=== PATIENT | female | born 1960 | race Caucasian/White ===

== ENCOUNTER 2021-07-23 11:47 | Outpatient (REF) | payer OTHER, SELFPAY ==
[2021-07-23 11:59] LABS: MANUAL DIFF FLAG NO
[2021-07-23 12:39] LABS: Basophils Absolute Auto 0.1 X10*3/uL (0.0-0.2); Basophils Percent Auto 0.8 % (0-2); Eosinophils Absolute Auto 0.1 X10*3/uL (0.0-0.4); Hematocrit 38.7 % (37.0-47.0); Hemoglobin 12.7 g/dl (12.0-16.0); Imm Gran Abs Auto 0.01 X10*3/uL (0.00-0.03); Imm Gran Pct Auto 0.2 % (0.0-0.4); Lymphocytes Absolute Auto 2.2 X10*3/uL (1.2-4.9); Lymphocytes Percent Auto 34.5 % (20-40); Mean Corpuscular HGB Conc 32.8 g/dl (31.0-35.0); Mean Corpuscular Hemoglobin 32.3 pg (27.0-33.0); Mean Corpuscular Volume 98.5 fL (80.0-98.0); Mean Platelet Volume 10.4 fL (9.4-12.3); Monocytes Absolute Auto 0.4 X10*3/uL (0.1-1.2); Monocytes Percent Auto 5.9 % (2-11); Neutrophils Absolute Auto 3.65 x10*3/uL (2.0-8.3); Neutrophils Percent Auto 56.6 % (45-73); Platelet Count 318 X10*3/uL (160-400); Red Blood Count 3.93 X10*6/uL (4.20-5.50); Red Cell Distribution Width 12.4 % (11.0-16.0); White Blood Count 6.4 X10*3/uL (4.8-10.8)
[2021-07-23 13:11] LABS: Alanine Aminotransferase 18 U/L (0-31); Albumin Level 4.1 g/dL (3.5-5.0); Alkaline Phosphatase 73 U/L (39-117); Anion Gap 12 (12-20); Aspartate Amino Transferase 22 U/L (5-31); Bilirubin Total 0.6 mg/dL (0.0-1.0); Blood Urea Nitrogen 15 mg/dL (9-16); Carbon Dioxide 29 mmol/L (22-29); Chloride 106 mmol/L (96-108); Cholesterol 168 mg/dL; Estimated Glomerular Filt Rate > 60; Glucose Fasting 97 mg/dL (60-99); HDL Cholesterol 58 mg/dL; LDL Cholesterol Calculated 89 mg/dl; Potassium 5.5 mmol/L (3.3-5.1); Sodium 141 mmol/L (135-145); Total Protein 6.9 g/dL (6.5-8.0); Triglycerides 105 mg/dL
[2021-07-23 13:31] LABS: Thyroid Stimulating Hormone 2.53 uIU/mL (0.32-4.0)
[2021-07-28 13:02] LABS: Vitamin D 25-OH, D2 <4 ng/mL; Vitamin D 25-OH, D3 51 ng/mL; Vitamin D 25-OH, Total 51 ng/mL (30-100)
== END 2021-07-23 11:48 | disposition home or self-care (01) ==
LOC: HO.LAB 11:47
PROVIDERS: PCP Internal Medicine; Visit Provider Internal Medicine
DX: E66.9 Obesity, unspecified (principal); E55.9 Vitamin D deficiency, unspecified; E78.5 Hyperlipidemia, unspecified; D64.9 Anemia, unspecified; G43.109 Migraine with aura, not intractable, without status migrainosus
CPT/HCPCS: 36415; 80053; 80061; 82306; 84443; 85025

== ENCOUNTER → 2021-09-16 13:05 | Outpatient (REF) | payer OTHER, SELFPAY ==
--- NOTE | 2021-09-16 13:12 | ECG_ITS ---
Test Reason : hyperkalemia Blood Pressure : / mmHG Vent. Rate : 069 BPM Atrial Rate : 069 BPM P-R Int : 180 ms QRS Dur : 106 ms QT Int : 422 ms P-R-T Axes : 058 027 048 degrees QTc Int : 452 ms Normal sinus rhythm Minimal voltage criteria for LVH, may be normal variant ( [place] product ) Borderline ECG No previous ECGs available Referred By: Misti Cam Electronically Signed By:Danny Nails
[2021-09-16 14:25] LABS: Alanine Aminotransferase 21 U/L (0-31); Albumin Level 4.3 g/dL (3.5-5.0); Alkaline Phosphatase 86 U/L (39-117); Anion Gap 11 (12-20); Aspartate Amino Transferase 24 U/L (5-31); Bilirubin Total 0.7 mg/dL (0.0-1.0); Blood Urea Nitrogen 11 mg/dL (9-16); Calcium 10.4 mg/dL (8.4-10.2); Carbon Dioxide 31 mmol/L (22-29); Chloride 103 mmol/L (96-108); Estimated Glomerular Filt Rate > 60; Glucose Random 96 mg/dL (60-115); Sodium 140 mmol/L (135-145); Total Protein 7.2 g/dL (6.5-8.0)
== END ==
LOC: HO.CARD 13:05
PROVIDERS: PCP Internal Medicine; Visit Provider Internal Medicine
DX: E87.5 Hyperkalemia (principal)
CPT/HCPCS: 36415; 80053; 93005

== ENCOUNTER 2021-11-28 16:21 | Outpatient (REF) | payer OTHER, SELFPAY ==
--- NOTE | ~2021-11-28 | MM_ITS ---
EXAMINATION: MM SCREENING DIGITAL BREAST TOMOSYNTHESIS, BILATERAL CLINICAL INFORMATION: Screening. Asymptomatic. The lifetime risk of breast cancer based on the Tyrer-Cuzick Model is 4%. COMPARISON: Mammography: 11/27/2017, 05/19/2016 TECHNIQUE: Digital breast tomosynthesis is performed in both the craniocaudal and mediolateral oblique views along with computer-aided detection (CAD). Synthesized 2D images are generated from the tomosynthesis. FINDINGS: There are scattered areas of fibroglandular density (ACR BI-RADS breast composition Category b). There are no significant masses, abnormal calcifications, or other abnormalities. Parenchymal pattern is similar to prior studies. There are no significant changes. MM/MM tomosynthesis screening BI IMPRESSION: No mammographic evidence of malignancy. ASSESSMENT: BI-RADS 1: Negative RECOMMENDATION: Routine annual mammography screening. This patient's information was entered into a reminder system with a target due date for their next mammogram.
== END 2021-11-28 16:22 | disposition home or self-care (01) ==
LOC: HO.MAMMO 16:21
PROVIDERS: Visit Provider Internal Medicine
DX: Z12.31 Encounter for screening mammogram for malignant neoplasm of breast (principal)
CPT/HCPCS: 77063; 77067

== ENCOUNTER → 2022-09-26 12:41 | Outpatient (REF) | payer OTHER, SELFPAY ==
--- NOTE | 2022-09-26 12:44 | CA_ITS ---
Transthoracic Echocardiogram Patient (Last, First, Middle): Yolie Joshua M Gender: Female Date of : 1960 Age: 61 Procedure Date: 09/26/2022 Procedure Type: Transthoracic Echocardiogram Location: OP Height: 160.02 cm Weight: 81.65 kg BSA: 1.85 m2 Heart Rate: bpm BP: 140 / 87 mmHg Soup Mixer: TO Referring MD: Misti Cam MD Symptoms: R01.1 - Cardiac murmur, unspecified Study Quality: Fair ECG Rhythm: Sinus Conclusions: - The left ventricular systolic function is normal. The calculated ejection fraction is 58% by biplane method. - Focal severe hypertrophy of the basal septum. - There is a bicuspid aortic valve. There is severe aortic valve stenosis. - There is mild dilatation of the ascending aorta measuring 4.00 cm. Findings Left Ventricle Normal left ventricular cavity size. The left ventricular systolic function is normal. The calculated ejection fraction is 58% by biplane method. There is no evidence of regional wall motion abnormalities. Evidence suggests grade I (mild) diastolic dysfunction. Focal severe hypertrophy of the basal septum. Right Ventricle Mildly increased right ventricular cavity size. There is normal right ventricular systolic function. Atria The left atrium is moderately dilated. The right atrium is normal in size. Aortic Valve There is a bicuspid aortic valve. There is moderate calcification of the aortic valve. There is severe aortic valve stenosis. The mean gradient is 44 mmHg. The aortic valve area is 0.79 cm2. There is no aortic valve regurgitation. Mitral Valve The mitral valve appears normal. There is mild mitral annular calcification. There is trace mitral valve regurgitation. There is no mitral valve stenosis. Pulmonic Valve The pulmonic valve is likely normal. There is trace pulmonic valve regurgitation. Tricuspid Valve Normal tricuspid valve structure. There is trace tricuspid valve regurgitation. There is no evidence of pulmonary hypertension. Great Vessels There is mild dilatation of the ascending aorta measuring 4.00 cm. Small plaque is seen in the sino tubular ridge. Venous The inferior vena cava is normal in size and collapses greater than 50% with inspiration. Pericardium/Pleural There is no evidence of pericardial effusion. Prior Study Comparison No prior study available for comparison. Measurements 2D Linear Measurements IVSd: 1.44 0.6-0.9/0.6-1.0 cm LVIDd: 5.00 3.9-5.3/4.2-5.9 cm LVIDd Index: 2.70 2.4-3.2/2.2-3.1 cm/m2 LVIDs: 3.32 2.0-3.6 cm LVPWd: 0.92 0.7-1.1 cm LA Diam: 3.60 2.7-3.8/3.0-4.0 cm LAIDs Index: 1.95 1.5-2.3 cm/m2 LV Mass: 284.47 67-162/88-224 g LV Mass Index: 153.77 43-95/49-115 g/m2 LVOT Diam: 2.20 3.0+(-)1.3 cm 2D Systolic Function EF 4C: 55.30 >55% EF 2C: 59.20 >55% EF BiP: 57.60 >55% Mitral Valve MV Pk E: 0.82 MV PK A: 0.79 MV Decel Time: 258.00 E/A: 1.00 E'Lateral: 6.31 E'Medial: 5.87 E/E' Med: 13.90 E/E' Lat: 13.00 PHT: 76.00 MVA PHT: 2.89 Decel [place]: 3.17 Aortic Valve AoV Pk Ariel: 4.03 AoV Mn Ariel: 3.23 AoV VTI: 1.07 AoV Pk Grad: 65.00 Aov Mn Grad: 44.00 MARK Cont.VTI: 0.79 LVOT LVOT Pk Ariel: 0.85 LVOT Mn Ariel: 0.65 LVOT VTI: 0.22 LVOT Pk Grad: 3.00 LVOT Mn Grad: 2.00 LVOT Diam: 2.20 LVOT Area: 3.80 Diastolic Function MV Pk E: 0.82 MV Pk A: 0.79 E/A: 1.00 E'Medial: 5.87 E/E' Med: 13.90 E' Laterial: 6.31 E/E' Lat: 13.00 Right Ventricle TAPSE (mm): 31.30 TVS' Ariel: 14.60 Tricuspid Valve TR Pk Ariel: 1.90 TR Pk Grad: 14.00 RA Press: 3.00 RVSP: 17.00 Great Vessels Aorta Sinus of Valsalva: 3.62 2.0-3.[address] [place]: 3.38 1.7-3.4 cm Ao Asc: 4.00 2.1-3.4 cm Ao Arch: 3.40 Updated in Other Vendor System with Status of Final Rogerio Dillon MD electronically signed on 09/28/2022 12:38:05 PM with status of Final
== END ==
LOC: HO.CARD 12:41
PROVIDERS: Visit Provider Internal Medicine
DX: R01.1 Cardiac murmur, unspecified (principal)
CPT/HCPCS: 93306

== ENCOUNTER → 2022-10-02 09:31 | Outpatient (BNVA) | payer OTHER, SELFPAY | PROVIDERS: PCP Internal Medicine; Visit Provider Internal Medicine | DX: Q23.1 Congenital insufficiency of aortic valve (principal); I77.810 Thoracic aortic ectasia | CPT/HCPCS: 93005 ==

== ENCOUNTER 2022-10-06 12:10 | Outpatient (REF) | payer OTHER, SELFPAY ==
[2022-10-06 14:29] LABS: Alanine Aminotransferase 16 U/L (0-31); Albumin Level 4.1 g/dL (3.5-5.0); Alkaline Phosphatase 78 U/L (39-117); Anion Gap 13 (12-20); Aspartate Amino Transferase 21 U/L (5-31); Bilirubin Total 0.8 mg/dL (0.0-1.0); Blood Urea Nitrogen 18 mg/dL (9-16); Carbon Dioxide 30 mmol/L (22-29); Chloride 102 mmol/L (96-108); Cholesterol 164 mg/dL; Estimated Glomerular Filt Rate > 60; Glucose Fasting 88 mg/dL (60-99); HDL Cholesterol 69 mg/dL; LDL Cholesterol Calculated 79 mg/dl; Potassium 4.1 mmol/L (3.3-5.1); Sodium 141 mmol/L (135-145); Triglycerides 80 mg/dL
== END 2022-10-06 12:11 | disposition home or self-care (01) ==
LOC: HO.LAB 12:10
PROVIDERS: PCP Internal Medicine; Visit Provider Internal Medicine
DX: Z00.00 Encounter for general adult medical examination without abnormal findings (principal)
CPT/HCPCS: 36415; 80053; 80061

== ENCOUNTER → 2022-10-07 08:49 | Outpatient (REF) | payer OTHER, SELFPAY ==
--- NOTE | 2022-10-07 08:52 | CA_ITS ---
Acquisition Time: 2022-10-07 09:31:32 Total Exercise Time: 00:08:00 Test Indications: AORTIC STENOSIS Medications: SEE CHART Protocol: MAE Max HR: 144 BPM 90% of Pred: 160 BPM Max BP: 158/088 mmHG Max Work Load: 10.0 METS Exercise stress test with exercise 8 min of Mae protocol, achieving 90% MPHR, 9.9 METs, with report of moderate sob and fatigue with request to stop, no chest discomfort, with isolated PACs and PVCs, with blunted BP response to exercise with baseline BP 136/88 and max BP 158/88, without EKG changes meeting criteria for ischemia. In recovery BP came down to 132/84 and breathing normalized. Test reviewed with Dr Man Referred By: Rogerio Dillon Overread By: IRIS LABOY
== END ==
LOC: HO.CARD 08:49
PROVIDERS: Visit Provider Internal Medicine
DX: I35.0 Nonrheumatic aortic (valve) stenosis (principal)
CPT/HCPCS: 93017

== ENCOUNTER → 2022-10-09 12:52 | Outpatient (BNVA) | payer OTHER, SELFPAY | PROVIDERS: PCP Internal Medicine; Visit Provider Internal Medicine | DX: Z13.89 Encounter for screening for other disorder (principal) ==

== ENCOUNTER 2022-10-17 16:57 | Outpatient (REF) | payer OTHER, SELFPAY ==
[2022-10-17 17:20] LABS: Hematocrit 37.9 % (37.0-47.0); Hemoglobin 12.8 g/dl (12.0-16.0); Mean Corpuscular HGB Conc 33.8 g/dl (31.0-35.0); Mean Corpuscular Hemoglobin 32.4 pg (27.0-33.0); Mean Corpuscular Volume 95.9 fL (80.0-98.0); Mean Platelet Volume 10.1 fL (9.4-12.3); Platelet Count 296 X10*3/uL (160-400); Red Blood Count 3.95 X10*6/uL (4.20-5.50); Red Cell Distribution Width 11.9 % (11.0-16.0); White Blood Count 7.8 X10*3/uL (4.8-10.8)
[2022-10-17 17:29] LABS: Prothrombin Time 11.4 SEC (10.0-13.1)
[2022-10-17 17:48] LABS: B Type Natriuretic Peptide 79 pg/mL (<100)
[2022-10-17 17:51] LABS: Anion Gap 12 (12-20); Blood Urea Nitrogen 17 mg/dL (9-16); Calcium 9.7 mg/dL (8.4-10.2); Carbon Dioxide 29 mmol/L (22-29); Chloride 104 mmol/L (96-108); Estimated Glomerular Filt Rate > 60; Glucose Random 112 mg/dL (60-115); Potassium 3.8 mmol/L (3.3-5.1); Sodium 141 mmol/L (135-145)
== END 2022-10-17 16:58 | disposition home or self-care (01) ==
LOC: HO.LAB 16:57
PROVIDERS: PCP Internal Medicine; Visit Provider Internal Medicine
DX: I35.0 Nonrheumatic aortic (valve) stenosis (principal)
CPT/HCPCS: 36415; 80048; 83880; 85027; 85610

== ENCOUNTER → 2022-11-20 12:57 | Outpatient (BNVA) | payer OTHER, SELFPAY | PROVIDERS: PCP Internal Medicine; Referring Provider Internal Medicine; Visit Provider Internal Medicine | DX: Z13.89 Encounter for screening for other disorder (principal) ==

== ENCOUNTER 2022-12-17 14:10 | Outpatient (REF) | payer OTHER, SELFPAY ==
--- NOTE | ~2022-12-17 | US_ITS ---
EXAMINATION: US EXTRACRANIAL CAROTID DUPLEX, BILATERAL CLINICAL INFORMATION: Aortic aneurysm. COMPARISON: None available. TECHNIQUE: Real-time ultrasound and Doppler techniques (integrating B-mode 2-D vascular images, Doppler spectral analysis and color-flow Doppler imaging) were utilized to interrogate the extracranial carotid arteries, the vertebral arteries and proximal subclavian arteries bilaterally. The degree of stenosis is determined by criteria similar to NASCET. FINDINGS: Right Side: 1. There is mild atherosclerotic plaque seen in the bifurcation/proximal ICA region. 2. The common carotid artery PSV proximally is 118 cm/s and distally 85 cm/s. 3. The proximal internal carotid artery velocities are 71 cm/s systolic and 79 cm/s diastolic. 4. The proximal external carotid artery PSV is 86 cm/s. 5. The vertebral artery shows antegrade flow. 6. The subclavian artery waveforms are normal. Left Side: 1. There is mild atherosclerotic plaque seen in the bifurcation/proximal ICA region. 2. The common carotid artery PSV proximally is 103 cm/s and distally 70 cm/s. 3. The proximal internal carotid artery velocities are 64 cm/s systolic and 22 cm/s diastolic. 4. The proximal external carotid artery PSV is 88 cm/s. 5. The vertebral artery shows antegrade flow. 6. The subclavian artery waveforms are normal. US/US carotid duplex BI IMPRESSION: 1. RIGHT: Minimal, non-hemodynamically significant stenosis of the proximal right internal carotid artery corresponding to a 0-49% stenosis by velocity criteria. 2. LEFT: Minimal, non-hemodynamically significant stenosis of the proximal left internal carotid artery corresponding to a 0-49% stenosis by velocity criteria.
--- NOTE | ~2022-12-17 | CT_ITS ---
EXAMINATION: CT CHEST WITHOUT CONTRAST CLINICAL INFORMATION: Aortic aneurysm. COMPARISON: None available. TECHNIQUE: Multidetector volumetric CT imaging of the chest was done. Axial MIP volume rendering provided. Sagittal and coronal reformatted images were obtained. This CT examination was performed using dose optimization techniques as appropriate, variously including the following: *Automated exposure control *Adjustment of mA and/or kV according to patient size (this includes techniques or standardized protocols for targeted exams where dose is matched to indication/reason for exam; i.e. extremities or head) *Use of iterative reconstruction technique DLP: 169 mGy-cm. FINDINGS: LUNGS: Central airways are patent. No significant bronchial wall thickening is identified. No bronchiectasis is seen. No confluent parenchymal disease is noted. There are some sub-4 mm densities seen. There is some calcified granulomas present. No suspicious lung nodules appreciated. MEDIASTINUM: The heart is normal size. Aortic valve calcification is present. No pericardial effusion. The ascending thoracic aorta measures up to approximately 4.4 cm in diameter. The aortic arch and descending thoracic aorta are not dilated. No mediastinal or hilar lymphadenopathy is appreciated. CORONARY ARTERY CALCIFICATION: Coronary artery calcification is present. PLEURA: There is no pleural effusion. No pleural mass or thickening. AXILLA: No lymphadenopathy. UPPER ABDOMEN: Unremarkable. OSSEOUS STRUCTURES: No suspicious destructive bony lesions identified. CT/CT chest wo IV con IMPRESSION: Ascending thoracic aortic aneurysm measuring up to 4.4 cm in diameter. Old granulomatous disease. Fleischner guidelines were followed.
== END 2022-12-17 14:11 | disposition home or self-care (01) ==
LOC: HO.US 14:10
PROVIDERS: PCP Internal Medicine; Visit Provider Thoracic Surgery (Cardiothoracic Vascular Surgery)
DX: R09.89 Other specified symptoms and signs involving the circulatory and respiratory systems (principal); I71.9 Aortic aneurysm of unspecified site, without rupture
CPT/HCPCS: 71250; 93880

== ENCOUNTER 2023-01-08 12:51 | Outpatient (REF) | payer OTHER, SELFPAY ==
--- NOTE | ~2023-01-08 | MM_ITS ---
EXAMINATION: MM SCREENING DIGITAL BREAST TOMOSYNTHESIS, BILATERAL CLINICAL INFORMATION: Screening. Asymptomatic. The lifetime risk of breast cancer based on the Tyrer-Cuzick Model is 5.0%. COMPARISON: Mammography: 11/28/2021 and studies dating back to 03/15/2008. TECHNIQUE: Digital breast tomosynthesis is performed in both the craniocaudal and mediolateral oblique views along with computer-aided detection (CAD). Synthesized 2-D images are generated from the tomosynthesis. FINDINGS: There are scattered areas of fibroglandular density (ACR BI-RADS breast composition Category b). There is a stable parenchymal pattern of the left breast. Within the right breast, there is a stable region of density within the upper outer aspect. However, on mediolateral oblique study just inferior and anterior to this, there is question of an irregularly marginated density for which spot compression films are recommended. No suspicious grouping of microcalcifications is seen. MM/MM tomosynthesis screening BI IMPRESSION: Right breast density for further evaluation. ASSESSMENT: BI-RADS 0: Incomplete - Need Additional Imaging Evaluation. RECOMMENDATION: 1. Additional views of the right breast. 2. Targeted ultrasound if warranted after review of the additional views. 3. Radiology department staff will contact the patient for additional imaging. This patient's information was entered into a reminder system with a target due date for their next mammogram.
== END 2023-01-08 12:52 | disposition home or self-care (01) ==
LOC: HO.MAMMO 12:51
PROVIDERS: PCP Internal Medicine; Visit Provider Internal Medicine
DX: Z12.31 Encounter for screening mammogram for malignant neoplasm of breast (principal)
CPT/HCPCS: 77063; 77067

== ENCOUNTER 2023-01-13 14:51 | Outpatient (REF) | payer OTHER, SELFPAY ==
--- NOTE | ~2023-01-13 | MM_ITS ---
EXAMINATION: MM DIAGNOSTIC DIGITAL BREAST TOMOSYNTHESIS, RIGHT CLINICAL INFORMATION: Recall from screening for question of asymmetric density right breast on MLO view superior to posterior nipple line. COMPARISON: Multiple prior mammography exams, most recent 01/08/2023. TECHNIQUE: Digital breast tomosynthesis is performed. 2D images are generated from the tomosynthesis. The following views are obtained: Spot MLO, standard ML. FINDINGS: There are scattered areas of fibroglandular density (ACR BI-RADS breast composition Category b). The additional views show parenchymal pattern similar to prior exams. There is no persistent asymmetric density and no interval architectural abnormality or mass in the area for recall. Results are discussed with the patient at time of visit. MM/MM tomosynthesis added views R IMPRESSION: Additional views show no significant changes from prior studies. ASSESSMENT: BI-RADS 2: Benign RECOMMENDATION: Routine annual mammography screening. This patient's information was entered into a reminder system with a target due date for their next mammogram.
== END 2023-01-13 14:52 | disposition home or self-care (01) ==
LOC: HO.MAMMO 14:51
PROVIDERS: PCP Internal Medicine; Visit Provider Internal Medicine
DX: R92.2 Inconclusive mammogram (principal)
CPT/HCPCS: 77061; 77065

== ENCOUNTER → 2023-03-12 15:02 | Outpatient (BNVA) | payer OTHER, SELFPAY | PROVIDERS: PCP Internal Medicine; Referring Provider Internal Medicine; Visit Provider Nurse Practitioner Family ==

== ENCOUNTER 2023-03-17 14:00 | Outpatient (REF) | payer OTHER, SELFPAY ==
[2023-03-17 14:09] LABS: MANUAL DIFF FLAG NO
[2023-03-17 14:30] LABS: Basophils Percent Auto 0.6 % (0-2); Eosinophils Absolute Auto 0.1 X10*3/uL (0.0-0.4); Eosinophils Percent Auto 0.9 % (0-4); Hematocrit 38.5 % (37.0-47.0); Hemoglobin 12.2 g/dl (12.0-16.0); Imm Gran Abs Auto 0.01 X10*3/uL (0.00-0.03); Imm Gran Pct Auto 0.1 % (0.0-0.4); Lymphocytes Absolute Auto 1.2 X10*3/uL (1.2-4.9); Lymphocytes Percent Auto 17.7 % (20-40); Mean Corpuscular HGB Conc 31.7 g/dl (31.0-35.0); Mean Corpuscular Hemoglobin 31.7 pg (27.0-33.0); Mean Platelet Volume 10.6 fL (9.4-12.3); Monocytes Absolute Auto 0.3 X10*3/uL (0.1-1.2); Monocytes Percent Auto 5.1 % (2-11); Neutrophils Percent Auto 75.6 % (45-73); Platelet Count 283 X10*3/uL (160-400); Red Blood Count 3.85 X10*6/uL (4.20-5.50); Red Cell Distribution Width 13.1 % (11.0-16.0); White Blood Count 6.7 X10*3/uL (4.8-10.8)
[2023-03-17 16:11] LABS: Iron 80 mcg/dL (30-160); Percent Iron Saturation 27 % (15-50); Total Iron Binding Capacity 299 mcg/dL (228-428); Unsaturated Iron Binding 219 ug/dL
== END 2023-03-17 14:01 | disposition home or self-care (01) ==
LOC: HO.LAB 14:00
PROVIDERS: PCP Internal Medicine; Visit Provider Internal Medicine
DX: D64.9 Anemia, unspecified (principal)
CPT/HCPCS: 36415; 83540; 85025

== ENCOUNTER → 2023-04-10 14:48 | Outpatient (REF) | payer OTHER, SELFPAY ==
--- NOTE | 2023-04-10 14:51 | CA_ITS ---
Transthoracic Echocardiogram Patient (Last, First, Middle): Yolie Joshua M Gender: Female Date of : 1960 Age: 62 Procedure Date: 04/10/2023 Procedure Type: Transthoracic Echocardiogram Location: OP Height: 160.02 cm Weight: 83.01 kg BSA: 1.86 m2 Heart Rate: bpm BP: 138 / 80 mmHg Farm Owner Operator: TO Referring MD: Jayla Roche DENTAL FINANCIAL COORDINATOR-C Symptoms: Z98.890 - Other specified postprocedural states Study Quality: Fair Conclusions: - Normal left ventricular size and systolic function. There is mildly increased left ventricular wall thickness. The visually estimated ejection fraction is between 55-60%. Findings Left Ventricle Normal left ventricular size and systolic function. There is mildly increased left ventricular wall thickness. The visually estimated ejection fraction is between 55-60%. There is no evidence of regional wall motion abnormalities. Abnormal diastolic function is noted. Spectral Doppler is indicative of an impaired relaxation filling pattern. E/E prime ratio is between 8 and 15 consistent with indeterminate filling pressures. Right Ventricle Mildly increased right ventricular cavity size. There is low normal right ventricular systolic function. Atria The left atrium is moderately dilated. The right atrium is moderately dilated. Aortic Valve A bioprosthetic aortic valve is present. The prosthetic aortic valve appears to be functioning abnormally. The peak aortic velocity is 3.04 m/s with a calculated peak gradient of 37 mmHg. The mean gradient is 18 mmHg. The aortic valve area is 1.21 cm2. There is no aortic valve regurgitation. Mitral Valve The mitral valve appears normal. There is no mitral valve regurgitation. There is no mitral valve stenosis. Pulmonic Valve Normal pulmonic valve structure and function. There is no pulmonic valve regurgitation. Tricuspid Valve Normal tricuspid valve structure and function. There is trace tricuspid valve regurgitation. Normal right atrial pressure. There is no evidence of pulmonary hypertension. Great Vessels All visible segments of the aorta are normal in size. The visualized portions of the pulmonary artery and branches are normal. Venous The inferior vena cava is normal in size and collapses greater than 50% with inspiration. Pericardium/Pleural There is no evidence of pericardial effusion. Prior Study Comparison Changes noted compared to prior study dated: 09/26/2022. Bioprosthetic valve in aortic position with moderate gradient. Measurements 2D Linear Measurements IVSd: 1.30 0.6-0.9/0.6-1.0 cm LVIDd: 5.20 3.9-5.3/4.2-5.9 cm LVIDd Index: 2.80 2.4-3.2/2.2-3.1 cm/m2 LVIDs: 3.30 2.0-3.6 cm LVPWd: 1.00 0.7-1.1 cm LA Diam: 4.10 2.7-3.8/3.0-4.0 cm LAIDs Index: 2.20 1.5-2.3 cm/m2 LV Mass: 292.52 67-162/88-224 g LV Mass Index: 157.27 43-95/49-115 g/m2 LVOT Diam: 2.00 3.0+(-)1.3 cm 2D Systolic Function EF 4C: 61.70 >55% EF 2C: 69.00 >55% EF BiP: 66.50 >55% Mitral Valve MV Pk E: 0.84 MV PK A: 0.97 MV Decel Time: 111.00 E/A: 0.90 E'Lateral: 9.57 E'Medial: 5.87 E/E' Med: 14.40 E/E' Lat: 8.80 PHT: 33.00 MVA PHT: 6.67 Decel [place]: 7.57 Aortic Valve AoV Pk Ariel: 3.04 AoV Mn Ariel: 2.02 AoV VTI: 0.68 AoV Pk Grad: 37.00 Aov Mn Grad: 18.00 MARK Cont.VTI: 1.21 LVOT LVOT Pk Ariel: 1.13 LVOT Mn Ariel: 0.82 LVOT VTI: 0.26 LVOT Pk Grad: 5.00 LVOT Mn Grad: 3.00 LVOT Diam: 2.00 LVOT Area: 3.14 Diastolic Function MV Pk E: 0.84 MV Pk A: 0.97 E/A: 0.90 E'Medial: 5.87 E/E' Med: 14.40 E' Laterial: 9.57 E/E' Lat: 8.80 Right Ventricle TAPSE (mm): 22.10 TVS' Ariel: 9.25 Tricuspid Valve TR Pk Ariel: 2.43 TR Pk Grad: 24.00 RA Press: 3.00 RVSP: 27.00 Great Vessels Aorta Ao Asc: 2.90 2.1-3.4 cm Ao Arch: 3.30 Updated in Other Vendor System with Status of Final Danny Nails MD electronically signed on 04/11/2023 9:57:41 PM with status of Final
== END ==
LOC: HO.CARD 14:48
PROVIDERS: PCP Internal Medicine; Visit Provider Nurse Practitioner Family
DX: Z95.2 Presence of prosthetic heart valve (principal); Z98.890 Other specified postprocedural states; Z86.79 Personal history of other diseases of the circulatory system
CPT/HCPCS: 93306

== ENCOUNTER → 2023-04-10 14:51 | Outpatient (BNV) | payer OTHER, SELFPAY | PROVIDERS: PCP Internal Medicine; Visit Provider Internal Medicine Cardiovascular Disease | DX: I35.0 Nonrheumatic aortic (valve) stenosis (principal); Z95.2 Presence of prosthetic heart valve | CPT/HCPCS: 93306 ==

== ENCOUNTER → 2023-06-05 14:54 | Outpatient (REF) | payer OTHER, SELFPAY ==
--- NOTE | 2023-06-05 15:04 | CA_ITS ---
Transthoracic Echocardiogram Patient (Last, First, Middle): Yolie Joshua M Gender: Female Date of : 1960 Age: 62 Procedure Date: 06/05/2023 Procedure Type: Transthoracic Echocardiogram Location: OP Height: 160.02 cm Weight: 83.92 kg BSA: 1.87 m2 Heart Rate: 74 bpm BP: 134 / 72 mmHg Reconnaissance Crewmember: SB Referring MD: Jayla Roche INTERMODAL OWNER OPERATOR TRUCK DRIVER-C Symptoms: Z95.2 presence of prosthetic heart valve/R93.1 abnormal findings on diagnostic imaging of heart and coronary circulation. Study Quality: Adequate/limited study ordered ECG Rhythm: Sinus Conclusions: - The left ventricular systolic function is normal. The visually estimated ejection fraction is between 55-60%. - A bioprosthetic aortic valve is present. The prosthetic aortic valve appears to be functioning normally. Findings Left Ventricle Normal left ventricular cavity size. The left ventricular systolic function is normal. The visually estimated ejection fraction is between 55-60%. There is paradoxical septal motion consistent with post-operative status. Aortic Valve A bioprosthetic aortic valve is present. The prosthetic aortic valve appears to be functioning normally. The peak aortic gradient is 29 mmHg.The mean gradient is 15 mmHg. The aortic valve area is 1.14 cm2. Dimensionless index 0.38. Acceleration time within acceptable limits. Prior Study Comparison Changes noted compared to prior study dated: 04/10/2023. Gradients are improved compared to prior study. Measurements 2D Linear Measurements IVSd: 1.20 0.6-0.9/0.6-1.0 cm LVIDd: 5.20 3.9-5.3/4.2-5.9 cm LVIDd Index: 2.78 2.4-3.2/2.2-3.1 cm/m2 LVIDs: 3.50 2.0-3.6 cm LVPWd: 1.00 0.7-1.1 cm LV Mass: 275.20 67-162/88-224 g LV Mass Index: 147.17 43-95/49-115 g/m2 LVOT Diam: 1.90 3.0+(-)1.3 cm 2D Systolic Function EF 4C: 55.40 >55% EF 2C: 51.60 >55% EF BiP: 53.10 >55% Aortic Valve AoV Pk Ariel: 2.68 AoV Mn Ariel: 1.86 AoV VTI: 0.53 AoV Pk Grad: 29.00 Aov Mn Grad: 15.00 MARK Cont.VTI: 1.14 LVOT LVOT Pk Ariel: 1.01 LVOT Mn Ariel: 0.79 LVOT VTI: 0.21 LVOT Pk Grad: 4.00 LVOT Mn Grad: 3.00 LVOT Diam: 1.90 LVOT Area: 2.84 Updated in Other Vendor System with Status of Final Rogerio Dillon MD electronically signed on 06/07/2023 11:44:22 AM with status of Final
== END ==
LOC: HO.CARD 14:54
PROVIDERS: PCP Internal Medicine; Visit Provider Nurse Practitioner Family
DX: R93.1 Abnormal findings on diagnostic imaging of heart and coronary circulation (principal); Z95.2 Presence of prosthetic heart valve; Z98.890 Other specified postprocedural states; Z86.79 Personal history of other diseases of the circulatory system
CPT/HCPCS: 93308

== ENCOUNTER → 2023-06-05 15:04 | Outpatient (BNV) | payer OTHER, SELFPAY | PROVIDERS: PCP Internal Medicine; Visit Provider Internal Medicine | DX: R93.1 Abnormal findings on diagnostic imaging of heart and coronary circulation (principal) | CPT/HCPCS: 93308 ==

== ENCOUNTER 2023-06-16 15:35 | Outpatient (AMB) | payer OTHER, SELFPAY ==
--- NOTE | 2023-06-16 15:45 | A.OFFVIS_ITS ---
Intake Vital Signs 06/16/23 15:47 Height 5 ft 3 in Weight 184 lb 4.903 oz BMI 32.6 BP 126/74 Blood Pressure Location Lt brachial Position Sitting Pulse 70 Pulse Source Pulse Oximeter Pulse Oximetry (%) 98 Oxygen Delivery Method Room Air Intake Visit Reasons: 3 month follow up after echo Intake Note: Pt presents to the office today for a 3 month follow up after echo. Pt states she is feeling good. Pt denies any SOB or chest pain. Allergies oxycodone Adverse Reaction (Intermediate, Verified 06/16/23 15:48) sick to stomach codeine Adverse Reaction (Intermediate, Uncoded 06/16/23 15:48) abd pain, vomiting Medication List - Last Reconciled 06/16/23 by MICAH Poole aspirin 81 mg PO DAILY buspirone 7.5 mg PO BID 30 days calcium carbonate (Calcium 500) 500 mg PO DAILY cholecalciferol (vitamin D3) 50 mcg PO DAILY [id number] serr 1,500-400-100 mg-unit-mg (Glucosamine Daily Complex) 1 tab PO DAILY metoprolol tartrate 25 mg PO BID multivitamin (Daily Multi-Vitamin tablet) 1 tab PO DAILY omeprazole 20 mg PO DAILY PRN 90 days trazodone 100 mg PO BEDTIME PRN vitamin B complex (B Complex-Vitamin B12 tablet) 1 tab PO DAILY HPI 3 month follow up after echo HPI Details Yolie is a 62-year-old female with past medical history of heart murmur, newer finding of bicuspid aortic valve with severe aortic stenosis and dilated ascending aorta. She recently underwent cardiac catheterization showing normal coronary arteries. She then underwent a bioprosthetic AVR and ascending aorta repair on 01/29/2023. Today she reports she has been feeling well with no concerning symptoms. She denies having chest discomfort at rest or with activity. She will feel a sharp random pain below her right breast which she feels is nerve related due to her recent surgery. She has had a chest x-ray which she said was normal. She has some numbness along the right side of her chest. No shortness of breath, dizziness, presyncope, syncope, falls. No PND, orthopnea or edema. She takes care of her grandchildren which she tolerates well. She did not do cardiac rehab. When she finally got an appointment it was 3 months following her surgery and she felt she was recovered. She is taking her medications as directed. [facility] Medical History Physical exam Hyperkalemia Internal hemorrhoids Diverticulosis Golfers elbow of left upper extremity Obesity (BMI 30.0-34.9) GERD (gastroesophageal reflux disease) Migraine with aura and without status migrainosus, not intractable Surgical History H/O aortic valve replacement History of heart surgery History of carpal tunnel surgery History of cholecystectomy Family History Mother COPD (chronic obstructive pulmonary disease) Diabetes Afib Osteoporosis Dementia Father Lung cancer Family/Other Substance use disorder Maternal Grandmother Colon cancer Social History Housing: House Alcohol intake: current Alcohol intake frequency: 0-2 drinks per day Alcohol type: wine Patient Tobacco Use Status: Never used Tobacco e-Cigarette/Vaping Use: Never Used Second Hand Smoke Exposure: No Substance Use Type: Marijuana service: No Current occupational status: other 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 Current occupational exposures/hazards: No Cognitive needs: No Hearing needs: No Vision needs: Yes Review of Systems Const All systems reviewed & are unremarkable except as noted in HPI and below Physical Exam Vital Signs: Last Vital Signs Pulse 70 06/16/23 15:47 BP 126/74 06/16/23 15:47 Pulse Ox 98 06/16/23 15:47 Oxygen Delivery Method Room Air 06/16/23 15:47 BMI result Body Mass Index 32.6 Const General: cooperative, healthy appearing, comfortable and no acute distress Orientation/consciousness: patient oriented x3 Neck Neck: Yes normal visual inspection and Yes no JVD Chest Other: sternal incision well healed Resp Effort & Inspection: normal respiratory effort Auscultation: clear to auscultation bilaterally, no crackles, no rales, no rhonchi and no wheezes Cardio Jugular venous distension: no JVD Rate: regular rate Rhythm: regular rhythm Heart sounds: S1 normal heart sound present, S2 normal heart sound present, no gallops, Murmur heart sound present (2/6 systolic murmur, loudest at right sternal border.) and no rubs Neuro General: patient oriented x3 Extrem General: Yes normal to inspection and No no pedal edema Psych Appearance: grossly normal Mental Status: mental status grossly normal Speech and movement: Normal speech and movement present Assessment & Plan Assessment & Plan (1) Severe aortic stenosis: Code(s): I35.0 - Nonrheumatic aortic (valve) stenosis Plan: Newer finding of severe aortic stenosis, symptomatic. An echocardiogram done 09/26/2022 showed EF 58%, severe focal hypertrophy of the basal septum, bicuspid aortic valve, severe with mean gradient 44 mmHg, aortic valve area 0.79 centimeter sq, dilation of the ascending aorta 4 cm. She underwent cardiac cath eterization on 11/06/2022 showing normal coronary arteries. She had been referred to cardiac surgery and underwent a bioprosthetic AVR and ascending aorta aneurysm repair on 01/29/2023. Testing prior to her surgery showed her ascending aorta dilated at 4.4 cm. She reports uneventful recovery. She was on amiodarone for 30 days. On follow-up visit in February she was noted to have a systolic murmur. An echocardiogram done 04/10/2023 showed normal EF, bioprosthetic AVR with mean gradient 18 mmHg, aortic valve area 1.21 centimeter sq. A recheck of a limited echo done 06/05/2023 shows EF 55-60%, mean gradient 15 mmHg, aortic valve area 1.1 4 centimeter sq. It was determined that the valve is functioning normally. Reviewed results with patient in detail. Some pressure gradient is acceptable with valve replacement. Murmur is noted again on examination. She has no clinical signs of heart failure. She denies any concerning chest discomfort or shortness of breath. She did not complete [facility] rehab but has been doing normal activities and tolerates well. Continue current aspirin and metoprolol. Cardiology follow-up in 6 months, sooner if needed (2) Ascending aorta dilatation: Comment: repaired Code(s): I77.810 - Thoracic aortic ectasia Plan: As above (3) Aortic valve replaced: Code(s): Z95.2 - Presence of prosthetic heart valve (4) S/P ascending aortic aneurysm repair: Code(s): Z98.890 - Other specified postprocedural states; Z86.79 - Personal history of other diseases of the circulatory system (5) Systolic murmur: Code(s): R01.1 - Cardiac murmur, unspecified Plan: 2/6 murmur noted on examination today, Loudest at right sternal border. Small prior prosthetic valve gradient noted on recent echo. Coding Level of Care Code Est Pt Level 3 (70474) Diagnoses Severe aortic stenosis I35.0 Ascending aorta dilatation I77.810 Aortic valve replaced Z95.2 S/P ascending aortic aneurysm repair Z98.890; Z86.79 Systolic murmur R01.1 Time Spent (min) 24
[2023-06-16 15:47] VITALS: BP 126/74; PULSE 70; O2SAT 98; BMI 32.6
== END 2023-06-16 16:17 | disposition home or self-care (01) ==
PROVIDERS: PCP Internal Medicine; Visit Provider Nurse Practitioner Family
DX: I35.0 Nonrheumatic aortic (valve) stenosis (principal); I77.810 Thoracic aortic ectasia; Z95.2 Presence of prosthetic heart valve; Z98.890 Other specified postprocedural states; Z86.79 Personal history of other diseases of the circulatory system; R01.1 Cardiac murmur, unspecified
CPT/HCPCS: 99213

== ENCOUNTER → 2023-06-16 15:35 | Outpatient (BNVA) | payer OTHER, SELFPAY | PROVIDERS: PCP Internal Medicine; Visit Provider Nurse Practitioner Family ==

== ENCOUNTER 2023-07-06 15:09 | Outpatient (AMB) | payer OTHER, SELFPAY ==
--- NOTE | 2023-07-06 15:12 | MHC.PC.OV ---
Vital Signs 07/06/23 15:13 Height 5 ft 3 in Weight 184 lb BMI 32.6 BP 112/76 Blood Pressure Location Lt brachial Position Sitting Pulse 78 Pulse Source Pulse Oximeter Pulse Oximetry (%) 98 Oxygen Delivery Method Room Air Intake Visit Reasons: anemia, gerd - due for colonoscopy Intake Note: Patient here for a follow up Anemia, GERD Brick Paver Required: No Accompanied by: Self / Same As Patient Allergies oxycodone Adverse Reaction (Intermediate, Verified 07/06/23 15:24) sick to stomach codeine Adverse Reaction (Intermediate, Uncoded 07/06/23 15:24) abd pain, vomiting Medication List - Last Reconciled 07/06/23 by Misti Cam MD aspirin 81 mg PO DAILY buspirone 7.5 mg PO BID 30 days calcium carbonate (Calcium 500) 500 mg PO DAILY cholecalciferol (vitamin D3) 50 mcg PO DAILY [id number]-Omzlswgcp serr 1,500-400-100 mg-unit-mg (Glucosamine Daily Complex) 1 tab PO DAILY metoprolol tartrate 25 mg PO BID multivitamin (Daily Multi-Vitamin tablet) 1 tab PO DAILY omeprazole 20 mg PO DAILY PRN 90 days trazodone 100 mg PO BEDTIME PRN vitamin B complex (B Complex-Vitamin B12 tablet) 1 tab PO DAILY Tobacco use date assessed: 03/17/23 Dental Screening Dental Screen Date: 07/06/23 Did you have a dental visit in the last 12 months?: Yes Did you have a dental problem in the last 6 months where you did not have access to dental care?: No Was dental information given to patient?: Patient has dentist HPI HPI Comments History of Present Illness Details This is a 62-year-old female with anxiety, GERD, insomnia and low vitamin-D that comes today for follow-up on her conditions. GERD stable with PPIs. Anxiety stable with buspirone. Insomnia well controlled with trazodone. On vitamin-D supplements for low vitamin-D. Had our did valve replacement with worsening involved no requiring Coumadin. This was years ago. No chest pain or shortness of breath. [facility] History (Updated 07/06/23 @ 15:52 by Misti Cam MD) Physical exam Hyperkalemia Internal hemorrhoids Diverticulosis Golfers elbow of left upper extremity Obesity (BMI 30.0-34.9) GERD (gastroesophageal reflux disease) Migraine with aura and without status migrainosus, not intractable Surgical History H/O aortic valve replacement History of heart surgery History of carpal tunnel surgery History of cholecystectomy Family History Mother COPD (chronic obstructive pulmonary disease) Diabetes Afib Osteoporosis Dementia Father Lung cancer Family/Other Substance use disorder Maternal Grandmother Colon cancer Social History Housing: House Alcohol intake: current Alcohol intake frequency: 0-2 drinks per day Alcohol type: wine Patient Tobacco Use Status: Never used Tobacco e-Cigarette/Vaping Use: Never Used Second Hand Smoke Exposure: No Substance Use Type: Marijuana service: No Current occupational status: other 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 Austin Frost, Melissa Mcclendon, Edgar Obrien and colleagues, with an educational edi from [employer]. Review of Systems Const All systems reviewed & are unremarkable except as noted in HPI and below Eyes Reports no additional complaints, Denies change in vision and Denies other visual disturbances Card Denies chest pain at rest, Denies chest pain with activity, Denies edema, Denies irregular heart rhythm, Denies claudication, Denies dyspnea, Denies dyspnea on exertion, Denies orthopnea, Denies paroxysmal nocturnal dyspnea and Denies slow heart rate Resp Denies cough, Denies dyspnea and Denies dyspnea on exertion GI Denies abdominal pain, Denies change in bowel habits, Denies excessive flatus, Denies nausea and Denies vomiting Denies urinary incontinence, Denies urinary hesitancy and Denies urinary urgency Musc Denies abnormal gait, Denies atrophy, Denies deformity and Denies limited range of motion Skin/Breast Denies bleeding lesions, Denies changing lesions and Denies rash Neuro Denies abnormal gait and Denies lack of coordination Physical exam (Primary Care) Vital Signs: Last Vital Signs Pulse 78 10/16/23 15:13 BP 112/76 07/06/23 15:13 Pulse Ox 98 07/06/23 15:13 Oxygen Delivery Method Room Air 07/06/23 15:13 BMI result Body Mass Index 32.6 Tobacco/Smoking Status: Tobacco use Status Tobacco use date assessed 03/17/23 07/06/23 15:19 Patient Tobacco Use Status Never used Tobacco 07/06/23 15:19 Tobacco use type 10/09/22 13:46 e-Cigarette/Vaping Use Never Used 07/06/23 15:19 Thrive Assessment: Date of Thrive Assessment Date Thrive assessed 03/17/23 07/06/23 15:19 Eyes General: appearance normal, both eyes and all related structures Eyelids: Yes eyelids normal Conjunctivae: conjunctivae normal Neck Neck: Yes normal visual inspection and Yes supple Resp Effort & Inspection: normal respiratory effort Auscultation: clear to auscultation bilaterally Cardio Jugular venous distension: no JVD Rate: regular rate Rhythm: regular rhythm Heart sounds: Murmur heart sound present systolic Extrem General: Yes full ROM Office Procedures Flu Questionnaire Does the patient have a severe egg allergy?: No Does the patient have severe life threatening allergies?: No Does the patient have a fever or illness today?: No Has the patient ever had Guillain-[place] Syndrome?: No Has the patient ever had any past reaction to a flu shot?: No Immunizations flu vacc [id number] 6mos up(PF) 60 mcg(15 mcgx4)/0.5 mL IM syringe Performing Provider: Misti Cam MD Performing Location: [facility] Administered by: LOUANN Arciniega on 07/06/23 15:40 Dose Route Admin Location Dispensed Lot Number Expiration Date NDC Clerical Supervisor 0.5 mL IM Left Deltoid 0.5 mL [id number] 03/20/24 14011-423-24 [employer] VIS Given Date VIS Provided VIS Publication Date 07/06/23 Single Vaccine 21 Eligibility Eligibility Date Funding Source Not [facility] Eligible 07/06/23 Private Assessment and Plan Assessment & Plan (1) Anxiety: Code(s): F41.9 - Anxiety disorder, unspecified Plan: Continue buspirone. (2) GERD (gastroesophageal reflux disease): Code(s): K21.9 - Gastro-esophageal reflux disease without esophagitis Qualifiers: Esophagitis presence: esophagitis presence not specified Qualified Code(s): K21.9 - Gastro-esophageal reflux disease without esophagitis Plan: Continue PPIs. (3) Insomnia: Code(s): G47.00 - Insomnia, unspecified Plan: Continue trazodone. (4) Hypovitaminosis D: Code(s): E55.9 - Vitamin D deficiency, unspecified Plan: Continue vitamin-D supplements. Orders: Orders Influenza [id number] Immunization Today Z23 - Encounter for immunization Comprehensive [place]. Panel Fast Today Z95.2 - Presence of prosthetic heart valve Lipid Panel Today E78.5 - Hyperlipidemia, unspecified, Z95.2 - Presence of prosthetic heart valve Referrals Gastroenterology Referral Z12.11 - Encounter for screening for malignant neoplasm of colon Coding Level of Care Code Est Pt Level 4 (65535) Diagnoses Anxiety F41.9 Gastroesophageal reflux disease, unspecified whether esophagitis present K21.9 Esophagitis presence: esophagitis presence not specified Insomnia G47.00 Hypovitaminosis D E55.9 Time Spent (min) 22
[2023-07-06 15:13] VITALS: BP 112/76; PULSE 78; O2SAT 98; BMI 32.6
== END 2023-07-06 15:39 | disposition home or self-care (01) ==
PROVIDERS: PCP Internal Medicine; Visit Provider Internal Medicine
DX: F41.9 Anxiety disorder, unspecified (principal); K21.9 Gastro-esophageal reflux disease without esophagitis; G47.00 Insomnia, unspecified; E55.9 Vitamin D deficiency, unspecified; Z23 Encounter for immunization
CPT/HCPCS: 90471; 90686; 99214

== ENCOUNTER 2023-07-14 13:57 | Outpatient (AMB) | payer OTHER, SELFPAY ==
--- NOTE | 2023-07-14 13:59 | MHC.OFFVIS ---
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 She is doing well with no concerns. Attempting to eat a healthy diet with calcium and vitamin D and stays active with exercise. Currently not sexually active. Denies any vaginal dryness or irritation. Last pap smear; 2018. Last mammogram; 12/2022. Colonoscopy is UTD. [facility] Medical History Physical exam Hyperkalemia Internal hemorrhoids Diverticulosis Golfers elbow of left upper extremity Obesity (BMI 30.0-34.9) GERD (gastroesophageal reflux disease) Migraine with aura and without status migrainosus, not intractable Surgical History H/O aortic valve replacement History of heart surgery History of carpal tunnel surgery History of cholecystectomy Family History Mother COPD (chronic obstructive pulmonary disease) Diabetes Afib Osteoporosis Dementia Father Lung cancer Family/Other Substance use disorder Maternal Grandmother Colon cancer Social History (Updated 07/14/23 @ 14:05 by Gina Escobar CMA) Housing: House Alcohol intake: current Alcohol intake frequency: 0-2 drinks per day Alcohol type: wine Patient Tobacco Use Status: Never used Tobacco e-Cigarette/Vaping Use: Never Used Second Hand Smoke Exposure: No Substance Use Type: Marijuana service: No Current occupational status: other 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 Current occupational exposures/hazards: No Sexual orientation: Straight/Heterosexual Gender identity: Female Cognitive needs: No Hearing needs: No Vision needs: Yes Female Reproductive History Menstrual Total pregnancies: 8 Full term: 5 Number of Living Children: 5 Ab spontaneous: 3 Date of last pap smear: 08/11/19 Date of Mammogram: 01/13/23 Review of Systems Const All systems reviewed & are unremarkable except as noted in HPI and below Reports as per HPI Eyes Reports no additional complaints ENT Reports no additional complaints Card Reports no additional complaints Resp Reports no additional complaints GI Reports as per HPI and Reports no additional complaints Reports as per HPI Musc Reports no additional complaints Skin/Breast Reports as per HPI Neuro Reports no additional complaints Psych Reports no additional complaints Endo Reports no additional complaints Ge/Lymph Reports no additional complaints Aller/Immun Reports no additional complaints Physical Exam Vital Signs: Last Vital Signs BP 112/62 07/14/23 14:00 BMI result Body Mass Index 31.9 Const General: cooperative, healthy appearing, no acute distress, well developed and alert Orientation/consciousness: patient oriented x3 HEENT Other: corrective lenses worn Head: Yes normal to inspection Eyes General: appearance normal, both eyes and all related structures Neck Neck: Yes normal visual inspection Thyroid: Thyroid normal Chest Other: midline scar Chest palpation & inspection: normal inspection of the chest and other (no puckering, dimpling, peau de orange, retraction, discharge, masses) Breast/axilla inspection: normal inspection of the breasts Breast/axilla palpation: normal palpation of the breasts Resp Effort & Inspection: normal respiratory effort GI Other: surgical scars Inspection: Yes normal to inspection Palpation (GI): Soft to palpation Rectal Exam - Female: deferred General: Yes bladder normal to palpation External Female Exam: normal external appearance and normal appearance of the urethra Speculum Exam - Vagina: normal appearance of the vagina, normal palpation, normal vaginal discharge and vagina atrophic Speculum Exam - Cervix: normal appearance of the cervix and normal palpation Bimanual exam- vagina & uterus: normal bimanual exam, normal palpation, uterine size normal, bladder normal to palpation, normal palpation and non-tender Bimanual Exam- Adnexa, other: no masses Skin General skin exam: no rashes or lesions noted Rashes: no rashes Neuro General: patient oriented x3 Cognition (Neuro): normal cognition Extrem General: Yes normal to inspection Psych Attitude: cooperative Thought process: Normal thought process present Assessment & Plan Assessment & Plan (1) Well woman exam (no gynecological exam): Code(s): Z00.00 - Encounter for general adult medical examination without abnormal findings Plan: Discussed: Current recommendations for pap smears per ASCCP guidelines. Breast awareness, periodic self breast exams and yearly mammogram. Maintain a healthy lifestyle, well balanced diet including Calcium 1,200 mg and Vitamin D 600 IU daily, and routine exercise. Contact the office with any postmenopausal bleeding. All of her questions and concerns were addressed to the best of my ability. RTO in 1 year for annual child development director exam. Coding Level of Care Code Est Pt Prev Care 40-64y(95530) Diagnoses Well woman exam (no gynecological exam) Z00.00
[2023-07-14 14:00] VITALS: BP 112/62; BMI 31.9
== END 2023-07-14 14:21 | disposition home or self-care (01) ==
PROVIDERS: PCP Internal Medicine; Visit Provider Advanced Practice Midwife
DX: Z01.419 Encounter for gynecological examination (general) (routine) without abnormal findings (principal)
CPT/HCPCS: 99396

== ENCOUNTER → 2023-07-14 13:57 | Outpatient (BNVA) | payer OTHER, SELFPAY | PROVIDERS: PCP Internal Medicine; Visit Provider Advanced Practice Midwife ==

== ENCOUNTER 2023-08-18 14:25 | Outpatient (AMB) | payer OTHER, SELFPAY ==
--- NOTE | 2023-08-18 14:29 | A.OFFVIS_ITS ---
Intake Vital Signs 08/18/23 14:30 Height 5 ft 3 in Weight 185 lb BMI 32.8 BP 131/63 Blood Pressure Location Lt brachial Position Sitting Pulse 63 Intake Visit Reasons: Colonoscopy Screening Intake Note: Patient new consult for 2nd pre colonoscopy screening. Patient denies any GI issues. Management Specialist Required: No Accompanied by: Self / Same As Patient Allergies oxycodone Adverse Reaction (Intermediate, Verified 08/18/23 14:28) sick to stomach codeine Adverse Reaction (Intermediate, Uncoded 07/14/23 14:03) abd pain, vomiting Medication List - Last Reconciled 08/18/23 by Leslie Roblero PA-C aspirin 81 mg PO DAILY buspirone 7.5 mg PO BID 30 days calcium carbonate (Calcium 500) 500 mg PO DAILY cholecalciferol (vitamin D3) 50 mcg PO DAILY pspgwmzdqck-D7-Iwifvcxmg serr 1,500-400-100 mg-unit-mg (Glucosamine Daily Complex) 1 tab PO DAILY metoprolol tartrate 25 mg PO BID multivitamin (Daily Multi-Vitamin tablet) 1 tab PO DAILY omeprazole 20 mg PO DAILY PRN 90 days trazodone 100 mg PO BEDTIME PRN vitamin B complex (B Complex-Vitamin B12 tablet) 1 tab PO DAILY HPI HPI Comments History of Present Illness Details 62-year-old female [place] screenin g [place] [facility] [place]elder [place] She has no GI complaints Normal bowel pattern, good appetite She follows with cardiology last seen November 2022 No nausea, vomiting, hematemesis, hematochezia fever or chills PFSH Medical History Physical exam Hyperkalemia Internal hemorrhoids Diverticulosis Golfers elbow of left upper extremity Obesity (BMI 30.0-34.9) GERD (gastroesophageal reflux disease) Migraine with aura and without status migrainosus, not intractable Surgical History H/O aortic valve replacement History of heart surgery History of carpal tunnel surgery History of cholecystectomy Family History Mother COPD (chronic obstructive pulmonary disease) Diabetes Afib Osteoporosis Dementia Father Lung cancer Family/Other Substance use disorder Maternal Grandmother Colon cancer Social History Housing: House Alcohol intake: current Alcohol intake frequency: 0-2 drinks per day Alcohol type: wine Patient Tobacco Use Status: Never used Tobacco e-Cigarette/Vaping Use: Never Used Second Hand Smoke Exposure: No Substance Use Type: Marijuana service: No Current occupational status: other 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 Current occupational exposures/hazards: No Sexual orientation: Straight/Heterosexual Gender identity: Female Cognitive needs: No Hearing needs: No Vision needs: Yes Review of Systems Const All systems reviewed & are unremarkable except as noted in HPI and below Card Denies chest pain and Denies dyspnea Resp Denies dyspnea GI Denies abdominal pain, Denies heartburn, Denies nausea and Denies vomiting Physical Exam Vital Signs: Last Vital Signs Pulse 63 08/18/23 14:30 BP 131/63 08/18/23 14:30 BMI result Body Mass Index 32.8 Const General: cooperative, healthy appearing, comfortable and no acute distress Orientation/consciousness: patient oriented x3 Limitations: no limitations Eyes Sclerae: sclerae normal Resp Effort & Inspection: normal respiratory effort and able to speak in complete sentences Auscultation: clear to auscultation bilaterally, no crackles, no rales and no rhonchi Cardio Rate: regular rate Rhythm: regular rhythm Heart sounds: S1 normal heart sound present and S2 normal heart sound present GI Palpation (GI): Soft to palpation and nontender Auscultation: normal bowel sounds Skin General skin exam: no rashes or lesions noted Neuro General: patient oriented x3 Extrem General: Yes full ROM Psych Appearance: grossly normal and well kempt Mental Status: mental status grossly normal Speech and movement: Normal speech and movement present and Clear speech present Affect: normal affect Attitude: cooperative Thought process: Normal thought process present Thought content: Normal thought content present Insight: Good insight present (Psych) Judgement: Good judgement present (Psych) Assessment & Plan Assessment & Plan (1) Screen for colon cancer: Code(s): Z12.11 - Encounter for screening for malignant neoplasm of colon (2) S/P ascending aortic aneurysm repair: Comment: Has cardiology appt 12/14- will inform she is having colonoscopy Code(s): Z98.890 - Other specified postprocedural states; Z86.79 - Personal history of other diseases of the circulatory system Plan Colonoscopy w/ anesthesia consult MG prep Patient Instructions: Very pleasant 62-year-old female s/p aortic repair, follows with cardiology referred for screening colonoscopy. She has no GI or general complaints She has follow-up Cardiology in September Discussed procedure, rare risk need for escort MiraLax Gatorade prep, reviewed, literature given Opportunities for question Courage to call questions or concerns Coding Level of Care Code New Pt Level 3 (39530) Diagnoses Screen for colon cancer Z12.11 S/P ascending aortic aneurysm repair Z98.890; Z86.79 Time Spent (min) 30
[2023-08-18 14:30] VITALS: BP 131/63; PULSE 63; BMI 32.8
== END 2023-08-18 15:48 | disposition home or self-care (01) ==
PROVIDERS: PCP Internal Medicine; Visit Provider Physician Assistant
DX: Z12.11 Encounter for screening for malignant neoplasm of colon (principal); Z98.890 Other specified postprocedural states; Z86.79 Personal history of other diseases of the circulatory system; Z01.818 Encounter for other preprocedural examination
CPT/HCPCS: 99203

== ENCOUNTER → 2023-08-18 14:25 | Outpatient (BNVA) | payer OTHER, SELFPAY | PROVIDERS: PCP Internal Medicine; Visit Provider Physician Assistant ==

== ENCOUNTER 2023-08-22 10:37 | Outpatient (REF) | payer OTHER, SELFPAY ==
[2023-08-22 11:18] LABS: Alanine Aminotransferase 15 U/L (0-31); Albumin Level 4.1 g/dL (3.5-5.0); Alkaline Phosphatase 76 U/L (39-117); Anion Gap 13 (12-20); Aspartate Amino Transferase 20 U/L (5-31); Bilirubin Total 0.6 mg/dL (0.0-1.0); Blood Urea Nitrogen 16 mg/dL (9-16); Calcium 9.6 mg/dL (8.4-10.2); Carbon Dioxide 29 mmol/L (22-29); Chloride 105 mmol/L (96-108); Cholesterol 183 mg/dL (<200); Estimated Glomerular Filt Rate > 60; Glucose Fasting 91 mg/dL (60-99); HDL Cholesterol 58 mg/dL (>40); LDL Cholesterol Calculated 104 mg/dL (<100); Potassium 3.8 mmol/L (3.3-5.1); Sodium 143 mmol/L (135-145); Total Protein 7.3 g/dL (6.5-8.0); Triglycerides 106 mg/dL (<150)
== END 2023-08-22 10:38 | disposition home or self-care (01) ==
LOC: HO.LAB 10:37
PROVIDERS: PCP Internal Medicine; Visit Provider Internal Medicine
DX: E78.5 Hyperlipidemia, unspecified (principal); Z95.2 Presence of prosthetic heart valve
CPT/HCPCS: 36415; 80053; 80061

== ENCOUNTER 2023-09-28 15:52 | Outpatient (AMB) | payer OTHER, SELFPAY ==
--- NOTE | 2023-09-28 15:55 | A.OFFPC_ITS ---
Vital Signs 09/28/23 15:59 Height 5 ft 3 in Weight 188 lb BMI 33.3 BP 132/80 Blood Pressure Location Lt brachial Position Sitting Intake Visit Reasons: Annual exam Intake Note: Patient here for a physical exam Boot Liner Maker Required: No Accompanied by: Self / Same As Patient Allergies oxycodone Adverse Reaction (Intermediate, Verified 09/28/23 16:12) sick to stomach codeine Adverse Reaction (Intermediate, Uncoded 09/28/23 16:12) abd pain, vomiting Medication List - Last Reconciled 09/28/23 by iMsti Cam MD aspirin 81 mg PO DAILY bisacodyl (Dulcolax (bisacodyl)) 20 mg (4 x 5 mg) PO ONCE 1 day buspirone 10 mg PO TID 30 days calcium carbonate (Calcium 500) 500 mg PO DAILY cholecalciferol (vitamin D3) 50 mcg PO DAILY kritmplszjc-H1-Qatlnpiyl serr 1,500-400-100 mg-unit-mg (Glucosamine Daily Comp javad) 1 tab PO DAILY ibuprofen 800 mg PO Q8H 30 days metoprolol tartrate 25 mg PO BID multivitamin (Daily Multi-Vitamin tablet) 1 tab PO DAILY omeprazole 20 mg PO DAILY PRN 90 days polyethylene glycol 3350 (Miralax) 238 grams PO ONCE PRN 1 day trazodone 100 mg PO BEDTIME PRN vitamin B complex (B Complex-Vitamin B12 tablet) 1 tab PO DAILY Tobacco use date assessed: 09/28/23 Dental Screening Dental Screen Date: 09/28/23 Did you have a dental visit in the last 12 months?: Yes Did you have a dental problem in the last 6 months where you did not have access to dental care?: No Was dental information given to patient?: Patient has dentist HPI HPI Comments History of Present Illness Details This is a 62-year-old female that comes for her physical exam. Last colonoscopy was normal and was in 2011. She will see Cardiology 1st before her next colonoscopy this year. Last Pap smear was over 3 years ago and will see OBGYN in July 2024. Last mammogram was December 2022. No chest pain or shortness of breath. [facility] Medical History Physical exam Hyperkalemia Internal hemorrhoids Diverticulosis Golfers elbow of left upper extremity Obesity (BMI 30.0-34.9) GERD (gastroesophageal reflux disease) Migraine with aura and without status migrainosus, not intractable Surgical History H/O aortic valve replacement History of heart surgery History of carpal tunnel surgery History of cholecystectomy Family History Mother COPD (chronic obstructive pulmonary disease) Diabetes Afib Osteoporosis Dementia Father Lung cancer Family/Other Substance use disorder Maternal Grandmother Colon cancer Social History Housing: House Alcohol intake: current Alcohol intake frequency: 0-2 drinks per day Alcohol type: wine Patient Tobacco Use Status: Never used Tobacco e-Cigarette/Vaping Use: Never Used Second Hand Smoke Exposure: No Substance Use Type: Marijuana service: No Current occupational status: other 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 1. Little interest or pleasure in doing things: not at all 2. Feeling down, depressed, or hopeless: not at all 3. Trouble falling or staying asleep, or sleeping too much: not at all 4. Feeling tired or having little energy: not at all 5. Poor appetite or overeating: not at all 6. Feeling bad about yourself - or that you are a failure or have let yourself or your family down: not at all 7. Trouble concentrating on things, such as reading the newspaper or watching television: not at all 8. Moving or speaking so slowly that other people could have noticed. Or the opposite - being so fidgety or restless that you have been moving around a lot more than usual: not at all 9. Thoughts that you would be better off or of hurting yourself in some way: not at all Total score: 0 Depression Screening Interpretation: Negative Depression Screening Done: Yes 68563 - PHQ-9 Billing: Yes Source: Developed by Drs. Austin Frost, Edgar Barney and colleagues, with an educational edi from [employer]. Thrive Questionnaire Date Thrive assessed: 09/28/23 I am a: Patient What is your living situation today?: I have a steady place to live Within the past 12 months, did the food you bought not last and you didn't have the money to get more?: Never true Within the past 12 months, did you worry whether your food would run out before you got money to buy more?: Never true Do you have trouble paying for medicines?: No Do you have trouble getting transportation to medical appointments?: No Do you have trouble paying your heating and electricity bill?: No Do you have trouble taking care of your child, family member or friend?: No Do you have trouble with day-to-day activities such as bathing, preparing meals, shopping, managing finances, etc.?: No Are you currently unemployed and looking for a job?: No Are you interested in more education?: No Please select the resources that you would like help with: None Currently or been in a relationship where the following occur: no concerns reported AUDIT C Alcohol Use Questionnaire (AUDIT-C) 1. How often do you have a drink containing alcohol?: 4 or more times a week 2. How many drinks containing alcohol do you have on a typical day when you are drinking?: 1 or 2 3. How often do you have six or more drinks on one occasion?: Never Total Score: 4 Score Reviewed/Action Taken: No RADHA-7 AMB Questionnaire RADHA-7 Date RADHA - 7 assessed: 09/28/23 Feeling nervous, anxious, or on edge: 0 = Not at all Not being able to stop or control worryin = Not at all Worrying too much about different things: 0 = Not at all Trouble relaxin = Not at all Being so restless that it is hard to sit still: 0 = Not at all Becoming easily annoyed or irritable: 0 = Not at all Feeling afraid as if something awful might happen: 0 = Not at all Total RADHA-7 score (0-4 normal; 5-9 mild; 10-14 moderate; 15-21 severe): 0 Source: Developed by Drs. Austin Frost, Edgar Barney and colleagues, with an educational edi from [employer]. RADHA-7 Assessment Billing RADHA-7 Assessment Tool: RADHA-7 Assessment 42270 Review of Systems Const All systems reviewed & are unremarkable except as noted in HPI and below Eyes Reports no additional complaints, Denies change in vision and Denies other visual disturbances Card Denies chest pain at rest, Denies chest pain with activity, Denies edema, Denies irregular heart rhythm, Denies claudication, Denies dyspnea, Denies dyspnea on exertion, Denies orthopnea, Denies paroxysmal nocturnal dyspnea and Denies slow heart rate Resp Denies cough, Denies dyspnea and Denies dyspnea on exertion GI Denies abdominal pain, Denies change in bowel habits, Denies excessive flatus, Denies nausea and Denies vomiting Denies urinary incontinence, Denies urinary hesitancy and Denies urinary urgency Musc Denies abnormal gait, Denies atrophy, Denies deformity and Denies limited range of motion Skin/Breast Denies bleeding lesions, Denies changing lesions and Denies rash Neuro Denies abnormal gait, Denies behavioral changes, Denies confusion and Denies lack of coordination Psych Denies behavioral changes and Denies confusion Physical exam (Primary Care) Vital Signs: Last Vital Signs BP 132/80 09/28/23 15:59 BMI result Body Mass Index 33.3 Tobacco/Smoking Status: Tobacco use Status Tobacco use date assessed 09/28/23 09/28/23 16:03 Patient Tobacco Use Status Never used Tobacco 09/28/23 15:56 Tobacco use type 10/09/22 13:46 e-Cigarette/Vaping Use Never Used 09/28/23 15:56 PHQ-9: PHQ-9 Score PHQ-9: Total score 0 09/28/23 16:03 Depression Screening Interpretation: Negative Thrive Assessment: Date of Thrive Assessment Date Thrive assessed 09/28/23 09/28/23 16:03 Currently or been in a relationship where the following occur: no concerns reported Const General: No confusion Orientation/consciousness: patient oriented x3 and No confusion HENMT Head: Yes normal to inspection, Yes normocephalic and Yes atraumatic Ears: external ears normal Eyes General: appearance normal, both eyes and all related structures Eyelids: Yes eyelids normal Conjunctivae: conjunctivae normal Neck Neck: Yes normal visual inspection and Yes supple Resp Effort & Inspection: normal respiratory effort Auscultation: clear to auscultation bilaterally Cardio Jugular venous distension: no JVD Rate: regular rate Rhythm: regular rhythm Heart sounds: Murmur heart sound present systolic GI Inspection: Yes normal to inspection Palpation (GI): Soft to palpation and nontender Auscultation: normal bowel sounds Skin General skin exam: no rashes or lesions noted Neuro General: patient oriented x3, no focal motor deficits and No confusion Extrem General: Yes full ROM Psych Appearance: grossly normal Assessment and Plan Assessment & Plan (1) Physical exam: Code(s): Z00.00 - Encounter for general adult medical examination without abnormal findings Plan: Repeat in a year. Orders: Orders XR DEXA axial skeleton Today N95.9 - Unspecified menopausal and perimenopausal disorder Coding Level of Care Code Est Pt Prev Care 40-64y(13378) Diagnoses Physical exam Z00.00 Additional Codes RADHA-7 Assessment Billing - RADHA-7 Assessment Tool: RADHA-7 Assessment 90645 ([id number]) Time Spent (min) 31
[2023-09-28 15:59] VITALS: BP 132/80; BMI 33.3
== END 2023-09-28 16:23 | disposition home or self-care (01) ==
PROVIDERS: Visit Provider Internal Medicine
DX: Z00.00 Encounter for general adult medical examination without abnormal findings (principal)
CPT/HCPCS: 99396

== ENCOUNTER 2023-10-13 11:25 | Outpatient (REF) | payer OTHER, SELFPAY ==
--- NOTE | ~2023-10-13 | MM_ITS ---
EXAMINATION: BONE DENSITOMETRY CLINICAL INDICATION: Unspecified menopausal and perimenopausal disorder. COMPARISON: This is the patient's baseline examination. TECHNIQUE: Using a Dro[employer] DXA System (software version: 13.1) manufactured by [employer], dual-energy x-ray absorptiometry was performed of the lumbar spine and left hip. The images are of good technical quality. Summary results are attached. FINDINGS: LEFT FEMUR, NECK: BMD 1.115 g/cm2, Z-score 1.5, T-score 0.6, normal. LEFT FEMUR, TOTAL: BMD 1.105 g/cm2, Z-score 1.3, T-score 0.8, normal. AP SPINE L1-L2 (excluding L3 and L4): The data of L1-L4 has been changed to exclude the L3 and L4 vertebral bodies, because degenerative sclerosis at these levels may cause overestimation of lumbar spine density. BMD 1.275 g/cm2, Z-score 1.6, T-score 0.9, normal. IDENTIFIED RISK FACTORS: Menopause. HISTORY OF FRACTURE: None listed. MEDICATIONS: Calcium, vitamin D. MM/XR DEXA axial skeleton IMPRESSION: 1. DIAGNOSIS: Normal bone density based on the lowest T-score value of 0.6 in the femoral neck applying World Health Organization criteria. 2. 10-YEAR FRACTURE RISK PREDICTION, FRAX: According to the guidelines, FRAX calculation should only be performed on patients in the osteopenia bone density category. Therefore, FRAX was not performed on this patient. 3. Treatment Recommendations: NOF guidelines recommend consideration for treatment in postmenopausal women and men age 50 and older presenting with the following: -A hip or vertebral (clinical or morphometric) fracture. -T-score less than or equal to -2.5 at the femoral neck or spine after appropriate evaluation to exclude secondary causes. -Low bone mass at the hip or spine and a 10-year fracture probability by FRAX of greater than or equal to 3% for hip fracture or greater than or equal to 20% for major osteoporotic fracture based on the [place] adapted WHO algorithm. 4. Other Recommendations: All treatment decisions require clinical judgment and consideration of individual patient factors, including patient preferences, comorbidities, previous drug use, risk factors not captured in the FRAX model (e.g. frailty, falls, vitamin D deficiency, increased bone turnover, interval significant decline in bone density) and possible under or overestimation of fracture risk by FRAX. FUTURE SCAN RECOMMENDATION: People with diagnosed cases of osteoporosis or at high risk for fracture should have regular bone mineral density tests. For patients eligible for Medicare, routine testing is allowed once every 2 years. The testing frequency can be increased to one year for patients who have rapidly progressing disease, those who are receiving or discontinuing medical therapy to restore bone mass, or have additional risk factors.
== END 2023-10-13 11:26 | disposition home or self-care (01) ==
LOC: HO.MAMMO 11:25
PROVIDERS: PCP Internal Medicine; Visit Provider Internal Medicine
DX: Z13.820 Encounter for screening for osteoporosis (principal); Z78.0 Asymptomatic menopausal state
CPT/HCPCS: 77080

== ENCOUNTER 2023-12-15 15:41 | Outpatient (AMB) | payer OTHER, SELFPAY ==
[2023-12-15 15:43] VITALS: BP 142/80; BMI 32.8
--- NOTE | 2023-12-15 15:43 | A.OFFVIS_ITS ---
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 Required: No Accompanied by: Self / Same As Patient Allergies oxycodone Adverse Reaction (Intermediate, Verified 12/15/23 15:43) sick to stomach codeine Adverse Reaction (Intermediate, Uncoded 12/15/23 15:43) abd pain, vomiting Medication List - Last Reconciled 12/15/23 by Rogerio Dillon MD aspirin 81 mg PO DAILY bisacodyl (Dulcolax (bisacodyl)) 20 mg (4 x 5 mg) PO ONCE 1 day buspirone 10 mg PO TID 30 days calcium carbonate (Calcium 500) 500 mg PO DAILY cholecalciferol (vitamin D3) 50 mcg PO DAILY dmzdlurpyie-U6-Jxkpxgahp serr 1,500-400-100 mg-unit-mg (Glucosamine Daily Complex) 1 tab PO DAILY ibuprofen 800 mg PO Q8H 30 days metoprolol tartrate 25 mg PO BID multivitamin (Daily Multi-Vitamin tablet) 1 tab PO DAILY omeprazole 20 mg PO DAILY PRN 90 days polyethylene glycol 3350 (Miralax) 238 grams PO ONCE PRN 1 day trazodone 100 mg PO BEDTIME PRN vitamin B complex (B Complex-Vitamin B12 tablet) 1 tab PO DAILY HPI HPI Comments History of Present Illness Details Yolie returns for follow-up. She has a history of severe aortic stenosis from bicuspid aortic valve as well as ascending aortic dilatation. She underwent bioprosthetic aortic valve replacement with ascending aortic aneurysm repair subsequently. Overall, she states she feels fine. No specific complaints. [facility] Medical History Physical exam Hyperkalemia Internal hemorrhoids Diverticulosis Golfers elbow of left upper extremity Obesity (BMI 30.0-34.9) GERD (gastroesophageal reflux disease) Migraine with aura and without status migrainosus, not intractable Surgical History H/O aortic valve replacement History of heart surgery History of carpal tunnel surgery History of cholecystectomy Family History Mother COPD (chronic obstructive pulmonary disease) Diabetes Afib Osteoporosis Dementia Father Lung cancer Family/Other Substance use disorder Maternal Grandmother Colon cancer Social History Housing: House Alcohol intake: current Alcohol intake frequency: 0-2 drinks per day Alcohol type: wine Patient Tobacco Use Status: Never used Tobacco e-Cigarette/Vaping Use: Never Used Second Hand Smoke Exposure: No Substance Use Type: Marijuana service: No Current occupational status: other 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 Current occupational exposures/hazards: No Sexual orientation: Straight/Heterosexual Gender identity: Female Cognitive needs: No Hearing needs: No Vision needs: Yes Review of Systems Const Denies weakness ENT Denies dizziness Card Denies chest pain, Denies chest pain with activity, Denies syncope, Denies rapid heart rate, Denies pedal edema, Denies edema, Denies leg edema, Denies lightheadedness, Denies palpitations, Denies dyspnea, Denies dyspnea on exertion and Denies orthopnea Resp Denies cough, Denies dyspnea and Denies dyspnea on exertion GI Denies hematochezia and Denies change in stool character Musc Denies abnormal gait, Denies muscle cramps, Denies muscle weakness, Denies numbness, Denies radiating pain into limb and Denies tingling Neuro Denies abnormal gait, Denies dizziness, Denies syncope, Denies numbness, Denies tingling and Denies weakness Endo Denies palpitations Physical Exam Vital Signs: Last Vital Signs BP 142/80 H 12/15/23 15:43 BMI result Body Mass Index 32.8 Const General: comfortable and no acute distress Orientation/consciousness: patient oriented x3 HEENT Other: Unremarkable Head: Yes normal to inspection Neck Neck: Yes normal visual inspection Chest Chest palpation & inspection: normal inspection of the chest Resp Auscultation: clear to auscultation bilaterally Cardio Palpation: normal PMI Heart sounds: S1 normal heart sound present, S2 normal heart sound present, no gallops, Murmur heart sound present systolic III/ and at the right sternal b order and no rubs GI Palpation (GI): Soft to palpation Back/Spine/Pelvis Other: unremarkable Skin General skin exam: no rashes or lesions noted Neuro General: patient oriented x3 Extrem General: Yes normal to inspection Psych Mental Status: mental status grossly normal Office Procedures EKG Details: EKG with sinus rhythm at 65/Min; possible left atrial enlargement; nonspecific ST-T changes laterally. [id number], Complete Assessment & Plan Assessment & Plan (1) Status post aortic valve replacement with bioprosthetic valve: Code(s): Z95.3 - Presence of xenogenic heart valve Plan: #23 Hernandes Inspiris valve. Most recent echocardiogram with normal function. We will recheck in 6 months. Otherwise, continue aspirin. Infective endocarditis prophylaxis per protocol. Preoperative cardiac catheterization showed normal coronary arteries. (2) S/P ascending aortic aneurysm repair: Code(s): Z98.890 - Other specified postprocedural states; Z86.79 - Personal history of other diseases of the circulatory system Plan: Per notes, ascending aortic aneurysm repair with graft. (3) Elevated blood pressure reading without diagnosis of hypertension: Code(s): R03.0 - Elevated blood-pressure reading, without diagnosis of hypertension Plan: Borderline blood pressure today and she has had that other times in the past. Not a known hypertensive. On a small dose of beta-blockers. Orders: Orders CA echo transthoracic complete 6 Months Z86.79 - Personal history of other diseases of the circulatory system, Z95.3 - Presence of xenogenic heart valve, Z98.890 - Other specified postprocedural states Coding Level of Care Code Est Pt Level 4 (17792) Diagnoses Status post aortic valve replacement with bioprosthetic valve Z95.3 S/P ascending aortic aneurysm repair Z98.890; Z86.79 Elevated blood pressure reading without diagnosis of hypertension R03.0 CPT Codes EKG - CPT: 91741-[id number], Complete ([id number])
== END 2023-12-15 15:57 | disposition home or self-care (01) ==
PROVIDERS: PCP Internal Medicine; Visit Provider Internal Medicine
DX: Z95.3 Presence of xenogenic heart valve (principal); Z98.890 Other specified postprocedural states; Z86.79 Personal history of other diseases of the circulatory system; R03.0 Elevated blood-pressure reading, without diagnosis of hypertension
CPT/HCPCS: 93010; 99214

== ENCOUNTER → 2023-12-15 15:41 | Outpatient (BNVA) | payer OTHER, SELFPAY | PROVIDERS: PCP Internal Medicine; Visit Provider Internal Medicine | DX: Z95.3 Presence of xenogenic heart valve (principal); R03.0 Elevated blood-pressure reading, without diagnosis of hypertension; Z86.79 Personal history of other diseases of the circulatory system; Z79.82 Long term (current) use of aspirin | CPT/HCPCS: 93005 ==

== ENCOUNTER 2024-01-13 14:06 | Outpatient (REF) | payer OTHER, SELFPAY ==
--- NOTE | ~2024-01-13 | MM_ITS ---
EXAMINATION: MM SCREENING DIGITAL BREAST TOMOSYNTHESIS, BILATERAL CLINICAL INFORMATION: Screening. Asymptomatic. COMPARISON: Mammography: 01/13/2023, 01/08/2023, 11/28/2021, and dating back to 2015. TECHNIQUE: Digital breast tomosynthesis is performed in both the craniocaudal and mediolateral oblique views along with computer-aided detection (CAD). Synthesized 2D images are generated from the tomosynthesis. FINDINGS: There are scattered areas of fibroglandular density (ACR BI-RADS breast composition Category b). There are stable bilateral benign type calcifications scattered in both breasts. No evidence of mass, architectural distortion, or suspicious pleomorphic grouped calcifications. The overall parenchymal pattern is unchanged from prior exams. No definite skin or axillary abnormality. MM/MM tomosynthesis screening BI IMPRESSION: No mammographic evidence of malignancy. No interval change. ASSESSMENT: BI-RADS BI-RADS 2 - Benign Findings RECOMMENDATION: Routine annual mammography screening. 1 year F/U This examination should not preclude the clinical evaluation of a suspicious palpable abnormality. This patient's information was entered into a reminder system with a target due date for their next mammogram.
== END 2024-01-13 14:07 | disposition home or self-care (01) ==
LOC: HO.MAMMO 14:06
PROVIDERS: PCP Internal Medicine; Visit Provider Internal Medicine
DX: Z12.31 Encounter for screening mammogram for malignant neoplasm of breast (principal)
CPT/HCPCS: 77063; 77067

== ENCOUNTER → 2024-01-13 14:15 | Outpatient (BNV) | payer OTHER, SELFPAY | PROVIDERS: PCP Internal Medicine; Visit Provider Radiology Diagnostic Radiology | DX: Z12.31 Encounter for screening mammogram for malignant neoplasm of breast (principal) | CPT/HCPCS: 77063; 77067 ==

== ENCOUNTER 2024-03-29 14:11 | Outpatient (AMB) | payer BC, SELFPAY ==
[2024-03-29 14:12] VITALS: BP 120/80; PULSE 64; O2SAT 96; BMI 31.5
--- NOTE | 2024-03-29 14:12 | A.OFFPC_ITS ---
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: No Accompanied by: Self / Same As Patient Allergies oxycodone Adverse Reaction (Intermediate, Verified 03/29/24 14:38) sick to stomach codeine Adverse Reaction (Intermediate, Uncoded 03/29/24 14:38) abd pain, vomiting Medication List - Last Reconciled 03/29/24 by Misti Cam MD aspirin 81 mg PO DAILY bisacodyl (Dulcolax (bisacodyl)) 20 mg (4 x 5 mg) PO ONCE 1 day buspirone 10 mg PO TID 30 days calcium carbonate (Calcium 500) 500 mg PO DAILY cholecalciferol (vitamin D3) 50 mcg PO DAILY ikbqnbqgiis-W2-Cwwqfxcip serr 1,500-400-100 mg-unit-mg (Glucosamine Daily Complex) 1 tab PO DAILY ibuprofen 800 mg PO Q8H 30 days metoprolol tartrate 25 mg PO BID multivitamin (Daily Multi-Vitamin tablet) 1 tab PO DAILY omeprazole 20 mg PO DAILY PRN 90 days polyethylene glycol 3350 (Miralax) 238 grams PO ONCE PRN 1 day trazodone 100 mg PO BEDTIME PRN vitamin B complex (B Complex-Vitamin B12 tablet) 1 tab PO DAILY Tobacco use date assessed: 09/28/23 Dental Screening Dental Screen Date: 09/28/23 HPI HPI Comments History of Present Illness Details This is a 63-year-old female with anxiety, insomnia, and GERD that complains of left hip pain that has been present for few months. Denies any previous trauma. X-ray will be ordered. Anxiety has been well control and I will decrease buspirone from 3 times a day to twice a day. Insomnia still present with trazodone 100 mg and I will change it to mirtazapine 15 mg. GERD stable with PPIs. Denies any chest pain or shortness on breath FORMERLY [facility], [facility] Medical History (Updated 03/29/24 @ 16:21 by Misti Cam MD) Severe aortic stenosis Physical exam Hyperkalemia Internal hemorrhoids Diverticulosis Golfers elbow of left upper extremity Obesity (BMI 30.0-34.9) GERD (gastroesophageal reflux disease) Migraine with aura and without status migrainosus, not intractable Surgical History H/O aortic valve replacement History of heart surgery History of carpal tunnel surgery History of cholecystectomy Family History Mother COPD (chronic obstructive pulmonary disease) Diabetes Afib Osteoporosis Dementia Father Lung cancer Family/Other Substance use disorder Maternal Grandmother Colon cancer Social History Housing: House Alcohol intake: current Alcohol intake frequency: 0-2 drinks per day Alcohol type: wine Patient Tobacco Use Status: Never used Tobacco e-Cigarette/Vaping Use: Never Used Second Hand Smoke Exposure: No Substance Use Type: Marijuana service: No Current occupational status: other 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 Current occupational exposures/hazards: No Sexual orientation: Straight/Heterosexual Gender identity: Female Cognitive needs: No Hearing needs: No Vision needs: Yes Questionnaire Thrive Questionnaire Date Thrive assessed: 09/28/23 RADHA-7 AMB Questionnaire RADHA-7 Date RADHA - 7 assessed: 03/29/24 Feeling nervous, anxious, or on edge: 0 = Not at all Not being able to stop or control worryin = Not at all Worrying too much about different things: 0 = Not at all Trouble relaxin = Not at all Being so restless that it is hard to sit still: 0 = Not at all Becoming easily annoyed or irritable: 0 = Not at all Feeling afraid as if something awful might happen: 0 = Not at all Total RADHA-7 score (0-4 normal; 5-9 mild; 10-14 moderate; 15-21 severe): 0 Source: Developed by Drs. Austin Frost, Melissa Mcclendon, Edgar Obrien and colleagues, with an educational edi from [employer]. RADHA-7 Assessment Billing RADHA-7 Assessment Tool: RADHA-7 Assessment 74699 Review of Systems Const All systems reviewed & are unremarkable except as noted in HPI and below Card Denies chest pain at rest, Denies chest pain with activity, Denies edema, Denies irregular heart rhythm, Denies claudication, Denies dyspnea, Denies dyspnea on exertion, Denies orthopnea, Denies paroxysmal nocturnal dyspnea and Denies slow heart rate Resp Denies cough, Denies dyspnea and Denies dyspnea on exertion Physical exam (Primary Care) Vital Signs: Last Vital Signs Pulse 64 03/29/24 14:12 BP 120/80 03/29/24 14:12 Pulse Ox 96 03/29/24 14:12 Oxygen Delivery Method Room Air 03/29/24 14:12 BMI result Body Mass Index 31.5 BMI Assessment/Plan discussion: High BMI High, discussed plan: lifestyle, weight reduction, dietary and physical activity Tobacco/Smoking Status: Tobacco use Status Tobacco use date assessed 09/28/23 03/29/24 14:14 Patient Tobacco Use Status Never used Tobacco 03/29/24 14:14 Tobacco use type 10/09/22 13:46 e-Cigarette/Vaping Use Never Used 03/29/24 14:14 Thrive Assessment: Date of Thrive Assessment Date Thrive assessed 09/28/23 03/29/24 14:14 Resp Effort & Inspection: normal respiratory effort Auscultation: clear to auscultation bilaterally Cardio Jugular venous distension: no JVD Rate: regular rate Rhythm: regular rhythm Heart sounds: S1 normal heart sound present and S2 normal heart sound present Extrem General: Yes full ROM Assessment and Plan Assessment & Plan (1) Left hip pain: Code(s): M25.552 - Pain in left hip Plan: X-ray ordered. (2) Insomnia: Code(s): G47.00 - Insomnia, unspecified Plan: Discontinue trazodone. Start mirtazapine. Sleep hygiene education given. (3) Anxiety: Code(s): F41.9 - Anxiety disorder, unspecified Plan: Decrease buspirone to twice a day. (4) GERD (gastroesophageal reflux disease): Code(s): K21.9 - Gastro-esophageal reflux disease without esophagitis Qualifiers: Esophagitis presence: esophagitis presence not specified Qualified Code(s): K21.9 - Gastro-esophageal reflux disease without esophagitis Plan: Continue PPIs. Orders: Orders XR hip LT min 2V Today M25.552 - Pain in left hip Medications: New mirtazapine 15 mg PO BEDTIME 30 tabs 1RF 30 days Changed From buspirone 10 mg PO TID 30 days 90 tabs 2RF To buspirone 10 mg PO BID 60 tabs 2RF 30 days Discontinued trazodone Discontinued Reason: Patient Completed Course 100 mg PO BEDTIME PRN 90 tabs 0RF for insomnia Coding Level of Care Code Est Pt Level 4 (05251) Complex EM visit Add On G2211 Diagnoses Left hip pain M25.552 Insomnia G47.00 Anxiety F41.9 Gastroesophageal reflux disease, unspecified whether esophagitis present K21.9 Esophagitis presence: esophagitis presence not specified Additional Codes RADHA-7 Assessment Billing - RADHA-7 Assessment Tool: RADHA-7 Assessment 11801 ([id number]) Time Spent (min) 22
== END 2024-03-29 14:49 | disposition home or self-care (01) ==
PROVIDERS: PCP Internal Medicine; Visit Provider Internal Medicine
DX: M25.552 Pain in left hip (principal); G47.00 Insomnia, unspecified; F41.9 Anxiety disorder, unspecified; K21.9 Gastro-esophageal reflux disease without esophagitis
CPT/HCPCS: 99214

== ENCOUNTER 2024-04-01 12:20 | Outpatient (REF) | payer BC, SELFPAY ==
--- NOTE | ~2024-04-01 | XR_ITS ---
EXAMINATION: XR HIP, LEFT CLINICAL INFORMATION: Pain left hip for one year on and off, mainly at night, no known injury. COMPARISON: None available. TECHNIQUE: Two views of the left hip. FINDINGS: Moderate degenerative changes in the left hip with joint space narrowing and hypertrophic change. Diffuse demineralization. Alignment preserved. XR/XR hip LT min 2V IMPRESSION: Moderate degenerative changes in the left hip. Additional imaging with CT scan or MRI recommended if there is clinical concern for fracture or other underlying pathology.
== END 2024-04-01 12:21 | disposition home or self-care (01) ==
LOC: HO.XRAY 12:20
PROVIDERS: PCP Internal Medicine; Visit Provider Internal Medicine
DX: M25.552 Pain in left hip (principal)
CPT/HCPCS: 73502

== ENCOUNTER → 2024-05-25 15:01 | Outpatient (REF) | payer BC, SELFPAY ==
--- NOTE | 2024-05-25 15:03 | CA_ITS ---
Transthoracic Echocardiogram Patient (Last, First, Middle): Yolie Joshua M Gender: Female Date of : 1960 Age: 63 Procedure Date: 05/25/2024 Procedure Type: Transthoracic Echocardiogram Location: OP Height: 157.48 cm Weight: 82.56 kg BSA: 1.84 m2 Heart Rate: bpm BP: 128 / 72 mmHg Medical Staff Services Coordinator: TO Referring MD: Rogerio Dillon MD Symptoms: Z95.3 - Presence of xenogenic heart valve Study Quality: Adequate ECG Rhythm: Sinus Conclusions: - The left ventricular systolic function is normal. The visually estimated ejection fraction is between 65-70%. - A bioprosthetic aortic valve is present. The prosthetic aortic valve appears to be functioning abnormally. Findings Left Ventricle Normal left ventricular cavity size. There is normal left ventricular wall thickness. The left ventricular systolic function is normal. The visually estimated ejection fraction is between 65-70%. There is no evidence of regional wall motion abnormalities. Diastolic function is normal for age. Right Ventricle Normal right ventricular cavity size and systolic function. Atria Moderate biatrial enlargement. Aortic Valve A bioprosthetic aortic valve is present. The prosthetic aortic valve appears to be functioning abnormally. The peak aortic gradient is 47 mmHg.The mean gradient is 26 mmHg. There is no aortic valve regurgitation. Gradients across the bioprosthetic aortic valve are elevated, but could also be related to increased stroke volume as the LVOT VTI is elevated. Acceleration time about 90 milliseconds- slightly elevated, but within acceptable limits. Dimensionless index 0.32. Overall, possible patient prosthesis mismatch. Mitral Valve The mitral valve appears normal. There is trace mitral valve regurgitation. There is no mitral valve stenosis. Pulmonic Valve The pulmonic valve is likely normal. Tricuspid Valve There is trace tricuspid valve regurgitation. There is no evidence of pulmonary hypertension. Great Vessels The asc aorta is normal in size. Venous The inferior vena cava is normal in size and collapses greater than 50% with inspiration. Pericardium/Pleural There is no evidence of pericardial effusion. Prior Study Comparison Changes noted compared to prior study dated: 06/05/2023. Increase in aortic valve gradients; but LVOT VTi is also higher, and hence differences in flow can account for some change in gradients. Measurements 2D Linear Measurements IVSd: 1.27 0.6-0.9/0.6-1.0 cm LVIDd: 4.55 3.9-5.3/4.2-5.9 cm LVIDd Index: 2.47 2.4-3.2/2.2-3.1 cm/m2 LVIDs: 2.89 2.0-3.6 cm LVPWd: 1.05 0.7-1.1 cm LA Diam: 4.30 2.7-3.8/3.0-4.0 cm LAIDs Index: 2.34 1.5-2.3 cm/m2 LV Mass: 239.25 67-162/88-224 g LV Mass Index: 130.03 43-95/49-115 g/m2 LVOT Diam: 1.90 3.0+(-)1.3 cm 2D Systolic Function EF 4C: 64.40 >55% Mitral Valve MV Pk E: 0.89 MV PK A: 0.75 MV Decel Time: 222.00 E/A: 1.20 E'Lateral: 8.16 E'Medial: 6.20 E/E' Med: 14.30 E/E' Lat: 10.90 PHT: 65.00 MVA PHT: 3.38 Decel [place]: 4.00 Aortic Valve AoV Pk Ariel: 3.42 AoV Mn Ariel: 2.44 AoV VTI: 0.73 AoV Pk Grad: 47.00 Aov Mn Grad: 26.00 MARK Cont.VTI: 0.93 LVOT LVOT Pk Ariel: 1.08 LVOT Mn Ariel: 0.71 LVOT VTI: 0.24 LVOT Pk Grad: 5.00 LVOT Mn Grad: 2.00 LVOT Diam: 1.90 LVOT Area: 2.84 Diastolic Function MV Pk E: 0.89 MV Pk A: 0.75 E/A: 1.20 E'Medial: 6.20 E/E' Med: 14.30 E' Laterial: 8.16 E/E' Lat: 10.90 Right Ventricle TAPSE (mm): 19.50 TVS' Ariel: 9.68 Tricuspid Valve TR Pk Ariel: 1.75 TR Pk Grad: 12.00 RA Press: 3.00 RVSP: 15.00 Great Vessels Aorta Ao Asc: 2.80 2.1-3.4 cm Ao Arch: 2.60 Updated in Other Vendor System with Status of Final Rogerio Dillon MD electronically signed on 05/27/2024 10:57:04 AM with status of Final
== END ==
LOC: HO.CARD 15:01
PROVIDERS: PCP Internal Medicine; Visit Provider Internal Medicine
DX: Z98.890 Other specified postprocedural states (principal); Z95.3 Presence of xenogenic heart valve; Z86.79 Personal history of other diseases of the circulatory system
CPT/HCPCS: 93306

== ENCOUNTER → 2024-05-25 15:03 | Outpatient (BNV) | payer BC, SELFPAY | PROVIDERS: PCP Internal Medicine; Visit Provider Internal Medicine | DX: I51.89 Other ill-defined heart diseases (principal); Z95.3 Presence of xenogenic heart valve | CPT/HCPCS: 93306 ==

== ENCOUNTER 2024-06-02 15:05 | Outpatient (AMB) | payer BC, SELFPAY ==
[2024-06-02 15:06] VITALS: BP 122/64; PULSE 78; BMI 33.0
--- NOTE | 2024-06-02 15:06 | A.OFFVIS_ITS ---
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 Accompanied by: Self / Same As Patient Allergies oxycodone Adverse Reaction (Intermediate, Verified 03/29/24 14:38) sick to stomach codeine Adverse Reaction (Intermediate, Uncoded 03/29/24 14:38) abd pain, vomiting Medication List - Last Reconciled 06/02/24 by Rogerio Dillon MD aspirin 81 mg PO DAILY buspirone 10 mg PO BID 30 days calcium carbonate (Calcium 500) 500 mg PO DAILY cholecalciferol (vitamin D3) 50 mcg PO DAILY tzhbbbbunac-Y8-Ggwkqvtsl serr 1,500-400-100 mg-unit-mg (Glucosamine Daily Complex) 1 tab PO DAILY ibuprofen 800 mg PO Q8H 30 days metoprolol tartrate 25 mg PO BID mirtazapine 15 mg PO BEDTIME 30 days multivitamin (Daily Multi-Vitamin tablet) 1 tab PO DAILY omeprazole 20 mg PO DAILY PRN 90 days polyethylene glycol 3350 (Miralax) 238 grams PO ONCE PRN 1 day vitamin B complex (B Complex-Vitamin B12 tablet) 1 tab PO DAILY HPI Comments Details: Yolie returns for follow-up. She has a history of severe aortic stenosis from bicuspid aortic valve as well as ascending aortic dilatation. She underwent bioprosthetic aortic valve replacement with ascending aortic aneurysm repair subsequently. Clinically, absolutely no symptoms. She states she feels good. FORMERLY [facility] Medical History (Updated 03/29/24 @ 16:21 by Misti Cam MD) Severe aortic stenosis Physical exam Hyperkalemia Internal hemorrhoids Diverticulosis Golfers elbow of left upper extremity Obesity (BMI 30.0-34.9) GERD (gastroesophageal reflux disease) Migraine with aura and without status migrainosus, not intractable Surgical History H/O aortic valve replacement History of heart surgery History of carpal tunnel surgery History of cholecystectomy Family History Mother COPD (chronic obstructive pulmonary disease) Diabetes Afib Osteoporosis Dementia Father Lung cancer Family/Other Substance use disorder Maternal Grandmother Colon cancer Social History Housing: House Alcohol intake: current Alcohol intake frequency: 0-2 drinks per day Alcohol type: wine Patient Tobacco Use Status: Never used Tobacco e-Cigarette/Vaping Use: Never Used Second Hand Smoke Exposure: No Substance Use Type: Marijuana service: No Current occupational status: other 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 Current occupational exposures/hazards: No Sexual orientation: Straight/Heterosexual Gender identity: Female Cognitive needs: No Hearing needs: No Vision needs: Yes Review of Systems Const Denies chills, Denies fatigue, Denies fever(s), Denies weight gain and Denies weight loss ENT Denies dizziness Card Denies chest pain, Denies leg edema, Denies lightheadedness, Denies palpitations, Denies dyspnea on exertion, Denies orthopnea and Denies other Resp Denies cough and Denies dyspnea on exertion GI Denies hematochezia and Denies change in stool character Musc Denies abnormal gait, Denies muscle weakness, Denies numbness, Denies radiating pain into limb and Denies tingling Neuro Denies abnormal gait, Denies dizziness, Denies numbness and Denies tingling Endo Denies fatigue and Denies palpitations Physical Exam Vital Signs: Last Vital Signs Pulse 78 06/02/24 15:06 BP 122/64 06/02/24 15:06 BMI result Body Mass Index 33.0 Const General: comfortable and no acute distress Orientation/consciousness: patient oriented x3 HEENT Other: Unremarkable Head: Yes normal to inspection Neck Neck: Yes normal visual inspection Chest Chest palpation & inspection: normal inspection of the chest Resp Auscultation: clear to auscultation bilaterally Cardio Palpation: normal PMI Heart sounds: S1 normal heart sound present, S2 normal heart sound present, no gallops, Murmur heart sound present systolic III/ and at the right sternal border and no rubs GI Palpation (GI): Soft to palpation Back/Spine/Pelvis Other: unremarkable Skin General skin exam: no rashes or lesions noted Neuro General: patient oriented x3 Extrem General: Yes normal to inspection Psych Mental Status: mental status grossly normal Assessment & Plan Assessment & Plan (1) Status post aortic valve replacement with bioprosthetic valve: Code(s): Z95.3 - Presence of xenogenic heart valve Category: Surgical Plan: #23 Hernandes Inspiris valve. In the most recent echocardiogram, LVEF is preserved at 65-70%. Peak gradient across aortic valve was 47 mm Hg with a mean of 26 mm Hg. Dimensionless index was 0.32. Acceleration time about 90 milliseconds. Overall, the gradients are clearly elevated. There is a difference from the previous gradients; however, they LVOT VTI is also higher and hence more likely because of higher stroke volume. There could also be some element of patient prosthesis mismatch. Overall, the absence of symptoms will continue to monitor this. We will recheck this next year. If any concerns like shortness of breath, advised to contact us. Continue aspirin. Infective endocarditis prophylaxis per protocol. Preoperative cardiac catheterization showed normal coronary arteries. (2) S/P ascending aortic aneurysm repair: Code(s): Z98.890 - Other specified postprocedural states; Z86.79 - Personal history of other diseases of the circulatory system Category: Surgical Plan: Per notes, ascending aortic aneurysm repair with graft. She had a CT chest in 02/08/2024 and that showed stable appearance. Orders: Orders CA echo transthoracic complete 9 Months Z95.3 - Presence of xenogenic heart valve Coding Level of Care Code Est Pt Level 4 (76923) Diagnoses Status post aortic valve replacement with bioprosthetic valve Z95.3 S/P ascending aortic aneurysm repair Z98.890; Z86.79
== END 2024-06-02 15:24 | disposition home or self-care (01) ==
PROVIDERS: PCP Internal Medicine; Visit Provider Internal Medicine
DX: Z95.3 Presence of xenogenic heart valve (principal); Z98.890 Other specified postprocedural states; Z86.79 Personal history of other diseases of the circulatory system
CPT/HCPCS: 99214

== ENCOUNTER → 2024-06-02 15:05 | Outpatient (BNVA) | payer BC, SELFPAY | PROVIDERS: PCP Internal Medicine; Visit Provider Internal Medicine ==

== ENCOUNTER 2024-07-14 09:12 | Outpatient (AMB) | payer BC, SELFPAY ==
--- NOTE | 2024-07-14 09:18 | A.OFFVIS_ITS ---
Vital Signs 07/14/24 09:22 Height 5 ft 3 in Weight 184 lb BMI 32.6 BP 144/74 H Blood Pressure Location Lt brachial Position Sitting Pulse 76 Intake Visit Reasons: pre colonoscopy Intake Note: Patient follow up for pre Colonoscopy screening/Leslie patient. Patient denies any GI issues. Patient is a little mad because she thought her Colonoscopy was today after a year waiting x appt. Tub Tender Required: Yes Accompanied by: Self / Same As Patient Allergies oxycodone Adverse Reaction (Intermediate, Verified 07/14/24 09:17) sick to stomach codeine Adverse Reaction (Intermediate, Uncoded 03/29/24 14:38) abd pain, vomiting Medication List - Last Reconciled 07/14/24 by Will Styles MD aspirin 81 mg PO DAILY buspirone 10 mg PO BID 30 days calcium carbonate (Calcium 500) 500 mg PO DAILY cholecalciferol (vitamin D3) 50 mcg PO DAILY lgyojjzbmki-[id number] serr 1,500-400-100 mg-unit-mg (Glucosamine Daily Complex) 1 tab PO DAILY ibuprofen 800 mg PO Q8H 30 days metoprolol tartrate 25 mg PO BID mirtazapine 15 mg PO BEDTIME 30 days multivitamin (Daily Multi-Vitamin tablet) 1 tab PO DAILY omeprazole 20 mg PO DAILY PRN 90 days vitamin B complex (B Complex-Vitamin B12 tablet) 1 tab PO DAILY HPI HPI pre colonoscopy: Details: GI clinic visit for this 63 YF with GERD, bicuspid aortic valve - status post AVR with bioprosthetic valve seen in the GI clinic to schedule a screening colonoscopy TODAY'S VISIT: Pt upset since she thought she was having a colonoscopy today and took her prep yesterday Pt has heartburn once a week and does not last very long - takes a PPI prn Patient denies symptoms of dysphagia, nausea, vomiting, change in appetite or weight. Denies recent change in bowel habits, constipation, diarrhea, black stools or rectal bleeding. Patient denies major pulmonary problems, Complains of loud snoring - denies being diagnosed with sleep apnea She has a history of severe aortic stenosis from bicuspid aortic valve as well as ascending aortic dilatation. She underwent bioprosthetic aortic valve replacement with ascending aortic aneurysm repair subsequently. Denies problems with anesthesia in the past. Denies being on chronic anticoagulation. Maternal GM had colon cancer in her 60's. Patient denies known family history of colon polyps, other GI malignancies. PAST EGD/COLONOSCOPY: Had a colonoscopy in [address] Newman - diverticulosis and no polyps [facility] IMAGING STUDIES: No recent GI imaging study PAST GI HISTORY BY REVIEW OF MEDICAL RECORDS: 07/2023 PATIENT WAS SEEN BY HANNAH STRICKLAND: 62-year-old female referred for screening colonoscopy- MGM - colon cancer-elder age She has no GI complaints Normal bowel pattern, good appetite She follows with cardiology last seen November 2022 No nausea, vomiting, hematemesis, hematochezia fever or chills PLAN Very pleasant 62-year-old female s/p aortic repair, follows with cardiology referred for screening colonoscopy. She has no GI or general complaints She has follow-up Cardiology in September Discussed procedure, rare risk need for escort MiraLax Gatorade prep, reviewed, literature given Opportunities for question Encouraged to call questions or concerns FORMERLY [facility], 1928–1983 Medical History (Updated 03/29/24 @ 16:21 by Misti Cam MD) Severe aortic stenosis Physical exam Hyperkalemia Internal hemorrhoids Diverticulosis Golfers elbow of left upper extremity Obesity (BMI 30.0-34.9) GERD (gastroesophageal reflux disease) Migraine with aura and without status migrainosus, not intractable Surgical History H/O aortic valve replacement History of heart surgery History of carpal tunnel surgery History of cholecystectomy Family History Mother COPD (chronic obstructive pulmonary disease) Diabetes Afib Osteoporosis Dementia Father Lung cancer Family/Other Substance use disorder Maternal Grandmother Colon cancer Social History Housing: House Alcohol intake: current Alcohol intake frequency: 0-2 drinks per day Alcohol type: wine Patient Tobacco Use Status: Never used Tobacco e-Cigarette/Vaping Use: Never Used Second Hand Smoke Exposure: No Substance Use Type: Marijuana service: No Current occupational status: other 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 Current occupational exposures/hazards: No Sexual orientation: Straight/Heterosexual Gender identity: Female Cognitive needs: No Hearing needs: No Vision needs: Yes Review of Systems Const Denies fever(s), Reports headache(s) and Denies weight loss Eyes Denies eye discharge and Denies irritation ENT Reports Normal hearing present, Denies dysphagia, Denies dizziness and Reports headache(s) Card Denies chest pain, Denies leg edema and Denies dyspnea on exertion Resp Denies cough, Denies dyspnea on exertion and Denies wheezing GI Denies abdominal pain, Denies change in bowel habits, Denies dysphagia and Reports heartburn Denies difficulty voiding, Denies dysuria and Reports other (Urinary frequency) Musc Denies back pain, Reports arthralgias and Reports other (Arthritis) Skin/Breast Denies pruritus, Denies rash and Denies jaundice Neuro Reports Normal hearing present, Denies Abnormal speech present, Denies dizziness, Reports headache(s) and Denies seizure-like activity Psych Denies anxiety, Denies depression and Denies panic attacks Endo Denies cold intolerance, Denies flushing and Denies heat intolerance Ge/Lymph Denies easy bleeding and Denies easy bruising Aller/Immun Denies wheezing Physical Exam Vital Signs: Last Vital Signs Pulse 76 07/14/24 09:22 BP 144/74 H 07/14/24 09:22 BMI result Body Mass Index 32.6 Const General: healthy appearing and no acute distress Nutritional Appearance: obese Orientation/consciousness: patient oriented x3 Limitations: no limitations HEENT Head: Yes normal to inspection Ears: hearing grossly normal bilaterally Eyes Sclerae: sclerae normal Pupils: Equal, round and reactive pupils present Neck Neck: Yes normal visual inspection Chest Chest palpation & inspection: normal inspection of the chest Resp Effort & Inspection: normal respiratory effort Auscultation: clear to auscultation bilaterally Cardio Palpation: normal PMI Rate: regular rate Rhythm: regular rhythm Heart sounds: S1 normal heart sound present, S2 normal heart sound present and Murmur heart sound present (systolic III/ at the right sternal border ) GI Palpation (GI): Soft to palpation, nontender and No hepatosplenomegaly present Auscultation: normal bowel sounds Rectal Exam - Female: deferred Skin General skin exam: no rashes or lesions noted Neuro General: patient oriented x3, gait normal and moves all extremities Cranial nerves: Yes Equal, round and reactive pupils present and Yes Normal hearing present Speech: No Abnormal speech present Psych Appearance: grossly normal Mental Status: mental status grossly normal Assessment & Plan Assessment & Plan (1) GERD (gastroesophageal reflux disease): Code(s): K21.9 - Gastro-esophageal reflux disease without esophagitis Category: Medical Qualifiers: Esophagitis presence: esophagitis presence not specified Qualified Code(s): K21.9 - Gastro-esophageal reflux disease without esophagitis (2) Screen for colon cancer: Code(s): Z12.11 - Encounter for screening for malignant neoplasm of colon Category: Medical Plan 63 YF with GERD, bicuspid aortic valve - status post AVR with bioprosthetic valve seen in the GI clinic to schedule a screening colonoscopy 2011 Colonoscopy showed diverticulosis and no polyps were detected. Colonoscopy procedure and potential complications including bleeding, perforation and reaction to anesthetics were reviewed patient. Colonoscopy scheduled for 07/15/2024 - patient was advised to take a light breakfast this morning and remain on clear liquid diet the rest of the day. Take additional Miralax prep tonight. Medications: New polyethylene glycol 3350 (Miralax) Mix Miralax with 64 oz(8 cups) of Crystal light. Take 2 tablets of Dulcolax qt 12 pm. Wait to have your 1st bowel movement, then begin drinking Miralax. Drink a glass of Miralax every 10-15 minutes until you are finished. You will drink at least another 4 cups of clear liquid of your choice over the next 2 hours. Please drink as many clear liquids as possible You may have clear liquids up to four hours before your procedure 17 grams PO DAILY 1 day 238 grams 0RF colon prep Coding Level of Care Code Est Pt Level 4 (34103) Diagnoses Gastroesophageal reflux disease, unspecified whether esophagitis present K21.9 Esophagitis presence: esophagitis presence not specified Screen for colon cancer Z12.11 Time Spent (min) 23
[2024-07-14 09:22] VITALS: BP 144/74; PULSE 76; BMI 32.6
== END 2024-07-14 10:47 | disposition home or self-care (01) ==
PROVIDERS: PCP Internal Medicine; Visit Provider Internal Medicine Gastroenterology
DX: K21.9 Gastro-esophageal reflux disease without esophagitis (principal); Z12.11 Encounter for screening for malignant neoplasm of colon
CPT/HCPCS: 99214

== ENCOUNTER → 2024-07-14 09:12 | Outpatient (BNVA) | payer BC, SELFPAY | PROVIDERS: PCP Internal Medicine; Visit Provider Internal Medicine Gastroenterology ==

== ENCOUNTER 2024-07-15 10:48 | Day surgery (SDC) | payer BC, SELFPAY ==
--- OUTSIDE RECORDS SUMMARY | 2024-07-15 10:50 | XMS_ITS | Continuity of Care Document ---
Author Organization [facility] Address [address] [place] [address] [place] [address]- Care Team Providers Care Floor Steward/Stewardess Name Role Phone Gamaliel Cam MD, Misti Fitzpatrick Primary Care Physician Encounter [facility] Date(s): 01/16/23 - 02/15/23 [facility] [address] [place] [id number]- Allergies, Adverse Reactions, Alerts Substance Reaction Severity Status codeine N/V Active OxyCODONE Hydrochloride N/V Acti ve Medications amiodarone 200 mg oral tablet See Instructions, Take 2 tablets (400mg) 2 times a day through 02/07. Then on 02/08 only take 1 tablet (200mg) 2 times a day for 30 days then stop, # 78 tablet, Refills 0, Tot. Refills 0, Maintenance, 02/03/23 11:22:00 EDT, Instructions Replace Required... Start Date: 02/03/23 Status: Ordered amoxicillin 500 mg oral capsule 4 capsule = 2,000 mg, By Mouth, Once, take 4 capsules (2 g) by mouth 1 hour prior to dental procedure., # 4 capsule, 0 Refills, Soft Stop, 02/11/23 12:24:00 EDT, [facility]/pharmacy #[id number], Partial fill uponpatient request if the prescription is for a schedu... Start Date: 02/11/23 Status: Ordered aspirin 81 mg oral delayed release tablet = 81 mg, By Mouth, Daily, # 30 tablet, 0 Refills, Maintenance, 02/03/23 11:25:00 EDT, EC Tablet, [facility], Partial fill upon patient request if the prescription is for a schedule II opioid drug., 159, cm, 02/03/23 11:18:00 EDT, Height,... Start Date: 02/03/23 Status: Ordered B 100 Complex oral tablet 1 tablet, By Mouth, Daily, # 100 tablet, 0 Refills, Maintenance, 11/06/22 7:59:00 EST, Tablet, Partial fill upon patient request if the prescription is for a schedule II opioid drug. Start Date: 11/06/22 Status: Ordered busPIRone 7.5 mg oral tablet 1 tablet = 7.5 mg, By Mouth, 2 times a day, 0 Refills, Maintenance, 01/24/23 15:59:00 EDT, Partial fill upon patient request if the prescription is for a schedule II opioid drug. Start Date: 01/24/23 Status: Ordered Fish Oil 1000 mg oral capsule 1 capsule = 1,000 mg, By Mouth, Daily, 0 Refills, Maintenance, 11/06/22 7:59:00 EST, Capsule, Partial fill upon patient request if the prescription is for a schedule II opioid drug. Start Date: 11/06/22 Status: Ordered gabapentin 100 mg oral capsule 100 mg, By Mouth, 3 times a day, # 42 tablet, Refills 0, Tot. Refills 0, Maintenance, 02/03/23 11:26:00 EDT, Route to Pharmacy Electronically, [facility], Partial fill upon patient request if the prescription is for a schedule II opioid... Start Date: 02/03/23 Stop Date: 02/17/23 Status: Ordered metoprolol 25 mg oral tablet 25 mg, 1, tablet, By Mouth, 2 times a day, # 60 tablet, Refills 0, Tot. Refills 0, Maintenance, 02/03/23 11:27:00 EDT, Route to Pharmacy Electronically, [facility], Partial fill upon patient request if the prescription is for a schedule... Start Date: 02/03/23 Status: Ordered Multi-Day Plus Minerals oral tablet 1 tablet, By Mouth, Daily, # 30 tablet, 0 Refills, Maintenance, 11/06/22 7:59:00 EST, Tablet, Partial fill upon patient request if the prescription is for a schedule II opioid drug. Start Date: 11/06/22 Status: Ordered omeprazole 20 mg oral delayed release tablet 1 tablet = 20 mg, By Mouth, Daily, PRN Indigestion, # 30 tablet, 0 Refills, Maintenance, 11/06/22 8:00:00 EST, CR Tablet, Partial fill upon patient request if the prescription is for a schedule II opioid drug. Start Date: 11/06/22 Status: Ordered Problem List Condition Confirmation Course Effective Dates Status Health St atus Informant Obese class I Confirmed Active Patient Care team information Care Team Personnel Name: Eloina Calderon RN Position: S RN Supv Member Role: Primary Care Nurse Name: Nicolle Mcclendon Position: S RN Member Role: Primary Care Nurse Name: Tony Maria RN Position: S RN Member Role: Primary Care Nurse Name: Mercedez Rivers RN Position: S RN Member Role: Primary Care Nurse Name: Isabela Damico RN Position: S RN Supv Member Role: Primary Care Nurse Name: Jennifer Barrett RN Position: S RN Member Role: Primary Care Nurse Name: Jennifer Sharpe RN Position: S RN Member Role: Primary Care Nurse Name: Gamaliel Cam MD , Misti Fitzpatrick Position: Reference Physician Member Role: PCP Address: Address: [address] [place] [address]- Name: Astrid Lozano RN Position: S RN Member Role: Primary Care Nurse Care Team Related Persons Name: JOSE GRAY Address: home [address] [place] [address]
--- OUTSIDE RECORDS SUMMARY | 2024-07-15 10:50 | XMS_ITS | Continuity of Care Document ---
Author Organization [facility] Address [address] [place] [address] [place] [address]- Care Team Providers Care Medical Care Manager Name Role Phone Gamaliel Cam MD, Bernarda Primary Care Physician [phone] Encounter [facility] Date(s): 02/13/23 - 02/20/23 [facility] [address] [place] [address]- Attending Physician: Drake Jain MD Referring Physician: Nikolas Dillon MD Allergies, Adverse Reactions, Alerts Substance Reaction Severity [...] 0 Refills, Soft Stop, 02/11/23 12:24:00 EDT, [facility]/pharmacy #[id number], Partial fill uponpatient request if the prescription is for a schedu... Start Date: 02/11/23 Status: Ordered aspirin 81 mg oral delayed release tablet = 81 mg, By Mouth, Daily, # 30 tablet, 0 Refills, Maintenance, 02/03/23 11:25:00 EDT, EC Tablet, [facility], Partial fill upon patient [...] 02/03/23 11:26:00 EDT, Route to Pharmacy Electronically, [facility], Partial fill upon patient request if the prescription is for a schedule II opioid... Start Date: 02/03/23 Stop Date: 02/17/23 Status: Ordered metoprolol 25 mg oral tablet 25 mg, 1, tablet, By Mouth, 2 times a day, # 60 tablet, Refills 0, Tot. Refills 0, Maintenance, 02/03/23 11:27:00 EDT, Route to Pharmacy Electronically, [facility], Partial fill upon patient [...] atus Informant Obese class I Confirmed Active Vital Signs Most recent to oldest [Reference Range]: 1 Height 159 cm (02/13/23 9:19 AM) Weight 78.92 kg (02/13/23 9:19 AM) Oxygen Saturation [94-100 %] 99 % (02/13/23 9:19 AM) Pulse Rate [55-90 bpm] 91 bpm *H* (02/13/23 9:19 AM) Body Mass Index [18.5-24.99 kg/m2] 31.22 kg/m2 *>HHI* (02/13/23 9:19 AM) Blood Pressure [90-138/55-84 mm Hg] 110/ 62mm Hg (02/13/23 9:19 AM) Respiratory Rate [16-30 br/min] 18 br/mi n (02/13/23 9:19 AM) Mode of Delivery (Oxygen) Room air (02/13/23 9:19 AM) Blood pressure sites Arm, right (02/13/23 9:19 AM) Weight Obtained Via Patient/family state d (02/13/23 9:19 AM) Note * Event Display: [facility] Office Note Authored Date: [id number] OFFICE NOTE DATE: 02/13/2023 REASON FOR VISIT: Postop check. HISTORY OF PRESENT ILLNESS: The patient is a 62-year-old female, who underwent an ascending aortic aneurysm repair with a 26 mm Gelweave graft and aortic valve replacement with a 23 Inspiris valve on01/29/2022. She did very well postoperatively without any problems and was discharged home on postoperative day #5. At home, she denies any fevers, chills, chest pain, shortness of breath or other complaints. She is not taking any pain medicine anymore. PHYSICAL EXAMINATION: GENERAL APPEARANCE: Well-appearing female, sitting in the chair, in no distress. VITAL SIGNS: Heart rate 91 beats per minute, blood pressure 110/62 mmHg, respirations 18, oxygen saturation 99% on room air. CARDIAC: Regular rate and rhythm. No murmurs. CHEST: Incision is clean, dry and intact. Sternum is stable. LUNGS: Clear to auscultation. EXTREMITIES: No clubbing, cyanosis or edema. NEUROLOGIC: Grossly nonfocal. ASSESSMENT AND PLAN: This is a 62-year-old female status post AVR and ascending aortic aneurysm repair, who is doing remarkably well so soon after surgery. There are no changes from my standpoint in her medical regimen. She does have an upcoming appointment with Dr. Nikolas Dillon. I will continue to follow her given her history of aortic aneurysm and we will repeat a scan in 1 year's time. Thank you for this referral. Dictated by: Drake Jain MD Signing Clinician: Drake Jain MD Dictated: 02/13/2023 10:12:58 Transcribed: 07:42:44 AM Transcribed by: VIRGINIE DocID: [id number] PRELIMINARY REPORT UNLESS MANUALLY/ELECTRONICALLY SIGNED cc: Nikolas Dillon M.D. [facility] [address] [place] [address], [id number] Misti Cam M.D. [address] [place], [address] Cardiac surgery Outpatient Note * Honey Hickman MA: PERFORM, SIGN, VERIFY Event Display: Cardiac Surgery Note Office Authored Date: Patient: FREDA GRAY Age: 62 years Sex: Female : 1960 Associated Diagnoses: None Author: Honey Hickman MA To whom it may concern: This patient underwent open heart surgery on 01-29-2023. She may under go dental work for her brokentooth. If you have any questions please call [phone]. Thank you, Drake Jain MD Cardiac Surgeon Patient Care team information Care Team Personnel Name: Eloina Calderon RN Position: JUAN RN Supv Member Role: Primary Care Nurse Name: Nicolle Mcclendon Position: JUAN RN Member Role: Primary Care Nurse Name: Tony Maria RN Position: S RN Member Role: Primary Care Nurse Name: Mercedez Rivers RN Position: S RN Member Role: Primary Care Nurse Name: Isabela Damico RN Position: [facility] RN Supv Member Role: Primary Care Nurse Name: Jennifer Barrett RN Position: S RN Member Role: Primary Care Nurse Name: Jennifer Sharpe RN Position: [facility] RN Member Role: Primary Care Nurse Name: Misti Thorpe MD Position: Reference Physician Member Role: PCP Address: Address: [address] [place] [address] [address] [place] [address]- Name: Astrid Lozano RN Position: [facility] RN Member Role: Primary Care Nurse Care Team Related Persons Name: JOSE GRAY Address: [address] [place] [address]
--- OUTSIDE RECORDS SUMMARY | 2024-07-15 10:50 | XMS_ITS | Continuity of Care Document ---
Author Organization [facility] ter Address [address] [place] [id number]- Care Team Providers Care Forestry Tree Pruner Name Role Phone Gamaliel Cam MD, Bernarda Primary Care Physician [place] [facility] [id number] Date(s): 11/06/22 - 11/06/[address] [address]- Discharge Disposition: A-D/C Home Attending Physician: Danny Nails MD Admitting Physician: Danny Nails MD Referring Physician: Rogerio Dillon MD Allergies, Adverse Reactions, Alerts Substance Reaction Severity Status codeine Active OxyCODONE Hydrochloride Acti ve Medications B 100 Complex oral tablet 1 tablet, By Mouth, Daily, # 100 tablet, 0 Refills, Maintenance, 11/06/22 7:59:00 EST, Tablet, Partial fill upon patient request if the prescription is for a schedule II opioid drug. Start Date: 11/06/22 Status: Ordered B-12 1000 mcg oral tablet 1 tablet = 1,000 mcg, By Mouth, Daily, 0 Refills, Maintenance, 11/06/22 7:58:00 EST, Partial fill upon patient request if the prescription is for a schedule II opioid drug. Start Date: 11/06/22 Status: Ordered D3 50 mcg (2000 intl units) oral capsule 1 capsule = 50 mcg, By Mouth, Daily, 0 Refills, Maintenance, 11/06/22 7:58:00 EST, Partial fill upon patient request if the prescription is for a schedule II opioid drug. Start Date: 11/06/22 Status: Ordered Fish Oil 1000 mg oral capsule 1 capsule = 1,000 mg, By Mouth, Daily, 0 Refills, Maintenance, 11/06/22 7:59:00 EST, Capsule, Partial fill upon patient request if the prescription is for a schedule II opioid drug. Start Date: 11/06/22 Status: Ordered Glucosamine & Chondroitin with MSM See Instructions, 0 Refills, Maintenance, 11/06/22 7:59:00 EST, Partial fill upon patient request if the prescription is for a schedule II opioid drug. Start Date: 11/06/22 Status: Ordered ibuprofen 800 mg oral tablet 800 mg, 1, tablet, TAKE 1 TABLET BY MOUTH EVERY 8 HOURS FOR 30 DAYS Start Date: 11/06/22 Status: Ordered Multi-Day Plus Minerals oral tablet [...] opioid drug. Start Date: 11/06/22 Status: Ordered Tylenol Extra Strength PM 500 mg-25 mg oral tablet 2 tablet, By Mouth, Daily at bedtime, PRN for sleep, 0 Refills, Maintenance, 11/06/22 8:01:00 EST, Tablet, Partial fill upon patient request if the prescription is for a schedule II opioid drug. Start Date: 11/06/22 Status: Ordered Problem List Condition Confirmation Course Effective Dates Status Health St atus Informant Obese class I Confirmed Active Vital Signs Most recent to oldest [Reference Range]: 1 2 3 Height 161 cm (11/06/22 8:27 AM) 161 cm (11/06/22 8:03 AM) Weight 81.9 kg (11/06/22 8:27 AM) 81.9 kg (11/06/22 8:03 AM) Oxygen Saturation [94-100 %] 100 % (11/06/22 4:15 PM) 96 % (11/06/22 3:45 PM) 94 % (11/06/22 3:00 PM) Pulse Rate [55-90 bpm] 67 bpm (11/06/22 8:27 AM) Body Mass Index [18.5-24.99 kg/m2] 31.6 kg/m2 *>HHI* (11/06/22 8:27 AM) Blood Pressure [90-138/55-84 mm Hg] 106/72mm Hg (11/06/22 4:15 PM) 91/61mm Hg (11/06/22 3:45 PM) 100/61mm Hg (11/06/22 3:00 PM) Respiratory Rate [16-30 br/min] 19 br/min (11/06/22 4:15 PM) 19 br/min (11/06/22 3:45 PM) 21 br/min (11/06/22 3:00 PM) Temperature [96.8-100.4 DegF] 97.5 DegF (11/06/22 8:27 AM) Mode of Delivery (Oxygen) Room air (11/06/22 4:15 PM) Room air (11/06/22 3:45 PM) Room air (11/06/22 1:15 PM) Blood pressure sites Arm, right (11/06/22 8:27 AM) Arm, left (11/06/22 8:05 AM) Arm, right (11/06/22 8:00 AM) Temperature Route Temporal (11/06/22 8:27 AM) Dry Weight 81.9 kg (11/06/22 8:03 AM) Weight Obtained Via Standing scale (11/06/22 8:27 AM) Standing scale (11/06/22 8:03 AM) Dry Weight Obtained Via Standing scale (11/06/22 8:03 AM) Cardiac catheterization study * Event Display: Cardiac Electric Motor Tester Report Authored Date: Cardiac Diagnostic Report Demographics Patient Name MARINA BARBA Gender Female [employer] Room Number [id number] Height 63.39 inches Date of 1960 Weight 180.56 pounds Age 62 year(s) BSA 1.86 m2 Accession Number [id number] BMI 31.6 kg/m2 Referring Physician Rogerio Dillon Date of Study 11/06/2022 Performing Physician Danny Nails MD Fellow Interventional Physician Procedure Procedure Type Diagnostic procedure:Coronary Angiography with [facility] Miscellaneous:Vascular Closure Device ACC Diagnostic Catheterization Status:Elective Indications Indications: Aortic stenosis. Clinical History Clinical Evaluation Leading to Procedure - There were no CAD presentation symptoms. - There were no anginal symptoms. - The patient was diagnosed with a heart failure condition. - The patient's heart failure status was assessed as NYHA Class II, with CHF symptoms of GRAHAM ACC Risk Factors The patient risk factors include:obesity, physical activity, last creatinine: 0.7 mg/dl, creatinine clearance: 109.12 ml/min and dyslipidemia. Additional Clinical History:62 female with severe bicuspid aortic valve stenosis here for diagnotic angiography. Procedure Data Procedure Date Date: 11/06/2022Start: 11:08End: 12:01 The procedure was explained in detail to the patient. Risks, complications and alternative treatments were reviewed. Written consent was obtained. Entry Locations - Retrograde Percutaneous access was performed through the Right Radial artery. A 6 Fr sheath was inserted. Hemostasis was successfully obtained using Prelude Sync EZ. Closure Comments: Prelude - 10 cc's of air . - Retrograde Percutaneous access was performed through the Right Femoral artery (Primary location). A 4 Fr sheath was inserted. This was exchanged for a 5 Fr sheath. Hemostasis was successfully obtained using Perclose ProGlide. Procedure Medications - Oxygen NC 2 l/min. - Versed (Midazolam) I.V. 1 mg. - Fentanyl I.V. 50 mcg. - Lidocaine 2% S.C. Right Wrist 2 ml. - Versed (Midazolam) I.V. 0.5 mg. - Fentanyl I.V. 25 mcg. - Versed (Midazolam) I.V. 0.5 mg. - Fentanyl I.V. 25 mcg. - Heparin I.V. 4000 units. - Nitroglycerin 200 mcg. - Nitroglycerin 200 mcg. - Versed (Midazolam) I.V. 0.5 mg. - Fentanyl I.V. 25 mcg. - Lidocaine 2% S.C. Right groin 5 ml. Sedation: My intra-service moderate sedation time was: from 1113 to 1206. Refer to procedural log for detailed chronological information. Contrast Material - Omnipaque 80 ml Diagnostic Catheters - [id number] RADIAL TIG 4.0 RADIFOCUS OPTITORQUE CATHETERwas used for: Left heart catheterization.Unable to cannulate the vessel. - A4F JR4 INFINITI CATHETERwas used for: Right coronary angiography.Unable to cannulate the vessel. - A4F JL3.5 INFINITI CATHETERwas used for: Left coronary angiography. - A5F JR4 INFINITI CATHETERwas used for: Right coronary angiography. - A5F JL 4.0 DxTERITY DIAGNOSTIC CATHETERwas used for: Left coronary angiography. - [id number] MPA DxTERITY DIAGNOSTIC CATHETERwas used for: Right coronary angiography. - A5F JL 5.0 DxTERITY DIAGNOSTIC CATHETERwas used for: Left coronary angiography. Fluoroscopy Time: Diagnostic: 14:31 minutes. Total: 14:31 minutes. Fluoroscopy Dose: Diagnostic: 1186 mGy. Total: 1186 mGy. Dose Area Product:Diagnostic: 889999 mGy/cm2. Total: 239182 mGy/cm2. Dose Area Product:Diagnostic: [id number] ??Gy/m2. Total: 20904.128201174831 ??Gy/m2. Procedure Narrative We accessed the RRA using 6 Fr sheath but the patient had significant spasm and we could advance the sheath completely. We were able to advance 4 Fr catheters to ascending aorta but could not engage the coronaries. We accessed the right FILLER WIPER using a 5 Fr sheath and micropuncture. We engaged the RCA with MP1 and left main with JL5. Hemostasis with Perclose and regular TR band at the wrist. Angiographic Findings Cardiac Arteries and Lesion Findings LMCA: Normal. LAD: Normal. LCx: Normal. RCA: Normal. Hemodynamics Condition: Rest O2 Consumption: Estimated: 172.56Heart Rate: 65 bpm Pressures (mmHg) +-----+ + !Site !Pressure ! +-----+ + !AO !124/79 (99)! +-----+ + !AO !140/73 (99)! +-----+ + Shunts Oxygen Values O2 Consumption 172.56 Interventional Procedure Conclusions Diagnostic Summary 62 female with severe bicuspid here for coronary angiography. Hemodynamics: Normal systemic pressures. Coronary anatomy: The coronary arteries are angiographically normal. Diagnostic Recommendations Refer to CT surgery for AVR. ACC Diagnostic Recommendations: Other cardiac therapy without CABG or PCI. Complications:None. Signatures * Event Display: Cardiac Electric Motor Tester Report Authored Date: [id number] Note * Tara Yang: PERFORM Event Display: Discharge/Transfer Note Hospital Authored Date: [id number] Nursing Discharge Note Entered On: 11/06/2022 17:30 EST Performed On: 11/06/2022 17:06 EST by Tara Yang Nursing Discharge Note 2 Discharge Time : 11/06/2022 17:06 EST Discharge Level of Care at Discharge : Home/Senior Living/Foster Care Patient Left Unit Via : Wheelchair Patient Accompanied Off Unit with : Significant other DC Instructions Provided & Signed by Pt : Yes Patient Understands D/C Instructions : Yes Verbalized Understanding of D/C Plan By : Family, Significant other Patient Instructions Discharge Signed : Yes Did Pt have Specialty Bed or Wound Vac : No Tara Yang - 11/06/2022 17:28 EST * Tara Yang: PERFORM Event Display: Patient Education/Instruction Authored Date: [id number] Inpatient Adult Discharge Instructions [address] [id number] Name: FREDA GRAY : 1960 Visit: 11/06/2022 07:34:00 Current Date: 11/06/2022 16:49 Account: [id number] Inpatient Adult Discharge Instructions We would like to thank you for allowing us to assist you with your healthcare needs. The following includes patient education materials and information regarding your injury/illness. Our entire staffstrives to provide an excellent experience for our patients and their families. PLEASE ENSURE YOU FOLLOW-UP PER THE INSTRUCTIONS BELOW! ?? YOUR OPINION IS IMPORTANT TO US! Please complete the survey you may receive by mail or email. Your feedback will be used to make improvements to the healthcare experiences of our patients and their families. Surveys are administered by [employer] ?? If further treatment with your primary care physician or another doctor is recommended, it is important for you to keep the appointment. Call your primary care physician or return to the Emergency Department immediately if your condition worsens, fails to improve, or new symptoms develop. If you need to find a doctor, you can call [facility] for a referral at [phone] or toll free at [phone] or log in to [email or web address].. ?? You can view and manage your care through the patient portal or by using a health care jayce of your choosing. [employer] is a website that allows you to securely view your medical information including your hospital discharge summary, office visit summaries, medications and follow-up visits. You can also request appointments, renew medications, and request access to your medical information using a health care jayce of your choosing, or just ask a question. You can enroll at [email or web address] or register during your next office visit. You have been discharged from [facility], Patient Care Unit: CARE. If you have any questions regarding these instructions after you leave, please call us and we will be happy to assist you. [facility] Your Care Team Attending Physician Jesu ROBERTS, Danny Discharging Providers [place] DO Reason for Admission [facility] 7:30AM ARR HV2 DST Tests Performed Below is a partial list of the tests performed during your hospitalization. You may have had other tests and procedures not included in this list. Please discuss all test results with your provider. Type and Screen Primary Care Provider Gamaliel Cam MD , Misti Fitzpatrick Advance Directive Health Care Proxy on File No Discharge Vitals Temperature: 97.5 DegF Height: 161 cm Pulse Rate: 67 bpm Weight: 81.9 kg Respiratory Rate: 19 br/min Body Mass Index:??31.6 kg/m2??Critical Systolic Blood Pressure: 106 mm Hg Body surface area: 1.91 Diastolic Blood Pressure: 72 mm Hg ?? Oxygen Saturation: 100 % ?? Studies Pending All tests and labs ordered during this hospital stay have been completed unless listed below. Please discuss all pending results with your provider listed above in these instructions. ?? No incomplete studies found What to do next Instructions From Your Doctor Discharge Orders You Need to Schedule the Following Appointments Follow Up with??Santana ROBERTS, Rogerio When??Within 1 to 2 weeks Where: ?? Follow Up with??[facility] When??Within 2 to 3 weeks Where: ?? Discharge Medications FREDA GRAY :1960 Visit Date:11/06/2022 Medications: Please continue your medications until treatment is completed or stopped by your provider. Medications not listed below should be discontinued. Discuss any questions related to medications with your provider. What How Much When Instructions Next Dose Unchanged Acetaminophen- Diphenhydramine (Tylenol Extra Strength PM 500 mg-25 mg oral tablet) 2 tab(s) Oral Daily at Bedtime as needed for for sleep Unchanged Cholecalciferol (D3 50 mcg (2000 intl units) oral capsule) 1 capsule Oral Daily Unchanged Chondroitin/ Glucosamine/ Methylsulfonylmethane (Glucosamine & Chondroitin with MSM) See instructions Unchanged Cyanocobalamin (B-12 1000 mcg oral tablet) 1 tab(s) Oral Daily Unchanged Ibuprofen (ibuprofen 800 mg oral tablet) 1 tab(s) TAKE 1 TABLET BY MOUTH EVERY 8 HOURS FOR 30 DAYS ?? Unchanged Multivitamin (B 100 Complex oral tablet) 1 tab(s) Oral Daily Unchanged Multivitamin With Minerals (Multi-Day Plus Minerals oral tablet) 1 tab(s) Oral Daily Unchanged Sparks-3 Polyunsaturated Fatty Acids (Fish Oil 1000 mg oral capsule) 1 capsule Oral Daily Unchanged Omeprazole (omeprazole 20 mg oral delayed release tablet) 1 tab(s) Oral Daily as needed for Indigestion Test Results Below is a partial list of the most recent Laboratory test results done prior to this discharge. You may have had other tests and procedures not included in this list. Please discuss all test resultswith your provider. Type and Screen (11/06/2022) ???Blood Type - O Positive???Antibody Screen - Negative Allergies (NKA means No Known Allergies) OxyCODONE Hydrochloride codeine Problems Active Problems??(1) Obese class I?? Education Materials Below is the list of Educational Leaflet Providered with your Discharge Instructions. Surgery Radial Cath Approach Discharge Instructions?? Recovery After Procedural Sedation (Adult)?? Bleeding or Hematoma After Cardiac Catheterization?? M-Groin I Discharge Instructions?? Discharge Instructions for Cardiac Catheterization?? Valuables and Belongings I fully understand and agree that [facility] accepts no responsibility for all my personal property including clothing, toilet articles, radios, jewelry, dentures, hearing aids, rings, money, or any other property that is in my possession or is brought to me after admission. I understand certain valuables may be placed in a hospital safe for a short period of time. I understand that the hospital is not liable for loss or damage due to accident, fire, or other natural occurrence while said property is in the safe. I accept full responsibility for any personal property that I keep with me, and will not hold the hospital responsible in case of loss or disappearance. I acknowledge that i have been encouraged to send valuables and belongings home. ?? Review of Valuable and Belonging List: With patient Date for Pt to Sign Valuables/Belongings: 11/06/22 08:27:00 ?? Valuables & Belongings ?? Clothes Electronic devices Jewelry Monetary Items Personal devices Miscellaneous Medications (Valuables) Valuables at Bedside Jacket, Pants, Shirt, Shoes, Undergarments ?? Rings ?? Glasses ? Valuables Sent Home ? Valuables Sent to Security ? Other Discharge Information ? Pulmonary Rehab Status?? Pulmonary Rehab Discharge Status?? Respiratory Rate: 19 br/min ? Common Emergency Awareness Tips IS IT A STROKE? Act FAST and Check for these signs: FACE Does the face look uneven? ARM Does one arm drift down? SPEECH Does their speech sound strange? TIME Call at any sign of stroke ?? Heart Attack Signs Chest discomfort: Most heart attacks involve discomfort in the center of the chest and lasts more than a few minutes, or goes away and comes back. It can feel like uncomfortable pressure, squeezing, fullness or pain. Discomfort in upper body: Symptoms can include pain or discomfort in one or both arms, back, neck, jaw or stomach. Shortness of breath: With or without discomfort. Other signs: Breaking out in a cold sweat, nausea, or lightheaded. Remember, MINUTES DO MATTER. If you experience any of these heart attack warning signs, call to get immediate medical attention! ?? Smoking can increase your chances of developing chronic health problems and can cause harmful effects to other family members in your house. If you smoke, you are strongly encouraged to quit. Please call [facility] at [phone] or [phone] ([phone]) or log in to [email or web address] for referrals to smoking cessation programs. ?? The National Suicide Prevention Hotline is available 13/04 if you or someone you know needs to find a reason to keep living. By calling 3-097-978-Eleven James (4373) you'll be connected to a skilled, trained counselor at a crisis center in your area. INPATIENT DISCHARGE INSTRUCTIONS SIGNATURE PAGE MARINA FREDA Location:[facility] Registration Date and Time:11/06/2022 07:34 EST Primary Care Physician: Gamaliel Cam MD , Bernarda, I FREDA GRAY, have received the above patient education materials/instructions and have verbalized understanding. If ambulance or transport services are being used I further acknowledge being given a choice of service. ?? If you need to contact me, please call me at this number: . Patient/Commercial Real Estate Broker Name: Patient/Commercial Real Estate Broker Signature: Relationship to Patient: Witness Name/Signature: Date: * Tara Yang: PERFORM Event Display: Patient Education Leaflets Authored Date: [id number] Surgery Radial Cath Approach Discharge Instructions ?? 278 Radial Cath Approach Discharge Instructions ?? Activity Take it easy the rest of the day. Limit your activity on the affected side.?? Act as if your arm is broken for 24 hours. No lifting with affected arm for 24 hours. No pushing or pulling with the affected arm. Do not reach or lift with the affected arm. Do not place excessive pressure on the wrist. ?? Precautions Due to intravenous sedation: It is recommended that someone stay with you for the first night after your procedure. Do not drive or operate hazardous machinery for 24 hours. Do not make legal decisions for 24 hours. Avoid alcohol for 24 hours. Unless directed otherwise, keep yourself hydrated. ?? Dressing/Incision Care You may remove the dressing 24 hours after your procedure. Replace with band aid for an additional 24 hours. You may shower and cleanse the site with soap &&water then pat dry. Avoid submersion of site in water x 5 days. Cover the with a clean band aid daily until site is healed. If the band aid becomes soiled, replacewith a clean new one. Do not apply any ointments, lotions, gels or powders to the puncture site. ?? When to contact your doctor If any of the following signs of infection occur: Fever greater than 100 degrees F Increased pain Drainage, redness or warmth at puncture site Tingling of the fingers and hand that last longer than 3 days Slight bubble of blood or bleeding from site: apply manual pressure and notify your doctor ?? Emergency situations: Bleeding from the site that will not stop: apply manual pressure and notify your doctor Profuse bleeding streaming from the puncture site: Apply manual pressure and notify your doctor immediately If your hand becomes bluish, cold to the touch, or painful, notify your doctor immediately or go toEmergency Department. For these emergent situations: If unable to contact your physician, call 911. ?? * Tara Yang: PERFORM Event Display: Patient Education Leaflets Authored Date: [id number] Recovery After Procedural Sedation (Adult) ?? [id number] Recovery After Procedural Sedation (Adult) You have been given medicine by vein to make you sleep during your procedure. This may have included both a pain medicine and sleeping medicine. Most of the effects have worn off. But you may still have some drowsiness for the next 6 to 8 hours. Home care Follow these guidelines when you get home: ??? For the next 8 hours, you should be watched by a responsible adult. This person should make sure your condition is not getting worse. ??? Don't drink any alcohol??for the next 24 hours. ??? Don'tdrive, operate dangerous machinery, or make important business or personal decisions??during the next 24 hours. Note: Your healthcare provider may tell you not to take any medicine by mouth for pain or sleep in the next 4 hours. These medicines may react with the medicines you were given in the hospital. This could cause a much stronger response than usual. ?? Follow-up care Follow up with your healthcare provider as advised. Also follow up with your provider if you are not alert and back to your usual level of activity within 12 hours. ?? When to seek medical advice Have someone call your healthcare provider right away if any of these occur: ??? Drowsiness gets worse ??? Weakness or dizziness gets worse ??? Repeated vomiting ??? Severe or ongoing pain from the procedure that's not eased by the pain medicine (if prescribed) ??? Fever ??? New rash ?? Call 911 Have someone call 911 if you have any of these: ??? Shortness of breath ??? Chest pain ??? Loss of consciousness or you can't be awakened ?? Last Reviewed Date: 2021 ?? [employer]. All rights reserved. This information is not intended as a substitute for professional medical care. Always follow your healthcare professional's instructions. ?? * Tara Yang: PERFORM Event Display: Patient Education Leaflets Authored Date: M-Groin I Discharge Instructions ?? 179 Groin Discharge Instructions No heavy lifting over 10 pounds (for example: gallon of milk) 1 week following the procedure; gradually increase normal activity over the next 5 days. Avoid straining/pushing when moving bowels You may feel like resting more after your procedure. Slowly start to do more each day. Rest when you feel it is needed. Make sure to look at your procedure site every day until it is completely healed. You may see bruising at the puncture site and that is common after the procedure. You may shower the day after your procedure. Remove the band aid before showering. Wash the area gently with soap and water. Leave open to air. Do not take tub baths, hot tubs, soaking of the puncture site or swimming for 1 week. Do not put any creams, powders or lotions on your puncture site You may resume sexual activity the day after your procedure; avoid bending the hip on ?? the side of the groin puncture excessively and any strenuous positions for 1 week. Call your doctor if your procedure site develops any of the following: ??? New onset severe pain ??? New onset lump or swelling ??? Bleeding that does not stop with lightpressure ? * Tara Yang: PERFORM Event Display: Patient Education Leaflets Authored Date: Bleeding or Hematoma After Cardiac Catheterization ?? [id number] Bleeding or Hematoma After Cardiac Catheterization You recently had cardiac catheterization. A catheter was put into your body through a puncture of an artery in your groin or arm. You now have bleeding from this site. When bleeding occurs, it may drip or spurt from the site. Or it may collect in a lump (hematoma) under the skin. This often requires urgent evaluation in an emergency room. First put direct pressure on the site and call 911 or havesomeone take you to the emergency room. In the emergency room, more pressure will be put on the site to stop bleeding. You may be sent home if the bleeding can be controlled and you are feeling well enough. To prevent repeat bleeding, take some precautions at home. If the bleeding starts again, follow the advice below. Home care For the next 48 hours: ??? Don't do any strenuous activity. ??? Don't climb any stairs if possible ??? Don't lift anythinggreater than 5 pounds. ??? If the puncture site is in your arm or wrist, don't lie on that arm. ???If your puncture site is in the groin, don't??strain at bowel movements. ??? Don't scrub the site when bathing. It's fine to get it wet after your healthcare provider says it's OK, but don't scrub itor massage it. Don't take a tub bath for 3 days after the procedure. ??? Don't drive for the next 48 hours If bleeding happens again, call 911. Take the following steps to stop the bleeding until help arrives: ??? Lie on your back. ??? Place a clean cloth or gauze pad over the puncture site. Then hold firm pressure right on the site. Or have someone else apply firm pressure using the??gauze pad or??washcloth. ??? Keep your arm straight and raised above the level of your heart if the site is in your arm or wrist. If the site is in your groin, have someone else hold pressure on the site. ??? Don't press too hard! If you press too hard, your leg and foot (or arm and hand) will not get blood flow and??the skin under your toenails or fingernails may turn white. The skin should look pink, like the toen ails on your other foot. When you (or someone) presses on the toenail it will turn white, but when you stop pressing on the nail it will turn pink again. This is called capillary refill. If there is someone with you, they can check it. ??? If your toes, foot, or leg start feeling numb, tingly, orcold, ease up on the pressure, you are probably pressing too hard. ??? As soon as emergency care arrives, they will take over your care. ?? Follow-up care Follow up with your healthcare provider, or as advised. Ask your healthcare provider for a contact number to call. ?? Call 911 Call 911 if any of these occur: ??? Chest pain or pressure ??? Any bleeding from the site ??? Feeling weak or faint ??? Trouble breathing ??? Lump (hematoma) is??quickly getting larger ??? Coolness, numbness, tingling, or skin color changes in the leg or arm with the puncture site ?? When to seek medical advice Call your healthcare provider right away??if any of these occur: ??? Increased pain, redness, swelling, or drainage from the puncture site ??? Nausea or vomiting ??? Fever of 100.4??F (38??C) or higher, or as directed by your provider ?? Last Reviewed Date: 2021 ?? 8646-5870 [employer]. All rights reserved. This information is not intended as a substitute for professional medical care. Always follow your healthcare professional's instructions. ?? Patient Care team information Care Team Personnel Name: Gamaliel Cam MD , Misti Fitzpatrick Position: Reference Physician Member Role: PCP Address: Address: [address] [place] [address]- Care Team Related Persons Name: JOSE GRAY Address: home [address] [place] [address]
--- OUTSIDE RECORDS SUMMARY | 2024-07-15 10:51 | XMS_ITS | Continuity of Care Document ---
Author Organization [facility] ter Address [address] [place] [id number]- Care Team Providers Care Sole Polisher Name Role Phone Gamaliel Cam MD, Bernarda Primary Care Physician [place] [facility] [place] - 01/19/[address] [id number] Discharge Disposition: A-D/C Home Attending Physician: Imer Vásquez MD Admitting Physician: Stanford Morse MD Referring Physician: Not on Staff, Referring MD Allergies, Adverse Reactions, Alerts Substance Reaction [...] atus Informant Obese class I Confirmed Active Results Radiology Reports * Exam Date Time Procedure Performing Provider Status 01/18/23 5:40 PM Chest 2 Views Frontal and Lat Say Collins; Auth (Verified) Notes: (Chest 2 Views Frontal and Lat) Reason For Exam: Chest Pain;Other: RESULT: Chest 2 Views Frontal and Lat Chest 2 Views Frontal and Lat Hx of Present Illness: tachycardia; Reason: Other:; Chest Pain; Clinical Question(s): Other: COMPARISON: Outside CT chest dated 12/17/2022 FINDINGS: LINES AND TUBES: None. LUNGS AND PLEURA: No focal pulmonary opacity. Normal pulmonary vascularity. No pleural effusion. No pneumothorax. HEART, MEDIASTINUM AND TOI: Heart is normal in size. Normal mediastinal and hilar contour. BONES AND SOFT TISSUES: No acute abnormality. IMPRESSION: No acute abnormality. WSN: [id number] Ordering Physician: Steve Bernstein Dictated By: Evette Ritter MD Dictated Date/Time: 01/18/23 5:54 pm Reviewed By: Evette Ritter MD Signed By: Evette Ritter MD Signed Date/Time: 01/18/23 5:54 pm Transcribed By: RICHARD Transcribed Date/Time: 01/18/23 5:53 pm Vital Signs Most recent to oldest [Reference Range]: 1 2 3 Height 161 cm (01/19/23 7:18 AM) 161 cm (01/19/23 3:43 AM) 161 cm (01/18/23 10:28 PM) Weight 81.9 kg (01/18/23 10:28 PM) 82 kg (01/18/23 10:08 PM) Oxygen Saturation [94-100 %] 100 % (01/19/23 7:18 AM) 98 % (01/19/23 3:43 AM) 98 % (01/18/23 10:08 PM) Pulse Rate [55-90 bpm] 62 bpm (01/19/23 7:18 AM) 65 bpm (01/19/23 3:43 AM) 79 bpm (01/18/23 10:28 PM) Body Mass Index [18.5-24.99 kg/m2] 31.6 kg/m2 *>HHI* (01/18/23 10:28 PM) Blood Pressure [90-138/55-84 mm Hg] 157/85mm Hg *H* (01/19/23 7:18 AM) 127/80mm Hg (01/19/23 3:43 AM) 138/77mm Hg (01/18/23 10:28 PM) Respiratory Rate [16-30 br/min] 19 br/min (01/19/23 7:18 AM) 18 br/min (01/19/23 3:43 AM) 18 br/min (01/18/23 10:28 PM) Temperature [96.8-100.4 DegF] 97.6 DegF (01/19/23 7:18 AM) 97.7 DegF (01/19/23 3:43 AM) 98.4 DegF (01/18/23 10:28 PM) Mode of Delivery (Oxygen) Room air (01/19/23 7:18 AM) Room air (01/19/23 3:43 AM) Room air (01/18/23 10:08 PM) Blood pressure sites Arm, left (01/19/23 7:18 AM) Arm, right (01/19/23 3:43 AM) Arm, right (01/18/23 10:28 PM) Temperature Route Oral (01/19/23 7:18 AM) Oral (01/19/23 3:43 AM) Oral (01/18/23 10:28 PM) Dry Weight 81.9 kg (01/18/23 10:28 PM) Weight Obtained Via Bed scale (01/18/23 10:08 PM) Social History Social History Type Response Sex Female Admission evaluation note * Ly ROBERTS, [facility]: MODIFY, MODIFY, MODIFY, MODIFY, PERFORM, MODIFY, MODIFY, MODIFY Event Display: Admission Note Authored Date: [id number] Patient: ??YOLIE GRAY ? Age:??62 Years?Sex:??Female?:??1960?? History of Present Illness ?? Is a 62-year-old gentleman with past medical history of recently diagnosed bicuspid aortic valve with mildly dilated ascending aorta following with cardiac surgery outpatient, plans for surgical replacement coming in today with an episode of chest pressure. ?? Of note patient was recently diagnosed with a bicuspid aortic valve with mildly dilated ascending aorta.?? She saw cardiac surgery on 11/27/2022 and is reportedly scheduled for a aortic valve replacement on January 29.?? Prior to that she also had a cardiac cath on 10/2022 which shows normal coronary arteries, normal systemic pressures.? According to the patient??she suddenly??had a sensation??of chest tightness.?? She says she never felt any overt pain however??just felt??there is a pressure/tightness and cannot??localize??a place for the tightness. ??She said ever since her diagnosis of the??bicuspid aortic valve she has become more mindful of her symptoms and??is more anxious.?? She said she has had moments where she has??episodes of tachycardia, her heart races and is detected by Apple Watch. ??Usually resolves on her own.?? This time she has a sensation of chest tightness??and her Apple Watch was saying that her heart rate was??intermittently elevated up to the 140s.?? This episode was lasting longer than usual and shecame to the ED for further evaluation. ? On presentation to ED she is afebrile, hemodynamically stable and saturating properly on room air.?? In terms of lab work-up she has a normal WBC count, stable hemoglobin count normal electrolytes, stable kidney function.?? proBNP 742 and high sensitive troponin of 23.?? Normal TSH. Review of Systems Full review of systems conducted, negative unless mentioned in the HPI Objective Vital Signs?? Temperature: 98.1 DegF (01/18/23 19:40:00) Temperature Route: Oral (01/18/23 19:40:00) Pulse Rate: 76 bpm (01/18/23 19:40:00) Respiratory Rate: 18 br/min (01/18/23 19:40:00) Systolic Blood Pressure: 133 mm Hg (01/18/23 19:40:00) Diastolic Blood Pressure:??88 mm Hg??High (01/18/23 19:40:00) Blood pressure sites: Arm, right (01/18/23 19:40:00) Mean Arterial Pressure: 103 mm Hg (01/18/23 19:40:00) Pulse Pressure: 45 mm Hg (01/18/23 19:40:00) Oxygen Saturation: 99 % (01/18/23 19:40:00) Mode of Delivery (Oxygen): Room air (01/18/23 19:40:00) Early Warning Score: 0 (01/18/23 19:40:53) ? Physical Exam General Appearance: no acute distress Eyes: GEGE. No scleral icterus. ENT:?? MM moist. Cardiovascular: RRR S1 and S2 , 4/6 ejection murmur radiating to carotids. Respiratory: Clear to auscultation, no wheeze or crackles GI: Soft. Nontender and nondistended. Normal bowel sounds present. no guarding, rigidity MSK:?? No edema or erythema in the lower extremities. Skin: No rashes seen on chest, abdomen. Neuro:?? No slurred speech. Moving upper and lower extremities independently Psych: oriented x3. Lines: Peripheral IV in place. Assessment/Plan ?62-year-old??female??with past medical history of recently diagnosed bicuspid aortic valve with mildly dilated ascending aorta following with cardiac surgery outpatient, plans for surgical replacement coming in today with an episode of chest pressure.?? Admitted for ACS rule out ?? ACS rule out Chest pressure Severe aortic stenosis with bicuspid aortic valve,??mildly??dilated ascending aorta ??healthy 62-year-old female who until recently and no medical history.?? She was recently diagnosed with a??bicuspid aortic valve with severe stenosis??due to a murmur.?? She also has a mildly??dilated ascending aorta.?? She is scheduled to undergo replacement??by CT surgery on January 29. ??She also underwent a cardiac cath??in October 2022??which??showed normal coronary arteries Patient??comes in today with an episode of chest pressure which she finds hard to describe.?? She says she never felt any pain however??intermittently since her diagnosis she has had these episodes where she feels her chest gets tight and her heart races.?? This time the episode lasted longer than usual??which made her present to the ED ?? EKG nonischemic, initial troponin of??23 which downtrended to 20 Low concern for ACS given??downtrending troponin, nonischemic EKG. and also has a recent normal cardiac cath ? Plan Continue fur glazer Monitor for new/worsening symptoms Trend troponin ? Chronic/stable medical conditions Only medication she takes at home is ibuprofen. ? Quality measures Code: full Diet: cardiac DVT prophylaxis: low risk, ambulating. hold chemoprophylaxis ? Maite Modi [id number] Histories Allergies Allergies ?(Active and Proposed Allergies Only) codeine? (Severity: Unknown severity, Onset: Unknown) OxyCODONE Hydrochloride? (Severity: Unknown severity, Onset: Unknown) ?Reactions: Codeine allergy ? Past Medical History/Problem List Active Problems??(1) Obese class I ? Past Surgical History No surgery history documented. ? Social History No social history documented. ? Family History sister and mother have a hx of atrial fibrillation, mother has a pacemaker .? Medications Home Medications Acetaminophen-Diphenhydramine (Tylenol Extra Strength PM 500 mg-25 mg oral tablet)?2?tab(s)?By Mouth?Daily at bedtime?as needed?for sleep Cholecalciferol (D3 50 mcg (2000 intl units) oral capsule)?1?capsule?50?Microgram?ByMouth?Daily Chondroitin/Glucosamine/Methylsulfonylmethane (Glucosamine & Chondroitin with MSM)?See Instructions Cyanocobalamin (B-12 1000 mcg oral tablet)?1?tab(s)?1,000?Microgram?By Mouth?Daily Ibuprofen (ibuprofen 800 mg oral tablet)?800?Milligram?1?tablet?TAKE 1 TABLET BY MOUTH EVERY 8 HOURS FOR 30 DAYS Multivitamin (B 100 Complex oral tablet)?1?tab(s)?By Mouth?Daily Multivitamin With Minerals (Multi-Day Plus Minerals oral tablet)?1?tab(s)?By Mouth?Daily Lizton-3 Polyunsaturated Fatty Acids (Fish Oil 1000 mg oral capsule)?1?capsule?1,000?Milligram?By Mouth?Daily Omeprazole (omeprazole 20 mg oral delayed release tablet)?1?tab(s)?20?Milligram?By Mouth?Daily?as needed?Indigestion ? Results Recent Labs BLOOD COUNT & DIFF WBC 8.6 k/mm3 ()?? 01/18/2023 17:50 RBC 4.15 m/mm3 (Low)?? 01/18/2023 17:50 Hgb 13.3 Gm/dL ()?? 01/18/2023 17:50 Hct 40.5 % ()?? 01/18/2023 17:50 MCV 97.6 femtoliters ()?? 01/18/2023 17:50 MCH 32.0 pg ()?? 01/18/2023 17:50 MCHC 32.8 g/dL (Low)?? 01/18/2023 17:50 Platelet Count 315 k/mm3 ()?? 01/18/2023 17:50 RDW-SD 43.2 femtoliters ()?? 01/18/2023 17:50 MPV 10.4 femtoliters ()?? 01/18/2023 17:50 Nucleated RBC (Automated) 0.0 #/100 WBC'S ()?? 01/18/2023 17:50 Abs. NRBC 0.0 k/mm3 ()?? 01/18/2023 17:50 Abs. Neut 6.4 k/mm3 ()?? 01/18/2023 17:50 Abs. Lymph 1.7 k/mm3 ()?? 01/18/2023 17:50 Abs. Breathitt 0.4 k/mm3 ()?? 01/18/2023 17:50 Abs. Eo 0.0 k/mm3 ()?? 01/18/2023 17:50 Abs. Baso 0.1 k/mm3 ()?? 01/18/2023 17:50 Neut % 74.3 % ()?? 01/18/2023 17:50 Lymph % 19.6 % ()?? 01/18/2023 17:50 Bre[place]itt % 4.9 % ()?? 01/18/2023 17:50 Eos % 0.3 % ()?? 01/18/2023 17:50 Baso % 0.7 % ()?? 01/18/2023 17:50 Imm Gran 0.2 % ()?? 01/18/2023 17:50 Abs. Imm Gran 0.0 k/mm3 ()?? 01/18/2023 17:50 ?? CARDIAC Nt-Probnp 742 pg/mL (High)?? 01/18/2023 17:50 High Sensitivity Troponin (HSTnT) 23 ng/L (High)?? 01/18/2023 17:50 ?? CHEM GENERAL Sodium 143 mmol/L ()?? 01/18/2023 17:50 Potassium 4.6 mmol/L ()?? 01/18/2023 17:50 Chloride 106 mmol/L ()?? 01/18/2023 17:50 Bicarbonate Level 26 mmol/L ()?? 01/18/2023 17:50 Anion Gap 11 ()?? 01/18/2023 17:50 Glucose Level 103 mg/dL (High)?? 01/18/2023 17:50 BUN 14 mg/dL ()?? 01/18/2023 17:50 Creatinine-Blood 0.7 mg/dL ()?? 01/18/2023 17:50 Estimated GFR Creatinine 100 ML/MIN/1.73 M2 ()?? 01/18/2023 17:50 Calcium 9.5 mg/dL ()?? 01/18/2023 17:50 Magnesium 2.0 mg/dL ()?? 01/18/2023 17:50 ?? ENDOCRINE/TUMOR MARKER TSH 1.72 uIU/mL ()?? 01/18/2023 17:50 ?? HEME OTHER Hold Blue Top SPECIMEN DISCARDED AFTER 4 HOURS. ()?? 01/18/2023 17:50 ? Note * Event Display: Cardiac Rhythm Strips Authored Date: * Jennifer Sharpe RN: PERFORM Event Display: Discharge/Transfer Note Hospital Authored Date: Nursing Discharge Note Entered On: 01/19/2023 10:34 EDT Performed On: 01/19/2023 10:34 EDT by Jennifer Sharpe RN Nursing Discharge Note 2 Discharge Time : 01/19/2023 10:00 EDT Discharge Level of Care at Discharge : Home/Mcfp/Foster Care Patient Left Unit Via : Ambulatory Patient Accompanied Off Unit with : Significant other DC Instructions Provided & Signed by Pt : Yes Patient Understands D/C Instructions : Yes Patient Instructions Discharge Signed : Yes Did Pt have Specialty Bed or Wound Vac : No Jennifer Sharpe RN - 01/19/2023 10:34 EDT * Fahad ROBERTS, Imer: MODIFY Sona Mercado MD: PERFORM, MODIFY Sona Mercado MD: MODIFY Event Display: Discharge/Transfer Note Hospital Authored Date: Patient: ??YOLIE GRAY ? Age:??62 Years?Sex:??Female?:??1960?? Patient Information Discharge Location: B Primary Care Physician: Gamaliel Cam MD , Misti Fitzpatrick Admit Date/Time: 01/18/23 16:33 Discharge Date/Time: 01/19/23 Discharge Disposition Discharge Disposition: Home: No Services Discharge Diagnosis ACS rule out Chest pressure Severe aortic stenosis with bicuspid aortic valve,??mildly??dilated ascending aorta ?? _ Discharge Medications Acetaminophen-Diphenhydramine (Tylenol Extra Strength PM 500 mg-25 mg oral tablet)?2?tab(s)?By Mouth?Daily at bedtime?as needed?for sleep Cholecalciferol (D3 50 mcg (2000 intl units) oral capsule)?1?capsule?50?Microgram?ByMouth?Daily Chondroitin/Glucosamine/Methylsulfonylmethane (Glucosamine & Chondroitin with MSM)?See Instructions Cyanocobalamin (B-12 1000 mcg oral tablet)?1?tab(s)?1,000?Microgram?By Mouth?Daily Ibuprofen (ibuprofen 800 mg oral tablet)?800?Milligram?1?tablet?TAKE 1 TABLET BY MOUTH EVERY 8 HOURS FOR 30 DAYS Multivitamin (B 100 Complex oral tablet)?1?tab(s)?By Mouth?Daily Multivitamin With Minerals (Multi-Day Plus Minerals oral tablet)?1?tab(s)?By Mouth?Daily Lizton-3 Polyunsaturated Fatty Acids (Fish Oil 1000 mg oral capsule)?1?capsule?1,000?Milligram?By Mouth?Daily Omeprazole (omeprazole 20 mg oral delayed release tablet)?1?tab(s)?20?Milligram?By Mouth?Daily?as needed?Indigestion ? Medications Started none Medications Discontinued none Doses Changed none PCP Follow-Up/Heads-Up FYI patient with severe symptomatic , has upcoming cardiac surgery. F/u blood pressure outpatient, not currently on antihypertensives. Future Appointments January. 2022 8:45 AM EDT ?? Where: [facility] OR Hospital Course ??Yolie is a 62-year-old female with past medical history of recently diagnosed bicuspid aortic valve with mildly daily dilated ascending aorta followed by cardiac surgery who was admitted for chest pain.?? Initial EKG was nonischemic, no significant delta in trended troponin. ??Lab work unremarkable, no concerns for infection, no abnormalities on chest x-ray. ??Chart reviewed show patient hada cardiac cath in October with normal coronary arteries.?? She was monitored with telemetry which showed no significant events.?? She was admitted for observation and her symptoms resolved.?? She plans to follow-up with cardiac surgery for aortic valve surgery later this month.?? During admission,blood pressure ranged 120s-150s, not currently being treated for hypertension, may benefit by outpatient repeat blood pressure monitoring. On day of discharge patient was hemodynamically stable and ready to return home without services.?? No medication changes were made. Objective Measurements?? Height: 161 cm (01/19/23) Weight: 81.9 kg (01/18/23) Dry Weight: 81.9 kg (01/18/23) Body Mass Index:??31.6 kg/m2??Critical (01/18/23) ? Vital Signs?? Temperature: 97.6 DegF (01/19/23 07:18:00) Temperature Route: Oral (01/19/23 07:18:00) Pulse Rate: 62 bpm (01/19/23 07:18:00) Respiratory Rate: 19 br/min (01/19/23 07:18:00) Systolic Blood Pressure:??157 mm Hg??High (01/19/23 07:18:00) Diastolic Blood Pressure:??85 mm Hg??High (01/19/23 07:18:00) Blood pressure sites: Arm, left (01/19/23 07:18:00) Mean Arterial Pressure: 109 mm Hg (01/19/23 07:18:00) Pulse Pressure: 72 mm Hg (01/19/23 07:18:00) Oxygen Saturation: 100 % (01/19/23 07:18:00) Mode of Delivery (Oxygen): Room air (01/19/23 07:18:00) Early Warning Score: 2 (01/19/23 07:18:37) ? . Physical Exam General Appearance: The patient is??in NAD. Head: atraumatic EENT: MMM, no scleral icterus, EOMI Cardiovascular: RRR S1 and S2 heard, systolic ejection murmur Respiratory: ??Breath sounds clear to auscultation bilaterally. No wheezing. Good air movement throughout both lungs. GI: Soft. Nontender and nondistended. Normal bowel sounds present throughout abdomen.?? MS: ??No edema or erythema in the lower extremities. Peripheral sensation intact.?? Skin: warm, dry, no rashes Neuro: ??No slurred speech. ??Patient seen moving their upper and lower extremities independently. Psych: Alert and oriented x3. Appropriate and pleasant. ?? Pending Results No Pending Results Patient Education Titles Near-Fainting with Uncertain Cause?? Uncertain Causes of Chest Pain?? Discharge Instructions for Aortic Valve Stenosis?? Heart Valve Problems: Aortic Stenosis?? Follow-Up Appointments Added Follow Up ?Time Frame ?Comments Misti Cam MD?1 to 2 weeks Patient Instructions You were admitted to the hospital with chest pressure.?? You had an EKG and lab work which were notconcerning for acute issues with your heart. ??Your heart rate was monitored while you are admittedand did not show any acute events. You should??follow-up with cardiac surgery for your??upcoming??aortic valve surgery??later this month. At home you should??avoid strenuous activity, maintain adequate hydration. If you develop??chest pressure??or pain, significant shortness of breath??that is not relieved??relieved with rest after a few minutes??please return to the emergency department. Post Discharge Care Discharge ?01/19/23 8:54:00 EDT Discharge Prescriptions ?None, ??01/19/23 8:54:00 EDT Results Discharge Labs BLOOD COUNT & DIFF WBC 8.6 k/mm3 ()?? 01/18/2023 17:50 RBC 4.15 m/mm3 (Low)?? 01/18/2023 17:50 Hgb 13.3 Gm/dL ()?? 01/18/2023 17:50 Hct 40.5 % ()?? 01/18/2023 17:50 MCV 97.6 femtoliters ()?? 01/18/2023 17:50 MCH 32.0 pg ()?? 01/18/2023 17:50 MCHC 32.8 g/dL (Low)?? 01/18/2023 17:50 Platelet Count 315 k/mm3 ()?? 01/18/2023 17:50 RDW-SD 43.2 femtoliters ()?? 01/18/2023 17:50 MPV 10.4 femtoliters ()?? 01/18/2023 17:50 Nucleated RBC (Automated) 0.0 #/100 WBC'S ()?? 01/18/2023 17:50 Abs. NRBC 0.0 k/mm3 ()?? 01/18/2023 17:50 Abs. Neut 6.4 k/mm3 ()?? 01/18/2023 17:50 Abs. Lymph 1.7 k/mm3 ()?? 01/18/2023 17:50 Abs. Breathitt 0.4 k/mm3 ()?? 01/18/2023 17:50 Abs. Eo 0.0 k/mm3 ()?? 01/18/2023 17:50 Abs. Baso 0.1 k/mm3 ()?? 01/18/2023 17:50 Neut % 74.3 % ()?? 01/18/2023 17:50 Lymph % 19.6 % ()?? 01/18/2023 17:50 Breathitt % 4.9 % ()?? 01/18/2023 17:50 Eos % 0.3 % ()?? 01/18/2023 17:50 Baso % 0.7 % ()?? 01/18/2023 17:50 Imm Gran 0.2 % ()?? 01/18/2023 17:50 Abs. Imm Gran 0.0 k/mm3 ()?? 01/18/2023 17:50 ?? CARDIAC Nt-Probnp 742 pg/mL (High)?? 01/18/2023 17:50 High Sensitivity Troponin (HSTnT) 20 ng/L (High)?? 01/18/2023 19:45 ?? CHEM GENERAL Sodium 143 mmol/L ()?? 01/18/2023 17:50 Potassium 4.6 mmol/L ()?? 01/18/2023 17:50 Chloride 106 mmol/L ()?? 01/18/2023 17:50 Bicarbonate Level 26 mmol/L ()?? 01/18/2023 17:50 Anion Gap 11 ()?? 01/18/2023 17:50 Glucose Level 103 mg/dL (High)?? 01/18/2023 17:50 BUN 14 mg/dL ()?? 01/18/2023 17:50 Creatinine-Blood 0.7 mg/dL ()?? 01/18/2023 17:50 Estimated GFR Creatinine 100 ML/MIN/1.73 M2 ()?? 01/18/2023 17:50 Calcium 9.5 mg/dL ()?? 01/18/2023 17:50 Magnesium 2.0 mg/dL ()?? 01/18/2023 17:50 ? ENDOCRINE/TUMOR MARKER TSH 1.72 uIU/mL ()?? 01/18/2023 17:50 ? HEME OTHER Hold Blue Top SPECIMEN DISCARDED AFTER 4 HOURS. ()?? 01/18/2023 17:50 ? URINE OTHER Est Creatinine Clearance 71.00 mL/min ()?? 01/19/2023 00:24 ? VIROLOGY COVID-19 by RT-PCR NEGATIVE ()?? 01/18/2023 20:10 ? Microbiology ?? COVID-19 (Novel Coronavirus), Rapid PCR?? Completed?? Source: Nasal Body Site: Nose Collected Dt/Tm: 01/18/2023 19:35 Last Updated Dt/Tm: 01/18/2023 21:03 ?(01/18/2023 17:40 EDT Chest 2 Views Frontal and Lat) ?? IMPRESSION: ?? No acute abnormality. [1] ?? 20??minutes spent on discharge ? Sona Mercado MD Internal Medicine PGY 1 Pager [phone] ?? Patient seen and discussed with??Imer Vásquez MD ? Attending Attestation (Imer Vásquez MD):??I have seen and evaluated this patient. ??I have discussed the case and its management with the resident and agree with the findings and plan as documentedin the resident???s note. ? no complaint today ambulating with no issues out pt f/u with cardiac surgery--was advised to come back to ED if recurrence of symptoms [1]??Chest 2 Views Frontal and Lat; Evette Ritter MD 01/18/2023 17:40 EDT * Dell BERNARD, Jennifer: PERFORM Event Display: Patient Education/Instruction Authored Date: [id number] Inpatient Adult Discharge Instructions [address] [id number] Name: YOLIE GRAY : 1960 Visit: 01/18/2023 16:33:00 Current Date: 01/19/2023 09:22 Account: [id number] Inpatient Adult Discharge Instructions We would like [...] and their families. Surveys are administered by [employer] ?? If further treatment with your primary care physician or another doctor is recommended, it is important for you to keep the appointment. Call your primary care physician or return to the Emergency Department immediately if your condition worsens, fails to improve, or new symptoms develop. If you need to find a doctor, you can call [email or web address] for a referral at [phone] or toll free at [phone] ([phone]) or log in to [email or web address].. ?? You can view and manage your care through the patient portal or by using a health care jayce of your choosing. [employer] is a website that allows you to securely view your medical information including your hospital discharge summary, office visit summaries, medications and follow-up visits. You can also request appointments, renew medications, and request access to your medical information using a health care jayce of your choosing, or just ask a question. You can enroll at [email or web address] or register during your next office visit. You have been discharged from [facility], Patient Care Unit: D3B. If you have any questions regarding these instructions after you leave, please call us and we will be happy to assist you. [facility] Your Care Team Attending Physician Imer Vásquez MD Discharging Providers Imer Vásquez MD Reason for Your Visit General medical Your Diagnosis General medical Tests Performed Below is a partial list of the tests performed during your hospitalization. You may have had other tests and procedures not included in this list. Please discuss all test results with your provider. B Type Natriuretic Peptide Basic Metabolic Panel CBC w/ Differential COVID-19 (Novel Coronavirus), Rapid PCR High??Sensitivity??Troponin T Hold Blue Top Tube Magnesium Level Troponin T, High Sensitivity TSH with T4 Reflex (Adults Only) XR Chest 2 Views Frontal and Lat Primary Care Provider Gamaliel Cam MD , Misti Fitzpatrick Advance Directive . Discharge Vitals Temperature: 97.6 DegF Height: 161 cm Pulse Rate: 62 bpm Weight: 81.9 kg Respiratory Rate: 19 br/min Body Mass Index:??31.6 kg/m2??Critical Systolic Blood Pressure:??157 mm Hg??High Body surface area: 1.91 Diastolic Blood Pressure:??85 mm Hg??High ?? Oxygen Saturation: 100 % ?? Studies Pending All tests and labs ordered during this hospital stay have been completed unless listed below. Please discuss all pending results with your provider listed above in these instructions. ?? No incomplete studies found What to do next Instructions From Your Doctor Discharge Orders Scheduled Follow-Up Appointments January. 2022 8:45 AM EDT ?? Where: [facility] OR You Need to Schedule the Following Appointments Follow Up with??Misti Cam MD When??Within 1 to 2 weeks Where: [address] [place] [id number] [facility] (1) Discharge Medications YOLIE GRAY :1960 Visit Date:01/18/2023 Medications: Please continue your medications until treatment [...] oral tablet) 1 tab(s) Oral Daily Unchanged Lizton-3 Polyunsaturated Fatty Acids (Fish Oil 1000 mg [...] Please discuss all test resultswith your provider. Est Creatinine Clearance - 71.00 mL/min (01/19/2023) B Type Natriuretic Peptide (01/18/2023) ???Nt-Probnp - 742 pg/mL Basic Metabolic Panel (01/18/2023) ???Sodium - 143 mmol/L???Potassium - 4.6 mmol/L???Chloride - 106 mmol/L???Bicarbonate Level - 26 mmol/L???Anion Gap - 11???Glucose Level - 103 mg/dL???BUN - 14 mg/dL???Creatinine-Blood - 0.7 mg/dL???Estimated GFR Creatinine - 100 ML/MIN/1.73 M2???Calcium - 9.5 mg/dL CBC w/ Differential (01/18/2023) ???WBC - 8.6 k/mm3???RBC - 4.15 m/mm3???Hgb - 13.3 Gm/dL???Hct - 40.5 %???MCV - 97.6 femtoliters???MCH - 32.0 pg???MCHC - 32.8 g/dL???Platelet Count - 315 k/mm3???RDW-SD - 43.2 femtoliters???MPV - 10.4 femtoliters???Nucleated RBC (Automated) - 0.0 #/100 WBC'S???Abs. NRBC - 0.0 k/mm3???Abs. Neut - 6.4 k/mm3???Abs. Lymph - 1.7 k/mm3???Abs. Breathitt - 0.4 k/mm3???Abs. Eo - 0.0 k/mm3???Abs. Baso - 0.1 k/mm3???Neut % - 74.3 %???Lymph % - 19.6 %???Breathitt % - 4.9 %???Eos % - 0.3 %???Baso % - 0.7 %???Imm Gran - 0.2 %???Abs. Imm Gran - 0.0 k/mm3 COVID-19 (Novel Coronavirus), Rapid PCR (01/18/2023) ???COVID-19 by RT-PCR - NEGATIVE High??Sensitivity??Troponin T (01/18/2023) ???High Sensitivity Troponin (HSTnT) - 23 ng/L Hold Blue Top Tube (01/18/2023) ???Hold Blue Top - SPECIMEN DISCARDED AFTER 4 HOURS. Magnesium Level (01/18/2023) ???Magnesium - 2.0 mg/dL Troponin T, High Sensitivity (01/18/2023) ???High Sensitivity Troponin (HSTnT) - 20 ng/L TSH with T4 Reflex (Adults Only) (01/18/2023) ???TSH - 1.72 uIU/mL Allergies (NKA means No Known Allergies) OxyCODONE Hydrochloride codeine Problems Active Problems??(1) Obese class I?? Education Materials Below is the list of Educational Leaflet Providered with your Discharge Instructions. Near-Fainting with Uncertain Cause?? Uncertain Causes of Chest Pain?? Discharge Instructions for Aortic Valve Stenosis?? Heart Valve Problems: Aortic Stenosis?? Valuables and Belongings I fully understand and agree that [facility] accepts no responsibility for all my [...] to send valuables and belongings home. ?? No Valuables/Belongings: No valuables/belongings present Date for Pt to Sign Valuables/Belongings: 01/19/23 07:18:00 ?? Other Discharge Information ? Pulmonary Rehab Status?? [...] are strongly encouraged to quit. Please call [facility] Link at [phone] or [phone]) or log in to [email or web address] for referrals to smoking cessation programs. ?? 982 Suicide & Crisis Lifeline is available 13/04 if you or someone you know needs to find a reason to keep living. By calling 263 you'll be connected to a skilled, trained counselor at a crisis center in your area. INPATIENT DISCHARGE INSTRUCTIONS SIGNATURE PAGE YOLIE GRAY Location:[facility] Registration Date and Time:01/18/2023 16:33 EDT Primary Care Physician: Gamaliel Cam MD , Bernarda, I MARINAADAMYOLIE, have received the above patient education materials/instructions and have verbalized understanding. If ambulance or transport services are being used I further acknowledge being given a choice of service. ?? If you need to contact me, please call me at this number: . Patient/Textile Slitting Machine Operator Name: Patient/Textile Slitting Machine Operator Signature: Relationship to Patient: Witness Name/Signature: Date: * Jennifer Sharpe RN: PERFORM Event Display: Patient Education/Instruction Authored Date: [id number] Inpatient Adult Discharge Instructions [address] [address] Name: YOLIE GRAY : 1960 Visit: 01/18/2023 16:33:00 Current Date: 01/19/2023 09:20 Account: [id number] Inpatient Adult Discharge Instructions We would like [...] and their families. Surveys are administered by [employer] ?? If further treatment with your primary care physician or another doctor is recommended, it is important for you to keep the appointment. Call your primary care physician or return to the Emergency Department immediately if your condition worsens, fails to improve, or new symptoms develop. If you need to find a doctor, you can call [email or web address] for a referral at [phone] or toll free at [phone]) or log in to [email or web address].. ?? You can view and manage your care through the patient portal or by using a health care jayce of your choosing. [employer] is a website that allows you to securely view your medical information including your hospital discharge summary, office visit summaries, medications and follow-up visits. You can also request appointments, renew medications, and request access to your medical information using a health care jayce of your choosing, or just ask a question. You can enroll at [email or web address] or register during your next office visit. You have been discharged from [facility], Patient Care Unit: D3B. If you have any questions regarding these instructions after you leave, please call us and we will be happy to assist you. [facility] Your Care Team Attending Physician Imer Vásquez MD Discharging Providers Imer Vásquez MD Reason for Your Visit General medical Your Diagnosis General medical Tests Performed Below is a partial list of the tests performed during your hospitalization. You may have had other tests and procedures not included in this list. Please discuss all test results with your provider. B Type Natriuretic Peptide Basic Metabolic Panel CBC w/ Differential COVID-19 (Novel Coronavirus), Rapid PCR High??Sensitivity??Troponin T Hold Blue Top Tube Magnesium Level Troponin T, High Sensitivity TSH with T4 Reflex (Adults Only) XR Chest 2 Views Frontal and Lat Primary Care Provider Gamaliel Cam MD , Misti Fitzpatrick Advance Directive . Discharge Vitals Temperature: 97.6 DegF Height: 161 cm Pulse Rate: 62 bpm Weight: 81.9 kg Respiratory Rate: 19 br/min Body Mass Index:??31.6 kg/m2??Critical Systolic Blood Pressure:??157 mm Hg??High Body surface area: 1.91 Diastolic Blood Pressure:??85 mm Hg??High ?? Oxygen Saturation: 100 % ?? Studies Pending All tests and labs ordered during this hospital stay have been completed unless listed below. Please discuss all pending results with your provider listed above in these instructions. ?? No incomplete studies found What to do next Instructions From Your Doctor Discharge Orders Scheduled Follow-Up Appointments January. 2022 8:45 AM EDT ?? Where: [facility] OR You Need to Schedule the Following Appointments Follow Up with??Misti Cam MD When??Within 1 to 2 weeks Where: [address] [place] [address]- Business (1) Discharge Medications YOLIE GRAY :1960 Visit Date:01/18/2023 Medications: Please continue your medications until treatment is completed or stopped by your provider. Medications not listed below should be discontinued. Discuss any questions related to medications with your provider. What How Much When Instructions Next Dose Unchanged Acetaminophen- Diphenhydramine (Tylenol Extra Strength PM 500 mg-25 mg oral tablet) 2 tab(s) Oral Daily at Bedtime as needed for for sleep as prescribed Unchanged Cholecalciferol (D3 50 mcg (2000 intl units) oral capsule) 1 capsule Oral Daily as prescribed Unchanged Chondroitin/ Glucosamine/ Methylsulfonylmethane (Glucosamine & Chondroitin with MSM) See instructions as prescribed Unchanged Cyanocobalamin (B-12 1000 mcg oral tablet) 1 tab(s) Oral Daily as prescribed Unchanged Ibuprofen (ibuprofen 800 mg oral tablet) 1 tab(s) TAKE 1 TABLET BY MOUTH EVERY 8 HOURS FOR 30 DAYS ?? as prescribed Unchanged Multivitamin (B 100 Complex oral tablet) 1 tab(s) Oral Daily as prescribed Unchanged Multivitamin With Minerals (Multi-Day Plus Minerals oral tablet) 1 tab(s) Oral Daily as prescribed Unchanged [place]-3 Polyunsaturated Fatty Acids (Fish Oil 1000 mg oral capsule) 1 capsule Oral Daily as prescribed Unchanged Omeprazole (omeprazole 20 mg oral delayed release tablet) 1 tab(s) Oral Daily as needed for Indigestion as prescribed Test Results Below is a partial list of the most recent Laboratory test results done prior to this discharge. You may have had other tests and procedures not included in this list. Please discuss all test resultswith your provider. Est Creatinine Clearance - 71.00 mL/min (01/19/2023) B Type Natriuretic Peptide (01/18/2023) ???Nt-Probnp - 742 pg/mL Basic Metabolic Panel (01/18/2023) ???Sodium - 143 mmol/L???Potassium - 4.6 mmol/L???Chloride - 106 mmol/L???Bicarbonate Level - 26 mmol/L???Anion Gap - 11???Glucose Level - 103 mg/dL???BUN - 14 mg/dL???Creatinine-Blood - 0.7 mg/dL???Estimated GFR Creatinine - 100 ML/MIN/1.73 M2???Calcium - 9.5 mg/dL CBC w/ Differential (01/18/2023) ???WBC - 8.6 k/mm3???RBC - 4.15 m/mm3???Hgb - 13.3 Gm/dL???Hct - 40.5 %???MCV - 97.6 femtoliters???MCH - 32.0 pg???MCHC - 32.8 g/dL???Platelet Count - 315 k/mm3???RDW-SD - 43.2 femtoliters???MPV - 10.4 femtoliters???Nucleated RBC (Automated) - 0.0 #/100 WBC'S???Abs. NRBC - 0.0 k/mm3???Abs. Neut - 6.4 k/mm3???Abs. Lymph - 1.7 k/mm3???Abs. Breathitt - 0.4 k/mm3???Abs. Eo - 0.0 k/mm3???Abs. Baso - 0.1 k/mm3???Neut % - 74.3 %???Lymph % - 19.6 %???Breathitt % - 4.9 %???Eos % - 0.3 %???Baso % - 0.7 %???Imm Gran - 0.2 %???Abs. Imm Gran - 0.0 k/mm3 COVID-19 (Novel Coronavirus), Rapid PCR (01/18/2023) ???COVID-19 by RT-PCR - NEGATIVE High??Sensitivity??Troponin T (01/18/2023) ???High Sensitivity Troponin (HSTnT) - 23 ng/L Hold Blue Top Tube (01/18/2023) ???Hold Blue Top - SPECIMEN DISCARDED AFTER 4 HOURS. Magnesium Level (01/18/2023) ???Magnesium - 2.0 mg/dL Troponin T, High Sensitivity (01/18/2023) ???High Sensitivity Troponin (HSTnT) - 20 ng/L TSH with T4 Reflex (Adults Only) (01/18/2023) ???TSH - 1.72 uIU/mL Allergies (NKA means No Known Allergies) OxyCODONE Hydrochloride codeine Problems Active Problems??(1) Obese class I?? Education Materials Below is the list of Educational Leaflet Providered with your Discharge Instructions. Near-Fainting with Uncertain Cause?? Uncertain Causes of Chest Pain?? Discharge Instructions for Aortic Valve Stenosis?? Heart Valve Problems: Aortic Stenosis?? Valuables and Belongings I fully understand and agree that [facility] accepts no responsibility for all my [...] to send valuables and belongings home. ?? No Valuables/Belongings: No valuables/belongings present Date for Pt to Sign Valuables/Belongings: 01/19/23 07:18:00 ?? Other Discharge Information ? Pulmonary Rehab Status?? [...] are strongly encouraged to quit. Please call [facility] Link at [phone] or [phone] ([phone]) or log in to [email or web address] for referrals to smoking cessation programs. ?? 760 Suicide & Crisis Lifeline is available 13/04 if you or someone you know needs to find a reason to keep living. By calling 048 you'll be connected to a skilled, trained counselor at a crisis center in your area. INPATIENT DISCHARGE INSTRUCTIONS SIGNATURE PAGE YOLIE GRAY Location:[facility] Registration Date and Time:01/18/2023 16:33 EDT Primary Care Physician: Gamaliel Cam MD , Bernarda, I MARINAYOLIE, have received the above patient education materials/instructions and have verbalized understanding. If ambulance or transport services are being used I further acknowledge being given a choice of service. ?? If you need to contact me, please call me at this number: . Patient/Textile Slitting Machine Operator Name: Patient/Textile Slitting Machine Operator Signature: Relationship to Patient: Witness Name/Signature: Date: * Imer Vásquez MD: PERFORM, SIGN, VERIFY Event Display: Patient Education Handout Authored Date: [id number] * Imer Vásquez MD: PERFORM Event Display: Patient Education Leaflets Authored Date: [id number] Near-Fainting with Uncertain Cause ?? [id number] Near-Fainting with Uncertain Cause Fainting (syncope) is a temporary loss of consciousness. It's often called passing out. It happens when blood flow to the brain is reduced. Near-fainting (near-syncope) is like fainting, but you don't fully pass out. Instead, you feel like you are going to pass out, but don't actually lose consciousness. Signs and symptoms These are symptoms of near-fainting or symptoms that can be associated with near-fainting: ??? Feeling lightheaded or??like you are going to faint ??? Weak pulse ??? Nausea ??? Sweating ??? Blurred vision or feeling like your vision is fading ??? Palpitations ??? Chest pain ??? Trouble breathing ??? Feeling cool and clammy ?? Causes Fainting typically happens when your blood pressure or heart rate suddenly drops, and not enough blood flows to your brain. Common minor causes include: ??? Sudden emotional stress such as fear, pain, panic, or the sight of blood ??? Straining or overexertion, such as straining while using the toilet, vomiting, coughing, or sneezing ??? Standing up too quickly, or standing up for too long a time More serious causes include: ??? Very slow, fast, or irregular heart rate (arrhythmia) ??? Dehydration ??? Significant blood loss ??? Medicines, or a recent change in medicines. Medicines that can cause fainting include blood pressure or heart medicines. ??? Heart attack ??? Heart valve problems Remember, even minor causes can become serious if you fall and injure yourself, or are driving. Youmay need more tests. It's very important that you follow up with your doctor as advised. ?? Home care These guidelines will help you care for yourself at home: ??? Rest today. You can resume most of your normal activities as soon as you are feeling back to normal. ??? If you become lightheaded or dizzy, lie down right away or sit with your head between yourknees. ??? Drink plenty of fluids and don't skip meals. Because the exact cause of your near fainting spell is not known, another spell could occur withoutwarning. To stay safe, don't drive a car or use dangerous equipment. Don't take a bath alone. Don'tswim alone. You can resume these activities when your healthcare provider says that you are no longer in danger of having a near-fainting spell. ?? Follow-up care Follow up with your healthcare provider, or as advised. Call 911 Call 911 or get emergency care if any of the following occur: ??? Another near- fainting or full fainting spell occurs, and it's not explained by the common minor causes listed above ??? Chest, arm, neck, jaw, back or abdominal pain ??? Shortness of breath ??? Weakness, tingling, or numbness in one side of the face, or in one arm or leg ??? Slurred speech, confusion, trouble walking or seeing ??? Seizure ?? When to get medical advice Call your healthcare provider for advice if any of these occur: ??? Changes in your medicines ??? You start to have near fainting on a more frequent basis ?? Last Reviewed Date: 2021 ?? 2671-2620 [employer]. All rights reserved. This information is not intended as a substitute for professional medical care. Always follow your healthcare professional's instructions. ?? * Imer Vásquez MD: PERFORM Event Display: Patient Education Leaflets Authored Date: [id number] Uncertain Causes of Chest Pain ?? [id number] Uncertain Causes of Chest Pain Chest pain can happen for a number of reasons. Sometimes the cause can't be determined. If your??condition does not seem serious, and your pain does not appear to be coming from your heart, your healthcare provider may recommend watching it closely. Sometimes the signs of a serious problem take more time to appear. Many problems not related to your heart can cause chest pain. These include: ??? Musculoskeletal. Costochondritis is an inflammation of the tissues around the ribs that can occur from trauma or overuse injuries, or a strain of the muscles of the chest wall. ??? Respiratory. Pneumonia, collapsed lung (pneumothorax), or inflammation of the lining of the chest and lungs (pleurisy). ??? Gastrointestinal. Esophageal reflux, heartburn, ulcers, or gallbladder disease. ??? Anxiety and panic disorders ??? Nerve compression and inflammation ??? Rare problems such as aortic aneurysm or aortic dissection (a swelling of the large artery coming out of the heart or a tear in the wall of the artery), or pulmonary embolism (a blood clot in the lungs). Home care After your visit, follow these recommendations: ??? Rest today and avoid strenuous activity. ??? Take any prescribed medicine as directed. ??? Be aware of any recurrent chest pain and notice any changes ?? Follow-up care Follow up with your healthcare provider if you don't start to feel better within 24 hours, or as advised. ?? Call 911 Call 911 if any of these occur: ??? A change in the type of pain: if it feels different, becomes more severe, lasts longer, or begins to spread into your shoulder, arm, neck, jaw or back ??? Shortness of breath or increased pain with breathing ??? Weakness, dizziness, or fainting ??? Rapid heartbeat ??? Crushing sensation in your chest ??? Coughing up more than a small amount of blood. ?? When to seek medical advice Call your healthcare provider right away if any of the following occur: ??? Cough with dark coloredsputum (phlegm) or small amount of blood ??? Fever of 100.4??F??(38??C) or higher, or as directed by your healthcare provider ??? Swelling, pain or redness in one leg ?? Last Reviewed Date: 2021 ?? [employer]. All rights reserved. This information is not intended as a substitute for professional medical care. Always follow your healthcare professional's instructions. ?? * Imer Vásquez MD: PERFORM Event Display: Patient Education Leaflets Authored Date: [id number] Discharge Instructions for Aortic Valve Stenosis ?? 21673 Discharge Instructions for Aortic Valve Stenosis You have been diagnosed with aortic valve stenosis. This means the aortic valve in your heart is stiff or remains in a near-closed position and has trouble opening. Because of this, your heart has towork harder to push the blood through the valve and out to the rest of the body. In some cases,??this extra work makes the muscle of the heart thicken. The extra work can tire the heart and cause it to get weaker over time. This condition often changes very slowly and doesn't always need to be treated. But in some people, it may get worse faster and need to be treated. Some of the more common symptoms that can be caused by aortic valve stenosis are dizziness, fainting, shortness of breath, or chest pain. Rarely, the stenosis??can be treated with just medicines. Typically, when the stenosis issevere or is causing significant symptoms, surgery is needed. Surgery to repair or replace the valve may be done through a catheter. This is called transcatheter aortic valve replacement (TAVR). Or you may have open heart surgery. Your healthcare provider will advise which type of procedure is right for you. Home care ??? Check with your healthcare provider before taking any [id number] medicines, herbal products, or vitamins. ??? Take your medicines exactly as directed. Don???t skip doses. ??? Keepall follow-up appointments. You may not have symptoms. Or you may need close follow-up and surgery.Or you may need TAVR. ?? Lifestyle changes ??? Stay at a healthy weight. Get help to lose any extra pounds. ??? Ask your healthcare provider if an exercise program is right for you. Some people with aortic stenosis need to be very careful about exercise because it can cause fainting. ??? Break the smoking habit. Enroll in a stop- smoking program to improve your chances of success. ?? Follow-up care Make a follow-up appointment with your healthcare provider, or as directed. ?? Call 911 Call 911??if you have any of the following: ??? Chest pain or shortness of breath ??? Weakness in the muscles of your face, arms, or legs ??? Trouble speaking ??? Rapid pulse or pounding heartbeat ??? Fainting or dizziness ??? Sudden vertigo ?? Last Reviewed Date: 2021 ?? 2884-5014 [employer]. All rights reserved. This information is not intended as a substitute for professional medical care. Always follow your healthcare professional's instructions. ?? * [facility] , CIS S: TRANSCRIBE Evette Ritter MD: VERIFY Event Display: Result: Authored Date: [id number] Chest 2 Views Frontal and Lat Hx of Present Illness: tachycardia; Reason: Other:; Chest Pain; Clinical Question(s): Other: COMPARISON: Outside CT chest dated 12/17/2022 FINDINGS: LINES AND TUBES: None. LUNGS AND PLEURA: No focal pulmonary opacity. Normal pulmonary vascularity. No pleural effusion. No pneumothorax. HEART, MEDIASTINUM AND TOI: Heart is normal in size. Normal mediastinal and hilar contour. BONES AND SOFT TISSUES: No acute abnormality. IMPRESSION: No acute abnormality. WSN: [id number] Ordering Physician: Steve Bernstein Dictated By: Evette Ritter MD Dictated Date/Time: 01/18/23 5:54 pm Reviewed By: Evette Ritter MD Signed By: Evette Ritter MD Signed Date/Time: 01/18/23 5:54 pm Transcribed By: RICHARD Transcribed Date/Time: 01/18/23 5:53 pm Hospital Progress note * Mercedez Rivers RN: PERFORM, SIGN, VERIFY Event Display: Progress Note Hospital Authored Date: [id number] Patient: YOLIE GRAY Age: 62 years Sex: Female : 1960 Associated Diagnoses: None Author: Mercedez Rivers RN Findings Upon arrival to unit patient alert and oriented to self/time/place/event Patient VSS and breathing comfortably on room air No complaints of chest pressure/tightness/palpitations/pain, N/V, vision changes, dizziness, H/A When asked patient describes feeling of heaviness in chest, but also states feeling good Patient ambulatory, voiding appropriately, and tolerating PO intake On tele : SR with PVC and IVCD Oriented to unit, call champagne within reach, safety and comfort measures maintained Patient Care team information Care Team Personnel Name: Nicolle Mcclendon Position: [facility] RN Member Role: Primary Care Nurse Name: Mercedez Rivers RN Position: [facility] RN Member Role: Primary Care Nurse Name: Jennifer Sharpe RN Position: [facility] RN Member Role: Primary Care Nurse Name: Gamaliel Cam MD , Misti Fitzpatrick Position: Reference Physician Member Role: PCP Address: Address: [address] [place] [id number]- Name: Brayan GUIDRY Attending Position: [facility] ED Medicine MD Name: Evon Manrique Position: [facility] Associate Professional Member Role: ED Physician Director Machine Address: Address: [address] [place] [address] [place] [address]- Name: Denise Lerner RN Position: [facility] ED RN W/OE and Tasks Member Role: Patient Care Provider Name: Deja Jarrell Position: [facility] ED TA [facility] Member Role: Title I Coordinator Care Team Related Persons Name: JOSE GRAY Address: home [address] [place] [address]
--- OUTSIDE RECORDS SUMMARY | 2024-07-15 10:51 | XMS_ITS | Continuity of Care Document ---
Author Organization [facility] Address [address] [place] [address] [place] [address]- Care Team Providers Care Teacher Education Instructor Name Role Phone Gamaliel Cam MD, Bernarda Primary Care Physician [place] [facility] [place](s): 11/27/22 - 12/04/22 [facility] [address] [place] [id number]- Attending Physician: Drake Jain MD Referring Physician: Rogerio Dillon MD Allergies, [...] recent to oldest [Reference Range]: 1 Height 161 cm (11/27/22 9:57 AM) Weight 81.9 kg (11/27/22 9:57 AM) Oxygen Saturation [94-100 %] 98 % (11/27/22 9:57 AM) Pulse Rate [55-90 bpm] 62 bpm (11/27/22 9:57 AM) Body Mass Index [18.5-24.99 kg/m2] 31.6 kg/m2 *>HHI* (11/27/22 9:57 AM) Blood Pressure [90-138/55-84 mm Hg] 122/ 70mm Hg (11/27/22 9:57 AM) Temperature [96.8-100.4 DegF] 98.8 DegF (11/27/22 9:57 AM) Blood pressure sites Arm, left (11/27/22 9:57 AM) Temperature Route Oral (11/27/22 9:57 AM) Weight Obtained Via Patient/family state d (11/27/22 9:57 AM) Note * Event Display: [facility] Office Note Authored Date: [id number] OFFICE NOTE DATE: 11/27/2022 REFERRING PHYSICIAN: Dr. Rogerio Garcia. REASON FOR REFERRAL: Severe aortic stenosis. HISTORY OF PRESENT ILLNESS: The patient is a 62-year-old female without significant medical history, who was found to have a murmur on physical examination during a routine doctor's visit. She was sent for an echocardiogram and then referred to cardiology. Echocardiogram revealed a bicuspid, heavily calcified aortic valve with severe aortic stenosis, mean gradient across the valve was 44 mmHg cole valve area calculated 0.79 cm2. There was no aortic regurgitation. Left ventricular ejection fraction was 58%. She reports some mild dyspnea on exertion and occasional lightheadedness, but these symptoms are quite mild. No chest pain, orthopnea, lower extremity edema or syncope. She had a cardiaccatheterization that shows no significant coronary artery disease. The echo also showed her ascending aorta looked to be about 4 cm in diameter. PAST MEDICAL HISTORY: None. PAST SURGICAL HISTORY: Cholecystectomy. SOCIAL HISTORY: No tobacco, at least 2 glasses of wine per night. She does use marijuana regularly to help with sleep. FAMILY HISTORY: Notable for paternal grandfather dying from an SD. Her mother and sister both have AFib. MEDICATIONS: She is on a calcium carbonate, cholecalciferol, glucosamine, ibuprofen, multivitamins,omeprazole, vitamin B complex. ALLERGIES: OXYCODONE. She gets nauseous on CODEINE. REVIEW OF SYSTEMS: As per HPI; otherwise, remainder are negative. PHYSICAL EXAMINATION: GENERAL APPEARANCE: Obese, middle-aged female sitting in a chair, in no distress. VITAL SIGNS: Temperature is 98.8, heart rate 62 beats per minute, blood pressure is 122/70 mmHg, respirations 16, oxygen saturation 98%. Height is 161 cm and weight is 82 kg. HEENT: Normocephalic, atraumatic. Extraocular movements are intact. Pupils are equal, round, reactive to light. NECK: No JVD, no bruits, no cervical or supraclavicular lymphadenopathy. CARDIAC: Regular rate and rhythm. She does have a 4/6 systolic ejection murmur heard throughout theprecordium, radiating into both carotids. LUNGS: Clear to auscultation. ABDOMEN: Soft, nontender, no organomegaly, positive bowel sounds. EXTREMITIES: No clubbing, cyanosis or edema. NEUROLOGIC: Grossly nonfocal. IMAGING: Cardiac catheterization and echo are as described. I did personally review these images. ASSESSMENT AND PLAN: This is a 62-year-old female with severe stenosis of a bicuspid aortic valve and mildly dilated ascending aorta. I do think she would benefit from a surgical aortic valve replacement. I think we need to further evaluate her ascending aorta with a noncontrast chest CT to determine if this needs to be addressed at the time of surgery. If so, it would most likely be either an aortoplasty versus replacement. We discussed both mechanical and tissue valves including implications of lifelong Coumadin and limited durability respectively. Given her age, she is in somewhat of a nichols area and I think she is a reasonable candidate for either. We discussed the possibility of a tissue valve with future TAVR down the road if the surgical valve was of adequate size. It becomes more difficult to do a TAVR inside of SAVR if the surgical valve was on the smaller side. One option I presented to her was to make that decision intraoperatively. If a decent sized valve was able to be placed that would allow for TAVR inside a SAVR down the road, then she would prefer a tissue valve; if n ot, then she would rather have a mechanical valve. So, this would be determined at the time of surgery and I will discuss this again with her on the day of the procedure. We will obtain dental clearance and a carotid duplex as per routine, prevalve replacement. I explained the procedure, risks, benefits, and alternatives as well as the recovery. She understands and is eager to proceed. We will pick a date for her surgery in the next 1 to 2 months. Thank you for this referral. Dictated by: Drake Jain MD Signing Clinician: Drake Jain MD Dictated: 11/27/2022 10:49:19 Transcribed: 06:40:42 AM Transcribed by: GHAZALA DocID: [id number] PRELIMINARY REPORT UNLESS MANUALLY/ELECTRONICALLY SIGNED cc: Rogerio Dillon M.D. [facility] [address] [place], [address] Misti Cam M.D. [facility] [address] [place], [address] Cardiac surgery Outpatient Note * Daysi Oliveira MA: PERFORM, SIGN, VERIFY Event Display: Cardiac Surgery Note Office Authored Date: Patient: FREDA GRAY Age: 62 years Sex: Female : 1960 Associated Diagnoses: None Author: Daysi Oliveira MA [place] Cardiomyopathy Questionnaire (KCCQ-12) The following questions refer to your heart failure and how it may affect your life. Please read and complete the following questions. There is no right or wrong answers. Please nii the answer that best applies to you. 1. Heart failure affects different people in different ways. Some feel shortness of breath while others feel fatigue. Please indicate how much you are limited by heart failure (shortness of breath orfatigue) in your ability to do the following activities over the past 2 weeks. a. Showering/bathing: Extremely Limited (_) 1 Quite a bit limited (_) 2 Moderately Limited (_) 3 Slightly Limited (_x) 4 Not at all Limited (_) 5 Limited for other reasons or did not do the activity (_) 6 b. Walking 1 block on level ground: Extremely Limited (_) 1 Quite a bit limited (_) 2 Moderately Limited (_) 3 Slightly Limited (_x) 4 Not at all Limited (_) 5 Limited for other reasons or did not do the activity (_) 6 c. Hurrying or jogging (as if to catch a bus): Extremely Limited (_) 1 Quite a bit limited (_) 2 Moderately Limited (x_) 3 Slightly Limited (_) 4 Not at all Limited (_) 5 Limited for other reasons or did not do the activity (_) 6 2. Over the past 2 weeks, how many times did you have swelling in your feet, ankles or legs when you woke up in the morning? Every Morning (_) 1 3 or more times per week but not every day (_) 2 1-2 times per week (_) 3 Less than once a week (_) 4 Never over the past 2 weeks (_x) 5 3. Over the past 2 weeks, on average, how many times has fatigue limited your ability to do what you wanted? All of the time (_) 1 Several Times per day (_) 2 At least once a day (_) 3 3 or more times per week but not every day (_) 4 1-2 times per week (_) 5 Less than once a week (_) 6 Never over the past 2 weeks (_x) 7 4. Over the past 2 weeks, on average, how many times has shortness of breath limited your ability to do what you wanted? All of the time (_) 1 Several Times per day (_) 2 At least once a day (_) 3 3 or more times per week but not every day (_) 4 1-2 times per week (x_) 5 Less than once a week (_) 6 Never over the past 2 weeks (_) 7 5. Over the past 2 weeks, on average, how many times have you been forced to sleep sitting up in a chair or with at least 3 pillows to prop you up because of shortness of breath? Every night (_x) 1 3 or more times per week but not every day (_) 2 1-2 times per week (_) 3 Less than once a week (_) 4 Never over the past 2 weeks (_) 5 6. Over the past 2 weeks, how much has your heart failure limited your enjoyment of life? It has extremely limited my enjoyment of life (_) 1 It has limited my enjoyment of life quite a bit (_) 2 It has moderately limited my enjoyment of life (_) 3 It has slightly limited my enjoyment of life (_) 4 It has not limited my enjoyment of life at all (x_) 5 7. If you had to spend the rest of your life with your heart failure the way it is right now, how would you feel about this? Not at all satisfied (_) 1 Mostly dissatisfied (_x) 2 Somewhat satisfied (_) 3 Mostly satisfied (_) 4 Completely satisfied (_) 5 8. How much does your heart failure affect your lifestyle? Please indicate how your heart failure may have limited your participation in the following activities over the past 2 weeks. a. Hobbies, recreational activities: Severely Limited (_) 1 Limited quite a bit (_) 2 Moderately Limited (_) 3 Slightly Limited (_x) 4 Did not limit at all (_) 5 Does not apply or did not do for other reasons (_) 6 b. Working or doing cook 3 pastry: Severely Limited (_) 1 Limited quite a bit (_) 2 Moderately Limited (_) 3 Slightly Limited (_x) 4 Did not limit at all (_) 5 Does not apply or did not do for other reasons (_) 6 c. Visiting family or friends out of your home: Severely Limited (_) 1 Limited quite a bit (_) 2 Moderately Limited (_) 3 Slightly Limited (_) 4 Did not limit at all (_) 5 Does not apply or did not do for other reasons (_x) 6 Total Score: _50 * Daysi Oliveira MA: PERFORM, SIGN, VERIFY Event Display: Cardiac Surgery Note Office Authored Date: Patient: FREDA GRAY Age: 62 years Sex: Female : 1960 Associated Diagnoses: None Author: Daysi Oliveira MA TAVR Program Functional Assessment Test The KCCQ12 questionnaire was documented separately from this series of tests. A walk and thread reeler tests were performed on this patient with the following results: Walk Test- Five-meter Gait Speed #1 - 10.56_sec #2 - 9.30_sec #3 - _9.55sec Equals = 18.85_sec Average = _6.28sec Average Adult Scouring Machine Tender Strength (kg) Right: #1 - _kg #2 - _kg #3 - _kg Equals = _kg Average = _kg Graded Classification: _ Left: #1 - _kg #2 - _kg #3 - _kg Equals = _kg Average = _kg Graded Classification: _ Patient Care team information Care Team Personnel Name: Gamaliel Cam MD , Misti Fitzpatrick Position: Reference Physician Member Role: PCP Address: Address: [address] [place] [address]- Care Team Related Persons Name: JOSE GRAY Address: home [address] [place] [address]
--- OUTSIDE RECORDS SUMMARY | 2024-07-15 10:51 | XMS_ITS | Continuity of Care Document ---
Author Organization [facility] Address [address] [place] [address]- Care Team Providers Care Narcotics Agent Name Role Phone Gamaliel Cam MD, Bernarda Primary Care Physician [phone] Encounter [facility] [place] ACCT R [id number] Date(s): 12/03/22 - 01/02/[address] [address] Attending Physician: Drake Jain MD Admitting Physician: Drake Jain MD Referring Physician: Drake Jain MD Allergies, Adverse Reactions, Alerts Substance Reaction [...] Physician Member Role: PCP Address: Address: [address] [place] [address]- Care Team Related Persons Name: JOSE GRAY Address: home [address] [place] [address]
--- OUTSIDE RECORDS SUMMARY | 2024-07-15 10:51 | XMS_ITS | Continuity of Care Document ---
Author Organization [facility] Address [address] [place] [address]- Care Team Providers Care Field Care Manager Name Role Phone Gamaliel Cam MD, Misti Fitzpatrick Primary Care Physician Encounter 02/04/23 - 02/17/23 [facility] [address] [place] [address]- Discharge Disposition: CLIENT NO LONGER REQUIRES SKILLED CARE Allergies, Adverse Reactions, Alerts Substance Reaction Severity [...] 0 Refills, Soft Stop, 02/11/23 12:24:00 EDT, [facility]/pharmacy #[id number], Partial fill uponpatient request if the prescription is for a schedu... Start Date: 02/11/23 Status: Ordered aspirin 81 mg oral delayed release tablet = 81 mg, By Mouth, Daily, # 30 tablet, 0 Refills, Maintenance, 02/03/23 11:25:00 EDT, EC Tablet, [facility], Partial fill upon patient [...] 02/03/23 11:26:00 EDT, Route to Pharmacy Electronically, [facility], Partial fill upon patient request if the prescription is for a schedule II opioid... Start Date: 02/03/23 Stop Date: 02/17/23 Status: Ordered metoprolol 25 mg oral tablet 25 mg, 1, tablet, By Mouth, 2 times a day, # 60 tablet, Refills 0, Tot. Refills 0, Maintenance, 02/03/23 11:27:00 EDT, Route to Pharmacy Electronically, [facility], Partial fill upon patient request if [...] Physician Member Role: PCP Address: Address: [address] [facility] [address] [place] [address]- Name: Astrid Lozano RN Position: S RN Member Role: Primary Care Nurse Care Team Related Persons Name: JOSE GRAY Address: home [address] [place] [address]
--- OUTSIDE RECORDS SUMMARY | 2024-07-15 10:51 | XMS_ITS | Continuity of Care Document ---
Author Organization [facility] ter Address [address] [place] [id number] Care Team Providers Care School Plant Consultant Name Role Phone Gamaliel Cam MD, Bernarda Primary Care Physician Encounter [facility] [id number] Date(s): 01/29/23 - 02/03/[address] [address] Discharge Disposition: A-D/C Home Attending Physician: Drake Jain MD Admitting Physician: Drake Jain MD Referring Physician: Drake Jain MD Allergies, Adverse Reactions, Alerts Substance Reaction Severity Status codeine N/V Active OxyCODONE Hydrochloride N/V Acti ve Medications acetaminophen 325 mg oral tablet 975 mg, By Mouth, Every 6 hours, PRN, for 5 days, # 50 tablet, Refills 0, Tot. Refills 0, Acute 02/08/23 11:21:00 EDT, Pain , Mild, 02/03/23 11:21:00 EDT, Route to Pharmacy Electronically, [facility], Partial fill upon patient request if... Start Date: 02/03/23 Stop Date: 02/08/23 Status: Ordered amiodarone 200 mg oral tablet See Instructions, Take 2 tablets (400mg) 2 times a day through 02/07. Then on 02/08 only take 1 tablet (200mg) 2 times a day for 30 days then stop, # 78 tablet, Refills 0, Tot. Refills 0, Maintenance, 02/03/23 11:22:00 EDT, Instructions Replace Required... Start Date: 02/03/23 Status: Ordered aspirin 81 mg oral delayed release tablet = 81 mg, By Mouth, Daily, # 30 tablet, 0 Refills, Maintenance, 02/03/23 11:25:00 EDT, EC Tablet, [facility], Partial fill upon patient [...] opioid drug. Start Date: 01/24/23 Status: Ordered Dilaudid 2 mg oral tablet 1 tablet = 2 mg, By Mouth, Every 4 hours, PRN Pain , Moderate, for 3 days, # 18 tablet, 0 Refills, Acute 02/06/23 11:28:00 EDT, 02/03/23 11:28:00 EDT, Tablet, [facility], Partial fill upon patient request if the prescription is for a rosie... Start Date: 02/03/23 Stop Date: 02/06/23 Status: Ordered Dilaudid 4 mg oral tablet 4 mg, Tablet, By Mouth, Every 4 hours, PRN for Pain , Severe, Routine, 01/31/23 18:30:00 EDT Start Date: 01/31/23 Stop Date: 02/07/23 Status: Ordered Fish Oil 1000 mg oral [...] 02/03/23 11:26:00 EDT, Route to Pharmacy Electronically, [facility], Partial fill upon patient request if the prescription is for a schedule II opioid... Start Date: 02/03/23 Stop Date: 02/17/23 Status: Ordered Gabapentin Capsule 100 mg, Capsule, By Mouth, If Creatinine LESS than 1.5, 02/03/23 9:00:00 EDT Start Date: 02/03/23 Stop Date: 02/03/23 Status: Completed metoprolol 25 mg oral tablet 25 mg, 1, tablet, By Mouth, 2 times a day, # 60 tablet, Refills 0, Tot. Refills 0, Maintenance, 02/03/23 11:27:00 EDT, Route to Pharmacy Electronically, [facility], Partial fill upon patient request if the prescription is for a schedule... Start Date: 02/03/23 Status: Ordered Metoprolol IR Tablet 25 mg, Tablet, By Mouth, When extubated, HOLD for HR less than 60 or SBP less than 100 or if on Vasopressors or Inotropes (May give via NG tube), 02/03/23 9:00:00 EDT Start Date: 02/03/23 Stop Date: 02/03/23 Status: Completed Multi-Day Plus Minerals oral tablet 1 tablet, [...] Exam Date Time Procedure Performing Provider Status 02/01/23 4:51 PM Chest Portable Edgar Escalante; Kvng (Ve rified) Notes: (Chest Portable) Reason For Exam: tube removal;Other: RESULT: Chest Portable Chest Portable Reason: Other:; tube removal; Clinical Question(s): Pneumothorax COMPARISON: 01/30/2023. FINDINGS: LINES AND TUBES: RIGHT IJ central venous catheter, mediastinal drain and LEFT chest tube have been removed. EKG leads project over the chest. LUNGS AND PLEURA: Mild discoid atelectasis in the mid lungs bilaterally. No pleural effusion. No pneumothorax. HEART, MEDIASTINUM AND TOI: Unchanged. Prosthetic aortic valve. BONES AND SOFT TISSUES: No acute abnormality. IMPRESSION: Minimal atelectasis. No pneumothorax. WSN: [id number] Ordering Physician: Faviola Winters Dictated By: Nikki Bradley MD Dictated Date/Time: 02/01/23 5:07 pm Reviewed By: Nikki Bradley MD Signed By: Nikki Bradley MD Signed Date/Time: 02/01/23 5:07 pm Transcribed By: RICHARD Transcribed Date/Time: 02/01/23 5:05 pm * Exam Date Time Procedure Performing Provider Status 01/30/23 5:53 AM Chest Portable Raisa Linder; Auth (Verified) Notes: (Chest Portable) Reason For Exam: S/P Cardiac Surgery RESULT: Chest Portable Chest Portable AP upright at 5:18 AM REASON: S P Cardiac Surgery; Clinical Question(s): Other:; Cardiac Tamponade; Special Instructions:Post Op Day 1 / Other: COMPARISON: 01/29/2023 FINDINGS: LINES AND TUBES: Endotracheal tube and enteric tube is been removed. Right internal jugular central venous catheter tip projects in the SVC. Mediastinal drain and left chest tube remain in place. LUNGS AND PLEURA: The central pulmonary vasculature is prominent and indistinct. Bibasilar atelectasis. No pleural effusion. No pneumothorax. HEART, MEDIASTINUM AND TOI: Unchanged. Prosthetic aortic valve in place. BONES AND SOFT TISSUES: Status post median sternotomy. IMPRESSION: Mild pulmonary vascular congestion and bibasilar atelectasis. WSN: [id number] Ordering Physician: Tyler Wick Dictated By: Minh Whalen MD Dictated Date/Time: 01/30/23 9:32 am Reviewed By: Minh Whalen MD Signed By: Minh Whalen MD Signed Date/Time: 01/30/23 9:32 am Transcribed By: RICHARD Transcribed Date/Time: 01/30/23 9:31 am * Exam Date Time Procedure Performing Provider Status 01/29/23 5:23 PM Chest Portable Paco Traore [place] (Verified) Notes: (Chest Portable) Reason For Exam: S/P Cardiac Surgery RESULT: Chest Portable Chest Portable Reason: S P Cardiac Surgery; Clinical Question(s): Other:; Cardiac Tamponade; Special Instructions:On Admission to [facility] COMPARISON: 01/18/2023 FINDINGS: LINES AND TUBES: Endotracheal tube terminates approximately 4.4 cm above the alana. Right IJ catheter and sheath present, with the catheter terminating in the region of the distal SVC. Enteric tube courses below thediaphragm and off of the image. Mediastinal drain noted in place. A tubular structure in the base of the left hemithorax may represent a left- sided chest tube versussecond mediastinal drain. LUNGS AND PLEURA: Mild left basilar atelectasis noted. Probable trace left pleural effusion. Normal pulmonary vascularity. No right pleural effusion. No pneumothorax. HEART, MEDIASTINUM AND TOI: Heart is normal in size. Prosthetic aortic valve noted in place. Normal mediastinal and hilar contour. BONES AND SOFT TISSUES: No acute abnormality. Intact median sternotomy wires. IMPRESSION: Visualized lines and tubes are in expected position, except the enteric tube for which the distal end is not included in the [id number]. Mild left basilar atelectasis and possible trace left pleural effusion. Prosthetic aortic valve in place. WSN: [id number] Ordering Physician: Tyler Wick Dictated By: Evette Ritter MD Dictated Date/Time: 01/29/23 5:39 pm Reviewed By: Evette Ritter MD Signed By: Evette Ritter MD Signed Date/Time: 01/29/23 5:39 pm Transcribed By: RICHARD Transcribed Date/Time: 01/29/23 5:35 pm Vital Signs Most recent to oldest [Reference Range]: 1 2 3 4 Height 159 cm (02/03/23 11:18 AM) 159 cm (02/03/23 3:12 AM) 159 cm (02/02/23 11:10 PM) Weight 84.2 kg (02/03/23 3:15 AM) 84.2 kg (01/31/23 4:19 AM) 92.4 kg (01/30/23 5:47 AM) Oxygen Saturation [94-100 %] 98 % (02/03/23 11:18 AM) 97 % (02/03/23 3:12 AM) 98 % (02/02/23 11:10 PM) Pulse Rate [55-90 bpm] 84 bpm (02/03/23 11:18 AM) 82 bpm (02/03/23 9:49 AM) 82 bpm (02/03/23 3:12 AM) Body Mass Index [18.5-24.99 kg/m2] 32.87 kg/m2 *>HHI* (01/29/23 6:47 PM) 32.87 kg/m2 *>HHI* (01/29/23 7:16 AM) Blood Pressure [90-138/55-84 mm Hg] 108/69mm Hg (02/03/23 11:18 AM) 119/80mm Hg (02/03/23 9:49 AM) 119/80mm Hg (02/03/23 3:12 AM) Respiratory Rate [16-30 br/min] 18 br/min (02/03/23 2:16 PM) 18 br/min (02/03/23 11:18 AM) 18 br/min (02/03/23 9:49 AM) 18 br/min (02/03/23 9:49 AM) Temperature [96.8-100.4 DegF] 98.1 DegF (02/03/23 11:18 AM) 98.2 DegF (02/03/23 3:12 AM) 98.2 DegF (02/02/23 11:10 PM) Liters per Minute 1.5 L/min (02/01/23 3:32 AM) 1.5 L/min (01/31/23 11:45 PM) 1.5 L/min (01/31/23 8:00 PM) Mode of Delivery (Oxygen) Room air (02/03/23 11:18 AM) Room air (02/03/23 3:12 AM) Room air (02/02/23 11:10 PM) Blood pressure sites Arm, right (02/03/23 11:18 AM) Arm, right (02/03/23 3:12 AM) Arm, right (02/02/23 11:10 PM) Temperature Route Oral (02/03/23 11:18 AM) Oral (02/03/23 3:12 AM) Oral (02/02/23 11:10 PM) Dry Weight 83.1 kg (01/29/23 6:47 PM) 83.1 kg (01/29/23 7:16 AM) Weight Obtained Via Bed scale (02/03/23 3:15 AM) Bed scale (01/31/23 4:19 AM) Bed scale (01/30/23 5:47 AM) Dry Weight Obtained Via Standing scale (01/29/23 7:16 AM) History and physical note * Event Display: History and Physical Hospital Authored Date: [id number] Note * Ciara Perez RN: PERFORM Event Display: Discharge/Transfer Note Hospital Authored Date: [id number] Nursing Discharge Note Entered On: 02/03/2023 16:44 EDT Performed On: 02/03/2023 16:44 EDT by Ciara Perez RN Nursing Discharge Note 2 Discharge Time : 02/03/2023 16:43 EDT Discharge Level of Care at Discharge : Homehealth/VNA Discharge VNA/Hospice/Home Care(v001) : [facility] [phone] Patient Left Unit Via : Wheelchair Patient Accompanied Off Unit with : Responsible adult DC Instructions Provided & Signed by Pt : Yes Patient Understands D/C Instructions : Yes Patient Instructions Discharge Signed : Yes Did Pt have Specialty Bed or Wound Vac : No Ciara Perez RN - 02/03/2023 16:44 EDT * Cristobal ROBERTS, Drake: CHINMAY Jain MD, Drake: SIGN, SIGN, VERIFY, PERFORM Trevon Corrigan: PERFORM Event Display: Discharge/Transfer Note Hospital Authored Date: [id number] Patient: YOLIE GRAY Age: 62 years Sex: Female : 1960 Associated Diagnoses: None Author: Trevon Corrigan Discharge Information Principal Discharge Diagnosis Ascending aortic aneurysm: Present on admission - yes. Aortic stenosis: Present on admission - yes. Patient is aware of diagnosis Procedures Cardiac Surgery: 1. Ascending aortic aneurysm repair with a 26 mm Gelweave graft. 2. Aortic valve replacement with a 23 Hernandes Inspiris valve. 3. Epiaortic ultrasound of ascending aorta and aortic arch.. Allergies Allergic Reactions (Selected) Severity Not Documented Codeine- N/v. OxyCODONE Hydrochloride- N/v. Discharge condition: good Compared to admission: improved Functional Status: ambulatory Discharge Disposition Home: self care, family. Home care with: VNA. Discharge Summary distribution: Route to attending, referring, and primary care provider. Route to: Drake Jain MD. Route to: Santana ROBERTS, Rogerio. Route to: Gamaliel Cam MD , Misti Fitzpatrick. Discharge Date 02/03/2023 Admission Date 01/29/2023 Code Status Full Resuscitation. Draft of Summary Completed by: Trevon Corrigan. Case Management Discharge Plan : Case Management Discharge Plan Data 02/03/2023 10:49 EDT Discharge Level of Care at Discharge Homehealth/VNA Discharge VNA/Hospice/Home Care [facility] [phone] Name of Agency #1 [facility] Store Mgr # Service Categories #1 Jail Service Start Date and Time #1 02/04/2023 12:00 Service Comments #1 You are being discharged today with a visiting nurse for [facility]. They should be in contact with you within 24hours of discharge. If you don't hear from them by tomorrow afternoon, call them at [phone]. Hospital Course Typed narrative PREOPERATIVE INDICATIONS: The patient is a 62-year-old female without significant medical history, who was recently found to have a murmur on physical exam. Echocardiogram was performed that showed abicuspid, heavily calcified aortic valve with severe aortic stenosis. She reports some mild dyspneaon exertion and occasional lightheadedness. She was referred for surgical evaluation. The echo alsoshowed an ascending aortic aneurysm about 4.4 cm and this was confirmed on a CT scan. On my measurements of the CAT scan, I got closer to 4.5-4.6 cm of the ascending aorta. Her aortic to height indexwas in the moderate risk category, putting her at a 7% risk per year for an aortic event, i.e., rupture, dissection, so I discussed this with her that although the aorta was only about 4.5 cm, given her height, bicuspid aortic valve and the fact that we were operating on her valve already, I felt it would be sosa to proceed with aneurysm repair at the same time. She understood this and agreed. So, the procedure along with the risks, benefits, and alternatives explained to the patient in detail including, but not limited to bleeding, infection, stroke, renal failure, paravalvular leak, MD, arrhythmia, heart block, and . We also discussed mechanical versus tissue valves. I explained to her including the implications of lifelong Coumadin and limited durability respectively. Given her age, she was in somewhat of a nichols area. We talked about the tissue valve lasting approximately 15 years, but it could be less, at which point, she would need another valve done, although this would most likely be with a TAVR approach rather than redo open surgery, although there was no guarantee for this. We decided together that if we could get a big enough valve in, i.e., a 23 mm or bigger, that would enable TAVR valve implantation in the future, we would proceed with this route. If it was a very small annulus, then she would prefer a mechanical valve. On 01/29/2023 the patient underwent the following OPERATIVE PROCEDURES 1. Ascending aortic aneurysm repair with a 26 mm Gelweave graft. 2. Aortic valve replacement with a 23 Hernandes Inspiris valve. 3. Epiaortic ultrasound of ascending aorta and aortic arch. PREOPERATIVE DIAGNOSES: 1. Severe aortic stenosis. 2. Ascending aortic aneurysm. POSTOPERATIVE DIAGNOSES: 1. Severe aortic stenosis. 2. Ascending aortic aneurysm. SURGEON: Drake Jain M.D. AMPOULE INSPECTOR: Leslie Fox was present from wheels in to wheels out and assisted with the entire operation. Assessment and plan: Discharged on POD 5 Neuro Post-operative Pain scheduled Tylenol, Cardiovascular s/p AVR As Ao An s/p repair metoprolol 25 mg PO BID asa 81 mg qd --amiodarone 200 mg PO BID for afib ppx for 30 days post op increased to 400 mg BID x 7 days then tapering regimen Pulmonary extubated to nasal cannula pulmonary toilet tolerating room air GI cardiac diet ppi discontinue at discharge Renal Baseline Creatinine: 0.5 creat today 0.6 nephrocheck 0.3 Diuresed to DW, no longer requiring lasix Heme Acute Blood loss anemia watch for bleeding transfuse for h/h < 7/21 or active bleeding no blood products required intraoperatively ID charles-operative antibiotics completed trend wbc, Endo stress induced hyperglycemia A1C 5.2 poc meal time and qhs, ssi stop all insulin at discharge Dispo: Discharge home with VNA ?? Care plan as above discussed with Dr. Martino Physical assessment today reveals an alert and oriented female in no distress. Cardiac: S1, S2 . RRR Lungs: clear to auscultation anterior and posterior with no rales or rhonchi noted. Abdomen: soft nontender, nondistended with positive bowel sounds. Incisions: clean, dry, and intact with well approximated edges. Sternum is stable Lower extremities are without edema. Pedal pulses are palpable. Significant Results Results: Vital signs : VITAL SIGNS SECTION 02/03/2023 3:12 EDT Temperature 98.2 DegF Temperature Route Oral Pulse Rate 82 bpm Respiratory Rate 18 br/min Systolic Blood Pressure 119 mm Hg Diastolic Blood Pressure 80 mm Hg Blood pressure sites Arm, right Mean Arterial Pressure 93 mm Hg Pulse Pressure 39 mm Hg Oxygen Saturation 97 % Mode of Delivery (Oxygen) Room air , Laboratory : LABORATORY 02/03/2023 8:16 EDT Glucose, POC 110 mg/dL H 02/03/2023 7:50 EDT Est Creatinine Clearance 80.01 mL/min 02/03/2023 6:29 EDT Sodium 139 mmol/L Potassium 4.3 mmol/L Chloride 102 mmol/L Bicarbonate Level 29 mmol/L Anion Gap 8 Glucose Level 102 mg/dL H BUN 9 mg/dL Creatinine-Blood 0.6 mg/dL Estimated GFR Creatinine 103 ML/MIN/1.73 M2 Magnesium 1.7 mg/dL 02/03/2023 6:26 EDT WBC 7.2 k/mm3 RBC 2.88 m/mm3 L Hgb 9.1 Gm/dL L Hct 28.1 % L MCV 97.6 femtoliters MCH 31.6 pg MCHC 32.4 g/dL L Platelet Count 279 k/mm3 RDW-SD 44.4 femtoliters MPV 10.1 femtoliters Nucleated RBC (Automated) 0.0 #/100 WBC'S Abs. NRBC 0.0 k/mm3 . 45 minutes spent on discharge Discharge Plan Diet/Activity/Patient Education/Follow Up Follow Up with: [facility] will call to schedule appointment; Misti Cam MD Within 2 to 5 weeks; Drake Jain Within 1 to 2 weeks; Rogerio Dillon Within 2 to 5 weeks. Discharge Disposition Discharge: home with VNA. Home Health Face to Face I certify that this patient is under my care and that I or an allowed non- physician practitioner working with me, had a [id number] encounter with the patient on this date: 02/03/2023. The encounter with the patient was in whole, or in part, for the following medical condition, whichis the primary reason for home health care: Ascending aortic aneurysm, Aortic stenosis. Nursing: Medication management (reconciliation, teaching), Chronic disease management, Wound care and treatment, Patient requires [facility] for: Cardio pulmonary assessment Sternal wound assessment:monitor for infection, any drainage or redness call cardiac surgeon office. Vital signs:if fever >101, HR <50 or sbp <90 call cardiac surgeon office. Weight: If greater than or less than three pounds in one day or five pounds in a week, call cardiacsurgeon office. . Homebound due to: Ambulates limited distance due to decreased endurance secondary to cardiac surgery. May only leave house for mandatory physician appointments; may not drive.. Physician Signature: Drake Jain MD . MEDICATION LIST (Selected) Prescriptions Prescribed Dilaudid 2 mg oral tablet: 1 tablet = 2 mg, By Mouth, Every 4 hours, PRN Pain , Moderate, for 3 days, # 18 tablet, 0 Refills, Acute 02/06/23 11:28:00 EDT, 02/03/23 11:28:00 EDT, Tablet, [facility], Partial fill upon patient request if the prescription is for a rosie... acetaminophen 325 mg oral tablet: 975 mg, By Mouth, Every 6 hours, PRN, for 5 days, # 50 tablet, Refills 0, Tot. Refills 0, Acute 02/08/23 11:21:00 EDT, Pain , Mild, 02/03/23 11:21:00 EDT, Route to Pharmacy Electronically, [facility], Partial fill upon patient request if... amiodarone 200 mg oral tablet: See Instructions, Take 2 tablets (400mg) 2 times a day through 02/07.Then on 02/08 only take 1 tablet (200mg) 2 times a day for 30 days then stop, # 78 tablet, Refills 0, Tot. Refills 0, Maintenance, 02/03/23 11:22:00 EDT, Instructions Replace Required... aspirin 81 mg oral delayed release tablet: = 81 mg, By Mouth, Daily, # 30 tablet, 0 Refills, Maintenance, 02/03/23 11:25:00 EDT, EC Tablet, [facility], Partial fill upon patient requestif the prescription is for a schedule II opioid drug., 159, cm, 02/03/23 11:18:00 EDT, Height,... gabapentin 100 mg oral capsule: 100 mg, By Mouth, 3 times a day, # 42 tablet, Refills 0, Tot. Refills 0, Maintenance, 02/03/23 11:26:00 EDT, Route to Pharmacy Electronically, [facility], Partial fill upon patient request if the prescription is for a schedule II opioid... metoprolol 25 mg oral tablet: 25 mg, 1, tablet, By Mouth, 2 times a day, # 60 tablet, Refills 0, Tot. Refills 0, Maintenance, 02/03/23 11:27:00 EDT, Route to Pharmacy Electronically, [facility], Partial fill upon patient request if the prescription is for a schedule... Documented Medications Documented B 100 Complex oral tablet: 1 tablet, By Mouth, Daily, # 100 tablet, 0 Refills, Maintenance, 11/06/22 7:59:00 EST, Tablet, Partial fill upon patient request if the prescription is for a schedule II opioid drug. Fish Oil 1000 mg oral capsule: 1 capsule = 1,000 mg, By Mouth, Daily, 0 Refills, Maintenance, 11/06/22 7:59:00 EST, Capsule, Partial fill upon patient request if the prescription is for a schedule IIopioid drug. Multi-Day Plus Minerals oral tablet: 1 tablet, By Mouth, Daily, # 30 tablet, 0 Refills, Maintenance, 11/06/22 7:59:00 EST, Tablet, Partial fill upon patient request if the prescription is for a schedule II opioid drug. busPIRone 7.5 mg oral tablet: 1 tablet = 7.5 mg, By Mouth, 2 times a day, 0 Refills, Maintenance, 01/24/23 15:59:00 EDT, Partial fill upon patient request if the prescription is for a schedule II opioid drug. omeprazole 20 mg oral delayed release tablet: 1 tablet = 20 mg, By Mouth, Daily, PRN Indigestion, #30 tablet, 0 Refills, Maintenance, 11/06/22 8:00:00 EST, CR Tablet, Partial fill upon patient request if the prescription is for a schedule II opioid drug. Therapies Wound care: May take shower; do not apply lotions or perfumed soap to surgical wound; pat dry do not rub wounds. Call Cardiac Surgeon office for signs of infection which include fever, chills, redness, pus like drainage or wound separation. [phone] at any time for questions or concerns. Weigh yourself daily at the same time of day, preferrably in the morning and record results. If yougain or lose more than 3 pounds in 1 day or 5 pounds in one week, call the cardiac surgery office at [phone]. * Chris BERNARD, Ciara: PERFORM Event Display: Patient Education/Instruction Authored Date: [id number] Inpatient Adult Discharge Instructions [address] [address] Name: YOLIE GRAY : 1960 Visit: 01/29/2023 06:55:00 Current Date: 02/03/2023 13:21 Account: [id number] Inpatient Adult Discharge Instructions We would like [...] and their families. Surveys are administered by [employer] ?? If further treatment with your primary care physician or another doctor is recommended, it is important for you to keep the appointment. Call your primary care physician or return to the Emergency Department immediately if your condition worsens, fails to improve, or new symptoms develop. If you need to find a doctor, you can call [facility] Link for a referral at [phone] or toll free at [phone] or log in to [email or web address].. ?? You can view and manage your care through the patient portal or by using a health care [facility] of your choosing. [employer] is a website that allows you to securely view your medical information including your hospital discharge summary, office visit summaries, medications and follow-up visits. You can also request appointments, renew medications, and request access to your medical information using a health care [facility] of your choosing, or just ask a question. You can enroll at [email or web address] or register during your next office visit. You have been discharged from [facility], Patient Care Unit: M6. If you have any questions regarding these instructions after you leave, please call us and we will be happy to assist you. [facility] Your Care Team Attending Physician Cristobal ROBERTS, Drake Consulting Providers Cristobal ROBERTS, Drake Discharging Providers Trevon Corrigan Reason for Your Visit AORTIC STENOSIS AORTIC VALVE RPLCMNT HV2 LOLA 7AM Your Diagnosis Aortic stenosis Ascending aortic aneurysm Tests Performed Below is a partial list of the tests performed during your hospitalization. You may have had other tests and procedures not included in this list. Please discuss all test results with your provider. ABG POC CARTRIDGE BASE EXCESS POC CARTRIDGE BUN CALCIUM IONIZED POC CART CBC CBC w/ Differential Creatinine Electrolytes FIBRINOGEN Glucose Level GLUCOSE POC GLUCOSE POC CARTRIDGE HEMATOCRIT ONLY HEMATOCRIT POC CARTRIDGE HEMOGLOBIN POC CARTRIDGE Hgb + Hct INR Ionized Calcium Lactic Acid Level Magnesium Level Nephro Check Platelet Count Potassium Level POTASSIUM POC CARTRIDGE PTT SODIUM POC CARTRIDGE Type and Screen CXR Portable XR Chest Portable Primary Care Provider Gamaliel Cam MD , Misti Fitzpatrick Advance Directive . Discharge Vitals Temperature: 98.1 DegF Height: 159 cm Pulse Rate: 84 bpm Weight: 84.2 kg Respiratory Rate: 18 br/min Body Mass Index:??32.87 kg/m2??Critical Systolic Blood Pressure: 108 mm Hg Body surface area: 1.92 Diastolic Blood Pressure: 69 mm Hg ?? Oxygen Saturation: 98 % ?? Studies Pending All tests and labs ordered during this hospital stay have been completed unless listed below. Please discuss all pending results with your provider listed above in these instructions. ?? 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 If you have any question or need to reschedule this appointment, please contact their office. Where: [address] [place] [address]- Business (1) Follow Up with??Rogerio Dillon When:??Within 2 to 5 weeks Where: [address] [facility] [address] [facility] [place] [address]- Business (1) ?? [address] [place] [address]- Business (1) Follow Up with??Drake Jain When:??Within 1 to 2 weeks Where: [address] [facility] [place] [address]- Business (1) Follow Up with??Misti Cam MD When:??Within 2 to 5 weeks Where: [address] [place] [address]- Business (1) Follow Up with??[facility] Why: Program will call to schedule appointment Where: [address] [place] [address]- [phone] Discharge Medications YOLIE GRAY :1960 Visit Date:01/29/2023 Medications: Please continue your medications until treatment is completed or stopped by your provider. Medications not listed below should be discontinued. Discuss any questions related to medications with your provider. What How Much When Instructions Next Dose New Acetaminophen (acetaminophen 325 mg oral tablet) 975 Milligram Oral Every 6 hours as needed for Pain , Mild Duration: 5 Days Pickup at [facility] as needed New amiODARONE (amiodarone 200 mg oral tablet) See instructions Take 2 tablets (400mg) 2 times a day through . Then on only take 1 tablet (200mg) 2 times a day for 30 days then stop ?? Pickup at [place] [address] Tonight at bedtime New Aspirin (aspirin 81 mg oral delayed release tablet) 81 Milligram Oral Daily Pickup at [place] [address] Tomorrow morning New Gabapentin (gabapentin 100 mg oral capsule) 100 Milligram Oral 3 times a day Duration: 14 Days Pickup at [place] [address] Tonight at bedtime New Hydromorphone (Dilaudid 2 mg oral tablet) 1 tab(s) Oral Every 4 hours as needed for Pain , Moderate Duration: 3 Days Pickup at [place] [address] as needed New Metoprolol (metoprolol 25 mg oral tablet) 1 tab(s) Oral Twice a day Pickup at [place] [address] Tonight at bedtime Unchanged BusPIRone (busPIRone 7.5 mg oral tablet) 1 tab(s) Oral Twice a day Tonight at bedtime Unchanged Multivitamin (B 100 Complex oral tablet) 1 tab(s) Oral Daily continue home regimen Unchanged Multivitamin With Minerals (Multi-Day Plus Minerals oral tablet) 1 tab(s) Oral Daily continue home regimen Unchanged Marshall-3 Polyunsaturated Fatty Acids (Fish Oil 1000 mg oral capsule) 1 capsule Oral Daily continue home regimen Unchanged Omeprazole (omeprazole 20 mg oral delayed release tablet) 1 tab(s) Oral Daily as needed for Indigestion continue home regimen Pharmacy Information [facility] 3: [address] [place], [place] [phone] ?? What How Much When Comments Stop Taking Cholecalciferol (D3 50 mcg (2000 intl units) oral capsule) 1 capsule Oral Daily Stop Taking Chondroitin/ Glucosamine/ Methylsulfonylmethane (Glucosamine & Chondroitin with MSM) See instructions Stop Taking Cyanocobalamin (B-12 1000 mcg oral tablet) 1 tab(s) Oral Daily Stop Taking Ibuprofen (ibuprofen 800 mg oral tablet) 1 tab(s) TAKE 1 TABLET BY MOUTH EVERY 8 HOURS FOR 30 DAYS ?? Test Results Below is a partial list of the most recent Laboratory test results done prior to this discharge. You may have had other tests and procedures not included in this list. Please discuss all test resultswith your provider. Est Creatinine Clearance - 80.01 mL/min (02/03/2023) RBC Available - RE (01/29/2023) RBC Unit ID - [id number] (01/29/2023) ABG POC CARTRIDGE (01/30/2023) ???pH (POC) POC Cartridge - 7.30???pCO2 (POC) POC Cartridge - 43.6 mm Hg???pO2 (POC) POC Cartridge - 106 mm Hg???Estimated Bicarbonate (POC) POC Cart - 21.5 mmol/L???% O2 Sat Arterial (POC) POC Cartridge - 97 %???Specimen Type - Blood Gas - ARTERIAL BASE EXCESS POC CARTRIDGE (01/30/2023) ???Base Excess (POC) POC Cartridge - NEGATIVE 5 BUN (02/03/2023) ???BUN - 9 mg/dL CALCIUM IONIZED POC CART (01/30/2023) ???Ionized Calcium (POC) POC Cartridge - 1.23 mmol/L CBC (02/03/2023) ???WBC - 7.2 k/mm3???RBC - 2.88 m/mm3???Hgb - 9.1 Gm/dL???Hct - 28.1 %???MCV - 97.6 femtoliters???MCH - 31.6 pg???MCHC - 32.4 g/dL???Platelet Count - 279 k/mm3???RDW-SD - 44.4 femtoliters???MPV - 10.1 femtoliters???Nucleated RBC (Automated) - 0.0 #/100 WBC'S???Abs. NRBC - 0.0 k/mm3 CBC w/ Differential (01/30/2023) ???WBC - 12.9 k/mm3???RBC - 3.56 m/mm3???Hgb - 11.5 Gm/dL???Hct - 34.6 %???MCV - 97.2 femtoliters???MCH - 32.3 pg???MCHC - 33.2 g/dL???Platelet Count - 161 k/mm3???RDW-SD - 43.8 femtoliters???MPV - 10.9 femtoliters???Nucleated RBC (Automated) - 0.0 #/100 WBC'S???Abs. NRBC - 0.0 k/mm3???Abs. Neut - 11.3 k/mm3???Abs. Lymph - 1.0 k/mm3???Abs. Pecos - 0.6 k/mm3???Abs. Eo - 0.0 k/mm3???Abs. Baso - 0.0 k/mm3???Neut % - 87.5 %???Lymph % - 7.5 %???Pecos % - 4.3 %???Eos % - 0.0 %???Baso % - 0.2 %???Imm Gran - 0.5 %???Abs. Imm Gran - 0.1 k/mm3 Creatinine (02/03/2023) ???Creatinine-Blood - 0.6 mg/dL???Estimated GFR Creatinine - 103 ML/MIN/1.73 M2 Electrolytes (02/03/2023) ???Sodium - 139 mmol/L???Potassium - 4.3 mmol/L???Chloride - 102 mmol/L???Bicarbonate Level - 29 mmol/L???Anion Gap - 8 FIBRINOGEN (01/29/2023) ???Fibrinogen - 180 mg/dL Glucose Level (02/03/2023) ???Glucose Level - 102 mg/dL GLUCOSE POC (02/03/2023) ???Glucose, POC - 117 mg/dL GLUCOSE POC CARTRIDGE (01/30/2023) ???Glucose (POC) POC Cartridge - 109 HEMATOCRIT ONLY (01/29/2023) ???Hct - 24.2 % HEMATOCRIT POC CARTRIDGE (01/30/2023) ???Hematocrit (POC) POC Cartridge - 33 % HEMOGLOBIN POC CARTRIDGE (01/30/2023) ???Hemoglobin (POC) POC Cartridge - 11.2 Gm/dL Hgb + Hct (01/29/2023) ???Hgb - 11.8 Gm/dL???Hct - 36.0 % INR (01/29/2023) ???INR - 1.2???Protime (PT) - 12.2 seconds Ionized Calcium (01/29/2023) ???Calcium, Ionized pH Corrected - 1.24 mmol/L Lactic Acid Level (01/30/2023) ???Lactate - 0.9 mmol/L Magnesium Level (02/03/2023) ???Magnesium - 1.7 mg/dL Nephro Check (01/30/2023) ???Acute Kidney Injury Risk Score - 0.30 Platelet Count (01/29/2023) ???Platelet Count - 158 k/mm3 Potassium Level (01/29/2023) ???Potassium - 4.8 mmol/L POTASSIUM POC CARTRIDGE (01/30/2023) ???Potassium (POC) POC Cartridge - 4.2 mmol/L PTT (01/29/2023) ???APTT - 26.8 seconds SODIUM POC CARTRIDGE (01/30/2023) ???Sodium (POC) POC Cartridge - 136 mmol/L Type and Screen (02/01/2023) ???Blood Type - O Positive???Antibody Screen - Negative Allergies (NKA means No Known Allergies) OxyCODONE Hydrochloride??(N/V) codeine??(N/V) Problems Active Problems??(1) Obese class I?? Education Materials Below is the list of Educational Leaflet Providered with your Discharge Instructions. Surgery ??Cardiac Surgery Discharge Instructions?? Valuables and Belongings I fully understand and agree that [facility] accepts no responsibility for all my personal [...] of Valuable and Belonging List: With patient Possessions released to: Sent to [facility] through patient transport Date for Pt to Sign Valuables/Belongings: 01/30/23 06:55:00 ?? Other Discharge Information ?? Wound Assessment?? Wound Assessment?? Surgical Incision Type I: Surgical Surgical Incision Assessment I: Clean, dry, intact ?? Case Management Discharge Plan?? Discharge Plan?? Discharge Agency Information?? Discharge Level of Care at Discharge: Homehealth/VNA Name of Agency #1: [facility] Discharge Rx Program: Discharge Prescription Program Agency Store Mgr #1: [phone] Discharge Rx Program: Discharge Prescription Program Service Start Date and Time #1: 02/04/23 12:00:00 Discharge VNA/Hospice/Home Care: [facility] [phone] Service Categories #1: Jail ?? Service Comments #1: You are being discharged today with a visiting nurse for [facility]. Theyshould be in contact with you within 24hours of discharge. If you don't hear from them by tomorrow afternoon, call them at [phone]. ?? Pulmonary Rehab Status?? Pulmonary Rehab Discharge Status?? Respiratory Rate: 18 br/min PEEP: 5 ? Cardiac Rehab Assessment?? Cardiac Rehab Inpatient Assessment?? Comments-Education: Heart Book, Move in Tube, Home activity guidelines Comments-Exercise Activity: Progressive ambulation, AROM , IS Comments-Nutrition: Heart Healthy Comments-Other plan of care: Ph 2 at [place] Patient attending Phase II: Yes Phase II Site of Care: [address] [address] [phone] Common Emergency Awareness Tips IS IT A [...] are strongly encouraged to quit. Please call [facility] in[facility] Link at [phone] or [phone] ([phone]) or log in to [email or web address] for referrals to smoking cessation programs. ?? 047 Suicide & Crisis Lifeline is available 13/04 if you or someone you know needs to find a reason to keep living. By calling 050 you'll be connected to a skilled, trained counselor at a crisis center in your area. INPATIENT DISCHARGE INSTRUCTIONS SIGNATURE PAGE YOLIE GRAY Location:[facility] Registration Date and Time:01/29/2023 06:55 EDT Primary Care Physician: Gamaliel Cam MD , Misti Fitzpatrick, Attending Physician: Cristobal ROBERTS, Drake, I MARINA YOLIE, have received the above patient education materials/instructions and have verbalized understanding. If ambulance or transport services are being used I further acknowledge being given a choice of service. ?? If you need to contact me, please call me at this number: . Patient/Bat Lathe Operator Name: Patient/Bat Lathe Operator Signature: Relationship to Patient: Witness Name/Signature: Date: * Liana Corriganew: SIGN Trevon Corrigan: SIGN Mima Milton: SIGN, VERIFY Mima Milton: VERIFY, PERFORM Mima Milton: PERFORM Event Display: Patient Education Handout Authored Date: * Trevon Corrigan: PERFORM Event Display: Patient Education Leaflets Authored Date: Surgery Cardiac Surgery Discharge Instructions ?? 272 Cardiac Surgery Discharge Instructions ?? Here is information related to your condition to help you when you get home. ?? Call the Cardiac Surgery office if you experience any of the following: ??? Temperature of 101?? or above, chills, and or sweating. ??? Low grade fever of 99?? - 100?? lasting for a week. ??? Changes in breathing, chest pain, abnormal pain, dizziness, change in pulse, pulse rate or palpitations. ??? Worsening shortness of breath. ??? New onset nausea, vomiting or diarrhea. ??? If you experience any new rash, cough, dizziness, leg cramps, or blurred vision. ??? Any bleeding or swelling at the incision site or if a hard lump forms. ??? Any drainage, redness, tenderness or edges pulling apart at your surgical incision site. ??? A weight gain of more than 2-3 pounds in one day or 5 pounds in 1 week. ??? Worsening ankle swelling or leg pain ??? Pain in calf that beco mes worse when pointing toe up to head ??? Sharp pain when taking a deep breath ??? Urinary tract infection: frequent urination, burning with urination, or urgency to urinate. ??? Extreme Fatigue ?? Call 911 if: ??? You develop a new onset of weakness, numbness, loss of vision, slurred speech or any concern for a stroke or mini-stroke. ??? If you develop numbness, tingling, loss of sensation, and or coolnessto your arms or legs. ??? Fainting, confusion or disorientation. ??? Sudden, severe headache. ??? If you develop chest pain or discomfort that is not relieved with rest ??? If profuse bleeding (does not stop in 30 minutes) occurs, hold pressure to the site and call 911, [address] yourself to [facility]. ??? Bright red color in your stool. ??? Coughing or vomiting up bright red blood.??? Heart rate faster than 150 beasts/minute with shortness of breath or new palpitations. ??? Severe abdominal pain ? ? Extreme weakness and/or chills often associated with fever >101??. ?? Follow Up: A follow up appointment should be made with your doctor. If you do not have an appointment scheduled already, make an appointment when you get home. Follow up care is important; it is strongly encouraged for you to keep your appointment. You may have more than one appointment, one with your skein yarn dyer helper and one with your primary care doctor and one with the cardiac surgeon. 1. Follow up with your Cardiac Surgeon ???s Nurse Practitioner in 7 to 14 days or as directed. 2. Follow up with your Primary Care Provider in 2-5 weeks or as directed. 3. Follow up with your PrimaryCardiologist in 2-5 weeks or as directed. 4. Cardiac Rehabilitation: You will be assisted in makingarrangements at your 1-2 week follow-up appointment with a nurse practitioner in your surgeon???s office if an appointment has not been made for you prior to discharge. If you have any questions, please call the Cardiac Surgery office at [phone]. ?? Bathing: You can take a shower after you are discharged from the hospital. If you are unsteady on your feet use a shower chair. Do not soak in a tub until all scabs are gone from your incisions. You may need assistance with showering the first few days. ?? Incision Care: Look at your incision site (groin and/or chest wall) every day until it is completely healed. You may see bruising, which is common after the procedure. Check your incision daily for drainage, redness, increased tenderness or edges pulling apart. Keep your incision clean and dry. Use only soap and water to cleanse the area around the incision. Once the incision is healed you may wash over the incision with a soft wash cloth and soap and water. Avoid using perfumed soaps or body washes, lotions,creams, oils, or ointments on your incision. This may irritate your incision and put you at risk for infection. ?? Activity ??? Review the written materials given to you by the Cardiac Rehabilitation staff for your specificexercise program. ??? No heavy lifting over 10 pounds (gallon of milk) for 10 weeks following your surgery. ??? Gradually increase your activity. This will promote wound healing. Remember to alternate periods of activity with periods of rest. ??? It is important to continue to do the coughing and deep breathing exercises to help prevent breathing complications. ??? Use incentive spirometer 8 to 10 times hourly while awake for the first two weeks you are home. ??? Take your temperature every day. ??? Weigh yourself at the same time every morning. ??? Wear elastic stockings for four weeks afteryou return home. Put the stocking on in the morning and remove them at bedtime. ??? Female patientsshould wear a soft supportive bra without under wires to prevent breast from pulling on incision. ?? Driving ? You shouldn???t drive for at least 4 weeks from the date of discharge or if you are taking prescription pain medication. ? Always wear a seat belt. ?Diet ??? Use healthy cooking methods: Bake, Boil, Steam, Broil. ??? Eat mostly plant based diet; fruits and vegetables, whole grains and legumes (beans, peas and lentils). Include nuts and seeds in moderation. ??? Choose lean meats: skinless chicken/turkey breast, red meats with minimal marbling, greater than 90% lean ground meats. ??? Enjoy fish and seafood prepared healthfully twice a week or more. ??? Choose low fat dairy products. ??? Enjoy sweets in moderation. ??? Reduce sodium and salt intake. Use herbs and spices to flavor your food. Daily sodium intake should be less than 3000mg. ??? Avoid processed foods, fried foods and foods that contain trans-fat. ??? Daily protein intake goal is 80-110 grams. ?? Smoking If you smoke, you are strongly encouraged to quit. Smoking can increase blood pressure, decrease exercise tolerance and increase the tendency for blood to clot, decrease HDL (good) cholesterol and creates a higher risk for having a heart attack, stroke or other vascular events. If you smoke and areready to quit, please let us know; referrals to smoking cessation programs are available. ?? Lowering your cholesterol Diet and exercise may not lower your cholesterol enough. Cholesterol medicines may help prevent further cholesterol build up in the arteries. Talk to your doctor about taking medicine for high cholesterol. ?? High blood pressure and diabetes If you have high blood pressure or diabetes, continue with your prescribed treatments. These health problems, if not controlled can put you at risk for having a heart attack, stroke, or other vascular events. ?? Stress Learn to manage stress with ways that fit your needs. Some stress relieving activities include meditation, deep breathing techniques and exercise. Stress that isn???t managed can prolong healing and cause other health problems. Talk to your caregiver if you need additional resources to manage stress. ?? Feelings You may also be impatient to return to your regular activities, and may feel frustrated with your recovery. Remember that your body needs time to heal. In fact, healing takes energy and depletes yourstrength. You will have good days and bad days, and you may feel depressed and angry about how longyour recovery seems to take. Talk to your family or friends about your feelings, and try to remember that you will get better. As you get stronger and more rested, you will feel more positive about your progress. One way to avoid feeling depressed is to maintain as normal a routine as possible. Getup at your usual time and bathe or shower. Get dressed; don ???t stay in your nightclothes all day.Take a rest in the morning and afternoon, and when you feel tired. Get a good night???s sleep. If your depression doesn???t improve, talk to your doctor. ?? Valve Surgery Instructions You will receive a booklet and card specific to the valve you received. This card should be carriedwith you at all times. Your doctor may prescribe an anticoagulant medication to prevent blood clotsthat could lead to a stroke. Your doctor may prescribe an antibiotic.?? This helps prevent infection that could scar and destroy your heart valve. Your will be instructed when to take this medication, such as before dental work, surgery, or medical procedures. ?? Please refer to the Understanding & Preparing for Heart Surgery booklet. ?? If you are being discharged on Coumadin ??/warfarin, please refer to the H&V Anticoagulation Patient Education booklet. ? * Event Display: Adult Preadmission Health Questionnaire Authored Date: Heart Transesophageal * Event Display: Trans-esophageal Echocardiogram Authored Date: Transesophageal Echocardiography Report (ART) Patient Demographics Patient Name MARINA, Date of Study 01/29/2023 YOLIE Corporate Gender Female Facility Race Ethnicity Date of 1960 Age 62 year(s) Accession Number [id number] Room Number M31X Referring Physician Cristobal Juan MD Interpreting Brady Weir MD Physician Fitter Placer Indications Prosthetic valve function. Additional Indications:Post-AVR Study Data Type of Study ART procedure:ART Colorflow , ART Doppler Follow-up or Limited. Procedure Information:The transesophageal probe was inserted by the anesthesiologist. Study Date01/29/2023 Start Time: 01:31 PM Study [facility] [facility] Study Status: OR Patient Status: Routine EKG: Normal sinus rhythm HR: 78 bpm ART Performed By: Brady Weir MD Type of Anesthesia: Anesthesia administered by anesthesiologist. Allergies - Percocet (Oxycodone). - Codeine. Cardiac Anatomy Left Ventricle/Interventricular Septum The LV systolic function appears normal. Left Atrium/Interatrial Septum The left atrium is normal in size. Aortic Valve There is a bioprosthetic valve in the aortic position. There is a paravalvular leak noted at the 6 o'clock position (close to the strut between LCC and RCC). It is at least mild, although severity is difficult to assess. It is very eccentric and its direction is essentially perpendicular to the LVOT. The valve otherwise appears well seated with normal valve leaflet function. Mitral Valve The mitral valve is grossly normal. Aorta There has been an aortic repair Right Ventricle The right ventricular size and function appears grossly normal. Tricuspid Valve The tricuspid valve is grossly normal. Pericardium/Extracardiac There is no significant pericardial effusion. Summary 1) Imaging done in OR for patient post AVR to assess for paravalvular leak 2) There is a bioprosthetic valve in the aortic position. There is a paravalvular leak noted at the 6 o'clock position (close to the strut between LCC and RCC). It is at least mild, although severity is difficult to assess. It is very eccentric and its direction is essentially perpendicular to the LVOT. The valve otherwise appears well seated with normal valve leaflet function. Comparison No prior study available for comparison. Signature * Event Display: Trans-esophageal Echocardiogram Authored Date: Cardiology * Event Display: Cardiac Rhythm Strips Authored Date: * Event Display: Cardiac Rhythm Strips Authored Date: EKG study * Event Display: EKG Authored Date: Hospital Progress note * Yolie Lopez LPN: VERIFY, PERFORM, SIGN Event Display: Progress Note Hospital Authored Date: Patient: YOLIE GRAY Age: 62 years Sex: Female : 1960 Associated Diagnoses: None Author: Yolie Lopez LPN Findings Problem Related to Alteration in Cardiac Function (new) : Alteration in Cardiac Function/new 02/02/2023 15:00 EDT Alteration in Cardiac Status Related to Cardiac Surgery Goals & Outcomes, Cardiac Status Pt will resume/maintain adequate cardiac output, Pt will resume/maintain adequate hemodynamic status, Pt will resume/maintain adequate respiratory function, Pt will state understanding of cardiac surgery education Cardiac Interventions Implemented Assess/monitor cardiac status BH Goals/Interventions, Cardiac Yes Cardiac, Problem Start 01/29/2023 18:41 Reviewed Plan with, Cardiac Status Patient Patient Progression, Cardiac Status Patient progressing according to plan . Nursing Data Vital Signs : VITAL SIGNS SECTION 02/02/2023 12:42 EDT Temperature 98.0 DegF Temperature Route Oral Pulse Rate 86 bpm Respiratory Rate 18 br/min Systolic Blood Pressure 108 mm Hg Diastolic Blood Pressure 67 mm Hg Blood pressure sites Arm, right Mean Arterial Pressure 81 mm Hg Pulse Pressure 41 mm Hg Oxygen Saturation 96 % Mode of Delivery (Oxygen) Room air . Evaluation Pt. A&O*4. 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 SR on tele all shift.. * Faviola Winters NP: VERIFY, PERFORM, SIGN Event Display: Progress Note Hospital Authored Date: [id number] Patient: YOLIE GRAY Age: 62 years Sex: Female : 1960 Associated Diagnoses: None Author: Faviola Winters NP Surgery CABG Date AVR-T , Ascending Ao Aneurysm Replacem Post op day 4 Overnight Events & Current Issues nsr NO ACUTE ISSUES Physical Examination Exam Neurological: alert. Pulmonary/Lungs: decreased. Cardiovascular: S1, S2, AFib, NSR. Gastrointestinal: Abdomen (soft, non-tender, non-distended, bowel sounds present), Diet by mouth. Extremities: Pulses palpable, Edema trace. Surgical Wounds: Chest dry and intact, Extremities dry and intact. Results Review Today's Results Weight Daily weight past 3 days : Weight 01/31/2023 4:19 EDT Weight 84.2 kg 01/30/2023 5:47 EDT Weight 92.4 kg LABORATORY 02/02/2023 12:37 EDT Glucose, POC 166 mg/dL H 02/02/2023 8:37 EDT Glucose, POC 106 mg/dL H 02/02/2023 7:08 EDT Est Creatinine Clearance 96.02 mL/min 02/02/2023 5:45 EDT Sodium 138 mmol/L Potassium 4.5 mmol/L Chloride 101 mmol/L Bicarbonate Level 30 mmol/L H Anion Gap 7 Glucose Level 106 mg/dL H BUN 12 mg/dL Creatinine-Blood 0.5 mg/dL Estimated GFR Creatinine 105 ML/MIN/1.73 M2 Magnesium 1.7 mg/dL 02/02/2023 5:42 EDT WBC 9.1 k/mm3 RBC 2.80 m/mm3 L Hgb 8.9 Gm/dL L Hct 27.7 % L MCV 98.9 femtoliters MCH 31.8 pg MCHC 32.1 g/dL L Platelet Count 211 k/mm3 RDW-SD 44.5 femtoliters MPV 10.7 femtoliters Nucleated RBC (Automated) 0.0 #/100 WBC'S Abs. NRBC 0.0 k/mm3 CICU Vital Signs 02/02/2023 12:42 EDT Temperature 98.0 DegF Temperature Route Oral Respiratory Rate 18 br/min Mode of Delivery (Oxygen) Room air Oxygen Saturation 96 % Systolic Blood Pressure 108 mm Hg Mean Arterial Pressure 81 mm Hg Diastolic Blood Pressure 67 mm Hg Pulse Pressure 41 mm Hg MICU Cardiac Assessment 02/02/2023 9:00 EDT Cardiac Rhythm Normal sinus rhythm CICU Respiratory Data 02/02/2023 12:42 EDT Mode of Delivery (Oxygen) Room air (Selected) Inpatient Medications Ordered Acetaminophen Tablet: 975 mg, Tablet, By Mouth, Every 6 hours, (scheduled) for mild pain, (May givevia NG tube), Routine, 01/30/23 23:00:00 EDT Aspirin Tablet: 81 mg, EC Tablet, By Mouth, Daily, Hold for: Platelet count less than 60,000, Routine, 01/30/23 9:00:00 EDT Bisacodyl Supp: 10 mg, Suppository, Rectally, Daily, if unable to take by mouth, PRN for Constipation, Routine, 02/01/23 9:00:00 EDT Bisacodyl Tablet: 10 mg, EC Tablet, By Mouth, Daily, PRN for Constipation, Routine, 02/01/23 9:00:00 EDT Dextrose 50% Inj Syringe (25Gm): 12.5 Gm, Injection, IV Push Slowly, Every hour, (1 amp = 50 mL, 25Gm Dextrose), PRN for Blood Glucose, Less than 50 OR per HYPERKALEMIA Order Instructions, Routine, 01/29/23 16:31:00 EDT Dilaudid 2 mg oral tablet: 2 mg, Tablet, By Mouth, Every 4 hours, PRN for Pain , Moderate, Routine,01/31/23 18:29:00 EDT Dilaudid 4 mg oral tablet: 4 mg, Tablet, By Mouth, Every 4 hours, PRN for Pain , Severe, Routine, 01/31/23 18:30:00 EDT Docusate/Senna Tablet: 2 tablet, Tablet, By Mouth, Daily, Hold for: loose stools and notify MD/RAMSEY,Routine, 01/30/23 9:00:00 EDT Enoxaparin Inj: 40 mg, Injection, Subcutaneous Injection, Daily, (DVT Prophylaxis) start on POD 1 if patient not bleeding, Hold for: platelets less than 100,000, Routine, 01/30/23 9:00:00 EDT Flush NaCl 0.9%: 3 mL, Injection, IV Push, Every 8 hours, PRN for Other, For Peripheral Line to maintain Patency, Routine, 01/30/23 13:19:00 EDT Flush NaCl 0.9%: 3 mL, Injection, IV Push, Every 8 hours, To Peripheral Line to Flush pre/post IV medications, Routine, 01/30/23 14:00:00 EDT Gabapentin Capsule: 100 mg, Capsule, By Mouth, 3 times a day, If Creatinine LESS than 1.5, Routine,01/29/23 21:00:00 EDT Insulin LISPRO Sliding Scale: 2-10 units, Injection, Subcutaneous Injection, 3 times a day before meals, Routine, 01/30/23 16:00:00 EDT Lactulose Syrup: 30 mL, Syrup, By Mouth, Daily, Hold for bowel movement in past 24 hours, Notify MD/RAMSEY for loose stool, Routine, 01/31/23 9:00:00 EDT Magnesium Sulfate IVPB: 2 Gm, IVPB, Premix, Every 4 hours, Infuse over 1 hour, PRN, for Other, Magnesium Level less than or equal to 1.9 mg/dL, Routine, 01/29/23 16:31:00 EDT Metoprolol IR Tablet: 25 mg, Tablet, By Mouth, 2 times a day, When extubated, HOLD for HR less than60 or SBP less than 100 or if on Vasopressors or Inotropes (May give via NG tube), Routine, 01/29/23 21:00:00 EDT MiraLax Powder: 17 Gm, Powder, By Mouth, Daily, Dissolve in 8 ounces of water., Hold for: loose stools and notify MD/RAMSEY, Routine, 01/30/23 9:00:00 EDT Ondansetron Inj: 4 mg, Injection, IV Push, Every 6 hours, PRN for Nausea & Vomiting, Notify MD/RAMSEY if given, Routine, 01/29/23 16:31:00 EDT Pantoprazole Tablet: 40 mg, EC Tablet, By Mouth, Daily, Indicated for: GERD, Routine, 01/30/23 9:00:00 EDT Vashe Topical Solution: 475 mL, Solution, Topically, Apply to Other : All Surgical Sites, Every 12 hours, Routine, 01/30/23 14:00:00 EDT Vashe Topical Solution: 475 mL, Solution, Topically, Apply to Other : All Surgical Sites, Every 6 hours, PRN for Other, Routine, 01/30/23 13:19:00 EDT amiODARONE Tablet: 400 mg, Tablet, By Mouth, 2 times a day for 7 days, Start on POD 1, Hold for: HRless than 60, Routine, 01/31/23 21:00:00 EDT, Stop date 02/07/23 20:59:00 EDT amiodarone 200 mg oral tablet: 200 mg, Tablet, By Mouth, 2 times a day for 30 days, Routine, 02/08/23 9:00:00 EDT, Stop date 03/10/23 8:59:00 EDT baclofen 10 mg oral tablet: 5 mg, Tablet, By Mouth, 3 times a day, PRN for Pain , Moderate, Routine, 01/31/23 7:02:00 EDT simethicone 80 mg oral tablet, chewable: 80 mg, Chew Tablet, Chew, 3 times a day, Routine, 239:00:00 EDT traZODone 50 mg oral tablet: 50 mg, Tablet, By Mouth, Daily at bedtime, PRN for Insomnia, Routine, 02/01/23 0:16:00 EDT Impression and Plan HISTORY OF PRESENT ILLNESS: The patient is [...] to be about 4 cm in diameter. Surgeon: Dr. Jain Chart Collector: Dr. Dillon POD 4 AVRt As Ao An repair with gelweave graft EF 58% Plan by systems: Neuro Post-operative Pain scheduled Tylenol, prn narcotics for severe pain multimodal analgesia Cardiovascular s/p AVR As Ao An s/p repair metoprolol 25 mg PO BID asa 81 mg qd --amiodarone 200 mg PO BID for afib ppx for 30 days post op increased to 400 mg BID x 7 days then tapering regimen Pulmonary extubated to nasal cannula pulmonary toilet tolerating room air GI cardiac diet ppi discontinue at discharge Renal Baseline Creatinine: 0.5 creat today 0.5 nephrocheck 0.3 strict i&o replete lytes per protocol Heme Acute Blood loss anemia watch for bleeding transfuse for h/h < 7/21 or active bleeding no blood products required intraoperatively ID charles-operative antibiotics completed trend wbc, Endo stress induced hyperglycemia A1C 5.2 poc meal time and qhs, ssi stop all insulin at discharge Dispo: ambulate, pulmonary toilet, diurese ?? Care plan as above discussed with Dr Park am rounds * Yolie Lopez LPN: PERFORM, SIGN, VERIFY Event Display: Progress Note Hospital Authored Date: Patient: YOLIE GRAY Age: 62 years Sex: Female : 1960 Associated Diagnoses: None Author: Yolie Lopez LPN Findings Problem Related to Alteration in Cardiac Function (new) : Alteration in Cardiac Function/new 02/02/2023 15:00 EDT Alteration in Cardiac Status Related to Cardiac Surgery Goals & Outcomes, Cardiac Status Pt will resume/maintain adequate cardiac output, Pt will resume/maintain adequate hemodynamic status, Pt will resume/maintain adequate respiratory function, Pt will state understanding of cardiac surgery education Cardiac Interventions Implemented Assess/monitor cardiac status BH Goals/Interventions, Cardiac Yes Cardiac, Problem Start 01/29/2023 18:41 Reviewed Plan with, Cardiac Status Patient Patient Progression, Cardiac Status Patient progressing according to plan . Nursing Data Vital Signs : VITAL SIGNS SECTION 02/02/2023 12:42 EDT Temperature 98.0 DegF Temperature Route Oral Pulse Rate 86 bpm Respiratory Rate 18 br/min Systolic Blood Pressure 108 mm Hg Diastolic Blood Pressure 67 mm Hg Blood pressure sites Arm, right Mean Arterial Pressure 81 mm Hg Pulse Pressure 41 mm Hg Oxygen Saturation 96 % Mode of Delivery (Oxygen) Room air . Evaluation Pt. A&O*4. 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 Pt has bilateral trace edema in lower extremities. . Deprecated Cardiac rehabilitation treatment plan Progress note and attainment of goals (narrative) * Rosi Leone RN: SIGN, VERIFY, PERFORM Event Display: Cardiac Rehab Note Authored Date: [id number] Patient: YOLIE GRAY Age: 62 years Sex: Female : 1960 Associated Diagnoses: None Author: Rosi Leone RN Recommendation and Plan Cardiac Rehab: Attended CV surgery rounds, see CV surgery note for plan of care.. * Rosi Leone RN: PERFORM, SIGN, VERIFY Event Display: Cardiac Rehab Note Authored Date: [id number] Patient: YOLIE GRAY Age: 62 years Sex: Female : 1960 Associated Diagnoses: None Author: Rosi Leone RN Pre-exercise Vitals Vital Signs Comment: Reviewed in [facility]. Pre-exercise Physical Examination Neurologic: alert & oriented. Activity Symptoms with Cardiac Rehab Symptoms: No exertional symptoms. Activity Transfers: independent, assistive device. Ambulate: with assist, assist x 1 , assistive device, distance ambulated 250 feet. Assistive Devices Assistive Device: Wheeled walker. Patient Education Education: Family present, Cardiac surgery booklet reviewed. Education topic Teachback comprehension 75% Topic: Role of exercise, Home activity guidelines/limits, Post operative recovery guidelines. Recommendation and Plan Ambulate: 4-6 times/day, with assist of 1 , with assistive device. Outpatient follow up recommended: [facility]. Cardiac Rehab: Daily. Recommendation comment: RN notified of plan. * Rosi Leone RN: PERFORM, SIGN, VERIFY Event Display: Cardiac Rehab Note Authored Date: [id number] Patient: YOLIE GRAY Age: 62 years Sex: Female : 1960 Associated Diagnoses: None Author: Rosi Leone RN Recommendation and Plan Cardiac Rehab: Attended CV surgery rounds. See CV surgery note for plan of care.. Portable XR Chest Views * Jorge Luis , TULIO S: TRANSCRINikki Szymanski MD: VERIFY Event Display: Result: Authored Date: [id number] Chest Portable Reason: Other:; tube removal; Clinical Question(s): Pneumothorax COMPARISON: 01/30/2023. FINDINGS: LINES AND TUBES: RIGHT IJ central venous catheter, mediastinal drain and LEFT chest tube have been removed. EKG leads project over the chest. LUNGS AND PLEURA: Mild discoid atelectasis in the mid lungs bilaterally. No pleural effusion. No pneumothorax. HEART, MEDIASTINUM AND TOI: Unchanged. Prosthetic aortic valve. BONES AND SOFT TISSUES: No acute abnormality. IMPRESSION: Minimal atelectasis. No pneumothorax. WSN: [id number] Ordering Physician: Faviola Winters Dictated By: Nikki Bradley MD Dictated Date/Time: 02/01/23 5:07 pm Reviewed By: Nikki Bradley MD Signed By: Nikki Bradley MD Signed Date/Time: 02/01/23 5:07 pm Transcribed By: RICHARD Transcribed Date/Time: 02/01/23 5:05 pm * Halimascriander , CIS S: TRANSCRIMinh Mobley MD: VERIFY Event Display: Result: Authored Date: [id number] Chest Portable AP upright at 5:18 AM REASON: S P Cardiac Surgery; Clinical Question(s): Other:; Cardiac Tamponade; Special Instructions:Post Op Day 1 / Other: COMPARISON: 01/29/2023 FINDINGS: LINES AND TUBES: Endotracheal tube and enteric tube is been removed. Right internal jugular central venous catheter tip projects in the SVC. Mediastinal drain and left chest tube remain in place. LUNGS AND PLEURA: The central pulmonary vasculature is prominent and indistinct. Bibasilar atelectasis. No pleural effusion. No pneumothorax. HEART, MEDIASTINUM AND TOI: Unchanged. Prosthetic aortic valve in place. BONES AND SOFT TISSUES: Status post median sternotomy. IMPRESSION: Mild pulmonary vascular congestion and bibasilar atelectasis. WSN: [id number] Ordering Physician: Tyler Wick Dictated By: Minh Whalen MD Dictated Date/Time: 01/30/23 9:32 am Reviewed By: Minh Whalen MD Signed By: Minh Whalen MD Signed Date/Time: 01/30/23 9:32 am Transcribed By: RICHARD Transcribed Date/Time: 01/30/23 9:31 am * BHSPowerscribe , CIS S: TRANSCRIBE Evette Ritter MD: VERIFY Event Display: Result: Authored Date: [id number] Chest Portable Reason: S P Cardiac Surgery; Clinical Question(s): Other:; Cardiac Tamponade; Special Instructions:[facility] Admission to [facility] COMPARISON: 01/18/2023 FINDINGS: LINES AND TUBES: Endotracheal tube terminates approximately 4.4 cm above the alana. Right IJ catheter and sheath present, with the catheter terminating in the region of the distal SVC. Enteric tube courses below thediaphragm and off of the image. Mediastinal drain noted in place. A tubular structure in the base of the left hemithorax may represent a left- sided chest tube versussecond mediastinal drain. LUNGS AND PLEURA: Mild left basilar atelectasis noted. Probable trace left pleural effusion. Normal pulmonary vascularity. No right pleural effusion. No pneumothorax. HEART, MEDIASTINUM AND TOI: Heart is normal in size. Prosthetic aortic valve noted in place. Normal mediastinal and hilar contour. BONES AND SOFT TISSUES: No acute abnormality. Intact median sternotomy wires. IMPRESSION: Visualized lines and tubes are in expected position, except the enteric tube for which the distal end is not included in the [id number]. Mild left basilar atelectasis and possible trace left pleural effusion. Prosthetic aortic valve in place. WSN: [id number] Ordering Physician: Tyler Wick Dictated By: Evette Ritter MD Dictated Date/Time: 01/29/23 5:39 pm Reviewed By: Evette Ritter MD Signed By: Evette Ritter MD Signed Date/Time: 01/29/23 5:39 pm Transcribed By: RICHARD Transcribed Date/Time: 01/29/23 5:35 pm Patient Care team information Care Team Personnel Name: Eloina Calderon RN Position: S RN Supv Member Role: Primary Care Nurse Name: Nicolle Mcclendon Position: [facility] RN Member Role: Primary Care Nurse Name: Tony Maria RN Position: [facility] RN Member Role: Primary Care Nurse Name: Mercedez Rivers RN Position: [facility] RN Member Role: Primary Care Nurse Name: Isabela Damico RN Position: [facility] RN Supv Member Role: Primary Care Nurse Name: Jennifer Barrett RN Position: [facility] RN Member Role: Primary Care Nurse Name: Jennifer Sharpe RN Position: [facility] RN Member Role: Primary Care Nurse Name: Misti Thorpe MD Position: Reference Physician Member Role: PCP Address: Address: [address] [place] [address]- Name: Astrid Lozano RN Position: [facility] RN Member Role: Primary Care Nurse Care Team Related Persons Name: JOSE GRAY Address: home [address] [place] [address]
--- OUTSIDE RECORDS SUMMARY | 2024-07-15 10:51 | XMS_ITS | Continuity of Care Document ---
Author Organization [facility] ter Address [address] [place] [address]- Care Team Providers Care National Expansion Recruiter Name Role Phone Gamaliel Cam MD, Bernarda Primary Care Physician [place] [facility] [place](s): 02/03/23 - 03/05/[address] [address]- Attending Physician: Not on Staff, Attending MD Admitting Physician: Not on Staff, Admitting MD Referring Physician: Not on Staff, Referring [...] 0 Refills, Soft Stop, 02/11/23 12:24:00 EDT, [id number], Partial fill uponpatient request if the prescription is for a schedu... Start Date: 02/11/23 Status: Ordered aspirin 81 mg oral delayed release tablet = 81 mg, By Mouth, Daily, # 30 tablet, 0 Refills, Maintenance, 03/05/23 15:34:00 EDT, EC Tablet, [id number], Partial fill upon patient request if the prescription is for a schedule II opioid drug., 159, cm, 02/13/23 9:19:00 EDT, Height, 83.1,... Start Date: 03/05/23 Status: Ordered B 100 Complex oral tablet [...] 02/03/23 11:26:00 EDT, Route to Pharmacy Electronically, [facility], Partial fill upon patient request if the prescription is for a schedule II opioid... Start Date: 02/03/23 Stop Date: 02/17/23 Status: Ordered metoprolol 25 mg oral tablet 25 mg, 1, tablet, By Mouth, 2 times a day, # 60 tablet, Refills 0, Tot. Refills 0, Maintenance, 03/05/23 15:34:00 EDT, [id number] Partial fill upon patient request if the prescription is for a schedule II opi... Start Date: 03/05/23 Status: Ordered Multi-Day Plus Minerals oral tablet [...] Physician Member Role: PCP Address: Address: [address] [place] [address]- Name: Astrid Lozano RN Position: S RN Member Role: Primary Care Nurse Care Team Related Persons Name: JOSE GRAY Address: home [address] [place] [address]
--- OUTSIDE RECORDS SUMMARY | 2024-07-15 10:51 | XMS_ITS | Continuity of Care Document ---
Author Organization [facility] Address [address] [place] [address] [place] [address]- Care Team Providers Care Safety Pin Assembling Machine Operator Name Role Phone Gamaliel Cam MD, Bernarda Primary Care Physician Encounter [facility] [place] Date(s): 11/27/22 - 12/27/22 [facility] Cardiac Surgery [address] [place] [address] Attending Physician: Admtr, Ar8 Admitting Physician: Admtr, Ar8 Referring Physician: Admtr, Ar8 Allergies, Adverse Reactions, Alerts Substance Reaction Severity [...] atus Informant Obese class I Confirmed Active Note * Event Display: Non BH Lab Results Authored Date: * Event Display: Cardiology Office Note, Non-BH Authored Date: * Event Display: Cardiology Office Note, Non-BH Authored Date: Patient Care team information Care Team Personnel Name: Gamaliel Cam MD , Misti Fitzpatrick Position: Reference Physician Member Role: PCP Address: Address: [address] [place] [address]- Care Team Related Persons Name: JOSE GRAY Address: [address] [place] [address]
--- OUTSIDE RECORDS SUMMARY | 2024-07-15 10:51 | XMS_ITS | Continuity of Care Document ---
Author Organization [facility] Address [address] [place] [address] [place] [address]- Care Team Providers Care Thread Weaver Name Role Phone Gamaliel Cam MD, Bernarda Primary Care Physician [phone] [place] [facility] [place] 03/15/23 [facility] Cardiac Surgery [address] [place] [address]- Attending Physician: Sacha Peralta Admitting Physician: AdmSacha campa Referring Physician: AdmtrSacha Allergies, Adverse Reactions, Alerts Substance Reaction Severity [...] mg, By Mouth, Once, take 4 capsules by mouth 1 hour prior to dental procedure., #4 capsule, 0 Refills, Soft Stop, 03/12/23 13:23:00 EDT, [facility] #[id number], Partial fill upon patient request if the prescription is for a schedule II... Start Date: 03/12/23 Status: Ordered amoxicillin 500 mg oral capsule 4 capsule = 2,000 mg, By Mouth, Once, take 4 capsules (2 g) by mouth 1 hour prior to dental procedure., # 4 capsule, 0 Refills, Soft Stop, 02/11/23 12:24:00 EDT, [facility]/pharmacy #[id number], Partial fill uponpatient request if the prescription is for a schedu... Start Date: 02/11/23 Status: Ordered aspirin 81 mg oral delayed release tablet = 81 mg, By Mouth, Daily, # 30 tablet, 0 Refills, Maintenance, 03/05/23 15:34:00 EDT, EC Tablet, [facility]/pharmacy #[id number], Partial fill upon patient request if [...] 02/03/23 11:26:00 EDT, Route to Pharmacy Electronically, [facility], Partial fill upon patient request if the prescription is for a schedule II opioid... Start Date: 02/03/23 Stop Date: 02/17/23 Status: Ordered metoprolol 25 mg oral tablet 25 mg, 1, tablet, By Mouth, 2 times a day, # 60 tablet, Refills 0, Tot. Refills 0, Maintenance, 03/05/23 15:34:00 EDT, Route to Pharmacy Electronically, [facility]/pharmacy #[id number], Partial fill upon patient request if [...] atus Informant Obese class I Confirmed Active Laboratory * Event Display: Non Lab Results Authored Date: Cardiology * Event Display: Cardiology Office Note, Non- Authored Date: * Event Display: Cardiology Office Note, Non- Authored Date: Radiology * Event Display: Ultrasound Neck, Non- Authored Date: Patient Care team information Care [...] Physician Member Role: PCP Address: Address: [address] [facility] [address] [place] [id number] Name: Astrid Lozano RN Position: S RN Member Role: Primary Care Nurse Care Team Related Persons Name: MARINA, JOSE Address: home [address] [place] [address]
--- OUTSIDE RECORDS SUMMARY | 2024-07-15 10:51 | XMS_ITS | Continuity of Care Document ---
Author Organization [facility] Address [address] [place] [address] [place] [address]- Care Team Providers Care Director Epidemiology Name Role Phone Gamaliel Cam MD, Misti Fitzpatrick Primary Care Physician [phone] Encounter [facility] [place] Date(s): 01/21/24 - 02/20/24 [facility] Cardiac Surgery [address] [place] [address] Drive [address] [place] [address]- Allergies, Adverse Reactions, Alerts Substance Reaction Severity [...] 0 Refills, Soft Stop, 03/12/23 13:23:00 EDT, [id number], Partial fill upon patient request [...] a schedu... Start Date: 02/11/23 Status: Ordered Aspirin Low Dose 81 mg oral delayed release tablet 1 tablet, By Mouth, Daily, # 30 tablet, 0 Refills, Maintenance, 09/18/23 17:29:00 EST, [id number], 159, cm, 02/13/23 9:19:00 EDT, Height, 83.1, kg, 01/29/23 18:47:00 EDT, Dry Weight Start Date: 09/18/23 Status: Ordered B 100 Complex oral tablet [...] opioid drug. Start Date: 01/24/23 Status: Ordered [facility] ASPIRIN EC 81 MG TABLET [facility] ASPIRIN EC 81 MG TABLET, 1, tablet, By Mouth, Daily, # 30 tablet, 0 Refills, Maintenance, 03/30/23 7:20:00 EDT, 159, cm, 02/13/23 9:19:00 EDT, Height, 83.1, kg, 01/29/23 18:47:00 EDT, Dry Weight Start Date: 03/30/23 Status: Ordered Fish Oil 1000 mg oral [...] 02/03/23 11:26:00 EDT, Route to Pharmacy Electronically, [facility], Partial fill upon patient request if the prescription is for a schedule II opioid... Start Date: 02/03/23 Stop Date: 02/17/23 Status: Ordered metoprolol 25 mg oral tablet 25 mg, 1, tablet, By Mouth, 2 times a day, # 60 tablet, Refills 0, Tot. Refills 0, Maintenance, 03/05/23 15:34:00 EDT, Route to Pharmacy Electronically, [facility]/pharmacy #[id number], Partial fill upon patient request if the [...] Member Role: Primary Care Nurse Name: Isabela Hart RN Position: S RN Supv Member Role: Primary Care Nurse Name: Tony [...] Physician Member Role: PCP Address: Address: [address] [place] [address]- Name: Astrid Lozano RN Position: S RN Member Role: Primary Care Nurse Care Team Related Persons Name: JOSE GRAY Address: home [address] [place] [address]
--- OUTSIDE RECORDS SUMMARY | 2024-07-15 10:51 | XMS_ITS | Continuity of Care Document ---
Author Organization [facility] Address [address] [place] [address] [place] [address]- Care Team Providers Care Linux Engineer Name Role Phone Gamaliel Cam MD, Bernarda Primary Care Physician [phone] Encounter [place] Date(s): 02/11/23 - 03/13/23 [facility] Cardiac Surgery [address] [place] [address]- Allergies, Adverse Reactions, Alerts Substance Reaction Severity [...] Refills, Maintenance, 03/05/23 15:34:00 EDT, EC Tablet, [facility]/pharmacy #[id number], Partial fill upon patient request if [...] 02/03/23 11:26:00 EDT, Route to Pharmacy Electronically, [facility], Partial fill upon patient request if the prescription is for a schedule II opioid... Start Date: 02/03/23 Stop Date: 02/17/23 Status: Ordered metoprolol 25 mg oral tablet 25 mg, 1, tablet, By Mouth, 2 times a day, # 60 tablet, Refills 0, Tot. Refills 0, Maintenance, 03/05/23 15:34:00 EDT, Route to Pharmacy Electronically, [facility]/pharmacy #[id number], Partial fill upon patient request if [...] Physician Member Role: PCP Address: Address: [address] [place] [address]- Name: Astrid Lozano RN Position: S RN Member Role: Primary Care Nurse Care Team Related Persons Name: JOSE GRAY Address: home [address] [place] [address]
--- OUTSIDE RECORDS SUMMARY | 2024-07-15 10:51 | XMS_ITS | Continuity of Care Document ---
Author Organization [facility] Address [address] [place] [address] [place] [address]- Care Team Providers Care Senior Manager Creative Services Name Role Phone Gamaliel Cam MD, Misti Fitzpatrick Primary Care Physician En[place] [facility] [place] Date(s): 03/12/23 - 04/11/23 [facility] [address] [place] [phone]- Allergies, Adverse Reactions, Alerts Substance Reaction Severity [...] opioid drug. Start Date: 01/24/23 Status: Ordered [facility] ASPIRIN EC 81 MG TABLET [facility] ASPIRIN EC 81 MG TABLET, 1, tablet, [...] 02/03/23 11:26:00 EDT, Route to Pharmacy Electronically, [facility], Partial fill upon patient request if the prescription is for a schedule II opioid... Start Date: 02/03/23 Stop Date: 02/17/23 Status: Ordered metoprolol 25 mg oral tablet 25 mg, 1, tablet, By Mouth, 2 times a day, # 60 tablet, Refills 0, Tot. Refills 0, Maintenance, 03/05/23 15:34:00 EDT, Route to Pharmacy Electronically, [facility]/pharmacy #[id number], Partial fill upon patient request if the [...] Physician Member Role: PCP Address: Address: [address] [place] [address]- Name: Astrid Lozano RN Position: S RN Member Role: Primary Care Nurse Care Team Related Persons Name: JOSE GRAY Address: home [address] [place] [address]
--- OUTSIDE RECORDS SUMMARY | 2024-07-15 10:51 | XMS_ITS | Continuity of Care Document ---
Author Organization [facility] Address [address] [place] [address] [place] [address]- Care Team Providers Care Surgical Scrub Tech Name Role Phone Gamaliel Cam MD, Misti Fitzpatrick Primary Care Physician Encounter [facility] [place] Date(s): 03/05/23 - 04/04/23 [facility] Cardiac Surgery [address] [place] [phone]- Allergies, Adverse Reactions, Alerts Substance Reaction Severity [...] opioid drug. Start Date: 01/24/23 Status: Ordered [facility] ASPIRIN EC 81 MG TABLET [facility] ASPIRIN EC 81 MG TABLET, 1, tablet, [...] 02/03/23 11:26:00 EDT, Route to Pharmacy Electronically, [facility], Partial fill upon patient request if the prescription is for a schedule II opioid... Start Date: 02/03/23 Stop Date: 02/17/23 Status: Ordered metoprolol 25 mg oral tablet 25 mg, 1, tablet, By Mouth, 2 times a day, # 60 tablet, Refills 0, Tot. Refills 0, Maintenance, 03/05/23 15:34:00 EDT, Route to Pharmacy Electronically, [facility]/pharmacy #[id number], Partial fill upon patient request if the [...] Physician Member Role: PCP Address: Address: [address] [place] [address]- Name: Astrid Lozano RN Position: S RN Member Role: Primary Care Nurse Care Team Related Persons Name: JOSE GRAY Address: home [address] [place] [address]
--- OUTSIDE RECORDS SUMMARY | 2024-07-15 10:51 | XMS_ITS | Continuity of Care Document ---
Author Organization [facility] Address [address] [place] [address] [place] [address]- Care Team Providers Care Alarm Signal Operator Name Role Phone Gamaliel Cam MD, Misti Fitzpatrick Primary Care Physician Encounter [facility] [place] Date(s): 01/05/23 - 02/04/23 [facility] [address] [place] [phone]- Allergies, Adverse Reactions, Alerts Substance Reaction Severity Status codeine N/V Active OxyCODONE Hydrochloride N/V Acti ve Medications acetaminophen 325 mg oral tablet 975 mg, By Mouth, Every 6 hours, PRN, for 5 days, # 50 tablet, Refills 0, Tot. Refills 0, Acute 02/08/23 11:21:00 EDT, Pain , Mild, 02/03/23 11:21:00 EDT, Route to Pharmacy Electronically, [facility], Partial fill upon patient request if... [...] Refills, Maintenance, 02/03/23 11:25:00 EDT, EC Tablet, [facility], Partial fill upon patient [...] 02/06/23 11:28:00 EDT, 02/03/23 11:28:00 EDT, Tablet, [facility], Partial fill upon patient request if the prescription is for a rosie... Start Date: 02/03/23 Stop Date: 02/06/23 Status: Ordered Fish Oil 1000 mg oral [...] 02/03/23 11:26:00 EDT, Route to Pharmacy Electronically, [facility], Partial fill upon patient request if the prescription is for a schedule II opioid... Start Date: 02/03/23 Stop Date: 02/17/23 Status: Ordered metoprolol 25 mg oral tablet 25 mg, 1, tablet, By Mouth, 2 times a day, # 60 tablet, Refills 0, Tot. Refills 0, Maintenance, 02/03/23 11:27:00 EDT, Route to Pharmacy Electronically, [facility], Partial fill upon patient request [...] Physician Member Role: PCP Address: Address: [address] [place] [address]- Name: Astrid Lozano RN Position: S RN Member Role: Primary Care Nurse Care Team Related Persons Name: JOSE GRAY Address: home [address] [place] [address]
--- OUTSIDE RECORDS SUMMARY | 2024-07-15 10:51 | XMS_ITS | Continuity of Care Document ---
Author Organization [facility] Address [address] [place] [address] [place] [address]- Care Team Providers Care Enamel Dipper Name Role Phone Gamaliel Cam MD, Misti Fitzpatrick Primary Care Physician [phone] [place] [facility] [place]23 [place] 06/07/23 [facility] Cardiac Surgery [address] [place] [phone]- Allergies, Adverse Reactions, Alerts Substance Reaction Severity [...] Daily, # 30 tablet, 0 Refills, Maintenance, 05/27/23 12:50:00 EDT, [id number], 159, cm, 02/13/23 9:19:00 EDT, Height, 83.1, kg, 01/29/23 18:47:00 EDT, Dry Weight Start Date: 05/27/23 Status: Ordered B 100 Complex oral tablet [...] opioid drug. Start Date: 01/24/23 Status: Ordered [facility] ASPIRIN EC 81 MG TABLET [facility] ASPIRIN EC 81 MG TABLET, 1, [...] 02/03/23 11:26:00 EDT, Route to Pharmacy Electronically, [facility], Partial fill upon patient request if the prescription is for a schedule II opioid... Start Date: 02/03/23 Stop Date: 02/17/23 Status: Ordered metoprolol 25 mg oral tablet 25 mg, 1, tablet, By Mouth, 2 times a day, # 60 tablet, Refills 0, Tot. Refills 0, Maintenance, 03/05/23 15:34:00 EDT, Route to Pharmacy Electronically, [facility]/pharmacy #[id number], Partial fill upon patient request if the [...] atus Informant Obese class I Confirmed Active Cardiac surgery Outpatient Note * Cristobal ROBERTS, Drake: PERFORM Event Display: Cardiac Surgery Note Office Authored Date: Patient: ??FREDA GRAY ? Age:??62 Years?Sex:??Female?:??1960?? Called patient to discuss CT findings She describes occasional sharp pain at inferior aspect of sternotomy incision on the right side over the past 3 weeks not associated with exertion, no f/c ?? CT scan showed non-displaced right 1st rib fracture posteriorly I do not think this is related to her symptoms ?? Her pain might be related to a wire, but they all appear to be in good position We agreed to conservative management for now I advised her to call us back if her symptoms persist Patient Care team information Care Team Personnel Name: Eloina Calderon RN Position: [facility] RN Supv Member Role: Primary Care Nurse Name: Nicolle Mcclendon Position: [facility] RN Member Role: Primary Care Nurse Name: Tony Maria RN Position: S RN Member Role: Primary Care Nurse Name: Mercedez Rivers RN Position: S RN Member Role: Primary Care Nurse Name: Isabela Damico RN Position: [facility] RN Supv Member Role: Primary Care Nurse Name: Jennifer Barrett RN Position: S RN Member Role: Primary Care Nurse Name: Jennifer Sharpe RN Position: S RN Member Role: Primary Care Nurse Name: Misti Thorpe MD Position: Reference Physician Member Role: PCP Address: Address: [address] [place] [address] [address] [place] [address]- Name: Astrid Lozano RN Position: [facility] RN Member Role: Primary Care Nurse Care Team Related Persons Name: JOSE GRAY Address: home [address] [place] [address]
--- OUTSIDE RECORDS SUMMARY | 2024-07-15 10:51 | XMS_ITS | Continuity of Care Document ---
Author Organization [facility] Address [address] [place] [address] [place] [address]- Care Team Providers Care Call Center Analyst Name Role Phone Gamaliel Cam MD, Misti Fitzpatrick Primary Care Physician Encounter [facility] [place] Date(s): 05/04/23 - 06/03/23 [facility] [address] [place] [phone]- Allergies, Adverse Reactions, Alerts Substance Reaction Severity [...] tablet, 0 Refills, Maintenance, 05/27/23 12:50:00 EDT, [facility], 159, cm, 02/13/23 9:19:00 EDT, Height, 83.1, [...] opioid drug. Start Date: 01/24/23 Status: Ordered [facility] ASPIRIN EC 81 MG TABLET [facility] ASPIRIN EC 81 MG TABLET, 1, tablet, [...] 02/03/23 11:26:00 EDT, Route to Pharmacy Electronically, [facility], Partial fill upon patient request if the prescription is for a schedule II opioid... Start Date: 02/03/23 Stop Date: 02/17/23 Status: Ordered metoprolol 25 mg oral tablet 25 mg, 1, tablet, By Mouth, 2 times a day, # 60 tablet, Refills 0, Tot. Refills 0, Maintenance, 03/05/23 15:34:00 EDT, Route to Pharmacy Electronically, [facility]/pharmacy #[id number], Partial fill upon patient request if the [...] Physician Member Role: PCP Address: Address: [address] [place] [address]- Name: Astrid Lozano RN Position: S RN Member Role: Primary Care Nurse Care Team Related Persons Name: JOSE GRAY Address: home [address] [place] [address]
--- NOTE | 2024-07-15 11:03 | MHC.SHP ---
Pre-Procedural Eval Section A - 24 Hr Update-Section A only Date of Service: 07/15/24 The patient is an INPATIENT: No Changes since office visit: Yes Patient answered all questions; No Cold of Flu in the past 2 weeks, No New Medical Problems and No Changes in Medication The patient has been examined within 24 hours of the surgical procedure. The History & Physical has been completed within 30 days and I have reviewed it.: Yes Section B - Complete if H&P > 30 days Chief Complaint: screening Allergies: Allergies Allergy/AdvReac Type Severity Reaction Status Date / Time oxycodone AdvReac Intermediate sick to Verified 07/14/24 09:17 stomach codeine AdvReac Intermediate abd pain, Uncoded 03/29/24 14:38 vomiting Plan Diagnosis/Plan: Unchanged I have reviewed the history and physical and performed a pertinent physical examination on my patient. No changes have occurred unless specified. Time Spent With Patient Time: Total time managing care of this patient today ____ minutes.
[2024-07-15 11:47] VITALS: BP 136/83; PULSE 77; RESP 14; TEMP 37; O2SAT 100; BMI 33.7
[2024-07-15] MEDS: Lactated Ringers 1,000 ML 50 ML IVCONT (11:53)
--- NOTE | 2024-07-15 12:49 | HO.ANESPROP2 ---
COUNTS INCLUDE 234 BEDS AT THE [facility] Active Problems Active Problems: All Active Problems Left hip pain (Acute) Elevated blood pressure reading without diagnosis of hypertension (Acute) Status post aortic valve replacement with bioprosthetic valve (Acute) Hypovitaminosis D (Acute) Screen for colon cancer (Acute) Abnormal echocardiogram findings without diagnosis (Acute) Insomnia (Acute) Anxiety (Acute) Hospital discharge follow-up (Acute) S/P ascending aortic aneurysm repair (Acute) Aortic valve replaced (Acute) Ascending aorta dilatation (Acute) Bicuspid aortic valve (Acute) Systolic murmur (Acute) Physical exam (Acute) Hyperkalemia (Acute) Internal hemorrhoids (Acute) Diverticulosis (Acute) Golfers elbow of left upper extremity (Acute) Obesity (BMI 30.0-34.9) (Acute) GERD (gastroesophageal reflux disease) (Acute) Migraine with aura and without status migrainosus, not intractable (Acute) Past Medical History Medical History (Updated 03/29/24 @ 16:21 by Misti Cam MD) Severe aortic stenosis Physical exam Hyperkalemia Internal hemorrhoids Diverticulosis Golfers elbow of left upper extremity Obesity (BMI 30.0-34.9) GERD (gastroesophageal reflux disease) Migraine with aura and without status migrainosus, not intractable Family History Family History Mother COPD (chronic obstructive pulmonary disease) Diabetes Afib Osteoporosis Dementia Father Lung cancer Family/Other Substance use disorder Maternal Grandmother Colon cancer Family history of problems with anesthesia: No Surgical History Surgical History H/O aortic valve replacement History of heart surgery History of carpal tunnel surgery History of cholecystectomy History of Problems with Anesthesia: No Social History Social History Housing: House Are you a primary residential care officer to a significant other at home: No Do you presently have visiting nurse or other home services: No Alcohol intake: current Alcohol intake frequency: 0-2 drinks per day Alcohol type: wine Patient Tobacco Use Status: Never used Tobacco e-Cigarette/Vaping Use: Never Used Second Hand Smoke Exposure: No Use of substances other than those prescribed or required for medical reasons: Yes Substance Use Type: Marijuana Substance Use Frequency: Daily Have you been hit, kicked, punched, or otherwise hurt by someone within the past year? 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 Current occupational exposures/hazards: No Sexual orientation: Straight/Heterosexual Gender identity: Female Cognitive needs: No Hearing needs: No Vision needs: Yes Meds Allergies Allergy/AdvReac Type Severity Reaction Status Date / Time oxycodone AdvReac Intermediate sick to Verified 07/15/24 11:26 stomach codeine AdvReac Intermediate abd pain, Uncoded 03/29/24 14:38 vomiting Active Medications: Current Medications Lactated Ringer's (Lr) 1,000 mls @ 50 mls/hr IVCONT .Q20H SYED Last Admin: 07/15/24 11:53 Dose: 50 mls/hr Naloxone HCl (Naloxone Hcl 0.4 Mg/Ml Vial) 0.04 mg IVPUSH Q5M PRN PRN Reason: Excessive sedation or RR < 8 Home Medications ?Medication ?Instructions ?Recorded ?Confirmed ?Last Taken ?Type calcium carbonate (Calcium 500) 500 mg PO DAILY 03/10/22 07/15/24 Unknown History cholecalciferol (vitamin D3) 50 50 mcg PO DAILY 03/10/22 07/15/24 Unknown History mcg (2,000 unit) capsule glucosamine QQm-R1-Eumcpkvdr 1 tab PO DAILY 03/10/22 07/15/24 Unknown History bebe 1,500 mg-400 unit-100 mg tablet (Glucosamine Daily Complex) multivitamin (Daily Multi-Vitamin 1 tab PO DAILY 03/10/22 07/15/24 Unknown History tablet) vitamin B complex (B 1 tab PO DAILY 03/10/22 07/15/24 Unknown History Complex-Vitamin B12 tablet) Exam Height,Weight and Vital Signs: Height 5 ft 2 in Weight 83.461 kg Last Vital Signs Temp 98.6 F 07/15/24 11:47 Pulse 77 07/15/24 11:47 Resp 14 07/15/24 11:47 BP 136/83 07/15/24 11:47 Pulse Ox 100 07/15/24 11:47 O2 Del Method Room Air 07/15/24 11:47 Airway Mallampati Class: II TM Dist: >3cm Neck ROM: Full Heart: rrr Lungs: cta Assessment and Plan Assessment Anesthesia Assessment: Anesthesia Plan Discussed and Chart Reviewed Final Anesthetic Review Family History of Problems with Anesthesia: No History of Problems with Anesthesia: No NPO: Yes ASA Class: II Final Preanesthetic Review: No Changes in Pt Med Stat, Meds/Allgs Chart Reviewed and Consent Obtained/Reviewed Patient Risk: Low Procedure Risk: Low Anesthetic Plan Anesthetic Plan: MAC: Disposition: Standard PACU
--- NOTE | 2024-07-15 13:37 | HO.OPN-COLON ---
Colonoscopy Operative Note Operative Note Date of Service: 07/15/24 Narrative: COLONOSCOPY TILL CECUM Pre-op diagnosis: Colon cancer screening. Post-op diagnosis:? Diverticulosis, hemorrhoids Endoscopist:? Will Styles MD Anesthesia:?MAC Consent: Indications for the procedure and potential complications of bleeding, perforation, reaction to medications and missed diagnosis were discussed with the patient and informed consent was obtained. Instrument: Olympus PCF H 190 L variable stiffness pediatric colonoscope Monitoring: Vital signs and clinical assessment, intermittent blood pressure monitoring, continuous EKG monitoring, Pulse oximetry and Carbon Dioxide monitoring were done throughout the procedure. Please see anesthesia flowsheet. Colon withdrawl time was 20 minutes. Procedure: The patient was placed in the left lateral decubitis position and pre-procedure medications were administered. After a digital rectal examination of the ano-rectum, the video colonoscope was inserted into the rectum and advanced through the colon to the cecum. The colonoscope was slowly withdrawn in a retrograde panoramic fashion and the colon mucosa was carefully examined including a retroflexed view of the rectum. Findings and interventions are described below. Procedure Difficulty: without difficulty Findings: Terminal Ileum: Not evaluated Cecum: Normal Ascending Colon: Normal Transverse Colon: Normal Descending Colon: Moderate diverticulosis Sigmoid Colon: Moderate diverticulosis Rectum: Normal Ano-rectum: Normal Colon preparation: Good after copious irrigation. [place] Bowel Preparation Scale Right colon; 2 Transverse colon: 2 Left colon; 2 (0 = Unprepared colon segment with mucosa not seen due to solid stool that cannot be cleared. 1 = Portion of mucosa of the colon segment seen, but other areas of the colon segment not well seen due to staining, residual stool and/or opaque liquid. 2 = Minor amount of residual staining, small fragments of stool and/or opaque liquid, but mucosa of colon segment seen well. 3 = Entire mucosa of colon segment seen well with no residual staining, small fragments of stool or opaque liquid) Impression and Post Procedure Diagnosis: Colonoscopy Findings: No polyps were detected Moderate diverticulosis seen in the left colon Plan: Repeat Colonoscopy in 10 years (earlier if pt has abdominal pain, a change in bowel habits or rectal bleeding). Above findings were reviewed with the patient and relevant handouts were given and the discharge area.
[2024-07-15 13:38] VITALS: BP 96/65; PULSE 70; RESP 16; TEMP 36.4; O2SAT 97
[2024-07-15 13:43] VITALS: BP 122/75; PULSE 63; RESP 16; O2SAT 98
[2024-07-15 13:53] VITALS: BP 130/79; PULSE 70; RESP 16; TEMP 36.7; O2SAT 100
== END 2024-07-15 14:13 | disposition home or self-care (01) ==
PROVIDERS: PCP Internal Medicine; Visit Provider Internal Medicine Gastroenterology
PROC: 0DJD8ZZ Inspection of Lower Intestinal Tract, Via Natural or Artificial Opening Endoscopic (ICD-10-PCS; CPT 45378; principal; 2024-07-15 12:00)
DX: Z12.11 Encounter for screening for malignant neoplasm of colon (principal); K57.30 Diverticulosis of large intestine without perforation or abscess without bleeding; K64.8 Other hemorrhoids; K21.9 Gastro-esophageal reflux disease without esophagitis; I35.0 Nonrheumatic aortic (valve) stenosis; Z95.4 Presence of other heart-valve replacement; E87.5 Hyperkalemia; G43.109 Migraine with aura, not intractable, without status migrainosus; E66.9 Obesity, unspecified; Z68.32 Body mass index [BMI] 32.0-32.9, adult; Z79.1 Long term (current) use of non-steroidal anti-inflammatories (NSAID); Z79.899 Other long term (current) drug therapy; Z88.5 Allergy status to narcotic agent; Z79.82 Long term (current) use of aspirin; Z98.890 Other specified postprocedural states
CPT/HCPCS: 45378; J2003; J2704

== ENCOUNTER → 2024-07-15 10:48 | Outpatient (BNV) | payer BC, SELFPAY | PROVIDERS: PCP Internal Medicine; Visit Provider Internal Medicine Gastroenterology | DX: Z12.11 Encounter for screening for malignant neoplasm of colon (principal); K57.90 Diverticulosis of intestine, part unspecified, without perforation or abscess without bleeding | CPT/HCPCS: 45378 ==

== ENCOUNTER 2024-07-26 13:58 | Outpatient (AMB) | payer BC, SELFPAY ==
--- NOTE | 2024-07-26 14:00 | MHC.OFFVIS ---
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 She is doing well with no concerns. Attempting to eat a healthy diet with calcium and vitamin D and stays active with exercise. Currently sexually active. Denies any vaginal dryness or irritation. STI testing offered; she declined. Last pap smear; 2018. Last mammogram; 2023. Colonoscopy is UTD. Denies any family history of breast orovarian. FH colon cancer. [facility] Medical History (Updated 07/26/24 @ 14:26 by Adelaida Lui CNM) Severe aortic stenosis Physical exam Hyperkalemia Internal hemorrhoids Diverticulosis Golfers elbow of left upper extremity Obesity (BMI 30.0-34.9) GERD (gastroesophageal reflux disease) Migraine with aura and without status migrainosus, not intractable Surgical History H/O aortic valve replacement History of heart surgery History of carpal tunnel surgery History of cholecystectomy Family History Mother COPD (chronic obstructive pulmonary disease) Diabetes Afib Osteoporosis Dementia Father Lung cancer Family/Other Substance use disorder Maternal Grandmother Colon cancer Social History Housing: House Are you a primary client care specialist to a significant other at home: No Do you presently have visiting nurse or other home services: No Alcohol intake: current Alcohol intake frequency: 0-2 drinks per day Alcohol type: wine Patient Tobacco Use Status: Never used Tobacco e-Cigarette/Vaping Use: Never Used Second Hand Smoke Exposure: No Substance Use Type: Marijuana service: No Current occupational status: other 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 ) History of abnormal pap smear: Yes (+HPV 2015) Date of Mammogram: 01/13/24 (bi-rad 2) Date of last Bone Density Screenin10/13/23 Review of Systems Const All systems reviewed & are unremarkable except as noted in HPI and below Reports as per HPI Eyes Reports no additional complaints ENT Reports no additional complaints Card Reports no additional complaints Resp Reports no additional complaints GI Reports as per HPI and Reports no additional complaints Reports as per HPI Musc Reports no additional complaints Skin/Breast Reports as per HPI Neuro Reports no additional complaints Psych Reports no additional complaints Endo Reports no additional complaints Ge/Lymph Reports no additional complaints Aller/Immun Reports no additional complaints Physical Exam Vital Signs: Last Vital Signs BP 130/72 07/26/24 14:03 BMI result Body Mass Index 33.8 Const General: cooperative, healthy appearing, no acute distress, well developed and alert Orientation/consciousness: patient oriented x3 HEENT Head: Yes normal to inspection Eyes General: appearance normal, both eyes and all related structures Neck Neck: Yes normal visual inspection Thyroid: Thyroid normal Chest Chest palpation & inspection: normal inspection of the chest and other (no puckering, dimpling, peau de orange, retraction, discharge, masses) Breast/axilla inspection: normal inspection of the breasts Breast/axilla palpation: normal palpation of the breasts Resp Effort & Inspection: normal respiratory effort GI Inspection: Yes normal to inspection Palpation (GI): Soft to palpation Rectal Exam - Female: deferred General: Yes bladder normal to palpation External Female Exam: normal external appearance and normal appearance of the urethra Speculum Exam - Vagina: normal appearance of the vagina, normal palpation, normal vaginal discharge and vagina atrophic Speculum Exam - Cervix: normal appearance of the cervix, normal palpation and Other cervical findings present (Bled slightly with Pap) Bimanual exam- vagina & uterus: normal bimanual exam, normal palpation, uterine size normal, bladder normal to palpation, normal palpation and non-tender Bimanual Exam- Adnexa, other: no masses Skin General skin exam: no rashes or lesions noted Rashes: no rashes Neuro General: patient oriented x3 Cognition (Neuro): normal cognition Extrem General: Yes normal to inspection Psych Attitude: cooperative Thought process: Normal thought process present Assessment & Plan Assessment & Plan (1) Encounter for well woman exam with routine gynecological exam: Code(s): Z01.419 - Encounter for gynecological examination (general) (routine) without abnormal findings Category: Medical Plan Discussed: Current recommendations for pap smears per ASCCP guidelines. Pap obtained. Breast awareness, periodic self breast exams and yearly mammogram. Maintain a healthy lifestyle, well balanced diet including Calcium 1,200 mg and Vitamin D 600 IU daily, and routine exercise. Contact the office with any postmenopausal bleeding. Patient verbalizes understanding and agrees to the plan of care. She was given opportunity to ask questions and all questions were answered to the best of my ability. RTO in 1 year for annual electron beam photo mask maker exam. This note is constructed using voice recognition software. While every effort has been made to ensure accuracy, glazier artist errors may have been included. Orders: Orders HPV High risk Today Z01.419 - Encounter for gynecological examination (general) (routine) without abnormal findings Pap Smear Today Z01.419 - Encounter for gynecological examination (general) (routine) without abnormal findings Coding Level of Care Code Est Pt Prev Care 40-64y(76655) Diagnoses Encounter for well woman exam with routine gynecological exam Z01.419
[2024-07-26 14:03] VITALS: BP 130/72; BMI 33.8
== END 2024-07-26 15:10 | disposition home or self-care (01) ==
LOC: HO.HWS 13:59
PROVIDERS: PCP Internal Medicine; Visit Provider Advanced Practice Midwife
DX: Z01.419 Encounter for gynecological examination (general) (routine) without abnormal findings (principal)
CPT/HCPCS: 99396

== ENCOUNTER 2024-07-26 13:58 | Outpatient (REF) | payer BC, SELFPAY ==
[2024-07-27 11:46] LABS: HPV 16,18/45 See PAP report
== END 2024-07-26 13:59 | disposition home or self-care (01) ==
LOC: HO.LNP 13:58
PROVIDERS: PCP Internal Medicine; Visit Provider Advanced Practice Midwife
DX: Z01.419 Encounter for gynecological examination (general) (routine) without abnormal findings (principal)
CPT/HCPCS: 87624; 88175

== ENCOUNTER 2024-09-12 15:23 | Outpatient (REF) | payer BC, SELFPAY ==
--- OUTSIDE RECORDS SUMMARY | 2024-09-12 15:58 | XMS_ITS ---
Author Name [facility] Organization Unknown Results Test Name/Text Value Interpretation Date Range Source Chloride SerPl-sCnc 105mmol/L Normal 98 - 10 7 [facility] Glucose SerPl-mCnc 90mg/dL Normal 65 - 99 H[facility] GFR/BSA.pred SerPlBld FCL-BDL-KcDBhp 90 Normal 59 - H[facility]CT Creat SerPl-mCnc 0.6mg/dL Normal 0.4 - 1.1 H[facility]CT BUN/Creat SerPl 18Ratio Normal 10 - 25 H HCCT Anion Gap Bld-sCnc 9 Normal 7 - 17 [facility]CT Calcium SerPl-mCnc 8.7mg/dL Normal 8.7 - 10 .5 H[facility]CT CO2 SerPl-sCnc 26mmol/L Normal 22 - 33 HH CCT BUN SerPl-mCnc 11mg/dL Normal 8 - 21 HH CCT Sodium SerPl-sCnc 140mmol/L Normal 136 - 145 H[facility]CT Potassium SerPl-sCnc 4.6mmol/L Normal 3.4 - 5.3 H[facility]CT Magnesium SerPl-mCnc 1.7mg/dL Normal 1.6 - 2.7 H[facility]CT Phosphate SerPl-mCnc 3mg/dL Normal 2.7 - 4.5 HHCCT Hct VFr Bld Auto 29% Below low normal 35 - 47 H[facility]CT Hgb Bld-mCnc 9.8g/dL Below low normal 11.7 - 15.7 HHCCT Hct VFr Bld Auto 29% Below low normal 35 - 47 H[facility]CT Hgb Bld-mCnc 9.8g/dL Below low normal [id number] 11.7 - 15.7 HHCCT POC Glucose 79mg/dL Normal [id number] 65 - 99 [facility]CT POC Glucose 89mg/dL Normal [id number] 65 - 99 H[facility]CT Hct VFr Bld Auto 30.3% Below low normal [id number] 35 - 47 H[facility]CT Hgb Bld-mCnc 9.8g/dL Below low normal [id number] 11.7 - 15.7 HHCCT POC Glucose 89mg/dL Normal [id number] 65 - 99 H[facility]CT Phosphate SerPl-mCnc 3mg/dL Normal [id number] 2.7 - 4.5 HHCCT Chloride SerPl-sCnc 104mmol/L Normal [id number] 98 - 10 7 H[facility]CT Glucose SerPl-mCnc 93mg/dL Normal [id number] 65 - 99 HHCCT GFR/BSA.pred SerPlBld OVA-PIL-QwVAho 90 Normal [id number] 59 - HHCCT Creat SerPl-mCnc 0.5mg/dL Normal [id number] 0.4 - 1.1 H[facility]CT BUN/Creat SerPl 32Ratio Above high normal [id number] 10 - 25 [facility]CT Anion Gap Bld-sCnc 10 Normal [id number] 7 - 17 H[facility]CT Calcium SerPl-mCnc 8.4mg/dL Below low normal [id number] 8 .7 - 10.5 HHCCT CO2 SerPl-sCnc 22mmol/L Normal [id number] 22 - 33 HH CCT BUN SerPl-mCnc 16mg/dL Normal [id number] 8 - 21 HH CCT Sodium SerPl-sCnc 136mmol/L Normal [id number] 136 - 145 H[facility]CT Potassium SerPl-sCnc 4mmol/L Normal [id number] 3.4 - 5.3 H[facility]CT Magnesium SerPl-mCnc 2.4mg/dL Normal [id number] 1.6 - 2.7 HHCCT MCH RBC Qn Auto 31.5pg Above high normal [id number] 27 - 31 H[facility]CT PMV Bld Auto 10.3fL Normal [id number] 7.5 - 12.[address] RDW RBC Auto-Rto 13.4% Normal [id number] 11.5 - 14. 5 H[facility]CT Hct VFr Bld Auto 30% Below low normal [id number] 35 - 47 [facility]CT Platelet num Bld Auto 242Thou/uL Normal [id number] 150 - 450 H[facility]CT MCHC RBC Auto-mCnc 32.7g/dL Normal [id number] 30 - 36 H[facility]CT MCV RBC Auto 97fL Normal [id number] 80 - 100 HHCC T WBC num Bld Auto 7Thou/uL Normal [id number] 4 - 11 HHCCT RBC num Bld Auto 3.11Mil/uL Below low normal [id number] 4 - 5.4 HHCCT Hgb Bld-mCnc 9.8g/dL Below low normal [id number] 11.7 - 15.7 HHCCT POC Glucose 93mg/dL Normal [id number] 65 - 99 H[facility]CT Ferritin SerPl-mCnc 193ug/L Normal [id number] 30 - 40 0 HHCCT Haptoglob SerPl-mCnc 149mg/dL Normal [id number] 30 - 2 00 HHCCT LDH SerPl L to P-cCnc 133U/L Normal [id number] 120 - 260 H[facility]CT Lactate SerPl-sCnc 0.9mmol/L Normal [id number] 0.5 - 1. 9 HHCCT TT imm Bovine Thrombin PPP 13.9seconds Normal [id number] 12.7 - 19.2 HHCCT INR PPP 1.1 Normal [id number] HHCCT Prothrombin time 12.1seconds Normal [id number] 10 - 13. 5 H[facility]CT aPTT PPP 28seconds Normal [id number] 25 - 36 H[facility]CT Fibrinogen PPP-mCnc 484mg/dL Above high normal [id number] 148 - 435 H[facility]CT Hct VFr Bld Auto 30.6% Below low normal [id number] 35 - 47 HHCCT Hgb Bld-mCnc 10.1g/dL Below low normal [id number] 11.7 - 15.7 HHCCT Anticoagulant NO ANTI COAGULANT MEDS Normal HHCCT Anticoagulant NO ANTI COAGULANT MEDS Normal HHCCT Anticoagulant NO ANTI COAGULANT MEDS Normal HHCCT Magnesium SerPl-mCnc 1.8mg/dL Normal 1.6 - 2.7 HHCCT Globulin Ser Calc-mCnc 2.5g/dL Normal 1.5 - 3.9 HHCCT ALT SerPl-cCnc 15U/L Normal 10 - 50 HH CCT AST SerPl-cCnc 15U/L Normal 10 - 50 HH CCT GFR/BSA.pred SerPlBld SGG-HHJ-YvUFaf 90 Normal 59 - HHCCT Albumin SerPl-mCnc 3.5g/dL Normal 3.4 - 4. 8 H[facility]CT Albumin/Glob SerPl 1.4Ratio Normal 1 - 3 HHCCT Creat SerPl-mCnc 0.6mg/dL Normal 0.4 - 1.1 HHCCT Bilirub SerPl-mCnc 0.3mg/dL Normal 0.2 - 1 HHCCT Anion Gap Bld-sCnc 7 Normal 7 - 17 HHCCT Sodium SerPl-sCnc 137mmol/L Normal 136 - 145 HHCCT Potassium SerPl-sCnc 4.7mmol/L Normal 3.4 - 5.3 HHCCT Chloride SerPl-sCnc 104mmol/L Normal 98 - 10 7 HHCCT Glucose SerPl-mCnc 111mg/dL Above high normal 65 - 99 HHCCT Prot SerPl-mCnc 6g/dL Below low normal 6.3 - 8.3 HHCCT BUN/Creat SerPl 22Ratio Normal 10 - 25 H HCCT Calcium SerPl-mCnc 8.6mg/dL Below low normal 8 .7 - 10.5 HHCCT CO2 SerPl-sCnc 26mmol/L Normal [id number] 22 - 33 HH CCT BUN SerPl-mCnc 13mg/dL Normal [id number] 8 - 21 HH CCT ALP SerPl-cCnc 70U/L Normal [id number] 32 - 122 HH CCT POC Glucose 108mg/dL Above high normal [id number] 65 - 99 HHCCT MCH RBC Qn Auto 32pg Above high normal [id number] 27 - 31 H[facility]CT PMV Bld Auto 10.4fL Normal [id number] 7.5 - 12.[address] RDW RBC Auto-Rto 12.4% Normal [id number] 11.5 - 14. 5 HHCCT Hct VFr Bld Auto 29% Below low normal [id number] 35 - 47 H[facility]CT Platelet num Bld Auto 266Thou/uL Normal [id number] 150 - 450 HHCCT MCHC RBC Auto-mCnc 33.1g/dL Normal [id number] 30 - 36 HHCCT MCV RBC Auto 97fL Normal [id number] 80 - 100 HHCC T WBC num Bld Auto 9.5Thou/uL Normal [id number] 4 - 11 HHCCT RBC num Bld Auto 3Mil/uL Below low normal [id number] 4 - 5.4 HHCCT Hgb Bld-mCnc 9.6g/dL Below low normal [id number] 11.7 - 15.7 HHCCT Hct VFr Bld Auto 29.2% Below low normal [id number] 35 - 47 HHCCT Hgb Bld-mCnc 9.6g/dL Below low normal [id number] 11.7 - 15.7 HHCCT
[2024-09-12 16:49] LABS: Hematocrit 31.1 % (37.0-47.0); Hemoglobin 10.2 g/dl (12.0-16.0); Mean Corpuscular HGB Conc 32.8 g/dl (31.0-35.0); Mean Corpuscular Hemoglobin 32.4 pg (27.0-33.0); Mean Corpuscular Volume 98.7 fL (80.0-98.0); Mean Platelet Volume 9.7 fL (9.4-12.3); Platelet Count 459 X10*3/uL (160-400); Red Blood Count 3.15 X10*6/uL (4.20-5.50); Red Cell Distribution Width 13.9 % (11.0-16.0); White Blood Count 6.7 X10*3/uL (4.8-10.8)
[2024-09-12 18:02] LABS: Albumin Level 3.8 g/dL (3.5-5.0); Anion Gap 12 (12-20); Aspartate Amino Transferase 32 U/L (5-31); Bilirubin Direct < 0.2 mg/dL (0.0-0.5); Bilirubin Total 0.2 mg/dL (0.0-1.0); Blood Urea Nitrogen 14 mg/dL (9-16); Calcium 9.2 mg/dL (8.4-10.2); Carbon Dioxide 28 mmol/L (22-29); Chloride 107 mmol/L (96-108); Cholesterol 165 mg/dL (<200); Estimated Glomerular Filt Rate > 60; Glucose Random 122 mg/dL (60-115); HDL Cholesterol 55 mg/dL (>40); LDL Cholesterol Calculated 91 mg/dL (<100); Potassium 3.7 mmol/L (3.3-5.1); Sodium 143 mmol/L (135-145); Total Protein 6.5 g/dL (6.5-8.0); Triglycerides 96 mg/dL (<150)
[2024-09-12 19:09] LABS: Alanine Aminotransferase 24 U/L (0-31); Alkaline Phosphatase 69 U/L (39-117)
[2024-09-12 22:50] LABS: Thyroid Stimulating Hormone 1.73 uIU/mL (0.32-4.0)
== END 2024-09-12 15:24 | disposition home or self-care (01) ==
LOC: HO.LAB 15:23
PROVIDERS: PCP Internal Medicine; Visit Provider Internal Medicine
DX: K57.92 Diverticulitis of intestine, part unspecified, without perforation or abscess without bleeding (principal); E87.5 Hyperkalemia; K21.9 Gastro-esophageal reflux disease without esophagitis; E66.9 Obesity, unspecified
CPT/HCPCS: 36415; 80048; 80061; 80076; 84443; 85027

== ENCOUNTER 2024-09-12 15:23 | Outpatient (AMB) | payer BC, SELFPAY ==
--- NOTE | 2024-09-12 15:29 | A.OFFPC_ITS ---
Vital Signs 09/12/24 15:32 Height 5 ft 2 in Weight 185 lb 4 oz BMI 33.9 BP 130/72 Blood Pressure Location Lt brachial Position Sitting Intake Visit Reasons: [facility]/ [facility] 09/06 Intake Note: Patient is here for hospital discharge follow up. Patient was discharged from [facility] (09/04) then transferred to [facility] same dayl on 09/06/24. Computer Network Support Specialist Required: No Warehouse Record Clerk: Not Required per policy Accompanied by: Self / Same As Patient Allergies oxycodone Adverse Reaction (Intermediate, Verified 09/12/24 15:32) sick to stomach codeine Adverse Reaction (Intermediate, Uncoded 09/12/24 15:32) abd pain, vomiting Tobacco use date assessed: 09/12/24 Dental Screening Dental Screen Date: 09/28/23 [facility] Medical History (Updated 07/26/24 @ 14:26 by Adelaida Lui CNM) Severe aortic stenosis Physical exam Hyperkalemia Internal hemorrhoids Diverticulosis Golfers elbow of left upper extremity Obesity (BMI 30.0-34.9) GERD (gastroesophageal reflux disease) Migraine with aura and without status migrainosus, not intractable Surgical History H/O aortic valve replacement History of heart surgery History of carpal tunnel surgery History of cholecystectomy Family History Mother COPD (chronic obstructive pulmonary disease) Diabetes Afib Osteoporosis Dementia Father Lung cancer Family/Other Substance use disorder Maternal Grandmother Colon cancer Social History (Updated 09/12/24 @ 15:36 by LOUANN Villanueva) Housing: House Are you a primary ambulatory care to a significant other at home: No Do you presently have visiting nurse or other home services: No Alcohol intake: current Alcohol intake frequency: 0-2 drinks per day Alcohol type: wine Patient Tobacco Use Status: Never used Tobacco e-Cigarette/Vaping Use: Currently Using Frequency of e-Cigarette/Vaping Use: Daily Second Hand Smoke Exposure: No Substance Use Type: Marijuana service: No Current occupational status: other 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 How many drinks containing alcohol do you have on a typical day when you are drinking?: 1 or 2 3. How often do you have six or more drinks on one occasion?: Less than monthly Total Score: 1 RADHA-7 AMB Questionnaire RADHA-7 Date RADHA - 7 assessed: 03/29/24 Source: Developed by Drs. Austin Frost, Melissa Mcclendon, Edgar Obrien and colleagues, with an educational edi from [employer]. Physical exam (Primary Care) Vital Signs: Last Vital Signs BP 130/72 09/12/24 15:32 BMI result Body Mass Index 33.9 Tobacco/Smoking Status: Tobacco use Status Tobacco use date assessed 09/12/24 09/12/24 15:37 Patient Tobacco Use Status Never used Tobacco 09/12/24 15:36 Tobacco use type 10/09/22 13:46 e-Cigarette/Vaping Use Currently Using 09/12/24 15:37 Thrive Assessment: Date of Thrive Assessment Date Thrive assessed 09/28/23 09/12/24 15:29 Coding Level of Care Code Est Pt Level 4 (17092) Complex EM visit Add On G2211 Diagnoses Diverticulitis K57.92 Assessment & Plan Assessment & Plan (1) Diverticulitis: Code(s): K57.92 - Diverticulitis of intestine, part unspecified, without perforation or abscess without bleeding Plan: Rpt blood work. No further antibiotics needed. message sent to GI, if she would need a repeat colonoscopy. Plan History of Present Illness The patient is a 63-year-old female presenting with a history of gastrointestinal bleed and diverticulosis. The patient reported experiencing abdominal pain in the lower left side, beginning on a night, and sought medical attention after experiencing symptoms such as heavy stomach sensations and significant lower gastrointestinal bleeding. Notably, the bleeding appeared as bright red. After initial evaluation at [facility], where a CT scan noted an arterial tear, she was transported by ambulance to [facility] due to lack of available beds at a local facility. Upon arrival at [place], the bleeding had begun to subside, and she received two units of blood transfusion. The patient was admitted to the ICU primarily due to the need for transfusion but did not undergo any further invasive procedures, such as a colonoscopy, having had one three months prior which diagnosed diverticulosis. She completed a course of antibiotics and reports resolution of symptoms, including pain reduction since the bleeding episode, with no ongoing bleeding, fever, or chills. Currently feeling fine. Abdominal pain has resolved. No nausea or vomiting. Regular bowel movements, with no evidence of acting bleeding. Resumed a regular diet. 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 - Her dietary adjustments include a low-fiber diet as recommended. - She recently attended a family event, indicating active social engagement. Review of Systems - Gastrointestinal: Reports resolution of symptoms post-bleeding episode. - General: Denies fever and chills. - Appetite: Reports normalization post-antibiotics. Physical Exam General: Cooperative and healthy appearing Nutritional Appearance: Well nourished Orientation/consciousness: Patient oriented x3 Limitations: No limitations Head: Normal to inspection General: Appearance normal, both eyes and all related structures Neck: Normal visual inspection Chest: Normal palpation of entire chest wall Respiratory: Normal respiratory effort Neurology: Patient oriented x3 Results - CT scan at [facility] indicated an arterial tear. - No recent scope procedures performed in the current medical visit. Plan - Refer patient to Gastroenterology for evaluation and potential follow-up endoscopic assessment, particularly due to previous GI bleeding. - Obtain laboratory tests to assess current hemoglobin levels and ensure no ongoing anemia. - Continue monitoring for recurrent gastrointestinal symptoms. - Provide patient education regarding understanding signs and symptoms of potential reoccurrence of bleeding. - Reinforce adherence to prescribed dietary modifications, targeting low-fiber intake. Patient was informed and verbally consented to the use of an ambient scribe for clinic note documentation during this visit. Discussion Notes I discussed with the patient the importance of follow-up with the Gastroenterology specialist due to her recent gastrointestinal bleed. I emph asized the possible need for further evaluation, such as an endoscopy, to determine the exact cause. We reviewed the findings from her CT scan showing an arterial tear and the need to ensure no recurrence or ongoing blood loss, which justifies checking her current hemoglobin levels. The patient understood the requirement to maintain dietary modifications and report any recurrent symptoms. We have also discussed her heart condition status and the relevance of ensuring regular monitoring. Patient Instructions - Adhere to a low-fiber diet as recommended. - Monitor for any signs of reoccurrence of bleeding, such as changes in stool color or abdominal discomfort, and report directly. - Complete the blood tests as soon as possible to assess hemoglobin levels. - Follow up with Gastroenterology for specialized care and potential further evaluation. Orders: Orders Lipid Panel 09/12/24 K57.92 - Diverticulitis of intestine, part unspecified, without perforation or abscess without bleeding Thyroid Stimulating Hormone 09/12/24 K57.92 - Diverticulitis of intestine, part unspecified, without perforation or abscess without bleeding Basic Metabolic Panel 09/12/24 K57.92 - Diverticulitis of intestine, part unspecified, without perforation or abscess without bleeding Complete Blood Count no Diff 09/12/24 K57.92 - Diverticulitis of intestine, part unspecified, without perforation or abscess without bleeding Liver Panel 09/12/24 K57.92 - Diverticulitis of intestine, part unspecified, without perforation or abscess without bleeding
[2024-09-12 15:32] VITALS: BP 130/72; BMI 33.9
== END 2024-09-12 15:52 | disposition home or self-care (01) ==
PROVIDERS: PCP Internal Medicine; Visit Provider Internal Medicine
DX: K57.92 Diverticulitis of intestine, part unspecified, without perforation or abscess without bleeding (principal)

== ENCOUNTER 2024-10-04 14:25 | Outpatient (AMB) | payer BC, SELFPAY ==
--- NOTE | 2024-10-04 14:37 | MHC.PC.OV ---
Vital Signs 10/04/24 14:38 Height 5 ft 2 in Weight 185 lb BMI 33.8 BP 122/82 Blood Pressure Location Lt brachial Position Sitting Intake Visit Reasons: Annual exam Intake Note: Patient here for a physical exam Heel Seat Filler Required: No Accompanied by: Self / Same As Patient Allergies oxycodone Adverse Reaction (Intermediate, Verified 10/04/24 14:58) sick to stomach codeine Adverse Reaction (Intermediate, Uncoded 10/04/24 14:58) abd pain, vomiting Medication List - Last Reconciled 10/04/24 by Misti Cam MD aspirin 81 mg PO DAILY buspirone 10 mg PO BID 30 days calcium carbonate (Calcium 500) 500 mg PO DAILY cholecalciferol (vitamin D3) 50 mcg PO DAILY [id number] serr 1,500-400-100 mg-unit-mg (Glucosamine Daily Complex) 1 tab PO DAILY ibuprofen 800 mg PO Q8H 30 days metoprolol tartrate 25 mg PO BID mirtazapine 30 mg PO BEDTIME 90 days multivitamin (Daily Multi-Vitamin tablet) 1 tab PO DAILY omeprazole 20 mg PO DAILY PRN 90 days vitamin B complex (B Complex-Vitamin B12 tablet) 1 tab PO DAILY Tobacco use date assessed: 10/04/24 Dental Screening Dental Screen Date: 10/04/24 Did you have a dental visit in the last 12 months?: No Did you have a dental problem in the last 6 months where you did not have access to dental care?: No Was dental information given to patient?: Patient has dentist HPI HPI Comments History of Present Illness Details The patient is a 63-year-old female presenting for her physical exam. She has a history of a significant gastrointestinal bleeding event occurring last August. The bleeding was associated with diverticulitis, initially presenting as abdominal pain on the lower left side which led to hematochezia. The patient experienced episodes of bloody bowel movements and significant blood loss requiring hospitalization and transfusion of 2 units of blood. The bleeding, attributed to a tear in an artery, resolved spontaneously without intervention. Prior to the event, pain commenced post-diverticulitis diagnosis, moderate in nature, which did not initially prompt hospital care. The patient also indicated a recent aortic valve replacement in 2022 along with an aneurysm removal, and a previous carpal tunnel surgery and cholecystectomy. There is a noted history of anemia likely due to the recent bleed, with her hemoglobin recorded as low. She plans to have repeat blood work done before October. The patient denies any chest pain or shortness of breath. - Mammogram and bone density test performed and up to date. - Colonoscopy completed last year. - Pap smear completed last year. - Regular monitoring of cholesterol and has reported good levels. - Plan for blood work before the beginning of October to monitor current blood and iron status. - Discussed dietary advice in relation to diverticulitis. [facility] Medical History (Updated 10/04/24 @ 21:17 by Misti Cam MD) Ascending aorta dilatation Severe aortic stenosis Physical exam Hyperkalemia Internal hemorrhoids Diverticulosis Golfers elbow of left upper extremity Obesity (BMI 30.0-34.9) GERD (gastroesophageal reflux disease) Migraine with aura and without status migrainosus, not intractable Surgical History H/O aortic valve replacement History of heart surgery History of carpal tunnel surgery History of cholecystectomy Family History Mother COPD (chronic obstructive pulmonary disease) Diabetes Afib Osteoporosis Dementia Father Lung cancer Family/Other Substance use disorder Maternal Grandmother Colon cancer Social History (Updated 10/04/24 @ 15:07 by Misti Cam MD) Housing: House Are you a primary overnight caregiver to a significant other at home: No Do you presently have visiting nurse or other home services: No Alcohol intake: current Alcohol intake frequency: a few times a week Alcohol type: wine Patient Tobacco Use Status: Never used Tobacco e-Cigarette/Vaping Use: Currently Using Second Hand Smoke Exposure: No Substance Use Type: Marijuana service: No Current occupational status: other 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 1. Little interest or pleasure in doing things: not at all 2. Feeling down, depressed, or hopeless: not at all 3. Trouble falling or staying asleep, or sleeping too much: nearly every day 4. Feeling tired or having little energy: not at all 5. Poor appetite or overeating: not at all 6. Feeling bad about yourself - or that you are a failure or have let yourself or your family down: not at all 7. Trouble concentrating on things, such as reading the newspaper or watching television: not at all 8. Moving or speaking so slowly that other people could have noticed. Or the opposite - being so fidgety or restless that you have been moving around a lot more than usual: not at all 9. Thoughts that you would be better off or of hurting yourself in some way: not at all Total score: 3 Depression Screening Interpretation: Negative Depression Screening Done: Yes 08245 - PHQ-9 Billing: Yes Source: Developed by Drs. Austin Frost, Melissa Mcclendon, Edgar Obrien and colleagues, with an educational edi from [employer]. Thrive Questionnaire Date Thrive assessed: 10/04/24 I am a: Patient What is your living situation today?: I have a steady place to live Within the past 12 months, did the food you bought not last and you didn't have the money to get more?: Never true Within the past 12 months, did you worry whether your food would run out before you got money to buy more?: Never true Do you have trouble paying for medicines?: No Do you have trouble getting transportation to medical appointments?: No Do you have trouble paying your heating and electricity bill?: No Do you have trouble taking care of your child, family member or friend?: No Do you have trouble with day-to-day activities such as bathing, preparing meals, shopping, managing finances, etc.?: No Are you currently unemployed and looking for a job?: No Are you interested in more education?: No Please select the resources that you would like help with: None Currently or been in a relationship where the following occur: No concerns reported THRIVE Score: 0 AUDIT C Alcohol Use Questionnaire (AUDIT-C) 1. How often do you have a drink containing alcohol?: 4 or more times a week 2. How many drinks containing alcohol do you have on a typical day when you are drinking?: 1 or 2 3. How often do you have six or more drinks on one occasion?: Less than monthly Total Score: 5 RADHA-7 AMB Questionnaire RADHA-7 Date RADHA - 7 assessed: 10/04/24 Feeling nervous, anxious, or on edge: 0 = Not at all Not being able to stop or control worryin = Not at all Worrying too much about different things: 0 = Not at all Trouble relaxin = Not at all Being so restless that it is hard to sit still: 0 = Not at all Becoming easily annoyed or irritable: 0 = Not at all Feeling afraid as if something awful might happen: 0 = Not at all Total RADHA-7 score (0-4 normal; 5-9 mild; 10-14 moderate; 15-21 severe): 0 Source: Developed by Drs. Austin Frost, Melissa Mcclendon, Edgar Obrien and colleagues, with an educational edi from [employer]. RADHA-7 Assessment Billing RADHA-7 Assessment Tool: RADHA-7 Assessment 22069 Review of Systems Const All systems reviewed & are unremarkable except as noted in HPI and below Card Denies chest pain at rest, Denies chest pain with activity, Denies edema, Denies irregular heart rhythm, Denies claudication, Denies dyspnea, Denies dyspnea on exertion, Denies orthopnea, Denies paroxysmal nocturnal dyspnea and Denies slow heart rate Resp Denies cough, Denies dyspnea and Denies dyspnea on exertion GI Denies abdominal pain, Denies change in bowel habits, Denies excessive flatus, Denies nausea and Denies vomiting Denies urinary incontinence, Denies urinary hesitancy and Denies urinary urgency Skin/Breast Reports lesions Neuro Denies behavioral changes and Denies lack of coordination Psych Denies behavioral changes Physical exam (Primary Care) Vital Signs: Last Vital Signs BP 122/82 10/04/24 14:38 BMI result Body Mass Index 33.8 BMI Assessment/Plan discussion: High BMI High, discussed plan: lifestyle, weight reduction, dietary and physical activity Tobacco/Smoking Status: Tobacco use Status Tobacco use date assessed 10/04/24 10/04/24 14:46 Patient Tobacco Use Status Never used Tobacco 10/04/24 15:07 Tobacco use type 10/09/22 13:46 e-Cigarette/Vaping Use Currently Using 10/04/24 15:07 PHQ-9: PHQ-9 Score PHQ-9: Total score 3 10/04/24 15:22 Depression Screening Interpretation: Negative Thrive Assessment: Date of Thrive Assessment Date Thrive assessed 10/04/24 10/04/24 14:46 Currently or been in a relationship where the following occur: No concerns reported [facility] Head: Yes normal to inspection, Yes normocephalic and Yes atraumatic Ears: external ears normal Eyes General: appearance normal, both eyes and all related structures Eyelids: Yes eyelids normal Conjunctivae: conjunctivae normal Neck Neck: Yes normal visual inspection and Yes supple Resp Effort & Inspection: normal respiratory effort Auscultation: clear to auscultation bilaterally Cardio Jugular venous distension: no JVD Rate: regular rate Rhythm: regular rhythm Heart sounds: S1 normal heart sound present, S2 normal heart sound present and Murmur heart sound present GI Inspection: Yes normal to inspection Palpation (GI): Soft to palpation and nontender Auscultation: normal bowel sounds Skin General skin exam: no rashes or lesions noted Neuro General: no focal motor deficits Extrem General: Yes full ROM Right upper extremity: wrist (ganglion cyst) Psych Appearance: grossly normal Office Procedures Flu Questionnaire Does the patient have a severe egg allergy?: No Does the patient have severe life threatening allergies?: No Does the patient have a fever or illness today?: No Has the patient ever had Guillain-Marblemount Syndrome?: No Has the patient ever had any past reaction to a flu shot?: No Immunizations Fluarix Triv [id number] (PF) 45 mcg (15 mcg x 3)/0.5 mL IM syringe Performing Provider: Misti Cam MD [place]forming [facility] [place] [facility] Administered by: LOUANN Arciniega on 10/04/24 15:22 Dose Route Admin Location Dispensed Lot Number Expiration Date NDC Telephone Sales Agent 0.5 mL IM Left Deltoid 0.5 mL [id number] 03/20/25 75073-349-09 Evver VIS Given Date VIS Provided VIS Publication Date 10/04/24 Single Vaccine 21 Eligibility Eligibility Date Funding Source Not [facility] Eligible 10/04/24 Private Coding Level of Care Code Est Pt Level 3 (88417) Est Pt Prev Care 40-64y(05523) Diagnoses Physical exam Z00.00 Ganglion cyst M67.40 Additional Codes RADHA-7 Assessment Billing - RADHA-7 Assessment Tool: RADHA-7 Assessment 12011 ([id number]) PHQ-9 - 62264 - PHQ-9 Billing: Yes ([id number]) Time Spent (min) 33 Assessment & Plan Assessment & Plan (1) Physical exam: Code(s): Z00.00 - Encounter for general adult medical examination without abnormal findings Category: Medical (2) Ganglion cyst: Code(s): M67.40 - Ganglion, unspecified site Category: Medical Plan - Continue monitoring for recurrence of diverticular disease symptoms. - Follow-up blood work before October to evaluate hemoglobin levels. - Consider possible referral to orthopedics and possible x-ray for suspicious ganglion cyst-like swelling in the right wrist. - Review dietary recommendations with focus on diverticulitis management. Patient was informed and verbally consented to the use of an ambient scribe for clinic note documentation during this visit. I discussed with the patient her recent episode of gastrointestinal bleeding and the importance of monitoring her hemoglobin levels. We talked about following up with repeat blood work to assess her blood status and ensure stable iron levels. I advised continuing her current medications and noted her allergies to oxycodone and codeine. Additionally, we went over lifestyle modifications in relation to diverticulitis, specifically concerning dietary choices. We also talked about her smoking habits with vaping and her alcohol consumption. We addressed a suspicious ganglion cyst in her wrist and the possible need for further investigation with an x-ray and orthopedic evaluation. Orders: Orders Complete Blood Count Auto Diff 6 Months D64.9 - Anemia, unspecified Vitamin D 25-OH Total 6 Months E55.9 - Vitamin D deficiency, unspecified Complete Blood Count Auto Diff Today D64.9 - Anemia, unspecified IRON PROFILE Today D64.9 - Anemia, unspecified Influenza [id number] Immunization Today Z23 - Encounter for immunization IRON PROFILE 6 Months D64.9 - Anemia, unspecified Comprehensive [place]. Panel Fast 6 Months Z00.00 - Encounter for general adult medical examination without abnormal findings XR wrist RT 2V Today M67.40 - Ganglion, unspecified site Referrals Orthopedics Referral M67.40 - Ganglion, unspecified site Patient Instructions: - Avoid activities that could potentially exacerbate diverticulitis symptoms. - Follow dietary recommendations, especially concerning seeds and nuts. - Have follow-up blood tests done before October to monitor hemoglobin and iron levels. - Schedule an appointment if experiencing any new or worsening symptoms. - Continue taking regular medications as prescribed.
[2024-10-04 14:38] VITALS: BP 122/82; BMI 33.8
== END 2024-10-04 15:52 | disposition home or self-care (01) ==
PROVIDERS: PCP Internal Medicine; Visit Provider Internal Medicine
DX: Z00.00 Encounter for general adult medical examination without abnormal findings (principal); M67.40 Ganglion, unspecified site; Z23 Encounter for immunization

== ENCOUNTER → 2024-10-04 14:25 | Outpatient (BNVA) | payer BC, SELFPAY | PROVIDERS: PCP Internal Medicine; Visit Provider Internal Medicine | DX: Z00.00 Encounter for general adult medical examination without abnormal findings (principal); Z23 Encounter for immunization; M67.431 Ganglion, right wrist; D64.9 Anemia, unspecified; Z87.19 Personal history of other diseases of the digestive system | CPT/HCPCS: 90471; 90656; 96127 ==

== ENCOUNTER 2024-10-21 14:14 | Outpatient (REF) | payer BC, SELFPAY ==
--- OUTSIDE RECORDS SUMMARY | 2024-10-21 14:16 | XMS_ITS | Clinical Summary ---
Author Organization Formerly [facility] Address [address] [place] [address] Care Team Providers Care Solar Energy Technician Name Role Phone Misti Thorpe MD Primary Care Provider [phone] Allergies Active Allergy Reactions Criticality Noted Date Comments Codeine GI Intolerance/Nausea/Vomiting Low 09/04/2024 Hydrocodone-Acetaminophen GI Intolerance/Nausea/Vomiting Low 09/04/2024 Morphine GI Intolerance/Nausea/Vomiting Low 09/04/2024 Oxycodone GI Intolerance/Nausea/Vomiting Low 09/04/2024 Active Problems Problem Noted Date Diagnosed Date Diverticulitis 09/06/2024 Acute blood loss anemia 09/05/2024 Acute lower GI bleeding 09/04/2024 Encounters Date Type Department Care Team Description 09/04/2024 12:10 PM EST Ancillary Procedure [facility] Radiology [address] [place] [phone] Steve Parra MD 09/04/2024 11:32 AM EST - 09/06/2024 3:52 PM EST Hospital Encounter [address] [phone] Steve Parra MD Korus, Adam J, MD Parikh, Raj, MD Chandpuri, Ranjit S, MD Bhuiyan, MD Hope Acute lower GI bleeding (Primary Dx); GI bleed; Heart valve replaced; Encounter for long-term (current) use of aspirin; Essential hypertension, benign Discharge Disposition: Home or Self Care 09/04/2024 Travel from Last 3 Months Social History Tobacco Use Types Packs/Day Years Used Date Smoking Tobacco: Never Assessed [facility] Utilities Answer Date Recorded In the past 12 months has [employer], gas, oil, or water [employer] threatened to shut off services in your home? No 09/05/2024 AUDIT-C Answer Date Recorded Q1: How often do you have a drink containing alc ohol? 2-3 times a week 09/04/2024 Q2: How many drinks containi ng alcohol do you have on a typical day when you are drinking? 1 or 2 09/04/2024 Q3: How often do you have si x or more drinks on one occasion? Less than monthly 09/04/2024 Overall Financial Resource Strain (CARDIA) Answe r Date Recorded How hard is it for you to pa y for the very basics like food, housing, medical care, and heating? Not hard at all 09/05/2024 Hunger Vital Sign Answer Date Recorded Within the past 12 months, y ou worried that your food would run out before you got the money to buy more. Never true 09/05/20 24 Within the past 12 months, t he food you bought just didn't last and you didn't have money to get more. Never true 09/05/2024 PRAPARE - Transportation Answer Date Re corded In the past 12 months, has l ack of transportation kept you from medical appointments or from getting medications? No 08/21 In the past 12 months, has l ack of transportation kept you from meetings, work, or from getting things needed for daily living? No 09/05/2024 Housing Stability Vital Sign Answer Han e Recorded In the last 12 months, was t here a time when you were not able to pay the mortgage or rent on time? No 09/05/2024 In the past 12 months, how m any times have you moved where you were living? 1 09/05/2024 At any time in the past 12 m [facility], were you homeless or living in a retirement (including now)? No 09/05/2024 Sex and Gender Information Value Date Recorded Sex Assigned at Female 09/04/2024 12:11 PM EST Gender Identity Female 09/04/2024 12:11 PM EST Sexual Orientation Heterosexual (straight) 09/04 12:11 PM EST Last Filed Vital Signs Vital Sign Reading Time Taken Comments Blood Pressure 118/56 09/06/2024 1:10 PM EST Pulse 88 09/06/2024 1:10 PM EST Temperature 36.3 ??C (97.4 ??F) 09/06/2024 1:10 PM ES T Respiratory Rate 18 09/06/2024 1:10 PM EST Oxygen Saturation 100% 09/06/2024 1:10 PM EST Inhaled Oxygen Concentration - - Weight 87.6 kg (193 lb 2 oz) 09/06/2024 6:00 AM EST Height 157.5 cm (5' 2 ) 09/05/2024 2:20 PM EST Body Mass Index 35.32 09/05/2024 2:20 PM EST Plan of Treatment Health Maintenance Due Date Last Done Comments Hepatitis C Virus Screening 1961 HIV Screening 1974 DTaP/Tdap/Td Vaccines (1 - Tdap) 1980 Pap Smear (Ages 21-65) 1982 Mammogram 2001 Colonoscopy 2006 Pneumococcal Vaccines 50+ (1 of 1 - PCV) 2011 Zoster (Shingles) Vaccine (1 of 2) 2011 Influenza Vaccine 04/21/2024 COVID-19 Vaccine ( - 2023-2 5 season) 2024 RSV Vaccine 60 years and old er and Patients (1 - 1-dose 75+ series) 2036 Hepatitis B Vaccines Aged Out No long er eligible based on patient's age to complete this topic Pneumococcal Vaccine: Pediat oliver (0-5 Years) and At-Risk Patients (6 to 49 Years) Aged Out No longer eligible b ased on patient's age to complete this topic Procedures Procedure Name Priority Date/Time Associated Diagnosis Comments HEMOGLOBIN AND HEMATOCRIT Routine 09/06/2024 7:35 AM EST MAGNESIUM Routine 09/06/2024 7:35 AM EST PHOSPHORUS Routine 09/06/2024 7:35 AM EST BASIC METABOLIC PANEL Routine 09/06/2024 7:35 AM EST HEMOGLOBIN AND HEMATOCRIT Routine 09/05/2024 7:00 PM EST POCT GLUCOSE, FINGERSTICK Routine 09/05/2024 11:51 AM EST POCT GLUCOSE, FINGERSTICK Routine 09/05/2024 7:36 AM EST HEMOGLOBIN AND HEMATOCRIT Routine 09/05/2024 5:56 AM EST POCT GLUCOSE, FINGERSTICK Routine 09/05/2024 5:01 AM EST COMPLETE BLOOD COUNT, WITHOUT DIFFERENTIAL Routine 09/05/2024 12:02 AM EST PHOSPHORUS Routine 09/05/2024 12:02 AM EST MAGNESIUM Routine 09/05/2024 12:02 AM EST BASIC METABOLIC PANEL Routine 09/05/2024 12:02 AM EST POCT GLUCOSE, FINGERSTICK Routine 09/04/2024 8:39 PM EST HEMOGLOBIN AND HEMATOCRIT Routine 09/04/2024 6:06 PM EST FIBRINOGEN LEVEL Routine 09/04/2024 6:06 PM EST LACTATE DEHYDROGENASE (LDH) Routine 09/04/2024 6:06 PM EST HAPTOGLOBIN Routine 09/04/2024 6:06 PM EST FERRITIN Routine 09/04/2024 6:06 PM EST THROMBIN TIME Routine 09/04/2024 6:06 PM EST PARTIAL THROMBOPLASTIN TIME (PTT) Routine 09/04/2024 6:06 PM EST PROTIME-INR Routine 09/04/2024 6:06 PM EST LACTIC ACID, PLASMA Routine 09/04/2024 6 :06 PM EST ECG 12-LEAD STAT 09/04/2024 4:35 PM EST TRANSFUSE RED BLOOD CELLS Routine 09/04/2024 3:20 PM EST POCT GLUCOSE, FINGERSTICK Routine 09/04/2024 3:11 PM EST TRANSFUSE RED BLOOD CELLS Routine 09/04/2024 2:23 PM EST MAGNESIUM Routine 09/04/2024 1:41 PM EST COMPLETE BLOOD COUNT, WITHOUT DIFFERENTIAL STAT 09/04/2024 1:41 PM EST COMPREHENSIVE METABOLIC PANEL STAT 09/04/2024 1:41 PM EST ABO CONFIRMATION STAT 09/04/2024 12:3 2 PM EST TYPE AND SCREEN STAT 09/04/2024 12:28 PM EST PREPARE RBC'S Routine 09/04/2024 12:21 PM EST PREPARE RBC'S Routine 09/04/2024 12:18 PM EST ALFONSO ARCHIVE FOR REFERENCE ONLY CT STAT 09/04/2024 12:10 PM EST HEMOGLOBIN AND HEMATOCRIT STAT 09/04/2024 11:40 AM EST from Last 3 Months Results * (ABNORMAL) Hemoglobin and Hematocrit (09/06/2024 7:35 AM EST) Only the most recent of5 resultswithin the time period is included. Hematocrit 29.0(L) 35.0 - 47.0 % 09/06/2024 8:54 AM EST [facility] Hemoglobin 9.8(L) 11.7 - 15.7 g/dL 09/06/2024 8:54 AM EST [facility] Blood Blood specimen / Unknown 09/06/2024 7:35 AM EST 09/06/2024 8:44 AM EST Carlo Tovar MD [place] [address], [place] [address] * Phosphorus (09/06/2024 7:35 AM EST) Only the most recent of2 resultswithin the time period is included. Phosphorus 3.0 2.7 - 4.5 mg/dL 09/06/2024 9:13 AM [facility] Blood (Plasma/Serum) 09/06/2024 7:35 AM EST 09/06/2024 8:44 AM EST Chari YOUNG LAB BLOOD ORDERABLES Performing Organization Address City/[facility]/[place] [address], [place] [address] * Magnesium (09/06/2024 7:35 AM EST) Only the most recent of3 resultswithin the time period is included. Magnesium 1.7 1.6 - 2.7 mg/dL 09/06/2024 9:13 AM [facility] Blood (Plasma/Serum) 09/06/2024 7:35 AM EST 09/06/2024 8:44 AM EST Chari YOUNG LAB BLOOD ORDERABLES Performing Organization Address City/[facility]/[place] [address], [place] [address] * Basic Metabolic Panel (09/06/2024 7:35 AM EST) Only the most recent of2 resultswithin the time period is included. Glucose 90 65 - 99 mg/dL 09/06/2024 9:13 AM [facility] Comment:Fasting: <100 mg/dL, Non-Fasting: <200 mg/dL (ADA 2005) Blood Urea Nitrogen (BUN) 11 8 - 21 mg/dL 09/06/2024 9:13 AM [facility] Creatinine 0.6 0.4 - 1.1 mg/dL 09/06/2024 9:13 AM [facility] eGFR >90 >59 09/06/2024 9:13 AM [facility] Comment:CKD-EPI (2020) in mL /min/1.73 sq meters. Sodium 140 136 - 145 mmol/L 09/06/2024 9:13 AM [facility] Potassium 4.6 3.4 - 5.3 mmol/L 09/06/2024 9:13 AM [facility] Chloride 105 98 - 107 mmol/L 09/06/2024 9:13 AM [facility] CO2 26 22 - 33 mmol/L 09/06/2024 9:13 AM [facility] Anion Gap 9 7 - 17 09/06/2024 9:13 AM [facility] Calcium 8.7 8.7 - 10.5 mg/dL 09/06/2024 9:13 AM [facility] BUN/Creatinine Ratio 18 10.0 - 25.0 Ratio 09/06/2024 9:13 AM [facility] Blood (Plasma/Serum) 09/06/2024 7:35 AM EST 09/06/2024 8:44 AM EST Chari YOUNG [place] [address], [place] [address] * POCT Glucose, Fingerstick (09/05/2024 11:51 AM EST) Only the most recent of5 resultswithin the time period is included. POC Glucose 79 65 - 99 mg/dL 09/05/2024 12:01 PM EST Blood specimen / Unknown 09/05/2024 11:51 AM EST 09/05/2024 12:01 PM EST Steve Parra MD POINT OF CARE TEST O RDERABLES [facility]OSPITAL LAB See Below * (ABNORMAL) Complete Blood Count, WITHOUT Differential (routine) (09/05/2024 12:02 AM EST) Only the most recent of2 resultswithin the time period is included. White Blood Cell Count 7.0 4.0 - 11.0 Thou/uL 09/05/2024 12:33 AM [facility] Platelet Count 242 150 - 450 Thou/uL 09/05/2024 12:33 AM [facility] Hemoglobin 9.8(L) 11.7 - 15.7 g/dL 09/05/2024 12:33 AM [facility] Hematocrit 30.0(L) 35.0 - 47.0 % 09/05/2024 12:33 AM [facility] Red Blood Cell Count 3.11(L) 4.00 - 5.40 Mil/uL 09/05/2024 12:33 AM [facility] MCV 97 80 - 100 fL 09/05/2024 12:33 AM [facility] MCH 31.5(H) 27.0 - 31.0 pg 09/05/2024 12:33 AM [facility] MCHC 32.7 30.0 - 36.0 g/dL 09/05/2024 12:33 AM [facility] RDW 13.4 11.5 - 14.5 % 09/05/2024 12:33 AM [facility] MPV 10.3 7.5 - 12.5 fL 09/05/2024 12:33 AM [facility] Blood Blood specimen / Unknown 09/05/2024 12:02 AM EST 09/05/2024 12:26 AM EST Steve Goss MD [place] [address], [address] [address] * Partial Thromboplastin Time (PTT) (09/04/2024 6:06 PM EST) Anticoagulant NO ANTI COAGULANT MEDS 09/04/2024 6:06 PM EST Partial Thromboplastin Time (PTT) 28 25 - 36 seconds 09/04/2024 6:44 PM [facility] Blood Plasma specimen / Unknown 09/04/2024 6:06 PM EST 09/04/2024 6:24 PM EST Katalina Biolo PA-C LAB BLOOD ORDERABLES Performing Organization Address City/[facility]/ZIP Co de Phone Number [address] [address], [address] [address] * Thrombin Time (09/04/2024 6:06 PM EST) Anticoagulant NO ANTI COAGULANT MEDS 09/04/2024 6:06 PM EST Thrombin Time 13.9 12.7 - 19.2 seconds 09/04/2024 6:44 PM EST [facility] Blood Plasma specimen / Unknown 09/04/2024 6:06 PM EST 09/04/2024 6:24 PM EST KatalinaXoopito PA-C LAB BLOOD ORDERABLES Performing Organization Address City/[facility]/ZIP Co de Phone Number [address] [address], [address] [address] * Protime-INR (09/04/2024 6:06 PM EST) Anticoagulant NO ANTI COAGULANT MEDS 09/04/2024 6:06 PM EST Prothrombin Time (PT) 12.1 10.0 - 13.5 seconds 09/04/2024 6:44 PM EST [facility] INR 1.1 09/04/2024 6:44 PM EST [facility] Comment:INR Therapeutic Rang es: Standard dose anticoagulant 2.0 to 3.0, High dose anticoagulant 2.5-3.5. Blood Plasma specimen / Unknown 09/04/2024 6:06 PM EST 09/04/2024 6:24 PM EST Katalina Biolo PA-C LAB BLOOD ORDERABLES Performing Organization Address City/[facility] [place] [address], [place] [address] * (ABNORMAL) Fibrinogen Level (09/04/2024 6:06 PM EST) Fibrinogen 484(H) 148 - 435 mg/dL 09/04/2024 6:44 PM [facility] Blood Plasma specimen / Unknown 09/04/2024 6:06 PM EST 09/04/2024 6:24 PM EST ALICE Appo PA-C LAB BLOOD ORDERABLES [address] [address], [address] [address] * LACTATE DEHYDROGENASE (LDH) (09/04/2024 6:06 PM EST) Lactate Dehydrogenase (LDH) 133 120 - 260 U/L 09/04/2024 6:55 PM [facility] Blood (Plasma/Serum) 09/04/2024 6:06 PM EST 09/04/2024 6:24 PM EST ALICE Appo PA-C LAB BLOOD ORDERABLES Performing Organization Address City/[facility]/ZIP Co de Phone Number [address] [address], [address] [address] * Lactic Acid, Plasma (Routine) (09/04/2024 6:06 PM EST) Lactic Acid 0.9 0.5 - 1.9 mmol/L 09/04/2024 6:49 PM [facility] Blood Plasma specimen / Unknown 09/04/2024 6:06 PM EST 09/04/2024 6:24 PM EST ALICE Appo PA-C LAB BLOOD ORDERABLES [address] [address], [address] [address] * HAPTOGLOBIN (09/04/2024 6:06 PM EST) Haptoglobin 149 30 - 200 mg/dL 09/04/2024 6:55 PM EST [facility] Blood (Plasma/Serum) 09/04/2024 6:06 PM EST 09/04/2024 6:24 PM EST [employer] [place] [employer] PA-C LAB BLOOD ORDERABLES Performing Organization Address [facility] [place] [address], [place] [address] * FERRITIN (09/04/2024 6:06 PM EST) Ferritin 193 30 - 400 ug/L 09/04/2024 6:55 PM EST [facility] Blood (Plasma/Serum) 09/04/2024 6:06 PM EST 09/04/2024 6:24 PM EST [facility] PA-C LAB BLOOD ORDERABLES Performing Organization Address City/[facility] [place] [address], [place] [address] * ECG 12 lead (STAT) (09/04/2024 4:35 PM EST) Ventricular rate 93 BPM EKG [facility] Atrial rate 93 BPM EKG [facility] P-R interval 176 ms EKG [facility] QRS duration 98 ms EKG [facility] Q-T interval 372 ms EKG [facility] QTC calculation (Bazett) 463 ms EKG [facility] P axis 49 degrees EKG [facility] R axis -9 degrees EKG [facility] T axis 87 degrees EKG [facility] 09/04/2024 4:35 PM EST Narrative EKG [facility] - 09/04/2024 4:44 PM EST Normal sinus rhythm Possible Left atrial enlargement Nonspecific ST and T wave abnormality Abnormal ECG No previous ECGs available Confirmed by MD Root John ([id number]) on 09/04/2024 4:44:03 PM Procedure Note All Root MD - 09/04/2024 Normal sinus rhythm Possible Left atrial enlargement Nonspecific ST and T wave abnormality Abnormal ECG No previous ECGs available Confirmed by MD Root John ([id number]) on 09/04/2024 4:44:03 PM Steve Goss MD ECG ORDERABLES EKG [facility] * Transfuse RBC's: (09/04/2024 4:19 PM EST) Only the most recent of2 resultswithin the time period is included. Steve Parra MD BLOOD TRANSFUSION OR DERABLES * (ABNORMAL) Comprehensive Metabolic Panel (Routine) (09/04/2024 1:41 PM EST) Glucose 111(H) 65 - 99 mg/dL 09/04/2024 3:14 PM [facility] Comment:Fasting: <100 mg/dL, Non-Fasting: <200 mg/dL (ADA 2005) Blood Urea Nitrogen (BUN) 13 8 - 21 mg/dL 09/04/2024 3:14 PM [facility] Creatinine 0.6 0.4 - 1.1 mg/dL 09/04/2024 3:14 PM [facility] eGFR >90 >59 09/04/2024 3:14 PM [facility] Comment:CKD-EPI (2020) in mL /min/1.73 sq meters. Sodium 137 136 - 145 mmol/L 09/04/2024 3:14 PM [facility] Potassium 4.7 3.4 - 5.3 mmol/L 09/04/2024 3:14 PM [facility] Chloride 104 98 - 107 mmol/L 09/04/2024 3:14 PM [facility] CO2 26 22 - 33 mmol/L 09/04/2024 3:14 PM [facility] Calcium 8.6(L) 8.7 - 10.5 mg/dL 09/04/2024 3:14 PM [facility] Alkaline Phosphatase 70 32 - 122 U/L 09/04/2024 3:14 PM [facility] Aspartate Aminotrans (AST) 15 10 - 50 U/L 09/04/2024 3:14 PM [facility] Alanine Aminotrans (ALT) 15 10 - 50 U/L 09/04/2024 3:14 PM [facility] Bilirubin, Total 0.3 0.2 - 1.0 mg/dL 09/04/2024 3:14 PM [facility] Protein, Total 6.0(L) 6.3 - 8.3 g/dL 09/04/2024 3:14 PM [facility] Albumin 3.5 3.4 - 4.8 g/dL 09/04/2024 3:14 PM [facility] BUN/Creatinine Ratio 22 10.0 - 25.0 Ratio 09/04/2024 3:14 PM [facility] Globulin 2.5 1.5 - 3.9 g/dL 09/04/2024 3:14 PM [facility] Albumin/Globulin Ratio 1.4 1.0 - 3.0 Ratio 09/04/2024 3:14 PM [facility] Anion Gap 7 7 - 17 09/04/2024 3:14 PM [facility] Blood (Plasma/Serum) 09/04/2024 1:41 PM EST 09/04/2024 2:56 PM EST Steve Goss MD LAB BLOOD ORDERABLES Performing Organization Address [facility]/[place] [address], [place] [address] * ABO Confirmation (09/04/2024 12:32 PM EST) ABO/Rh O POSITIVE 09/04/2024 1:46 PM EST [facility] Blood specimen / Unknown 09/04/2024 12:32 PM EST 09/04/2024 1:00 PM EST Steve Parra MD BLOOD BANK TEST ORDCarmen KATHLEEN Performing Organization Address [facility] [place] [address], [place] [address] * Type and Screen (09/04/2024 12:28 PM EST) ABO/Rh O POSITIVE 09/04/2024 1:45 PM [facility] Antibody Screen NEGATIVE 09/04/2024 1:45 PM [facility] Specimen Expiration 09/07/2024 09/04/2024 1:45 PM [facility] Blood Bank Comment Second Sample needed for Blood Transfusion 09/04/2024 1:45 PM [facility] Unit Number [id number] 09/04/2024 2:04 PM [facility] Blood Component Type LR RBC CONTAINER 2 09/04/2024 2:04 PM [facility] Unit Division 00 09/04/2024 2:04 PM [facility] Unit Status ISSUED,FINAL 09/05/2024 12:11 AM [facility] Transfusion Status OK TO TRANSFUSE 09/04/2024 2:04 PM [facility] Crossmatch Result Electronically Compatible 09/04/2024 2:04 PM [facility] Unit Number [id number] 09/04/2024 3:12 PM [facility] Blood Component Type LEUKOREDUCED RED CELLS 09/04/2024 3:12 PM [facility] Unit Division 00 09/04/2024 3:12 PM [facility] Unit Status ISSUED,FINAL 09/05/2024 12:11 AM [facility] Transfusion Status OK TO TRANSFUSE 09/04/2024 3:12 PM [facility] Crossmatch Result Electronically Compatible 09/04/2024 3:12 PM [facility] Blood Blood specimen / Unknown 09/04/2024 12:28 PM EST 09/04/2024 1:00 PM EST Comment:Blood Steve Parra MD BLOOD BANK TEST ORDCarmen [facility] See Below [facility] [address] [place] [address] * Prepare RBC's:Prepare in: Units; Number of Units: 1; Transfusion Indications: Hemoglobin less than 7 gm/dl or HCT less than 21% (09/04/2024 12:21 PM EST) Only the most recent of2 resultswithin the time period is included. Units Ordered 1 09/04/2024 12:21 PM EST Serum specimen / Unknown 09/04/2024 12:21 PM EST 09/04/2024 2:03 PM EST Steve Parra MD BLOOD BANK PRODUCT O RDERABLES [facility] LAB See Below * ALFONSO Archive for reference only CT (09/04/2024 12:10 PM EST) Narrative SYSTEMGENERATED, DOCUMENTATION - 09/04/2024 12:07 PM EST This order has been auto-finalized and does not contain a result. Chari YOUNG IMG DIGITI ZE FILMS from Last 3 Months Advance Directives * Full Code (Latest Code Status on File) Date Activated Date Inactivated Comments 09/04/2024 1:39 PM Question Answer Comments Decision Thoroughly Discussed with: Patient Care Teams Solar Energy Technician Relationship Specialty Start Date End Date Misti Thorpe MD [address] [place] [id number] PCP - General Family Medicine 09/05/24
[2024-10-21 14:27] LABS: MANUAL DIFF FLAG NO
[2024-10-21 14:40] LABS: Basophils Absolute Auto 0.1 X10*3/uL (0.0-0.2); Basophils Percent Auto 0.9 % (0-2); Eosinophils Absolute Auto 0.2 X10*3/uL (0.0-0.4); Eosinophils Percent Auto 2.6 % (0-4); Hematocrit 39.8 % (37.0-47.0); Hemoglobin 12.9 g/dl (12.0-16.0); Imm Gran Abs Auto 0.02 X10*3/uL (0.00-0.03); Imm Gran Pct Auto 0.3 % (0.0-0.4); Lymphocytes Absolute Auto 2.4 X10*3/uL (1.2-4.9); Lymphocytes Percent Auto 32.9 % (20-40); Mean Corpuscular HGB Conc 32.4 g/dl (31.0-35.0); Mean Corpuscular Hemoglobin 31.7 pg (27.0-33.0); Mean Corpuscular Volume 97.8 fL (80.0-98.0); Mean Platelet Volume 10.2 fL (9.4-12.3); Monocytes Absolute Auto 0.4 X10*3/uL (0.1-1.2); Monocytes Percent Auto 5.1 % (2-11); Neutrophils Absolute Auto 4.3 x10*3/uL (2.0-8.3); Neutrophils Percent Auto 58.2 % (45-73); Platelet Count 318 X10*3/uL (160-400); Red Blood Count 4.07 X10*6/uL (4.20-5.50); Red Cell Distribution Width 12.1 % (11.0-16.0); White Blood Count 7.4 X10*3/uL (4.8-10.8)
[2024-10-21 17:32] LABS: Iron 99 mcg/dL (30-160); Percent Iron Saturation 33 % (15-50); Total Iron Binding Capacity 300 mcg/dL (228-428); Unsaturated Iron Binding 201 ug/dL
== END 2024-10-21 14:15 | disposition home or self-care (01) ==
LOC: HO.LAB 14:14
PROVIDERS: PCP Internal Medicine; Visit Provider Internal Medicine
DX: D64.9 Anemia, unspecified (principal)
CPT/HCPCS: 36415; 83540; 85025

== ENCOUNTER 2024-10-25 12:11 | Outpatient (REF) | payer BC, SELFPAY ==
--- NOTE | ~2024-10-25 | XR_ITS ---
CLINICAL HISTORY: M67.40 - Ganglion, unspecified site 4 view right wrist Comparison: None Findings: No fractures or dislocations. Advanced degenerative change at the 1st carpometacarpal joint. Mild degenerative change of the STT joint in the subchondral sclerosis. No radiopaque foreign body. IMPRESSION: 1. Degenerative changes of the base of the thumb. No acute fracture or foreign body. This document has been electronically signed by: Marge Persaud MD on 10/26/2024 07:24:04
--- OUTSIDE RECORDS SUMMARY | 2024-10-25 12:55 | XMS_ITS | Clinical Summary ---
Author Organization [employer], Located Within [facility] Address [address] [place] [address] Care Team Providers Care Personal Property Assessor Name Role Phone Misti Thorpe MD Primary Care Provider [phone] Allergies Active Allergy Reactions Criticality Noted Date Comments Codeine GI Intolerance/Nausea/Vomiting Low 09/04/2024 Hydrocodone-Acetaminophen GI Intolerance/Nausea/Vomiting Low 09/04/2024 Morphine GI Intolerance/Nausea/Vomiting Low 09/04/2024 Oxycodone GI Intolerance/Nausea/Vomiting Low 09/04/2024 Active Problems Problem Noted Date Diagnosed Date Diverticulitis 09/06/2024 Acute blood loss anemia 09/05/2024 Acute lower GI bleeding 09/04/2024 Encounters Date Type Department Care Team Description 09/04/2024 12:10 PM EST Ancillary Procedure [facility] [address] [place] [id number] Steve Parra MD 09/04/2024 11:32 AM EST - 09/06/2024 3:52 PM EST Hospital Encounter [address] [id number] Steve Parra MD Korus, Adam [...] Years Used Date Smoking Tobacco: Never Assessed [facility] Utilities Answer Date Recorded In the past 12 months has [employer], gas, oil, or water [employer] threatened to shut off services in your [...] any time in the past 12 m [facility], were you homeless or living in a half-way (including now)? No 09/05/2024 Sex and Gender [...] - 47.0 % 09/06/2024 8:54 AM EST [facility] Hemoglobin 9.8(L) 11.7 - 15.7 g/dL 09/06/2024 8:54 AM EST [facility] Blood Blood specimen / Unknown 09/06/2024 7:35 AM EST 09/06/2024 8:44 AM EST Carlo Tovar MD LAB [place] [address], [place] [address] * Phosphorus (09/06/2024 7:35 AM EST) Only the most recent of2 resultswithin the time period is included. Phosphorus 3.0 2.7 - 4.5 mg/dL 09/06/2024 9:13 AM [facility] Blood (Plasma/Serum) 09/06/2024 7:35 AM EST 09/06/2024 8:44 AM EST Chari YOUNG LAB BLOOD ORDERABLES Performing Organization Address City/[facility]/ZIP [place] [address], [place] [address] * Magnesium (09/06/2024 7:35 AM EST) Only the most recent of3 resultswithin the time period is included. Magnesium 1.7 1.6 - 2.7 mg/dL 09/06/2024 9:13 AM [facility] Blood (Plasma/Serum) 09/06/2024 7:35 AM EST 09/06/2024 8:44 AM EST Chari YOUNG LAB BLOOD ORDERABLES Performing Organization Address City/[facility]/ZIP [place] [address], [place] [address] * Basic Metabolic Panel (09/06/2024 7:35 AM EST) Only the most recent of2 resultswithin the time period is included. Glucose 90 65 - 99 mg/dL 09/06/2024 9:13 AM [facility] Comment:Fasting: <100 mg/dL, Non-Fasting: <200 mg/dL (ADA 2005) Blood Urea Nitrogen (BUN) 11 8 - 21 mg/dL 09/06/2024 9:13 AM [facility] Creatinine 0.6 0.4 - 1.1 mg/dL 09/06/2024 9:13 AM [facility] eGFR >90 >59 09/06/2024 9:13 AM [facility] Comment:CKD-EPI (2020) in mL /min/1.73 sq meters. Sodium 140 136 - 145 mmol/L 09/06/2024 9:13 AM [facility] Potassium 4.6 3.4 - 5.3 mmol/L 09/06/2024 9:13 AM [facility] Chloride 105 98 - 107 mmol/L 09/06/2024 9:13 AM [facility] CO2 26 22 - 33 mmol/L 09/06/2024 9:13 AM [facility] Anion Gap 9 7 - 17 09/06/2024 9:13 AM [facility] Calcium 8.7 8.7 - 10.5 mg/dL 09/06/2024 9:13 AM [facility] BUN/Creatinine Ratio 18 10.0 - 25.0 Ratio 09/06/2024 9:13 AM [facility] Blood (Plasma/Serum) 09/06/2024 7:35 AM EST 09/06/2024 8:44 AM EST Chari YOUNG LAB [place] [address], [place] [address] * POCT Glucose, Fingerstick (09/05/2024 11:51 AM [...] 4.0 - 11.0 Thou/uL 09/05/2024 12:33 AM [facility] Platelet Count 242 150 - 450 Thou/uL 09/05/2024 12:33 AM [facility] Hemoglobin 9.8(L) 11.7 - 15.7 g/dL 09/05/2024 12:33 AM [facility] Hematocrit 30.0(L) 35.0 - 47.0 % 09/05/2024 12:33 AM [facility] Red Blood Cell Count 3.11(L) 4.00 - 5.40 Mil/uL 09/05/2024 12:33 AM [facility] MCV 97 80 - 100 fL 09/05/2024 12:33 AM [facility] MCH 31.5(H) 27.0 - 31.0 pg 09/05/2024 12:33 AM [facility] MCHC 32.7 30.0 - 36.0 g/dL 09/05/2024 12:33 AM [facility] RDW 13.4 11.5 - 14.5 % 09/05/2024 12:33 AM [facility] MPV 10.3 7.5 - 12.5 fL 09/05/2024 12:33 AM [facility] Blood Blood specimen / Unknown 09/05/2024 12:02 AM EST 09/05/2024 12:26 AM EST Steve Goss MD LAB [place] [address], [address] [address] * Partial Thromboplastin Time (PTT) (09/04/2024 6:06 PM EST) Anticoagulant NO ANTI COAGULANT MEDS 09/04/2024 6:06 PM EST Partial Thromboplastin Time (PTT) 28 25 - 36 seconds 09/04/2024 6:44 PM [facility] Blood Plasma specimen / Unknown 09/04/2024 6:06 PM EST 09/04/2024 6:24 PM EST Katalina Biolo PA-C LAB BLOOD ORDERABLES Performing Organization Address City/[facility]/ZIP Co de Phone Number [address] [address], [address] [address] * Thrombin Time (09/04/2024 6:06 PM EST) Anticoagulant NO ANTI COAGULANT MEDS 09/04/2024 6:06 PM EST Thrombin Time 13.9 12.7 - 19.2 seconds 09/04/2024 6:44 PM EST [facility] Blood Plasma specimen / Unknown 09/04/2024 6:06 PM EST 09/04/2024 6:24 PM EST KatalinaProperatio PA-C LAB BLOOD ORDERABLES Performing Organization Address City/[facility]/ZIP Co de Phone Number [address] [address], [address] [address] * Protime-INR (09/04/2024 6:06 PM EST) Anticoagulant NO ANTI COAGULANT MEDS 09/04/2024 6:06 PM EST Prothrombin Time (PT) 12.1 10.0 - 13.5 seconds 09/04/2024 6:44 PM EST [facility] INR 1.1 09/04/2024 6:44 PM EST [facility] Comment:INR Therapeutic Rang es: Standard dose anticoagulant 2.0 to 3.0, High dose anticoagulant 2.5-3.5. Blood Plasma specimen / Unknown 09/04/2024 6:06 PM EST 09/04/2024 6:24 PM EST Katalina Biolo PA-C LAB BLOOD ORDERABLES Performing Organization Address City/[facility] [place] [address], [place] [address] * (ABNORMAL) Fibrinogen Level (09/04/2024 6:06 PM EST) Fibrinogen 484(H) 148 - 435 mg/dL 09/04/2024 6:44 PM [facility] Blood Plasma specimen / Unknown 09/04/2024 6:06 PM EST 09/04/2024 6:24 PM EST [employer] PA-C LAB BLOOD ORDERABLES [address] [address], [address] [address] * LACTATE DEHYDROGENASE (LDH) (09/04/2024 6:06 PM EST) Lactate Dehydrogenase (LDH) 133 120 - 260 U/L 09/04/2024 6:55 PM [facility] Blood (Plasma/Serum) 09/04/2024 6:06 PM EST 09/04/2024 6:24 PM EST [employer] PA-C LAB BLOOD ORDERABLES Performing Organization Address City/[facility]/ZIP Co de Phone Number [address] [address], [address] [address] * Lactic Acid, Plasma (Routine) (09/04/2024 6:06 PM EST) Lactic Acid 0.9 0.5 - 1.9 mmol/L 09/04/2024 6:49 PM [facility] Blood Plasma specimen / Unknown 09/04/2024 6:06 PM EST 09/04/2024 6:24 PM EST [employer] PA-C LAB BLOOD ORDERABLES [address] [address], [address] [address] * HAPTOGLOBIN (09/04/2024 6:06 PM EST) Haptoglobin 149 30 - 200 mg/dL 09/04/2024 6:55 PM EST [facility] Blood (Plasma/Serum) 09/04/2024 6:06 PM EST 09/04/2024 6:24 PM EST [place] [employer] PA-C LAB BLOOD ORDERABLES Performing Organization Address [facility] [place] [address], [place] [address] * FERRITIN (09/04/2024 6:06 PM EST) Ferritin 193 30 - 400 ug/L 09/04/2024 6:55 PM EST [facility] Blood (Plasma/Serum) 09/04/2024 6:06 PM EST 09/04/2024 6:24 PM EST [facility] PA-C LAB BLOOD ORDERABLES Performing Organization Address City/[facility] [place] [address], [place] [address] * ECG 12 lead (STAT) (09/04/2024 4:35 PM EST) Ventricular rate 93 BPM EKG [facility] Atrial rate 93 BPM EKG [facility] P-R interval 176 ms EKG [facility] QRS duration 98 ms EKG [facility] Q-T interval 372 ms EKG [facility] QTC calculation (Bazett) 463 ms EKG [facility] P axis 49 degrees EKG [facility] R axis -9 degrees EKG [facility] T axis 87 degrees EKG [facility] 09/04/2024 4:35 PM EST Narrative EKG [facility] - 09/04/2024 4:44 PM EST Normal sinus rhythm Possible Left atrial enlargement Nonspecific ST and T wave abnormality Abnormal ECG No previous ECGs available Confirmed by MD Root John ([id number]) on 09/04/2024 4:44:03 PM Procedure Note All Root MD - 09/04/2024 Normal sinus rhythm Possible Left atrial enlargement Nonspecific ST and T wave abnormality Abnormal ECG No previous ECGs available Confirmed by MD Root John ([id number]) on 09/04/2024 4:44:03 PM Steve Goss MD ECG ORDERABLES EKG [facility] * Transfuse RBC's: (09/04/2024 4:19 PM EST) Only the most recent of2 resultswithin the time period is included. Steve Parra MD BLOOD TRANSFUSION OR DERABLES * (ABNORMAL) Comprehensive Metabolic Panel (Routine) (09/04/2024 1:41 PM EST) Glucose 111(H) 65 - 99 mg/dL 09/04/2024 3:14 PM [facility] Comment:Fasting: <100 mg/dL, Non-Fasting: <200 mg/dL (ADA 2005) Blood Urea Nitrogen (BUN) 13 8 - 21 mg/dL 09/04/2024 3:14 PM [facility] Creatinine 0.6 0.4 - 1.1 mg/dL 09/04/2024 3:14 PM [facility] eGFR >90 >59 09/04/2024 3:14 PM [facility] Comment:CKD-EPI (2020) in mL /min/1.73 sq meters. Sodium 137 136 - 145 mmol/L 09/04/2024 3:14 PM [facility] Potassium 4.7 3.4 - 5.3 mmol/L 09/04/2024 3:14 PM [facility] Chloride 104 98 - 107 mmol/L 09/04/2024 3:14 PM [facility] CO2 26 22 - 33 mmol/L 09/04/2024 3:14 PM [facility] Calcium 8.6(L) 8.7 - 10.5 mg/dL 09/04/2024 3:14 PM [facility] Alkaline Phosphatase 70 32 - 122 U/L 09/04/2024 3:14 PM [facility] Aspartate Aminotrans (AST) 15 10 - 50 U/L 09/04/2024 3:14 PM [facility] Alanine Aminotrans (ALT) 15 10 - 50 U/L 09/04/2024 3:14 PM [facility] Bilirubin, Total 0.3 0.2 - 1.0 mg/dL 09/04/2024 3:14 PM [facility] Protein, Total 6.0(L) 6.3 - 8.3 g/dL 09/04/2024 3:14 PM [facility] Albumin 3.5 3.4 - 4.8 g/dL 09/04/2024 3:14 PM [facility] BUN/Creatinine Ratio 22 10.0 - 25.0 Ratio 09/04/2024 3:14 PM [facility] Globulin 2.5 1.5 - 3.9 g/dL 09/04/2024 3:14 PM [facility] Albumin/Globulin Ratio 1.4 1.0 - 3.0 Ratio 09/04/2024 3:14 PM [facility] Anion Gap 7 7 - 17 09/04/2024 3:14 PM [facility] Blood (Plasma/Serum) 09/04/2024 1:41 PM EST 09/04/2024 2:56 PM EST Steve Goss MD LAB BLOOD ORDERABLES Performing Organization Address [facility]/ZIP [place] [address], [place] [address] * ABO Confirmation (09/04/2024 12:32 PM EST) ABO/Rh O POSITIVE 09/04/2024 1:46 PM EST [facility] Blood specimen / Unknown 09/04/2024 12:32 PM EST 09/04/2024 1:00 PM EST Steve Parra MD BLOOD BANK TEST ORDCarmen KATHLEEN Performing Organization Address [facility] [place] [address], [place] [address] * Type and Screen (09/04/2024 12:28 PM EST) ABO/Rh O POSITIVE 09/04/2024 1:45 PM [facility] Antibody Screen NEGATIVE 09/04/2024 1:45 PM [facility] Specimen Expiration 09/07/2024 09/04/2024 1:45 PM [facility] Blood Bank Comment Second Sample needed for Blood Transfusion 09/04/2024 1:45 PM [facility] Unit Number [id number] 09/04/2024 2:04 PM [facility] Blood Component Type LR RBC CONTAINER 2 09/04/2024 2:04 PM [facility] Unit Division 00 09/04/2024 2:04 PM [facility] Unit Status ISSUED,FINAL 09/05/2024 12:11 AM [facility] Transfusion Status OK TO TRANSFUSE 09/04/2024 2:04 PM [facility] Crossmatch Result Electronically Compatible 09/04/2024 2:04 PM [facility] Unit Number [id number] 09/04/2024 3:12 PM [facility] Blood Component Type LEUKOREDUCED RED CELLS 09/04/2024 3:12 PM [facility] Unit Division 00 09/04/2024 3:12 PM [facility] Unit Status ISSUED,FINAL 09/05/2024 12:11 AM [facility] Transfusion Status OK TO TRANSFUSE 09/04/2024 3:12 PM [facility] Crossmatch Result Electronically Compatible 09/04/2024 3:12 PM [facility] Blood Blood specimen / Unknown 09/04/2024 12:28 PM EST 09/04/2024 1:00 PM EST Comment:Blood Steve Parra MD BLOOD BANK TEST ORDCarmen [facility] See Below [facility] [address] [place] [address] * Prepare RBC's:Prepare in: Units; Number of [...] Decision Thoroughly Discussed with: Patient Care Teams Personal Property Assessor Relationship Specialty Start Date End Date Misti Thorpe MD [address] [place] [id number] PCP - General Family Medicine 09/05/24
== END 2024-10-25 12:12 | disposition home or self-care (01) ==
LOC: HO.XRAY 12:11
PROVIDERS: PCP Internal Medicine; Visit Provider Internal Medicine
DX: M67.40 Ganglion, unspecified site (principal)
CPT/HCPCS: 73100

== ENCOUNTER → 2024-10-25 12:14 | Outpatient (BNV) | payer BC, SELFPAY | PROVIDERS: PCP Internal Medicine; Visit Provider Radiology Diagnostic Radiology | DX: M67.431 Ganglion, right wrist (principal) | CPT/HCPCS: 73100 ==

== ENCOUNTER 2024-11-01 13:20 | Outpatient (AMB) | payer BC, SELFPAY ==
[2024-11-01 13:26] VITALS: BMI 33.8
--- NOTE | 2024-11-01 13:26 | MHC.OFFVIS ---
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 Patient reports that that she has had this mass at the base of the wrist for a few months now. She feels pain all the time worse with increased activity. Denies numbness and tingling. No previous treatments. 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 Patient reports that that she has had this mass at the base of the wrist for a few months now. She feels pain all the time worse with increased activity. Denies numbness and tingling. No previous treatments. [facility] Medical History (Updated 11/01/24 @ 14:12 by HANNAH Liao) Ascending aorta dilatation Severe aortic stenosis Physical exam Hyperkalemia Internal hemorrhoids Diverticulosis Golfers elbow of left upper extremity Obesity (BMI 30.0-34.9) GERD (gastroesophageal reflux disease) Migraine with aura and without status migrainosus, not intractable Surgical History (Updated 11/01/24 @ 13:29 by Crystal Rolle CMA) History of bilateral carpal tunnel release H/O aortic valve replacement History of heart surgery History of carpal tunnel surgery History of cholecystectomy Family History Mother COPD (chronic obstructive pulmonary disease) Diabetes Afib Osteoporosis Dementia Father Lung cancer Family/Other Substance use disorder Maternal Grandmother Colon cancer Social History (Updated 10/04/24 @ 15:07 by Misti Cam MD) Housing: House Are you a primary physician primary care sports medicine to a significant other at home: No Do you presently have visiting nurse or other home services: No Alcohol intake: current Alcohol intake frequency: a few times a week Alcohol type: wine Patient Tobacco Use Status: Never used Tobacco e-Cigarette/Vaping Use: Currently Using Second Hand Smoke Exposure: No Substance Use Type: Marijuana service: No Current occupational status: other 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 Neuro: Normal sensation of the tips of all digits of the right hand at this time Vascular: Cap refill brisk Pain: Patient reports no tenderness to palpation about the mass in the volar and radial right wrist Patient reports pain in his area with range of motion of the right wrist ROM: Patient is extend all digits of the right hand fully and without difficulty Skin: No lacerations or abrasions. General: There is noted to be an approximately 1-2 cm in diameter fluid filled mass noted on the radial and volar aspect of the right wrist No ecchymosis, erythema, or evidence of infection. Psych: Appears grossly normal Affect normal Attitude cooperative Assessment & Plan Assessment & Plan (1) Ganglion cyst of volar aspect of right wrist: Code(s): M67.431 - Ganglion, right wrist Category: Medical Plan 1. Volar wrist ganglion cyst of right wrist Ongoing for ?a few months? I educated the patient about the condition. I discussed both operative and nonoperative treatment options. The patient would like to proceed with surgery. The risks and benefits of operative treatment were discussed with the patient and the patient wishes to proceed with surgery. These risks include, but are not limited to, risk of damage to blood vessels, nerves, tendons, infection, recurrence, incomplete relief of preoperative symptoms, persistent pain, possible need for further surgery, and the risks associated with regional blocks and/or anesthesia. Plan is to take the patient to the operating room at some point in the next few weeks for the following procedures: 1. Right volar wrist ganglion excision under general All of the preoperative paperwork including the consent was discussed today. All of the patient's questions were answered in the clinic today. The patient understands that they will be in contact with our surgical supplies sterilizer to discuss scheduling their procedure. 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 Coding Level of Care Code New Pt Level 4 (66251) Diagnoses Ganglion cyst of volar aspect of right wrist M67.431
--- OUTSIDE RECORDS SUMMARY | 2024-11-01 14:26 | XMS_ITS | Clinical Summary ---
Author Organization [facility] Address [address] [place] [address] Care Team Providers Care Front Office Supervisor Name Role Phone Misti Thorpe MD Primary Care Provider [phone] Allergies Active Allergy Reactions Criticality Noted Date Comments Codeine GI Intolerance/Nausea/Vomiting Low 09/04/2024 Hydrocodone-Acetaminophen GI Intolerance/Nausea/Vomiting Low 09/04/2024 Morphine GI Intolerance/Nausea/Vomiting Low 09/04/2024 Oxycodone GI Intolerance/Nausea/Vomiting Low 09/04/2024 Active Problems Problem Noted Date Diagnosed Date Diverticulitis 09/06/2024 Acute blood loss anemia 09/05/2024 Acute lower GI bleeding 09/04/2024 Encounters Date Type Department Care Team Description 09/04/2024 12:10 PM EST Ancillary Procedure [facility] Radiology [address] [place] [id number] Steve Parra MD 09/04/2024 11:32 AM EST - 09/06/2024 3:52 PM EST Hospital Encounter [address] [phone] Steve Parra MD Korus, Adam [...] Years Used Date Smoking Tobacco: Never Assessed [facility] Utilities Answer Date Recorded In the past 12 months has [email or web address], gas, oil, or water [employer] threatened to shut off services in your [...] any time in the past 12 m [facility], were you homeless or living in a nursing home (including now)? No 09/05/2024 Sex and Gender [...] PREPARE RBC'S Routine 09/04/2024 12:18 PM EST [facility] FOR REFERENCE ONLY CT STAT 09/04/2024 12:10 PM EST HEMOGLOBIN AND HEMATOCRIT STAT 09/04/2024 11:40 AM EST from Last 3 Months Results * (ABNORMAL) Hemoglobin and Hematocrit (09/06/2024 7:35 AM EST) Only the most recent of5 resultswithin the time period is included. Hematocrit 29.0(L) 35.0 - 47.0 % 09/06/2024 8:[address] [facility] Hemoglobin 9.8(L) 11.7 - 15.7 g/dL 09/06/2024 8:[address] [facility] Blood Blood specimen / Unknown 09/06/2024 7:35 AM EST 09/06/2024 8:44 AM EST Carlo Tovar MD [place] [address], [place] [address] * Phosphorus (09/06/2024 7:35 AM EST) Only the most recent of2 resultswithin the time period is included. Phosphorus 3.0 2.7 - 4.5 mg/dL 09/06/2024 9:13 AM [facility] Blood (Plasma/Serum) 09/06/2024 7:35 AM EST 09/06/2024 8:44 AM EST Chari YOUNG LAB BLOOD ORDERABLES Performing Organization Address City/[facility]/[place] [address], [place] [address] * Magnesium (09/06/2024 7:35 AM EST) Only the most recent of3 resultswithin the time period is included. Magnesium 1.7 1.6 - 2.7 mg/dL 09/06/2024 9:13 AM [facility] Blood (Plasma/Serum) 09/06/2024 7:35 AM EST 09/06/2024 8:44 AM EST Chari YOUNG LAB BLOOD ORDERABLES Performing Organization Address City/[facility]/[place] [address], [place] [address] * Basic Metabolic Panel (09/06/2024 7:35 AM EST) Only the most recent of2 resultswithin the time period is included. Glucose 90 65 - 99 mg/dL 09/06/2024 9:13 AM [facility] Comment:Fasting: <100 mg/dL, Non-Fasting: <200 mg/dL (ADA 2005) Blood Urea Nitrogen (BUN) 11 8 - 21 mg/dL 09/06/2024 9:13 AM [facility] Creatinine 0.6 0.4 - 1.1 mg/dL 09/06/2024 9:13 AM [facility] eGFR >90 >59 09/06/2024 9:13 AM [facility] Comment:CKD-EPI (2020) in mL /min/1.73 sq meters. Sodium 140 136 - 145 mmol/L 09/06/2024 9:13 AM [facility] Potassium 4.6 3.4 - 5.3 mmol/L 09/06/2024 9:13 AM [facility] Chloride 105 98 - 107 mmol/L 09/06/2024 9:13 AM [facility] CO2 26 22 - 33 mmol/L 09/06/2024 9:13 AM [facility] Anion Gap 9 7 - 17 09/06/2024 9:13 AM [facility] Calcium 8.7 8.7 - 10.5 mg/dL 09/06/2024 9:13 AM [facility] BUN/Creatinine Ratio 18 10.0 - 25.0 Ratio 09/06/2024 9:13 AM [facility] Blood (Plasma/Serum) 09/06/2024 7:35 AM EST 09/06/2024 8:44 AM EST Chari YOUNG [place] [address], [place] [address] * POCT Glucose, Fingerstick (09/05/2024 11:51 AM [...] 4.0 - 11.0 Thou/uL 09/05/2024 12:33 AM [facility] Platelet Count 242 150 - 450 Thou/uL 09/05/2024 12:33 AM [facility] Hemoglobin 9.8(L) 11.7 - 15.7 g/dL 09/05/2024 12:33 AM [facility] Hematocrit 30.0(L) 35.0 - 47.0 % 09/05/2024 12:33 AM [facility] Red Blood Cell Count 3.11(L) 4.00 - 5.40 Mil/uL 09/05/2024 12:33 AM [facility] MCV 97 80 - 100 fL 09/05/2024 12:33 AM [facility] MCH 31.5(H) 27.0 - 31.0 pg 09/05/2024 12:33 AM [facility] MCHC 32.7 30.0 - 36.0 g/dL 09/05/2024 12:33 AM [facility] RDW 13.4 11.5 - 14.5 % 09/05/2024 12:33 AM [facility] MPV 10.3 7.5 - 12.5 fL 09/05/2024 12:33 AM [facility] Blood Blood specimen / Unknown 09/05/2024 12:02 AM EST 09/05/2024 12:26 AM EST Steve Goss MD [place] [address], [address] [address] * Partial Thromboplastin Time (PTT) (09/04/2024 6:06 PM EST) Anticoagulant NO ANTI COAGULANT MEDS 09/04/2024 6:06 PM EST Partial Thromboplastin Time (PTT) 28 25 - 36 seconds 09/04/2024 6:44 PM [facility] Blood Plasma specimen / Unknown 09/04/2024 6:06 PM EST 09/04/2024 6:24 PM EST Katalina Biolo PA-C LAB BLOOD ORDERABLES Performing Organization Address City/[facility]/ZIP Co de Phone Number [address] [address], [address] [address] * Thrombin Time (09/04/2024 6:06 PM EST) Anticoagulant NO ANTI COAGULANT MEDS 09/04/2024 6:06 PM EST Thrombin Time 13.9 12.7 - 19.2 seconds 09/04/2024 6:[address] [facility] Blood Plasma specimen / Unknown 09/04/2024 6:06 PM EST 09/04/2024 6:24 PM EST [email or web address] PA-C LAB BLOOD ORDERABLES Performing Organization Address City/[facility]/ZIP Co de Phone Number [address] [address], [address] [address] * Protime-INR (09/04/2024 6:06 PM EST) Anticoagulant NO ANTI COAGULANT MEDS 09/04/2024 6:06 PM EST Prothrombin Time (PT) 12.1 10.0 - 13.5 seconds 09/04/2024 6:[address] [facility] INR 1.1 09/04/2024 6:[address] [facility] Comment:INR Therapeutic Rang es: Standard dose anticoagulant 2.0 to 3.0, High dose anticoagulant 2.5-3.5. Blood Plasma specimen / Unknown 09/04/2024 6:06 PM EST 09/04/2024 6:24 PM EST Katalina Biolo PA-C LAB BLOOD ORDERABLES Performing Organization Address City/[facility] [place] [address], [place] [address] * (ABNORMAL) Fibrinogen Level (09/04/2024 6:06 PM EST) Fibrinogen 484(H) 148 - 435 mg/dL 09/04/2024 6:44 PM [facility] Blood Plasma specimen / Unknown 09/04/2024 6:06 PM EST 09/04/2024 6:24 PM EST Mavento PA-C LAB BLOOD ORDERABLES [address] [address], [address] [address] * LACTATE DEHYDROGENASE (LDH) (09/04/2024 6:06 PM EST) Lactate Dehydrogenase (LDH) 133 120 - 260 U/L 09/04/2024 6:55 PM [facility] Blood (Plasma/Serum) 09/04/2024 6:06 PM EST 09/04/2024 6:24 PM EST Mavento PA-C LAB BLOOD ORDERABLES Performing Organization Address City/[facility]/ZIP Co de Phone Number [address] [address], [address] [address] * Lactic Acid, Plasma (Routine) (09/04/2024 6:06 PM EST) Lactic Acid 0.9 0.5 - 1.9 mmol/L 09/04/2024 6:49 PM [facility] Blood Plasma specimen / Unknown 09/04/2024 6:06 PM EST 09/04/2024 6:24 PM EST Mavento PA-C LAB BLOOD ORDERABLES [address] [address], [address] [address] * HAPTOGLOBIN (09/04/2024 6:06 PM EST) Haptoglobin 149 30 - 200 mg/dL 09/04/2024 6:[address] [facility] Blood (Plasma/Serum) 09/04/2024 6:06 PM EST 09/04/2024 6:24 PM EST [place] Embly PA-C LAB BLOOD ORDERABLES Performing Organization Address [facility] [place] [address], [place] [address] * FERRITIN (09/04/2024 6:06 PM EST) Ferritin 193 30 - 400 ug/L 09/04/2024 6:[address] [facility] Blood (Plasma/Serum) 09/04/2024 6:06 PM EST 09/04/2024 6:24 PM EST [facility] PA-C LAB BLOOD ORDERABLES Performing Organization Address City/[facility] [place] [address], [place] [address] * ECG 12 lead (STAT) (09/04/2024 4:35 PM EST) Ventricular rate [address] [facility] Atrial rate 93 BPM EKG [facility] P-R interval 176 ms EKG [facility] QRS duration 98 ms EKG [facility] Q-T interval 372 ms EKG [facility] QTC calculation (Bazett) [address] [facility] P axis 49 degrees EKG [facility] R axis -9 degrees EKG [facility] T axis 87 degrees EKG [facility] 09/04/2024 4:35 PM [address]ative EKG [facility] - 09/04/2024 4:44 PM EST Normal sinus rhythm Possible Left atrial enlargement Nonspecific ST and T wave abnormality Abnormal ECG No previous ECGs available Confirmed by MD Root John ([id number]) on 09/04/2024 4:44:03 PM Procedure Note All Root MD - 09/04/2024 Normal sinus rhythm Possible Left atrial enlargement Nonspecific ST and T wave abnormality Abnormal ECG No previous ECGs available Confirmed by MD Root John ([id number]) on 09/04/2024 4:44:03 PM Steve Goss MD ECG ORDERABLES EKG [facility] * Transfuse RBC's: (09/04/2024 4:19 PM EST) Only the most recent of2 resultswithin the time period is included. Steve Parra MD BLOOD TRANSFUSION OR DERABLES * (ABNORMAL) Comprehensive Metabolic Panel (Routine) (09/04/2024 1:41 PM EST) Glucose 111(H) 65 - 99 mg/dL 09/04/2024 3:14 PM [facility] Comment:Fasting: <100 mg/dL, Non-Fasting: <200 mg/dL (ADA 2005) Blood Urea Nitrogen (BUN) 13 8 - 21 mg/dL 09/04/2024 3:14 PM [facility] Creatinine 0.6 0.4 - 1.1 mg/dL 09/04/2024 3:14 PM [facility] eGFR >90 >59 09/04/2024 3:14 PM [facility] Comment:CKD-EPI (2020) in mL /min/1.73 sq meters. Sodium 137 136 - 145 mmol/L 09/04/2024 3:14 PM [facility] Potassium 4.7 3.4 - 5.3 mmol/L 09/04/2024 3:14 PM [facility] Chloride 104 98 - 107 mmol/L 09/04/2024 3:14 PM [facility] CO2 26 22 - 33 mmol/L 09/04/2024 3:14 PM [facility] Calcium 8.6(L) 8.7 - 10.5 mg/dL 09/04/2024 3:14 PM [facility] Alkaline Phosphatase 70 32 - 122 U/L 09/04/2024 3:14 PM [facility] Aspartate Aminotrans (AST) 15 10 - 50 U/L 09/04/2024 3:14 PM [facility] Alanine Aminotrans (ALT) 15 10 - 50 U/L 09/04/2024 3:14 PM [facility] Bilirubin, Total 0.3 0.2 - 1.0 mg/dL 09/04/2024 3:14 PM [facility] Protein, Total 6.0(L) 6.3 - 8.3 g/dL 09/04/2024 3:14 PM [facility] Albumin 3.5 3.4 - 4.8 g/dL 09/04/2024 3:14 PM [facility] BUN/Creatinine Ratio 22 10.0 - 25.0 Ratio 09/04/2024 3:14 PM [facility] Globulin 2.5 1.5 - 3.9 g/dL 09/04/2024 3:14 PM [facility] Albumin/Globulin Ratio 1.4 1.0 - 3.0 Ratio 09/04/2024 3:14 PM [facility] Anion Gap 7 7 - 17 09/04/2024 3:14 PM [facility] Blood (Plasma/Serum) 09/04/2024 1:41 PM EST 09/04/2024 2:56 PM EST Steve Goss MD LAB BLOOD ORDERABLES Performing Organization Address [facility]/[place] [address], [place] [address] * ABO Confirmation (09/04/2024 12:32 PM EST) ABO/Rh O POSITIVE 09/04/2024 1:[address] [facility] Blood specimen / Unknown 09/04/2024 12:32 PM EST 09/04/2024 1:00 PM EST Steve Parra MD BLOOD BANK TEST ORDCarmen KATHLEEN Performing Organization Address [facility] [place] [address], [place] [address] * Type and Screen (09/04/2024 12:28 PM EST) ABO/Rh O POSITIVE 09/04/2024 1:45 PM [facility] Antibody Screen NEGATIVE 09/04/2024 1:45 PM [facility] Specimen Expiration 09/07/2024 09/04/2024 1:45 PM [facility] Blood Bank Comment Second Sample needed for Blood Transfusion 09/04/2024 1:45 PM [facility] Unit Number [id number] 09/04/2024 2:04 PM [facility] Blood Component Type LR RBC CONTAINER 2 09/04/2024 2:04 PM [facility] Unit Division 00 09/04/2024 2:04 PM [facility] Unit Status ISSUED,FINAL 09/05/2024 12:11 AM [facility] Transfusion Status OK TO TRANSFUSE 09/04/2024 2:04 PM [facility] Crossmatch Result Electronically Compatible 09/04/2024 2:04 PM [facility] Unit Number [id number] 09/04/2024 3:12 PM [facility] Blood Component Type LEUKOREDUCED RED CELLS 09/04/2024 3:12 PM [facility] Unit Division 00 09/04/2024 3:12 PM [facility] Unit Status ISSUED,FINAL 09/05/2024 12:11 AM [facility] Transfusion Status OK TO TRANSFUSE 09/04/2024 3:12 PM [facility] Crossmatch Result Electronically Compatible 09/04/2024 3:12 PM [facility] Blood Blood specimen / Unknown 09/04/2024 12:28 PM EST 09/04/2024 1:00 PM EST Comment:Blood Steve Parra MD BLOOD BANK TEST ORDCarmen [facility] See Below [facility] [address] [place] [address] * Prepare RBC's:Prepare in: Units; Number of [...] Decision Thoroughly Discussed with: Patient Care Teams Front Office Supervisor Relationship Specialty Start Date End Date Misti Thorpe MD [address] [place] [id number] PCP - General Family Medicine 09/05/24
== END 2024-11-01 13:57 | disposition home or self-care (01) ==
PROVIDERS: PCP Internal Medicine
DX: M67.431 Ganglion, right wrist (principal)
CPT/HCPCS: 99204

== ENCOUNTER → 2024-11-01 13:20 | Outpatient (BNVA) | payer BC, SELFPAY | PROVIDERS: PCP Internal Medicine ==

== ENCOUNTER 2024-11-23 10:08 | Outpatient (AMB) | payer BC, SELFPAY ==
[2024-11-23 10:15] VITALS: BP 136/84; BMI 34.6
--- NOTE | 2024-11-23 10:15 | MHC.PC.OV ---
Vital Signs 11/23/24 10:15 Height 5 ft 2 in Weight 189 lb BMI 34.6 BP 136/84 Blood Pressure Location Lt brachial Position Sitting Intake Visit Reasons: Volar Wrist Ganglion Excision 01/16 w/ Dr Peralta Skate Boarder Required: No Accompanied by: Self / Same As Patient Allergies oxycodone Adverse Reaction (Intermediate, Verified 11/23/24 10:24) sick to stomach codeine Adverse Reaction (Intermediate, Uncoded 11/23/24 10:24) abd pain, vomiting Medication List - Last Reconciled 11/23/24 by Misti Cam MD aspirin 81 mg PO DAILY buspirone 10 mg PO BID 30 days calcium carbonate (Calcium 500) 500 mg PO DAILY cholecalciferol (vitamin D3) 50 mcg PO DAILY [id number] serr 1,500-400-100 mg-unit-mg (Glucosamine Daily Complex) 1 tab PO DAILY ibuprofen 800 mg PO Q8H 30 days metoprolol tartrate 25 mg PO BID mirtazapine 45 mg PO BEDTIME 90 days multivitamin (Daily Multi-Vitamin tablet) 1 tab PO DAILY omeprazole 20 mg PO DAILY PRN 90 days vitamin B complex (B Complex-Vitamin B12 tablet) 1 tab PO DAILY Tobacco use date assessed: 10/04/24 Dental Screening Dental Screen Date: 10/04/24 HPI HPI Comments History of Present Illness Details The patient is a 64-year-old female presenting for a preoperative evaluation for the removal of a right ganglion cyst, scheduled for January 16. She is under the care of Dr. Jennifer Peralta and currently reports no symptoms from the ganglion cyst itself. She has undergone several surgeries, including an aortic valve replacement in January 2023, aneurysm removal, bilateral carpal tunnel release, and a cholecystectomy. She has 5-7 Mets of ADLs and is a medium risk surgical patient. She will hold ibuprofen and aspirin 5-7 days before surgery. EKG and labs are pending for medical clearance The patient has allergies to oxycodone and codeine, causing gastrointestinal issues, and is currently taking low-dose aspirin, which she is advised to stop five to seven days before her surgery. Other medications include buspirone, ibuprofen (to be used cautiously), metoprolol, mirtazapine, omeprazole, calcium with vitamin D, multivitamins, and vitamin B complex. She has a family history of significant conditions, including atrial fibrillation, COPD, dementia, diabetes, osteoporosis, and lung cancer. The patient does not smoke but drinks alcohol in moderation. She also has a skin lesion that is increasing in size and would like Dermatology. [facility] Medical History (Updated 11/23/24 @ 10:35 by Misti Cam MD) Ascending aorta dilatation Severe aortic stenosis Physical exam Hyperkalemia Internal hemorrhoids Diverticulosis Golfers elbow of left upper extremity Obesity (BMI 30.0-34.9) GERD (gastroesophageal reflux disease) Migraine with aura and without status migrainosus, not intractable Surgical History History of bilateral carpal tunnel release H/O aortic valve replacement History of heart surgery History of carpal tunnel surgery History of cholecystectomy Family History Mother COPD (chronic obstructive pulmonary disease) Diabetes Afib Osteoporosis Dementia Father Lung cancer Family/Other Substance use disorder Maternal Grandmother Colon cancer Social History Housing: House Are you a primary health care / medical job titles to a significant other at home: No Do you presently have visiting nurse or other home services: No Alcohol intake: current Alcohol intake frequency: a few times a week Alcohol type: wine Patient Tobacco Use Status: Never used Tobacco e-Cigarette/Vaping Use: Currently Using Second Hand Smoke Exposure: No Substance Use Type: Marijuana service: No Current occupational status: other 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 Current occupational exposures/hazards: No Sexual orientation: Straight/Heterosexual Gender identity: Female Cognitive needs: No Hearing needs: No Vision needs: Yes Questionnaire Thrive Questionnaire Date Thrive assessed: 10/02/24 I am a: Patient What is your living situation today?: I have a steady place to live Within the past 12 months, did the food you bought not last and you didn't have the money to get more?: Never true Within the past 12 months, did you worry whether your food would run out before you got money to buy more?: Never true Do you have trouble paying for medicines?: No Do you have trouble getting transportation to medical appointments?: No Do you have trouble paying your heating and electricity bill?: No Do you have trouble taking care of your child, family member or friend?: No Do you have trouble with day-to-day activities such as bathing, preparing meals, shopping, managing finances, etc.?: No Are you currently unemployed and looking for a job?: No Are you interested in more education?: No Please select the resources that you would like help with: None Currently or been in a relationship where the following occur: No concerns reported THRIVE Score: 0 RADHA-7 AMB Questionnaire RADHA-7 Date RADHA - 7 assessed: 10/04/24 Source: Developed by Drs. Austin Frost, Melissa Mcclendon, Edgar Obrien and colleagues, with an educational edi from [employer]. Review of Systems Const All systems reviewed & are unremarkable except as noted in HPI and below Card Denies chest pain at rest, Denies chest pain with activity, Denies edema, Denies irregular heart rhythm, Denies claudication, Denies dyspnea, Denies dyspnea on exertion, Denies orthopnea, Denies paroxysmal nocturnal dyspnea and Denies slow heart rate Resp Denies cough, Denies dyspnea and Denies dyspnea on exertion GI Denies abdominal pain, Denies change in bowel habits, Denies excessive flatus, Denies nausea and Denies vomiting Denies urinary incontinence, Denies urinary hesitancy and Denies urinary urgency Neuro Denies lack of coordination Physical exam (Primary Care) Vital Signs: Last Vital Signs BP 136/84 11/23/24 10:15 BMI result Body Mass Index 34.6 BMI Assessment/Plan discussion: High BMI High, discussed plan: lifestyle, weight reduction, dietary and physical activity Tobacco/Smoking Status: Tobacco use Status Tobacco use date assessed 10/04/24 11/23/24 10:20 Patient Tobacco Use Status Never used Tobacco 11/23/24 10:20 Tobacco use type 10/09/22 13:46 e-Cigarette/Vaping Use Currently Using 11/23/24 10:20 Thrive Assessment: Date of Thrive Assessment Date Thrive assessed 10/02/24 11/23/24 10:20 Currently or been in a relationship where the following occur: No concerns reported Resp Effort & Inspection: normal respiratory effort Auscultation: clear to auscultation bilaterally Cardio Jugular venous distension: no JVD Rate: regular rate Rhythm: regular rhythm Heart sounds: Murmur heart sound present Extrem General: Yes full ROM Coding Level of Care Code Est Pt Level 4 (89538) Complex EM visit Add On G2211 Diagnoses Pre-op evaluation Z. Ganglion cyst of volar aspect of right wrist M67.431 Aortic valve replaced Z95.2 Skin lesion L98.9 Time Spent (min) 22 Assessment & Plan Assessment & Plan (1) Pre-op evaluation: Code(s): Z - Encounter for other preprocedural examination Category: Medical (2) Ganglion cyst of volar aspect of right wrist: Code(s): M67.431 - Ganglion, right wrist Category: Medical (3) Aortic valve replaced: Code(s): Z95.2 - Presence of prosthetic heart valve Category: Surgical (4) Skin lesion: Code(s): L98.9 - Disorder of the skin and subcutaneous tissue, unspecified Category: Medical Plan The evaluation is to ensure the patient is cleared for the upcoming cyst removal procedure on January 16, with emphasis on minimizing bleeding risk by discontinuing selected medications. Necessary diagnostic tests, including an EKG and fasting bloodwork, are scheduled to be completed by December 16. The patient is referred to dermatology for a skin lesion assessment, which does not currently appear malignant. Patient was informed and verbally consented to the use of an ambient scribe for clinic note documentation during this visit. During the visit, I discussed with the patient the necessity of preoperative clearance, including the discontinuation of aspirin and avoidance of ibuprofen immediately before the surgery to reduce bleeding risks. We reviewed her surgical history and current medications to ensure no contraindications for the procedure. The skin lesion's characteristics do not appear concerning, but a dermatology referral was provided. We also addressed maintaining stable heart and vascular conditions pre-surgery, and no significant complications are anticipated. I explained the requirement for the completion of an EKG and fasting bloodwork by December 16 to proceed with surgery clearance. Orders: Orders Complete Blood Count Auto Diff Today D64.9 - Anemia, unspecified Comprehensive [place]. Panel Fast Today Z81 - Encounter for other preprocedural examination ECG 12 lead EKG Today Z - Encounter for other preprocedural examination Referrals Dermatology Referral L98.9 - Disorder of the skin and subcutaneous tissue, unspecified Patient Instructions: - Discontinue aspirin 5-7 days prior to surgery - Avoid ibuprofen use at least one week before the procedure - Complete the EKG and fasting bloodwork before December 16 - Attend therapeutic sales specialist appointment for the skin lesion evaluation - Continue regular medications as prescribed except aspirin - Notify immediately of any new symptoms or concerns - Bring any relevant medical documents or records to upcoming appointments
== END 2024-11-23 10:36 | disposition home or self-care (01) ==
PROVIDERS: PCP Internal Medicine; Visit Provider Internal Medicine
DX: Z01.818 Encounter for other preprocedural examination (principal); M67.431 Ganglion, right wrist; Z95.2 Presence of prosthetic heart valve; L98.9 Disorder of the skin and subcutaneous tissue, unspecified

== ENCOUNTER 2024-12-03 10:41 | Outpatient (REF) | payer BC, SELFPAY ==
--- OUTSIDE RECORDS SUMMARY | 2024-12-03 10:45 | XMS_ITS | Clinical Summary ---
Author Organization [facility] Address [address] [place] [address] Care Team Providers Care Non Destructive Evaluation Manager Name Role Phone Misti Thorpe MD Primary Care Provider [phone] Allergies Active Allergy Reactions Criticality Noted Date Comments Codeine GI Intolerance/Nausea/Vomiting Low 09/04/2024 Hydrocodone-Acetaminophen GI Intolerance/Nausea/Vomiting Low 09/04/2024 Morphine GI Intolerance/Nausea/Vomiting Low 09/04/2024 Oxycodone GI Intolerance/Nausea/Vomiting Low 09/04/2024 Active Problems Problem Noted Date Diagnosed Date Diverticulitis 09/06/2024 Acute blood loss anemia 09/05/2024 Acute lower GI bleeding 09/04/2024 Encounters Date Type Department Care Team Description 09/04/2024 12:10 PM EST Ancillary Procedure [facility] [address] [place] [phone] Steve Parra MD 09/04/2024 11:32 AM EST - 09/06/2024 3:52 PM EST Hospital Encounter [address] [phone] Steve Parra MD Korus, Adam [...] Years Used Date Smoking Tobacco: Never Assessed [facility] Utilities Answer Date Recorded In the past 12 months has [employer], gas, oil, or water [employer] threatened to shut off services in your [...] any time in the past 12 m [facility], were you homeless or living in a chcf (including now)? No 09/05/2024 Sex and Gender [...] - 47.0 % 09/06/2024 8:54 AM EST [facility] Hemoglobin 9.8(L) 11.7 - 15.7 g/dL 09/06/2024 8:54 AM EST [facility] Blood Blood specimen / Unknown 09/06/2024 7:35 AM EST 09/06/2024 8:44 AM EST Carlo Tovar MD LAB BLOOD ORDERABL ES Performing Organization Address [facility] [place] [address], [place] [address] * Phosphorus (09/06/2024 7:35 AM EST) Only the most recent of2 resultswithin the time period is included. Phosphorus 3.0 2.7 - 4.5 mg/dL 09/06/2024 9:13 AM EST [facility] Blood (Plasma/Serum) 09/06/2024 7:35 AM EST 09/06/2024 8:44 AM EST Chari YOUNG LAB BLOOD ORDERABLES Performing Organization Address [facility] [place] [address], [place] [address] * Magnesium (09/06/2024 7:35 AM EST) Only the most recent of3 resultswithin the time period is included. Magnesium 1.7 1.6 - 2.7 mg/dL 09/06/2024 9:13 AM EST [facility] Blood (Plasma/Serum) 09/06/2024 7:35 AM EST 09/06/2024 8:44 AM EST Chari YOUNG LAB BLOOD ORDERABLES Performing Organization Address [facility] [place] [address], [place] [address] * Basic Metabolic Panel (09/06/2024 7:35 AM EST) Only the most recent of2 resultswithin the time period is included. Glucose 90 65 - 99 mg/dL 09/06/2024 9:13 AM EST [facility] Comment:Fasting: <100 mg/dL, Non-Fasting: <200 mg/dL (ADA 2005) Blood Urea Nitrogen (BUN) 11 8 - 21 mg/dL 09/06/2024 9:13 AM [facility] Creatinine 0.6 0.4 - 1.1 mg/dL 09/06/2024 9:13 AM [facility] eGFR >90 >59 09/06/2024 9:13 AM [facility] Comment:CKD-EPI (2020) in mL /min/1.73 sq meters. Sodium 140 136 - 145 mmol/L 09/06/2024 9:13 AM [facility] Potassium 4.6 3.4 - 5.3 mmol/L 09/06/2024 9:13 AM [facility] Chloride 105 98 - 107 mmol/L 09/06/2024 9:13 AM [facility] CO2 26 22 - 33 mmol/L 09/06/2024 9:13 AM [facility] Anion Gap 9 7 - 17 09/06/2024 9:13 AM [facility] Calcium 8.7 8.7 - 10.5 mg/dL 09/06/2024 9:13 AM [facility] BUN/Creatinine Ratio 18 10.0 - 25.0 Ratio 09/06/2024 9:13 AM [facility] Blood (Plasma/Serum) 09/06/2024 7:35 AM EST 09/06/2024 8:44 AM EST Chari YOUNG LAB BLOOD ORDERABLES Performing Organization Address City/[facility]/[place] [address], [place] [address] * POCT Glucose, Fingerstick (09/05/2024 11:51 AM [...] 4.0 - 11.0 Thou/uL 09/05/2024 12:33 AM [facility] Platelet Count 242 150 - 450 Thou/uL 09/05/2024 12:33 AM [facility] Hemoglobin 9.8(L) 11.7 - 15.7 g/dL 09/05/2024 12:33 AM [facility] Hematocrit 30.0(L) 35.0 - 47.0 % 09/05/2024 12:33 AM [facility] Red Blood Cell Count 3.11(L) 4.00 - 5.40 Mil/uL 09/05/2024 12:33 AM [facility] MCV 97 80 - 100 fL 09/05/2024 12:33 AM [facility] MCH 31.5(H) 27.0 - 31.0 pg 09/05/2024 12:33 AM [facility] MCHC 32.7 30.0 - 36.0 g/dL 09/05/2024 12:33 AM [facility] RDW 13.4 11.5 - 14.5 % 09/05/2024 12:33 AM [facility] MPV 10.3 7.5 - 12.5 fL 09/05/2024 12:33 AM [facility] Blood Blood specimen / Unknown 09/05/2024 12:02 AM EST 09/05/2024 12:26 AM EST Steve Goss MD LAB BLOOD ORDERABLES [address] [address], [address] [address] * Partial Thromboplastin Time (PTT) (09/04/2024 6:06 PM EST) Anticoagulant NO ANTI COAGULANT MEDS 09/04/2024 6:06 PM EST Partial Thromboplastin Time (PTT) 28 25 - 36 seconds 09/04/2024 6:44 PM EST [facility] Blood Plasma specimen / Unknown 09/04/2024 6:06 PM EST 09/04/2024 6:24 PM EST Katalina Reeves PA-C LAB BLOOD ORDERABLES Performing Organization Address City/[facility]/ZIP Co de Phone Number [address] [address], [address] [address] * Thrombin Time (09/04/2024 6:06 PM EST) Anticoagulant NO ANTI COAGULANT MEDS 09/04/2024 6:06 PM EST Thrombin Time 13.9 12.7 - 19.2 seconds 09/04/2024 6:44 PM [facility] Blood Plasma specimen / Unknown 09/04/2024 6:06 PM EST 09/04/2024 6:24 PM EST Katalina Reeves PA-C LAB BLOOD ORDERABLES Performing Organization Address [facility] Co de Phone Number [address] [address], [address] [address] * Protime-INR (09/04/2024 6:06 PM EST) Anticoagulant NO ANTI COAGULANT MEDS 09/04/2024 6:06 PM EST Prothrombin Time (PT) 12.1 10.0 - 13.5 seconds 09/04/2024 6:44 PM [facility] INR 1.1 09/04/2024 6:44 PM EST [facility] Comment:INR Therapeutic Rang es: Standard dose anticoagulant 2.0 to 3.0, High dose anticoagulant 2.5-3.5. Blood Plasma specimen / Unknown 09/04/2024 6:06 PM EST 09/04/2024 6:24 PM EST Katalina Reeves PA-C LAB BLOOD ORDERABLES Performing Organization Address City/[facility]/[place] [address], [place] [address] * (ABNORMAL) Fibrinogen Level (09/04/2024 6:06 PM EST) Fibrinogen 484(H) 148 - 435 mg/dL 09/04/2024 6:44 PM EST [facility] Blood Plasma specimen / Unknown 09/04/2024 6:06 PM EST 09/04/2024 6:24 PM EST Katalina Reeves PA-[place] [address], [place] [address] * LACTATE DEHYDROGENASE (LDH) (09/04/2024 6:06 PM EST) Lactate Dehydrogenase (LDH) 133 120 - 260 U/L 09/04/2024 6:55 PM EST [facility] Blood (Plasma/Serum) 09/04/2024 6:06 PM EST 09/04/2024 6:24 PM EST Katalina Reeves PA-C [place] [address], [place] [address] * Lactic Acid, Plasma (Routine) (09/04/2024 6:06 PM EST) Lactic Acid 0.9 0.5 - 1.9 mmol/L 09/04/2024 6:49 PM EST [facility] Blood Plasma specimen / Unknown 09/04/2024 6:06 PM EST 09/04/2024 6:24 PM EST Katalina Reeves PA-C [place] [address], [address] [address] * HAPTOGLOBIN (09/04/2024 6:06 PM EST) Haptoglobin 149 30 - 200 mg/dL 09/04/2024 6:55 PM EST [facility] Blood (Plasma/Serum) 09/04/2024 6:06 PM EST 09/04/2024 6:24 PM EST Katalina YOUNG-C LAB BLOOD ORDERABLES Performing Organization Address City/[facility]/[place] [address], [place] [address] * FERRITIN (09/04/2024 6:06 PM EST) Ferritin 193 30 - 400 ug/L 09/04/2024 6:55 PM EST [facility] Blood (Plasma/Serum) 09/04/2024 6:06 PM EST 09/04/2024 6:24 PM EST Katalina YOUNG-C LAB BLOOD ORDERABLES Performing Organization Address City/[facility] [place] [address], [place] [address] * ECG 12 lead (STAT) (09/04/2024 4:35 PM EST) Ventricular rate 93 BPM EKG [facility] Atrial rate 93 BPM EKG [facility] P-R interval 176 ms EKG [facility] QRS duration 98 ms EKG [facility] Q-T interval 372 ms EKG [facility] QTC calculation (Bazett) 463 ms EKG [facility] P axis 49 degrees EKG [facility] R axis -9 degrees EKG [facility] T axis 87 degrees EKG [facility] 09/04/2024 4:35 PM EST Narrative EKG [facility] - 09/04/2024 4:44 PM EST Normal sinus rhythm Possible Left atrial enlargement Nonspecific ST and T wave abnormality Abnormal ECG No previous ECGs available Confirmed by MD Root John ([id number]) on 09/04/2024 4:44:03 PM Procedure Note All Root MD - 09/04/2024 Normal sinus rhythm Possible Left atrial enlargement Nonspecific ST and T wave abnormality Abnormal ECG No previous ECGs available Confirmed by MD Root John ([id number]) on 09/04/2024 4:44:03 PM Steve Goss MD ECG ORDERABLES EKG [facility] * Transfuse RBC's: (09/04/2024 4:19 PM EST) Only the most recent of2 resultswithin the time period is included. Steve Parra MD BLOOD TRANSFUSION OR DERABLES * (ABNORMAL) Comprehensive Metabolic Panel (Routine) (09/04/2024 1:41 PM EST) Glucose 111(H) 65 - 99 mg/dL 09/04/2024 3:14 PM [facility] Comment:Fasting: <100 mg/dL, Non-Fasting: <200 mg/dL (ADA 2005) Blood Urea Nitrogen (BUN) 13 8 - 21 mg/dL 09/04/2024 3:14 PM [facility] Creatinine 0.6 0.4 - 1.1 mg/dL 09/04/2024 3:14 PM [facility] eGFR >90 >59 09/04/2024 3:14 PM [facility] Comment:CKD-EPI (2020) in mL /min/1.73 sq meters. Sodium 137 136 - 145 mmol/L 09/04/2024 3:14 PM [facility] Potassium 4.7 3.4 - 5.3 mmol/L 09/04/2024 3:14 PM [facility] Chloride 104 98 - 107 mmol/L 09/04/2024 3:14 PM [facility] CO2 26 22 - 33 mmol/L 09/04/2024 3:14 PM [facility] Calcium 8.6(L) 8.7 - 10.5 mg/dL 09/04/2024 3:14 PM [facility] Alkaline Phosphatase 70 32 - 122 U/L 09/04/2024 3:14 PM [facility] Aspartate Aminotrans (AST) 15 10 - 50 U/L 09/04/2024 3:14 PM [facility] Alanine Aminotrans (ALT) 15 10 - 50 U/L 09/04/2024 3:14 PM [facility] Bilirubin, Total 0.3 0.2 - 1.0 mg/dL 09/04/2024 3:14 PM [facility] Protein, Total 6.0(L) 6.3 - 8.3 g/dL 09/04/2024 3:14 PM [facility] Albumin 3.5 3.4 - 4.8 g/dL 09/04/2024 3:14 PM [facility] BUN/Creatinine Ratio 22 10.0 - 25.0 Ratio 09/04/2024 3:14 PM [facility] Globulin 2.5 1.5 - 3.9 g/dL 09/04/2024 3:14 PM [facility] Albumin/Globulin Ratio 1.4 1.0 - 3.0 Ratio 09/04/2024 3:14 PM [facility] Anion Gap 7 7 - 17 09/04/2024 3:14 PM [facility] Blood (Plasma/Serum) 09/04/2024 1:41 PM EST 09/04/2024 2:56 PM EST Steve Goss MD LAB BLOOD ORDERABLES Performing Organization Address [facility]/[place] [address], [place] [address] * ABO Confirmation (09/04/2024 12:32 PM EST) ABO/Rh O POSITIVE 09/04/2024 1:46 PM [facility] Blood specimen / Unknown 09/04/2024 12:32 PM EST 09/04/2024 1:00 PM EST Steve Parra MD BLOOD BANK TEST NATHANAEL KATHLE[facility] [address] [address], [place] [address] [address] * Type and Screen (09/04/2024 12:28 PM EST) ABO/Rh O POSITIVE 09/04/2024 1:45 PM [facility] Antibody Screen NEGATIVE 09/04/2024 1:45 PM [facility] Specimen Expiration 09/07/2024 09/04/2024 1:45 PM [facility] Blood Bank Comment Second Sample needed for Blood Transfusion 09/04/2024 1:45 PM [facility] Unit Number [id number] 09/04/2024 2:04 PM [facility] Blood Component Type LR RBC CONTAINER 2 09/04/2024 2:04 PM [facility] Unit Division 00 09/04/2024 2:04 PM [facility] Unit Status ISSUED,FINAL 09/05/2024 12:11 AM [facility] Transfusion Status OK TO TRANSFUSE 09/04/2024 2:04 PM [facility] Crossmatch Result Electronically Compatible 09/04/2024 2:04 PM [facility] Unit Number [id number] 09/04/2024 3:12 PM [facility] Blood Component Type LEUKOREDUCED RED CELLS 09/04/2024 3:12 PM [facility] Unit Division 00 09/04/2024 3:12 PM [facility] Unit Status ISSUED,FINAL 09/05/2024 12:11 AM [facility] Transfusion Status OK TO TRANSFUSE 09/04/2024 3:12 PM [facility] Crossmatch Result Electronically Compatible 09/04/2024 3:12 PM [facility] Blood Blood specimen / Unknown 09/04/2024 12:28 PM EST 09/04/2024 1:00 PM EST Comment:Blood Steve Parra MD BLOOD BANK TEST [facility] [place] [address] * Prepare RBC's:Prepare in: Units; Number of [...] Decision Thoroughly Discussed with: Patient Care Teams Non Destructive Evaluation Manager Relationship Specialty Start Date End Date Misti Thorpe MD [address] [place] [id number] PCP - General Family Medicine 09/05/24
[2024-12-03 10:53] LABS: MANUAL DIFF FLAG NO
[2024-12-03 11:03] LABS: Basophils Absolute Auto 0.1 X10*3/uL (0.0-0.2); Eosinophils Absolute Auto 0.2 X10*3/uL (0.0-0.4); Eosinophils Percent Auto 4.1 % (0-4); Hematocrit 42.2 % (37.0-47.0); Hemoglobin 13.9 g/dl (12.0-16.0); Imm Gran Abs Auto 0.02 X10*3/uL (0.00-0.03); Imm Gran Pct Auto 0.3 % (0.0-0.4); Lymphocytes Absolute Auto 2.2 X10*3/uL (1.2-4.9); Lymphocytes Percent Auto 37.5 % (20-40); Mean Corpuscular HGB Conc 32.9 g/dl (31.0-35.0); Mean Corpuscular Hemoglobin 31.4 pg (27.0-33.0); Mean Corpuscular Volume 95.5 fL (80.0-98.0); Monocytes Absolute Auto 0.5 X10*3/uL (0.1-1.2); Monocytes Percent Auto 8.5 % (2-11); Neutrophils Absolute Auto 2.9 x10*3/uL (2.0-8.3); Neutrophils Percent Auto 48.6 % (45-73); Platelet Count 294 X10*3/uL (160-400); Red Blood Count 4.42 X10*6/uL (4.20-5.50); Red Cell Distribution Width 12.3 % (11.0-16.0); White Blood Count 5.9 X10*3/uL (4.8-10.8)
[2024-12-03 12:08] LABS: Alanine Aminotransferase 17 U/L (0-31); Albumin Level 3.9 g/dL (3.5-5.0); Alkaline Phosphatase 83 U/L (39-117); Anion Gap 11 (12-20); Aspartate Amino Transferase 24 U/L (5-31); Bilirubin Total 0.3 mg/dL (0.0-1.0); Blood Urea Nitrogen 11 mg/dL (9-16); Calcium 9.6 mg/dL (8.4-10.2); Carbon Dioxide 30 mmol/L (22-29); Chloride 106 mmol/L (96-108); Estimated Glomerular Filt Rate > 60; Glucose Fasting 99 mg/dL (60-99); Iron 65 mcg/dL (30-160); Percent Iron Saturation 23 % (15-50); Potassium 5.1 mmol/L (3.3-5.1); Sodium 142 mmol/L (135-145); Total Iron Binding Capacity 285 mcg/dL (228-428); Total Protein 7.3 g/dL (6.5-8.0); Unsaturated Iron Binding 220 ug/dL; Vitamin D 25-OH Total 50.5 ng/mL (>30)
== END 2024-12-03 10:42 | disposition home or self-care (01) ==
LOC: HO.LAB 10:41
PROVIDERS: PCP Internal Medicine; Visit Provider Internal Medicine
DX: Z00.00 Encounter for general adult medical examination without abnormal findings (principal); D64.9 Anemia, unspecified; E55.9 Vitamin D deficiency, unspecified
CPT/HCPCS: 36415; 80053; 82306; 83540; 85025

== ENCOUNTER → 2024-12-06 12:11 | Outpatient (REF) | payer BC, SELFPAY ==
--- NOTE | 2024-12-06 12:14 | ECG_ITS ---
Test Reason : PRE OP Blood Pressure : */* mmHG Vent. Rate : 58 BPM Atrial Rate : 58 BPM P-R Int : 182 ms QRS Dur : 106 ms QT Int : 470 ms P-R-T Axes : 71 6 63 degrees QTcB Int : 461 ms Sinus bradycardia Possible Left atrial enlargement Minimal voltage criteria for LVH, may be normal variant ( [place] product ) Nonspecific ST abnormality Abnormal ECG When compared with ECG of 16-Sep-2021 13:19, No significant change was found Referred By: Misti Cam Electronically Signed By: Danny Nails
--- OUTSIDE RECORDS SUMMARY | 2024-12-06 14:33 | XMS_ITS | Clinical Summary ---
Author Organization [facility] Address [address] [place] [address] Care Team Providers Care Drywall Finisher Name Role Phone Misti Thorpe MD Primary Care Provider [phone] Allergies Active Allergy Reactions Criticality Noted Date Comments Codeine GI Intolerance/Nausea/Vomiting Low 09/04/2024 Hydrocodone-Acetaminophen GI Intolerance/Nausea/Vomiting Low 09/04/2024 Morphine GI Intolerance/Nausea/Vomiting Low 09/04/2024 Oxycodone GI Intolerance/Nausea/Vomiting Low 09/04/2024 Active Problems Problem Noted Date Diagnosed Date Diverticulitis 09/06/2024 Acute blood loss anemia 09/05/2024 Acute lower GI bleeding 09/04/2024 Social History Tobacco Use Types Packs/Day Years Used Date Smoking Tobacco: Never Assessed [facility] Utilities Answer Date Recorded In the past 12 months has e electric, gas, oil, or water company threatened to shut off services in your [...] were you homeless or living in a fdc (including now)? No 09/05/2024 Sex and Gender [...] on patient's age to complete this topic Advance Directives * Full Code (Latest Code Status on File) Date Activated Date Inactivated Comments 09/04/2024 1:39 PM Question Answer Comments Decision Thoroughly Discussed with: Patient Care Teams Drywall Finisher Relationship Specialty Start Date End Date Misti Thorpe MD [address] [place] [address] PCP - General Family Medicine 09/05/24
== END ==
LOC: HO.CARD 12:11
PROVIDERS: PCP Internal Medicine; Visit Provider Internal Medicine
DX: Z01.818 Encounter for other preprocedural examination (principal)
CPT/HCPCS: 93005

== ENCOUNTER → 2024-12-06 12:14 | Outpatient (BNV) | payer BC, SELFPAY | PROVIDERS: PCP Internal Medicine; Visit Provider Internal Medicine Cardiovascular Disease | DX: R00.1 Bradycardia, unspecified (principal); R94.31 Abnormal electrocardiogram [ECG] [EKG] | CPT/HCPCS: 93010 ==

== ENCOUNTER 2025-01-11 13:03 | Outpatient (AMB) | payer BC, SELFPAY ==
--- NOTE | 2025-01-11 13:08 | A.OFFVIS_ITS ---
Intake Visit Reasons: Preop RT VWG Excision 01/06/25 AR Intake Note: Yolie is a 64 year old right hand dominant female who presents today for a pre operative visit to discuss right volar wrist ganglion excision under general. Patient states she did see her PCP for clearance and will be seeing Injector Assembler today. Allergies oxycodone Adverse Reaction (Intermediate, Verified 11/23/24 10:24) sick to stomach codeine Adverse Reaction (Intermediate, Uncoded 11/23/24 10:24) abd pain, vomiting HPI HPI Preop RT VWG Excision 01/06/25 AR: Details: Yolie is a 64 year old right hand dominant female who presents today for a pre operative visit to discuss right volar wrist ganglion excision under general. Patient states she did see her PCP for clearance and will be seeing Injector Assembler today. [facility] Medical History Ascending aorta dilatation Severe aortic stenosis Physical exam Hyperkalemia Internal hemorrhoids Diverticulosis Golfers elbow of left upper extremity Obesity (BMI 30.0-34.9) GERD (gastroesophageal reflux disease) Migraine with aura and without status migrainosus, not intractable Surgical History History of bilateral carpal tunnel release H/O aortic valve replacement History of heart surgery History of carpal tunnel surgery History of cholecystectomy Family History Mother COPD (chronic obstructive pulmonary disease) Diabetes Afib Osteoporosis Dementia Father Lung cancer Family/Other Substance use disorder Maternal Grandmother Colon cancer Social History Housing: House Are you a primary youth career specialist to a significant other at home: No Do you presently have visiting nurse or other home services: No Alcohol intake: current Alcohol intake frequency: a few times a week Alcohol type: wine Patient Tobacco Use Status: Never used Tobacco e-Cigarette/Vaping Use: Currently Using Second Hand Smoke Exposure: No Substance Use Type: Marijuana service: No Current occupational status: other 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 Neuro: Normal sensation of the tips of all digits of the right hand at this time Vascular: Cap refill brisk Pain: Patient reports no tenderness to palpation about the mass in the volar and radial right wrist Patient reports pain in his area with range of motion of the right wrist ROM: Patient is extend all digits of the right hand fully and without difficulty Skin: No lacerations or abrasions. General: There is noted to be an approximately 1-2 cm in diameter fluid filled mass noted on the radial and volar aspect of the right wrist No ecchymosis, erythema, or evidence of infection. Psych: Appears grossly normal Affect normal Attitude cooperative Assessment & Plan Assessment & Plan (1) Ganglion cyst of volar aspect of right wrist: Code(s): M67.431 - Ganglion, right wrist Category: Medical Plan 1. Volar wrist ganglion cyst of right wrist Ongoing for ?a few months? I educated the patient about the condition. I discussed both operative and nonoperative treatment options. The patient would like to proceed with surgery. The risks and benefits of operative treatment were discussed with the patient and the patient wishes to proceed with surgery. These risks include, but are not limited to, risk of damage to blood vessels, nerves, tendons, infection, recurrence, incomplete relief of preoperative symptoms, persistent pain, possible need for further surgery, and the risks associated with regional blocks and/or anesthesia. Plan is to take the patient to the operating room at some point in the next few weeks for the following procedures: 1. Right volar wrist ganglion excision under general All of the preoperative paperwork including the consent was discussed today. All of the patient's questions were answered in the clinic today. The patient understands that they will be in contact with our global sourcing manager to discuss scheduling their procedure. Patient does report a cardiac history significant for aneurysm and congenital defect that was corrected with artificial valve placement last year, therefore patient will require aircraft cylinder mechanic and Primary Care Provider clearance prior to surgery Patient denies diabetes, blood thinners, asthma, lung issues, kidney issues, or current smoking. Coding Level of Care Code Est Pt Level 4 (92899) Diagnoses Ganglion cyst of volar aspect of right wrist M67.431
--- OUTSIDE RECORDS SUMMARY | 2025-01-11 15:27 | XMS_ITS | Clinical Summary ---
Author Organization [facility] Address [address] [place] [address] Care Team Providers Care Construction Field Engineer Name Role Phone Misti Thorpe MD Primary Care Provider [phone] Allergies Active Allergy Reactions Criticality Noted Date Comments Codeine GI Intolerance/Nausea/Vomiting Low 09/04/2024 Hydrocodone-Acetaminophen GI Intolerance/Nausea/Vomiting Low 09/04/2024 Morphine GI Intolerance/Nausea/Vomiting Low 09/04/2024 Oxycodone GI Intolerance/Nausea/Vomiting Low 09/04/2024 Active Problems Problem Noted Date Diagnosed Date Diverticulitis 09/06/2024 Acute blood loss anemia 09/05/2024 Acute lower GI bleeding 09/04/2024 Social History Tobacco Use Types Packs/Day Years Used Date Smoking Tobacco: Never Assessed [facility] Utilities Answer Date Recorded In the [...] any time in the past [address] [facility], were you homeless or living in a usp (including now)? No 09/05/2024 Comments Unknown Sex and Gender Information Value Date Recorded Sex Assigned at Female 09/04/2024 12:11 PM EST Legal Sex Female 7:10 PM EST Gender Identity Female 09/04/2024 12:11 [...] 2) 2011 Influenza Vaccine 04/21/2024 COVID-19 Vaccine (1 - 2023-2 5 season) 2024 RSV Vaccine 60 years and old er and Patients (1 - 1-dose 75+ series) 2036 Hepatitis B Vaccines Aged Out No long er eligible based on patient's age to complete this topic Insurance - [facility] [employer] OUT [facility] Advance Directives * Full Code (Latest Code Status on File) Date Activated Date Inactivated Comments 09/04/2024 1:39 PM Question Answer Comments Decision Thoroughly Discussed with: Patient Care Teams Construction Field Engineer Relationship Specialty Start Date End Date Misti Thorpe MD [address] [place] [id number] PCP - General Family Medicine 09/05/24
== END 2025-01-11 13:28 | disposition home or self-care (01) ==
PROVIDERS: PCP Internal Medicine
DX: M67.431 Ganglion, right wrist (principal)
CPT/HCPCS: 99024

== ENCOUNTER → 2025-01-11 13:03 | Outpatient (BNVA) | payer BC, SELFPAY | PROVIDERS: PCP Internal Medicine ==

== ENCOUNTER 2025-01-11 13:32 | Outpatient (AMB) | payer BC, SELFPAY ==
--- NOTE | 2025-01-11 14:08 | A.OFFVIS_ITS ---
Vital Signs 01/11/25 14:09 Height 5 ft 2 in Weight 188 lb 4.396 oz BMI 34.4 BP 122/74 Blood Pressure Location Lt brachial Position Sitting Pulse 73 Pulse Source Pulse Oximeter Intake Visit Reasons: Preop/7m follow up Intake Note: pre-op/7 mth f/up Push Button Switch Assembler Required: No Accompanied by: Self / Same As Patient Allergies oxycodone Adverse Reaction (Intermediate, Verified 11/23/24 10:24) sick to stomach codeine Adverse Reaction (Intermediate, Uncoded 11/23/24 10:24) abd pain, vomiting HPI Comments Details: This is a 64-year-old female patient presenting for a preop cardiac clearance. Patient with medical history for severe aortic stenosis due to a bicuspid aortic valve and ascending aortic dilation, status post bioprosthetic aortic valve replacement and ascending aortic aneurysm repair. Today, the patient reports feeling well overall and is scheduled for an upcoming right wrist or ganglion cyst removal. She denies any cardiac symptoms including exertional chest pain, shortness of breath, palpitations, dizziness, orthopnea, PND, leg edema, fatigue, presyncope, or syncope. Patient reports full compliance with her medications. [facility] Medical History Ascending aorta dilatation Severe aortic stenosis Physical exam Hyperkalemia Internal hemorrhoids Diverticulosis Golfers elbow of left upper extremity Obesity (BMI 30.0-34.9) GERD (gastroesophageal reflux disease) Migraine with aura and without status migrainosus, not intractable Surgical History History of bilateral carpal tunnel release H/O aortic valve replacement History of heart surgery History of carpal tunnel surgery History of cholecystectomy Family History Mother COPD (chronic obstructive pulmonary disease) Diabetes Afib Osteoporosis Dementia Father Lung cancer Family/Other Substance use disorder Maternal Grandmother Colon cancer Social History Housing: House Are you a primary health care social worker to a significant other at home: No Do you presently have visiting nurse or other home services: No Alcohol intake: current Alcohol intake frequency: a few times a week Alcohol type: wine Patient Tobacco Use Status: Never used Tobacco e-Cigarette/Vaping Use: Currently Using Second Hand Smoke Exposure: No Substance Use Type: Marijuana service: No Current occupational status: other 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 Current occupational exposures/hazards: No Sexual orientation: Straight/Heterosexual Gender identity: Female Cognitive needs: No Hearing needs: No Vision needs: Yes Review of Systems Const Denies chills, Denies fatigue, Denies fever(s), Denies frequent falls, Denies weakness, Denies weight gain and Denies weight loss ENT Denies dizziness Card Denies chest pain, Denies leg edema, Denies lightheadedness, Denies palpitations, Denies dyspnea and Denies dyspnea on exertion Resp Denies cough, Denies dyspnea and Denies dyspnea on exertion GI Denies hematochezia Musc Denies abnormal gait, Denies muscle weakness, Denies numbness, Denies radiating pain into limb and Denies tingling Neuro Denies abnormal gait, Denies dizziness, Denies frequent falls, Denies numbness, Denies tingling and Denies weakness Endo Denies fatigue and Denies palpitations Physical Exam Vital Signs: Last Vital Signs Pulse 73 01/11/25 14:09 BP 122/74 01/11/25 14:09 BMI result Body Mass Index 34.4 Const General: cooperative, healthy appearing, comfortable and no acute distress Orientation/consciousness: patient oriented x3 HEENT Head: Yes normal to inspection Neck Neck: Yes normal visual inspection, Yes trachea midline and Yes supple Chest Chest palpation & inspection: normal inspection of the chest Resp Effort & Inspection: normal respiratory effort Auscultation: clear to auscultation bilaterally, no crackles, no rales, no rhonchi and no wheezes Cardio Jugular venous distension: no JVD Palpation: normal PMI Rate: regular rate Rhythm: regular rhythm Heart sounds: S1 normal heart sound present, S2 normal heart sound present, no click, no gallops, Murmur heart sound present systolic at the left sternal border and at the right sternal border and no rubs Peripheral pulses: Peripheral pulses 2+ throughout GI Inspection: Yes normal to inspection Palpation (GI): Soft to palpation Auscultation: normal bowel sounds Skin General skin exam: no rashes or lesions noted Neuro General: patient oriented x3 Extrem General: Yes normal to inspection, No no pedal edema and No calf tenderness Psych Appearance: grossly normal Mental Status: mental status grossly normal Speech and movement: Normal speech and movement present Assessment & Plan Assessment & Plan (1) Status post aortic valve replacement with bioprosthetic valve: Comment: #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 Also shows have normal functioning of the prosthetic aortic valve with peak aortic gradient at 47, mean gradient at 26. Overall, possible patient prosthesis mismatch. 12/06/2024-EKG then showed sinus bradycardia, rate 58 beats per minute, possible left atrial enlargement, minimal voltage for LVH, nonspecific ST-T waves, normal SD, corrected QT. Clinically stable. Patient has a repeat echo already in place. Continue aspirin therapy. Discussed with Dr. Dillon- no need for infective endocarditis antibiotic prophylaxis at this time. (2) S/P ascending aortic aneurysm repair: Code(s): Z98.890 - Other specified postprocedural states; Z86.79 - Personal history of other diseases of the circulatory system Category: Surgical Plan: Status post aneurysm repair. Per CTA on 02/19/24- stable appearance.. (3) Preop cardiovascular exam: Code(s): Z01.810 - Encounter for preprocedural cardiovascular examination Plan: Patient is cleared from a cardiac standpoint to proceed with the planned right wrist ganglion cyst removal with the consideration that patient is at a low cardiac risk. The issue we will follow up with Dr. Dillon in 1 year's time. In the interim, patient will update her echo and call us with any concerns or change in symptoms. This note was generated using voice recognition software. While every effort has been made to ensure accuracy and proper general neurologist, there may be occasional errors that could affect the content or meaning of the described symptoms. Coding Level of Care Code Est Pt Level 4 (90089) Complex EM visit Add On G2211 Diagnoses Status post aortic valve replacement with bioprosthetic valve Z95.3 S/P ascending aortic aneurysm repair Z98.890; Z86.79 Preop cardiovascular exam Z01.810 Time Spent (min) 31 Comment Time spent in reviewing the chart, test results, assessment, counseling and doc umentation.
[2025-01-11 14:09] VITALS: BP 122/74; PULSE 73; BMI 34.4
--- OUTSIDE RECORDS SUMMARY | 2025-01-11 16:08 | XMS_ITS | Clinical Summary ---
Author Organization [facility] Address [address] [place] [address] Care Team Providers Care Purchasing Buyer Name Role Phone Misti Thorpe MD Primary Care Provider [phone] Allergies Active Allergy Reactions Criticality Noted Date Comments Codeine GI Intolerance/Nausea/Vomiting Low 09/04/2024 Hydrocodone-Acetaminophen GI Intolerance/Nausea/Vomiting Low 09/04/2024 Morphine GI Intolerance/Nausea/Vomiting Low 09/04/2024 Oxycodone GI Intolerance/Nausea/Vomiting Low 09/04/2024 Active Problems Problem Noted Date Diagnosed Date Diverticulitis 09/06/2024 Acute blood loss anemia 09/05/2024 Acute lower GI bleeding 09/04/2024 Social History Tobacco Use Types Packs/Day Years Used Date Smoking Tobacco: Never Assessed [facility] Utilities Answer Date Recorded In the [...] any time in the past 12 m [facility], were you homeless or living in a prison (including now)? No 09/05/2024 Comments Unknown Sex [...] age to complete this topic [place] [facility] [place] [employer] [place] [facility] [place] [facility] [place] Directives * Full Code (Latest Code Status on File) Date Activated Date Inactivated Comments 09/04/2024 1:39 PM Question Answer Comments Decision Thoroughly Discussed with: Patient Care Teams Purchasing Buyer Relationship Specialty Start Date End Date Misti Thorpe MD [address] [place] [id number] PCP - General Family Medicine 09/05/24
== END 2025-01-11 14:20 | disposition home or self-care (01) ==
LOC: HO.HCS 13:33
PROVIDERS: PCP Internal Medicine
DX: Z95.3 Presence of xenogenic heart valve (principal); Z98.890 Other specified postprocedural states; Z86.79 Personal history of other diseases of the circulatory system; Z01.810 Encounter for preprocedural cardiovascular examination
CPT/HCPCS: 99214

== ENCOUNTER 2025-01-16 11:53 | Day surgery (SDC) | payer BC, SELFPAY ==
--- OUTSIDE RECORDS SUMMARY | 2024-11-17 13:21 | XMS_ITS | Clinical Summary ---
Author Organization [facility] Address [address] [place] [address] Care Team Providers Care Stave Machine Tender Name Role Phone Misti Thorpe MD Primary Care Provider [phone] Allergies Active Allergy Reactions Criticality Noted Date Comments Codeine GI Intolerance/Nausea/Vomiting Low 09/04/2024 Hydrocodone-Acetaminophen GI Intolerance/Nausea/Vomiting Low 09/04/2024 Morphine GI Intolerance/Nausea/Vomiting Low 09/04/2024 Oxycodone GI Intolerance/Nausea/Vomiting Low 09/04/2024 Active Problems Problem Noted Date Diagnosed Date Diverticulitis 09/06/2024 Acute blood loss anemia 09/05/2024 Acute lower GI bleeding 09/04/2024 Encounters Date Type Department Care Team Description 09/04/2024 12:10 PM EST Ancillary Procedure [facility] [address] [place] [id number] Steve Parra MD 09/04/2024 11:32 AM EST - 09/06/2024 3:52 PM EST Hospital Encounter [address] [id number] Steve Parra MD Korus, Adam [...] Years Used Date Smoking Tobacco: Never Assessed [facility] Utilities Answer Date Recorded In the past 12 months has [employer], gas, oil, or water [employer] threatened to shut off services in your [...] any time in the past 12 [facility], were you homeless or living in a custodial (including now)? No 09/05/2024 Sex and Gender [...] 09/05/2024 7:00 PM EST POCT GLUCOSE, FINGERSTICK (CHARGE) Routine 09/05/2024 11:51 AM EST POCT GLUCOSE, FINGERSTICK (CHARGE) Routine 09/05/2024 7:36 AM EST HEMOGLOBIN AND HEMATOCRIT Routine 09/05/2024 5:56 AM EST POCT GLUCOSE, FINGERSTICK (CHARGE) Routine 09/05/2024 5:01 AM EST COMPLETE BLOOD COUNT, WITHOUT DIFFERENTIAL Routine 09/05/2024 12:02 AM EST PHOSPHORUS Routine 09/05/2024 12:02 AM EST MAGNESIUM Routine 09/05/2024 12:02 AM EST BASIC METABOLIC PANEL Routine 09/05/2024 12:02 AM EST POCT GLUCOSE, FINGERSTICK (CHARGE) Routine 09/04/2024 8:39 PM EST HEMOGLOBIN AND HEMATOCRIT Routine 09/04/2024 6:06 PM EST FIBRINOGEN LEVEL Routine 09/04/2024 6:0 6 PM EST LACTATE DEHYDROGENASE (LDH) Routine 09/04/2024 [...] 09/04/2024 3:20 PM EST POCT GLUCOSE, FINGERSTICK (CHARGE) Routine 09/04/2024 3:11 PM EST TRANSFUSE RED [...] - 47.0 % 09/06/2024 8:54 AM EST [facility] Hemoglobin 9.8(L) 11.7 - 15.7 g/dL 09/06/2024 8:54 AM EST [facility] Blood Blood specimen / Unknown 09/06/2024 7:35 AM EST 09/06/2024 8:44 AM EST Carlo Tovar MD LAB BLOOD ORDERABL ES Performing Organization Address [facility] [place] [address], [place] [address] * Phosphorus (09/06/2024 7:35 AM EST) Only the most recent of2 resultswithin the time period is included. Phosphorus 3.0 2.7 - 4.5 mg/dL 09/06/2024 9:13 AM EST [facility] Blood (Plasma/Serum) 09/06/2024 7:35 AM EST 09/06/2024 8:44 AM EST Chari YOUNG LAB BLOOD ORDERABLES Performing Organization Address [facility] [place] [address], [place] [address] * Magnesium (09/06/2024 7:35 AM EST) Only the most recent of3 resultswithin the time period is included. Magnesium 1.7 1.6 - 2.7 mg/dL 09/06/2024 9:13 AM EST [facility] Blood (Plasma/Serum) 09/06/2024 7:35 AM EST 09/06/2024 8:44 AM EST Chari YOUNG LAB BLOOD ORDERABLES Performing Organization Address [facility] [place] [address], [place] [address] * Basic Metabolic Panel (09/06/2024 7:35 AM EST) Only the most recent of2 resultswithin the time period is included. Glucose 90 65 - 99 mg/dL 09/06/2024 9:13 AM EST [facility] Comment:Fasting: <100 mg/dL, Non-Fasting: <200 mg/dL (ADA 2005) Blood Urea Nitrogen (BUN) 11 8 - 21 mg/dL 09/06/2024 9:13 AM [facility] Creatinine 0.6 0.4 - 1.1 mg/dL 09/06/2024 9:13 AM [facility] eGFR >90 >59 09/06/2024 9:13 AM [facility] Comment:CKD-EPI (2020) in mL /min/1.73 sq meters. Sodium 140 136 - 145 mmol/L 09/06/2024 9:13 AM [facility] Potassium 4.6 3.4 - 5.3 mmol/L 09/06/2024 9:13 AM [facility] Chloride 105 98 - 107 mmol/L 09/06/2024 9:13 AM [facility] CO2 26 22 - 33 mmol/L 09/06/2024 9:13 AM [facility] Anion Gap 9 7 - 17 09/06/2024 9:13 AM [facility] Calcium 8.7 8.7 - 10.5 mg/dL 09/06/2024 9:13 AM [facility] BUN/Creatinine Ratio 18 10.0 - 25.0 Ratio 09/06/2024 9:13 AM [facility] Blood (Plasma/Serum) 09/06/2024 7:35 AM EST 09/06/2024 8:44 AM EST Chari YOUNG LAB BLOOD ORDERABLES Performing Organization Address [facility]/[place] [address], [place] [address] * POCT Glucose, Fingerstick (09/05/2024 11:51 AM [...] 4.0 - 11.0 Thou/uL 09/05/2024 12:33 AM [facility] Platelet Count 242 150 - 450 Thou/uL 09/05/2024 12:33 AM [facility] Hemoglobin 9.8(L) 11.7 - 15.7 g/dL 09/05/2024 12:33 AM [facility] Hematocrit 30.0(L) 35.0 - 47.0 % 09/05/2024 12:33 AM [facility] Red Blood Cell Count 3.11(L) 4.00 - 5.40 Mil/uL 09/05/2024 12:33 AM [facility] MCV 97 80 - 100 fL 09/05/2024 12:33 AM [facility] MCH 31.5(H) 27.0 - 31.0 pg 09/05/2024 12:33 AM [facility] MCHC 32.7 30.0 - 36.0 g/dL 09/05/2024 12:33 AM [facility] RDW 13.4 11.5 - 14.5 % 09/05/2024 12:33 AM [facility] MPV 10.3 7.5 - 12.5 fL 09/05/2024 12:33 AM [facility] Blood Blood specimen / Unknown 09/05/2024 12:02 AM EST 09/05/2024 12:26 AM EST Steve Goss MD LAB BLOOD ORDERABLES [address] [address], [address] [address] * Partial Thromboplastin Time (PTT) (09/04/2024 6:06 PM EST) Anticoagulant NO ANTI COAGULANT MEDS 09/04/2024 6:06 PM EST Partial Thromboplastin Time (PTT) 28 25 - 36 seconds 09/04/2024 6:44 PM EST [facility] Blood Plasma specimen / Unknown 09/04/2024 6:06 PM EST 09/04/2024 6:24 PM EST Katalina Biolo PA-C LAB BLOOD ORDERABLES Performing Organization Address [facility]/ZIP Co de Phone Number [address] [address], [address] [address] * Thrombin Time (09/04/2024 6:06 PM EST) Anticoagulant NO ANTI COAGULANT MEDS 09/04/2024 6:06 PM EST Thrombin Time 13.9 12.7 - 19.2 seconds 09/04/2024 6:44 PM EST [facility] Blood Plasma specimen / Unknown 09/04/2024 6:06 PM EST 09/04/2024 6:24 PM EST Katalina Biolo PA-C LAB BLOOD ORDERABLES Performing Organization Address [facility]/[place] [address], [place] [address] * Protime-INR (09/04/2024 6:06 PM EST) Anticoagulant NO ANTI COAGULANT MEDS 09/04/2024 6:06 PM EST Prothrombin Time (PT) 12.1 10.0 - 13.5 seconds 09/04/2024 6:44 PM EST [facility] INR 1.1 09/04/2024 6:44 PM EST [facility] Comment:INR Therapeutic Rang es: Standard dose anticoagulant 2.0 to 3.0, High dose anticoagulant 2.5-3.5. Blood Plasma specimen / Unknown 09/04/2024 6:06 PM EST 09/04/2024 6:24 PM EST Katalina Biolo PA-C LAB BLOOD ORDERABLES Performing Organization Address [facility]/[place] [address], [address] [address] * (ABNORMAL) Fibrinogen Level (09/04/2024 6:06 PM EST) Fibrinogen 484(H) 148 - 435 mg/dL 09/04/2024 6:44 PM EST [facility] Blood Plasma specimen / Unknown 09/04/2024 6:06 PM EST 09/04/2024 6:24 PM EST Aros Pharmao PA-C LAB BLOOD ORDERABLES Performing Organization Address [facility]/[place] [address], [place] [address] * LACTATE DEHYDROGENASE (LDH) (09/04/2024 6:06 PM EST) Lactate Dehydrogenase (LDH) 133 120 - 260 U/L 09/04/2024 6:55 PM EST [facility] Blood (Plasma/Serum) 09/04/2024 6:06 PM EST 09/04/2024 6:24 PM EST Aros Pharmao PA-C LAB BLOOD ORDERABLES Performing Organization Address [facility]/[place] [address], [place] [address] * Lactic Acid, Plasma (Routine) (09/04/2024 6:06 PM EST) Lactic Acid 0.9 0.5 - 1.9 mmol/L 09/04/2024 6:49 PM EST [facility] Blood Plasma specimen / Unknown 09/04/2024 6:06 PM EST 09/04/2024 6:24 PM EST Katalina Biolo PA-C LAB BLOOD ORDERABLES Performing Organization Address [facility]/[place] [address], [place] [address] * HAPTOGLOBIN (09/04/2024 6:06 PM EST) Haptoglobin 149 30 - 200 mg/dL 09/04/2024 6:55 PM EST [facility] Blood (Plasma/Serum) 09/04/2024 6:06 PM EST 09/04/2024 6:24 PM EST [employer] PA-C LAB BLOOD ORDERABLES Performing Organization Address [facility] [place] [address], [place] [address] * FERRITIN (09/04/2024 6:06 PM EST) Ferritin 193 30 - 400 ug/L 09/04/2024 6:55 PM EST [facility] Blood (Plasma/Serum) 09/04/2024 6:06 PM EST 09/04/2024 6:24 PM EST [facility] PA-C LAB BLOOD ORDERABLES Performing Organization Address [facility] [place] [address], [place] [address] * ECG 12 lead (STAT) (09/04/2024 4:35 PM EST) Ventricular rate 93 BPM EKG [facility] Atrial rate 93 BPM EKG [facility] P-R interval 176 ms EKG [facility] QRS duration 98 ms EKG [facility] Q-T interval 372 ms EKG [facility] QTC calculation (Bazett) 463 ms EKG [facility] P axis 49 degrees EKG [facility] R axis -9 degrees EKG [facility] T axis 87 degrees EKG [facility] 09/04/2024 4:35 PM EST Narrative EKG [facility] - 09/04/2024 4:44 PM EST Normal sinus rhythm Possible Left atrial enlargement Nonspecific ST and T wave abnormality Abnormal ECG No previous ECGs available Confirmed by MD Root John ([id number]) on 09/04/2024 4:44:03 PM Procedure Note All Root MD - 09/04/2024 Normal sinus rhythm Possible Left atrial enlargement Nonspecific ST and T wave abnormality Abnormal ECG No previous ECGs available Confirmed by MD Root John ([id number]) on 09/04/2024 4:44:03 PM Steve Gsos MD ECG ORDERABLES EKG [facility] * Transfuse RBC's: (09/04/2024 4:19 PM EST) Only the most recent of2 resultswithin the time period is included. Steve Parra MD BLOOD TRANSFUSION OR DERABLES * (ABNORMAL) Comprehensive Metabolic Panel (Routine) (09/04/2024 1:41 PM EST) Glucose 111(H) 65 - 99 mg/dL 09/04/2024 3:14 PM [facility] Comment:Fasting: <100 mg/dL, Non-Fasting: <200 mg/dL (ADA 2005) Blood Urea Nitrogen (BUN) 13 8 - 21 mg/dL 09/04/2024 3:14 PM [facility] Creatinine 0.6 0.4 - 1.1 mg/dL 09/04/2024 3:14 PM [facility] eGFR >90 >59 09/04/2024 3:14 PM [facility] Comment:CKD-EPI (2020) in mL /min/1.73 sq meters. Sodium 137 136 - 145 mmol/L 09/04/2024 3:14 PM [facility] Potassium 4.7 3.4 - 5.3 mmol/L 09/04/2024 3:14 PM [facility] Chloride 104 98 - 107 mmol/L 09/04/2024 3:14 PM [facility] CO2 26 22 - 33 mmol/L 09/04/2024 3:14 PM [facility] Calcium 8.6(L) 8.7 - 10.5 mg/dL 09/04/2024 3:14 PM [facility] Alkaline Phosphatase 70 32 - 122 U/L 09/04/2024 3:14 PM [facility] Aspartate Aminotrans (AST) 15 10 - 50 U/L 09/04/2024 3:14 PM [facility] Alanine Aminotrans (ALT) 15 10 - 50 U/L 09/04/2024 3:14 PM [facility] Bilirubin, Total 0.3 0.2 - 1.0 mg/dL 09/04/2024 3:14 PM [facility] Protein, Total 6.0(L) 6.3 - 8.3 g/dL 09/04/2024 3:14 PM [facility] Albumin 3.5 3.4 - 4.8 g/dL 09/04/2024 3:14 PM [facility] BUN/Creatinine Ratio 22 10.0 - 25.0 Ratio 09/04/2024 3:14 PM [facility] Globulin 2.5 1.5 - 3.9 g/dL 09/04/2024 3:14 PM [facility] Albumin/Globulin Ratio 1.4 1.0 - 3.0 Ratio 09/04/2024 3:14 PM [facility] Anion Gap 7 7 - 17 09/04/2024 3:14 PM [facility] Blood (Plasma/Serum) 09/04/2024 1:41 PM EST 09/04/2024 2:56 PM EST Steve Goss MD LAB BLOOD ORDERABLES Performing Organization Address [facility] [place] [address], [place] [address] * ABO Confirmation (09/04/2024 12:32 PM EST) ABO/Rh O POSITIVE 09/04/2024 1:46 PM [facility] Blood specimen / Unknown 09/04/2024 12:32 PM EST 09/04/2024 1:00 PM EST Steve Parra MD BLOOD BANK TEST ORDCarmen KATHLEEN Performing Organization Address City/[facility]/[place] [address], [place] [address] * Type and Screen (09/04/2024 12:28 PM EST) ABO/Rh O POSITIVE 09/04/2024 1:45 PM [facility] Antibody Screen NEGATIVE 09/04/2024 1:45 PM [facility] Specimen Expiration 09/07/2024 09/04/2024 1:45 PM [facility] Blood Bank Comment Second Sample needed for Blood Transfusion 09/04/2024 1:45 PM [facility] Unit Number [id number] 09/04/2024 2:04 PM [facility] Blood Component Type LR RBC CONTAINER 2 09/04/2024 2:04 PM [facility] Unit Division 00 09/04/2024 2:04 PM [facility] Unit Status ISSUED,FINAL 09/05/2024 12:11 AM [facility] Transfusion Status OK TO TRANSFUSE 09/04/2024 2:04 PM [facility] Crossmatch Result Electronically Compatible 09/04/2024 2:04 PM [facility] Unit Number [id number] 09/04/2024 3:12 PM [facility] Blood Component Type LEUKOREDUCED RED CELLS 09/04/2024 3:12 PM [facility] Unit Division 00 09/04/2024 3:12 PM [facility] Unit Status ISSUED,FINAL 09/05/2024 12:11 AM [facility] Transfusion Status OK TO TRANSFUSE 09/04/2024 3:12 PM [facility] Crossmatch Result Electronically Compatible 09/04/2024 3:12 PM [facility] Blood Blood specimen / Unknown 09/04/2024 12:28 PM EST 09/04/2024 1:00 PM EST Comment:Blood Steve Parra MD BLOOD BANK TEST [facility] [place] [place] [address] * Prepare RBC's:Prepare in: Units; Number of [...] Decision Thoroughly Discussed with: Patient Care Teams Stave Machine Tender Relationship Specialty Start Date End Date Misti Thorpe MD [address] [place] [address] PCP - General Family Medicine 09/05/24
--- NOTE | 2025-01-13 09:46 | HO.ANESPROP2 ---
Documented by User: Cassadnra Diaz NP 01/13/25 09:48 HPI - Anesthesia Eval Consult details Narrative: 64yo F for Right Excision Volar Ganglion Cardiac optimized. Follows [facility] Cardiology for s/p AVR and AAA repair 01/2023. [facility] Active Problems Active Problems: All Active Problems Pre-op evaluation (Acute) Skin lesion (Acute) Ganglion cyst of volar aspect of right wrist (Acute) Ganglion cyst (Acute) Encounter for well woman exam with routine gynecological exam (Acute) Left hip pain (Acute) Elevated blood pressure reading without diagnosis of hypertension (Acute) Status post aortic valve replacement with bioprosthetic valve (Acute) Hypovitaminosis D (Acute) Screen for colon cancer (Acute) Abnormal echocardiogram findings without diagnosis (Acute) Insomnia (Acute) Anxiety (Acute) Hospital discharge follow-up (Acute) S/P ascending aortic aneurysm repair (Acute) Aortic valve replaced (Acute) Bicuspid aortic valve (Acute) Systolic murmur (Acute) Physical exam (Acute) Hyperkalemia (Acute) Internal hemorrhoids (Acute) Diverticulosis (Acute) Golfers elbow of left upper extremity (Acute) Obesity (BMI 30.0-34.9) (Acute) GERD (gastroesophageal reflux disease) (Acute) Migraine with aura and without status migrainosus, not intractable (Acute) Past Medical History Medical History Ascending aorta dilatation Severe aortic stenosis Physical exam Hyperkalemia Internal hemorrhoids Diverticulosis Golfers elbow of left upper extremity Obesity (BMI 30.0-34.9) GERD (gastroesophageal reflux disease) Migraine with aura and without status migrainosus, not intractable Family History Family History Mother COPD (chronic obstructive pulmonary disease) Diabetes Afib Osteoporosis Dementia Father Lung cancer Family/Other Substance use disorder Maternal Grandmother Colon cancer Family history of problems with anesthesia: No Surgical History Surgical History History of bilateral carpal tunnel release H/O aortic valve replacement History of heart surgery History of carpal tunnel surgery History of cholecystectomy History of Problems with Anesthesia: No Social History Social History Housing: House Are you a primary senior resident care director to a significant other at home: No Do you presently have visiting nurse or other home services: No Alcohol intake: current Alcohol intake frequency: 0-2 drinks per day Alcohol type: wine Patient Tobacco Use Status: Never used Tobacco e-Cigarette/Vaping Use: Currently Using Second Hand Smoke Exposure: No Use of substances other than those prescribed or required for medical reasons: Yes Substance Use Type: Marijuana Substance Use Frequency: Daily Have you been hit, kicked, punched, or otherwise hurt by someone within the past year? 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 Current occupational exposures/hazards: No Sexual orientation: Straight/Heterosexual Gender identity: Female Cognitive needs: No Hearing needs: No Vision needs: Yes Meds Allergies Allergy/AdvReac Type Severity Reaction Status Date / Time oxycodone AdvReac Intermediate sick to Verified 01/16/25 12:45 stomach codeine AdvReac Intermediate abd pain, Uncoded 01/16/25 12:45 vomiting Home Medications ?Medication ?Instructions ?Recorded ?Confirmed ?Last Taken ?Type calcium carbonate (Calcium 500) 500 mg PO DAILY 03/10/22 01/16/25 Unknown History cholecalciferol (vitamin D3) 50 50 mcg PO DAILY 03/10/22 01/16/25 Unknown History mcg (2,000 unit) capsule glucosamine [id number]-[id number]-Oehldyxol 1 tab PO DAILY 03/10/22 01/16/25 Unknown History bebe 1,500 mg-400 unit-100 mg tablet (Glucosamine Daily Complex) multivitamin (Daily Multi-Vitamin 1 tab PO DAILY 03/10/22 01/16/25 Unknown History tablet) vitamin B complex (B 1 tab PO DAILY 03/10/22 01/16/25 Unknown History Complex-Vitamin B12 tablet) Exam Pertinent Lab Results Pertinent Lab Results: Laboratory Tests 12/03/24 10:51 WBC 5.9 Hgb 13.9 Hct 42.2 Plt Count 294 Sodium 142 Potassium 5.1 D Chloride 106 Carbon Dioxide 30 H BUN 11 Creatinine 0.75 Narrative Narrative: 05/25/2024-echo study showed a normal EF between 65-70%. Also shows have normal functioning of the prosthetic aortic valve with peak aortic gradient at 47, mean gradient at 26. Overall, possible patient prosthesis mismatch. 12/06/2024-EKG then showed sinus bradycardia, rate 58 beats per minute, possible left atrial enlargement, minimal voltage for LVH, nonspecific ST-T waves, normal IN, corrected QT. Per CTA on 02/19/24- stable appearance.. Assessment and Plan Assessment Anesthesia Assessment: Chart Reviewed Final Anesthetic Review Family History of Problems with Anesthesia: No History of Problems with Anesthesia: No Documented by User: Samantha Jameson MD 01/16/25 14:29 [facility] Past Medical History Medical History Ascending aorta dilatation Severe aortic stenosis Physical exam Hyperkalemia Internal hemorrhoids Diverticulosis Golfers elbow of left upper extremity Obesity (BMI 30.0-34.9) GERD (gastroesophageal reflux disease) Migraine with aura and without status migrainosus, not intractable Family History Family History Mother COPD (chronic obstructive pulmonary disease) Diabetes Afib Osteoporosis Dementia Father Lung cancer Family/Other Substance use disorder Maternal Grandmother Colon cancer Surgical History Surgical History History of bilateral carpal tunnel release H/O aortic valve replacement History of heart surgery History of carpal tunnel surgery History of cholecystectomy Social History Social History Housing: House Are you a primary senior resident care director to a significant other at home: No Do you presently have visiting nurse or other home services: No Alcohol intake: current Alcohol intake frequency: 0-2 drinks per day Alcohol type: wine Patient Tobacco Use Status: Never used Tobacco e-Cigarette/Vaping Use: Currently Using Second Hand Smoke Exposure: No Use of substances other than those prescribed or required for medical reasons: Yes Substance Use Type: Marijuana Substance Use Frequency: Daily Have you been hit, kicked, punched, or otherwise hurt by someone within the past year? 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 Current occupational exposures/hazards: No Sexual orientation: Straight/Heterosexual Gender identity: Female Cognitive needs: No Hearing needs: No Vision needs: Yes Meds Allergies Allergy/AdvReac Type Severity Reaction Status Date / Time oxycodone AdvReac Intermediate sick to Verified 01/16/25 12:45 stomach codeine AdvReac Intermediate abd pain, Uncoded 01/16/25 12:45 vomiting Home Medications ?Medication ?Instructions ?Recorded ?Confirmed ?Last Taken ?Type calcium carbonate (Calcium 500) 500 mg PO DAILY 03/10/22 01/16/25 Unknown History cholecalciferol (vitamin D3) 50 50 mcg PO DAILY 03/10/22 01/16/25 Unknown History mcg (2,000 unit) capsule glucosamine [id number]-Ntwtdqjag 1 tab PO DAILY 03/10/22 01/16/25 Unknown History bebe 1,500 mg-400 unit-100 mg tablet (Glucosamine Daily Complex) multivitamin (Daily Multi-Vitamin 1 tab PO DAILY 03/10/22 01/16/25 Unknown History tablet) vitamin B complex (B 1 tab PO DAILY 03/10/22 01/16/25 Unknown History Complex-Vitamin B12 tablet) Exam Airway Mallampati Class: II TM Dist: >3cm Neck ROM: Full Loose/Missing/Broken Teeth: No Heart: RRR Lungs: CTA Assessment and Plan Assessment Anesthesia Assessment: Anesthesia Plan Discussed Final Anesthetic Review NPO: Yes ASA Class: III Final Preanesthetic Review: Meds/Allgs Chart Reviewed, Consent Obtained/Reviewed and Anes Risks/Benef Reviewed Patient Risk: Intermediate Procedure Risk: Low Anesthetic Plan Anesthetic Plan: GA Disposition: Standard PACU
--- NOTE | 2025-01-16 12:25 | W.PM.OPN ---
Operative Note Operative Note Date of Service: 01/16/25 Narrative: Operative Note Narrative: Preop diagnosis: 1. Right Volar wrist ganglion Postop diagnosis: 1. Right volar wrist soft tissue mass Procedure: 1. Right Volar wrist mass excision Surgeon: Jennifer Peralta MD Soaker Helper: None Anesthesia: General Anesthesia Findings: Thickened area of white fibrous tissue roughly over the scaphoid tubercle and FCR tendon. No clear viscous fluid was appreciated. Implants: None Tourniquet time: 8 minutes EBL: 5.0 ml Specimen: Volar wrist mass sent to histopathology Drains: None Complications: None Disposition: Brought to the recovery room in stable condition Plan: Follow-up in 10-14 days for wound check, suture removal and to check pathology Indications: The patient is a 64 years old with right volar wrist ganglion . The risks and benefits of operative treatment, including but not limited to risk of damage to blood vessels, nerves, tendons, infection, recurrence, persistent pain or numbness, incomplete resolution of preoperative symptoms, or need for further surgery were discussed with the patient and they wished to proceed with surgery. Procedure: Once consent was obtained patient was brought back to the operating suite and placed in the operating table in a supine position. . Perioperative antibiotics and anesthesia was administered by the anesthesia team. A tourniquet was applied to the proximal aspect of the right upper extremity and the limb was prepped and draped in a standard surgical fashion. The limb was elevated exsanguinated with Esmarch bandage and the tourniquet inflated to 250 mm of mercury for a total tourniquet time of 8 minutes. A 2 cm gently curved but longitudinally oriented incision was made centered over the patient's right volar wrist ganglion, positioned roughly over the scaphoid tubercle. The incision was made through the skin the subcutaneous tissues using a 15. Blade. Careful dissection was then made down to the level of the volar wrist mass using tenotomy scissors. There was a white thickened mass that measured perhaps 5 mm in diameter that was dissected free from the surrounding tissues using tenotomy and iris scissors. It was situated just superficial to the FCR tendon. It was dissected free if removed from the patient and placed on the back table to be sent for histopathology. I did not see any clear viscous fluid.. Its attachments were cauterized using bipolar electrocautery, in case this is a deflated volar ganglion so as to cauterize the stalk.. No further masses were appreciated. At this point the tourniquet was deflated and hemostasis obtained with a brief period of local pressure and bipolar electrocautery. The wound was copiously irrigated with normal saline. The skin edges were reapproximated with 5-0 nylon suture. The wound was infiltrated with some 1% lidocaine with epinephrine for postop pain control and a sterile dressing was applied. The patient appears to have tolerated the procedure well and with no complications. All digits were well vascularized conclusion of the case.
[2025-01-16 12:47] VITALS: BP 136/77; PULSE 57; RESP 18; TEMP 37; O2SAT 96; BMI 34.3
[2025-01-16] MEDS: Lactated Ringers 1,000 ML 100 ML IVCONT (13:13)
--- NOTE | 2025-01-16 14:20 | MHC.SHP ---
Pre-Procedural Eval Section A - 24 Hr Update-Section A only Date of Service: 01/16/25 The patient is an INPATIENT: No Changes since office visit: No Cold of Flu in the past 2 weeks, No New Medical Problems, No Changes in Medication and No Patient answered all questions The patient has been examined within 24 hours of the surgical procedure. The History & Physical has been completed within 30 days and I have reviewed it.: Yes Section B - Complete if H&P > 30 days Chief Complaint: Ganglion, right wrist Allergies: Allergies Allergy/AdvReac Type Severity Reaction Status Date / Time oxycodone AdvReac Intermediate sick to Verified 01/16/25 12:45 stomach codeine AdvReac Intermediate abd pain, Uncoded 01/16/25 12:45 vomiting Plan I have reviewed the history and physical and performed a pertinent physical examination on my patient. No changes have occurred unless specified. Time Spent With Patient Time: Total time managing care of this patient today ____ minutes.
[2025-01-16] MEDS: ceFAZolin Sodium/Dextrose,Iso 2 GM/50 ML PIGGYBACK IV (14:34)
[2025-01-16 15:20] VITALS: BP 106/54; PULSE 72; RESP 18; TEMP 36.2; O2SAT 99
[2025-01-16 15:25] VITALS: BP 102/58; PULSE 53; RESP 18; O2SAT 99
[2025-01-16 15:30] VITALS: BP 108/59; PULSE 53; RESP 18; O2SAT 99
[2025-01-16 15:45] VITALS: BP 134/71; PULSE 51; RESP 18; O2SAT 99
[2025-01-16 15:59] VITALS: BP 133/66; PULSE 52; RESP 16; TEMP 36.4; O2SAT 99
== END 2025-01-16 16:25 | disposition home or self-care (01) ==
PROVIDERS: PCP Internal Medicine; Visit Provider Orthopaedic Surgery
PROC: (CPT 25111; principal; 2025-01-16 14:00)
DX: M67.431 Ganglion, right wrist (principal); M77.02 Medial epicondylitis, left elbow; I35.0 Nonrheumatic aortic (valve) stenosis; Q23.81 Bicuspid aortic valve; Z95.2 Presence of prosthetic heart valve; E87.5 Hyperkalemia; R03.0 Elevated blood-pressure reading, without diagnosis of hypertension; G43.109 Migraine with aura, not intractable, without status migrainosus; E66.1 Drug-induced obesity; Z79.899 Other long term (current) drug therapy; Z88.5 Allergy status to narcotic agent; Z98.890 Other specified postprocedural states
CPT/HCPCS: 25111; 88304; J0131; J0690; J2003; J2004; J2250; J2704; J2795; J3010

== ENCOUNTER → 2025-01-16 11:53 | Outpatient (BNV) | payer BC, SELFPAY | PROVIDERS: PCP Internal Medicine; Visit Provider Orthopaedic Surgery | DX: M67.431 Ganglion, right wrist (principal) | CPT/HCPCS: 25111 ==

== ENCOUNTER 2025-01-31 12:45 | Outpatient (AMB) | payer BC, SELFPAY ==
--- NOTE | 2025-01-31 12:53 | MHC.OFFVIS ---
Intake Visit Reasons: PO RT VWG Excision 01/16/25 AR Intake Note: Yolie is a 64 year old female who presents today post operatively after undergoing a right volar wrist mass excision. Patient reports that she is doing well, states discomfort with twisting of wrist. She has no concerns today. Allergies oxycodone Adverse Reaction (Intermediate, Verified 01/31/25 12:59) sick to stomach codeine Adverse Reaction (Intermediate, Uncoded 01/31/25 12:59) abd pain, vomiting HPI HPI PO RT VWG Excision 01/16/25 AR: Details: Yolie is a 64 year old female who presents today post operatively after undergoing a right volar wrist mass excision. Patient reports that she is doing well, states discomfort with twisting of wrist. She has no concerns today. [facility] Medical History Ascending aorta dilatation Severe aortic stenosis Physical exam Hyperkalemia Internal hemorrhoids Diverticulosis Golfers elbow of left upper extremity Obesity (BMI 30.0-34.9) GERD (gastroesophageal reflux disease) Migraine with aura and without status migrainosus, not intractable Surgical History History of bilateral carpal tunnel release H/O aortic valve replacement History of heart surgery History of carpal tunnel surgery History of cholecystectomy Family History Mother COPD (chronic obstructive pulmonary disease) Diabetes Afib Osteoporosis Dementia Father Lung cancer Family/Other Substance use disorder Maternal Grandmother Colon cancer Social History Housing: House Are you a primary urgent care technician to a significant other at home: No Do you presently have visiting nurse or other home services: No Alcohol intake: current Alcohol intake frequency: 0-2 drinks per day Alcohol type: wine Patient Tobacco Use Status: Never used Tobacco e-Cigarette/Vaping Use: Currently Using Second Hand Smoke Exposure: No Substance Use Type: Marijuana service: No Current occupational status: other 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 Neuro: Normal sensation of the tips of all digits of the right hand at this time Vascular: Cap refill brisk Pain: Patient reports no tenderness to palpation about the incision in the volar and radial right wrist Patient reports pain in his area with range of motion of the right wrist ROM: Patient is extend all digits of the right hand fully and without difficulty Skin: No lacerations or abrasions. General: There is noted to be a well healing incision noted where the volar ganglion cyst was once located on the right wrist No ecchymosis, erythema, or evidence of infection. Psych: Appears grossly normal Affect normal Attitude cooperative Assessment & Plan Assessment & Plan (1) Ganglion cyst of volar aspect of right wrist: Code(s): M67.431 - Ganglion, right wrist Category: Medical Plan 1. Status post volar wrist ganglion excision of right wrist DOS 01/16/2025 Patient appears to be recovering well postoperatively Patient is educated about the typical recovery course no acute follow-up indicated, other than as the patient appears to be recovering very well Patient is amenable to this plan Follow-up as needed Coding Level of Care Code Global (35869) Diagnoses Ganglion cyst of volar aspect of right wrist M67.431
--- OUTSIDE RECORDS SUMMARY | 2025-01-31 13:47 | XMS_ITS | Clinical Summary ---
Author Organization [facility] Address [address] [place] [address] Care Team Providers Care Instructional Coach Name Role Phone Misti Thorpe MD Primary Care Provider [phone] Allergies Active Allergy Reactions Criticality Noted Date Comments Codeine GI Intolerance/Nausea/Vomiting Low 09/04/2024 Hydrocodone-Acetaminophen GI Intolerance/Nausea/Vomiting Low 09/04/2024 Morphine GI Intolerance/Nausea/Vomiting Low 09/04/2024 Oxycodone GI Intolerance/Nausea/Vomiting Low 09/04/2024 Active Problems Problem Noted Date Diagnosed Date Diverticulitis 09/06/2024 Acute blood loss anemia 09/05/2024 Acute lower GI bleeding 09/04/2024 Social History Tobacco Use Types Packs/Day Years Used Date Smoking Tobacco: Never Assessed [facility] Utilities Answer Date Recorded In the [...] in the past 12 m [facility], were you homeless or living in a [facility] (including now)? No 09/05/2024 Comments Unknown Sex [...] Zoster (Shingles) Vaccine (1 of 2) 2011 COVID-19 Vaccine (1 - 2023-2 5 season) 2024 Influenza Vaccine 04/21/2025 RSV Vaccine 60 years and old er and Patients (1 - 1-dose 75+ series) 2036 Hepatitis B Vaccines Aged Out No long er eligible based on patient's age to complete this topic Insurance [employer] [facility] [place] [place] [facility] [place] Directives * Full Code (Latest Code Status on File) Date Activated Date Inactivated Comments 09/04/2024 1:39 PM Question Answer Comments Decision Thoroughly Discussed with: Patient Care Teams Instructional Coach Relationship Specialty Start Date End Date Misti Thorpe MD [address] [place] [id number] PCP - General Family Medicine 09/05/24
== END 2025-01-31 13:46 | disposition home or self-care (01) ==
LOC: HO.HOS 12:46
PROVIDERS: PCP Internal Medicine
DX: M67.431 Ganglion, right wrist (principal)
CPT/HCPCS: 99024

== ENCOUNTER → 2025-01-31 12:45 | Outpatient (BNVA) | payer BC, SELFPAY | PROVIDERS: PCP Internal Medicine ==

== ENCOUNTER → 2025-02-21 12:50 | Outpatient (REF) | payer BC, SELFPAY ==
--- NOTE | 2025-02-21 12:52 | CA_ITS ---
Transthoracic Echocardiogram Patient (Last, First, Middle): Yolie Joshua M Gender: Female Date of : 1960 Age: 64 Procedure Date: 02/21/2025 Procedure Type: Transthoracic Echocardiogram Location: OP Height: 157.48 cm Weight: 85.28 kg BSA: 1.86 m2 Heart Rate: bpm BP: 122 / 74 mmHg Retirement Village Manager: PALMIRA Referring MD: Rogerio Dillon MD Symptoms: Z95.3 - Presence of xenogenic heart valve Study Quality: Adequate ECG Rhythm: Sinus Conclusions: - The left ventricular systolic function is normal. The calculated ejection fraction is 63% by biplane method. - A bioprosthetic aortic valve is present. The prosthetic aortic valve appears to be functioning abnormally. Findings Left Ventricle Normal left ventricular cavity size. There is mildly increased left ventricular wall thickness. The left ventricular systolic function is normal. The calculated ejection fraction is 63% by biplane method. There is no evidence of regional wall motion abnormalities. Diastolic function is normal for age. Right Ventricle Moderately increased right ventricular cavity size. There is normal right ventricular systolic function. Atria The left atrium is moderately dilated. The right atrium is mildly dilated. Aortic Valve A bioprosthetic aortic valve is present. The prosthetic aortic valve appears to be functioning abnormally. The mean gradient is 22 mmHg. Dimensionless index 0.31. Acceleration time about 100 milliseconds. Elevated gradients could be related to patient prosthesis mismatch. Mitral Valve The mitral valve appears normal. There is trace mitral valve regurgitation. There is no mitral valve stenosis. Pulmonic Valve There is trace pulmonic valve regurgitation. Tricuspid Valve There is trace tricuspid valve regurgitation. There is no evidence of pulmonary hypertension. Great Vessels The asc aorta and aortic arch are normal in size. Venous The inferior vena cava is normal in size and collapses greater than 50% with inspiration. Pericardium/Pleural There is no evidence of pericardial effusion. Prior Study Comparison Changes noted compared to prior study dated: 05/25/2024. Increase in right ventricular size. Measurements 2D Linear Measurements IVSd: 1.27 0.6-0.9/0.6-1.0 cm LVIDd: 4.70 3.9-5.3/4.2-5.9 cm LVIDd Index: 2.53 2.4-3.2/2.2-3.1 cm/m2 LVIDs: 3.01 2.0-3.6 cm LVPWd: 1.12 0.7-1.1 cm LA Diam: 3.60 2.7-3.8/3.0-4.0 cm LAIDs Index: 1.94 1.5-2.3 cm/m2 LV Mass: 262.68 67-162/88-224 g LV Mass Index: 141.23 43-95/49-115 g/m2 LVOT Diam: 1.90 3.0+(-)1.3 cm 2D Systolic Function EF 4C: 64.60 >55% EF 2C: 59.00 >55% EF BiP: 63.40 >55% Mitral Valve MV Pk E: 1.00 MV PK A: 0.82 MV Decel Time: 252.00 E/A: 1.20 E'Lateral: 10.10 E'Medial: 6.31 E/E' Med: 15.80 E/E' Lat: 9.90 PHT: 74.00 MVA PHT: 2.97 Decel [place]: 3.96 Aortic Valve AoV Pk Ariel: 3.41 AoV Mn Ariel: 2.14 AoV VTI: 0.84 AoV Pk Grad: 47.00 Aov Mn Grad: 22.00 MARK Cont.VTI: 0.95 LVOT LVOT Pk Ariel: 1.05 LVOT Mn Ariel: 0.75 LVOT VTI: 0.28 LVOT Pk Grad: 4.00 LVOT Mn Grad: 3.00 LVOT Diam: 1.90 LVOT Area: 2.84 Diastolic Function MV Pk E: 1.00 MV Pk A: 0.82 E/A: 1.20 E'Medial: 6.31 E/E' Med: 15.80 E' Laterial: 10.10 E/E' Lat: 9.90 Right Ventricle TAPSE (mm): 19.10 TVS' Ariel: 10.10 Tricuspid Valve TR Pk Ariel: 1.92 TR Pk Grad: 15.00 RA Press: 3.00 RVSP: 18.00 Great Vessels Aorta Ao Asc: 2.80 2.1-3.4 cm Ao Arch: 3.20 Updated in Other Vendor System with Status of Final Rogerio Dillon MD electronically signed on 02/23/2025 1:13:56 PM with status of Final
--- OUTSIDE RECORDS SUMMARY | 2025-02-21 14:09 | XMS_ITS | Clinical Summary ---
Author Organization [facility] Address [address] [place] [address] Care Team Providers Care Endless Belt Finisher Name Role Phone Misti Thorpe MD Primary Care Provider [phone] Allergies Active Allergy Reactions Criticality Noted Date Comments Codeine GI Intolerance/Nausea/Vomiting Low 09/04/2024 Hydrocodone-Acetaminophen GI Intolerance/Nausea/Vomiting Low 09/04/2024 Morphine GI Intolerance/Nausea/Vomiting Low 09/04/2024 Oxycodone GI Intolerance/Nausea/Vomiting Low 09/04/2024 Active Problems Problem Noted Date Diagnosed Date Diverticulitis 09/06/2024 Acute blood loss anemia 09/05/2024 Acute lower GI bleeding 09/04/2024 Social History Tobacco Use Types Packs/Day Years Used Date Smoking Tobacco: Never Assessed [facility] Utilities Answer Date Recorded In the [...] time in the past 12 m [facility], were you homeless or living in a skilled nursing (including now)? No 09/05/2024 Comments Unknown Sex [...] patient's age to complete this topic Insurance [employer] [facility] [place] [employer] OUT [facility] [place] Advance Directives * Full Code (Latest Code Status on File) Date Activated Date Inactivated Comments 09/04/2024 1:39 PM Question Answer Comments Decision Thoroughly Discussed with: Patient Care Teams Endless Belt Finisher Relationship Specialty Start Date End Date Misti Thorpe MD [address] [place] [id number] PCP - General Family Medicine 09/05/24
== END ==
LOC: HO.CARD 12:50
PROVIDERS: PCP Internal Medicine; Visit Provider Internal Medicine
DX: Z95.3 Presence of xenogenic heart valve (principal)
CPT/HCPCS: 93306

== ENCOUNTER → 2025-02-21 12:52 | Outpatient (BNV) | payer BC, SELFPAY | PROVIDERS: PCP Internal Medicine; Visit Provider Internal Medicine | DX: Z95.3 Presence of xenogenic heart valve (principal); I51.7 Cardiomegaly | CPT/HCPCS: 93306 ==

== ENCOUNTER 2025-03-02 10:16 | Outpatient (AMB) | payer BC, SELFPAY ==
--- NOTE | 2025-03-02 10:20 | MHC.OFFVIS ---
Vital Signs 03/02/25 10:21 Height 5 ft 2 in Weight 183 lb BMI 33.5 Intake Visit Reasons: PO - RT VWG Excision 01/16/25 AR Intake Note: Yolie is a 64 year old female who presents today for Post Op of the Right VWG excision 01/16/2025. Patient reports that the right wrist pain is still the same, nothing new to report.Daily activities are interrupted due to the pain. Allergies oxycodone Adverse Reaction (Intermediate, Verified 03/02/25 10:23) sick to stomach codeine Adverse Reaction (Intermediate, Uncoded 03/02/25 10:23) abd pain, vomiting HPI HPI PO - RT VWG Excision 01/16/25 AR: Details: Yolie is a 64 year old female who presents today for Post Op of the Right VWG excision 01/16/2025. Patient reports that the right wrist pain is still the same, nothing new to report.Daily activities are interrupted due to the pain. Patient reports no tenderness to palpation about the incision site, no redness, and no evidence of infection. Concern for a potential cyst recurrence. [facility] Medical History Ascending aorta dilatation Severe aortic stenosis Physical exam Hyperkalemia Internal hemorrhoids Diverticulosis Golfers elbow of left upper extremity Obesity (BMI 30.0-34.9) GERD (gastroesophageal reflux disease) Migraine with aura and without status migrainosus, not intractable Surgical History History of bilateral carpal tunnel release H/O aortic valve replacement History of heart surgery History of carpal tunnel surgery History of cholecystectomy Family History Mother COPD (chronic obstructive pulmonary disease) Diabetes Afib Osteoporosis Dementia Father Lung cancer Family/Other Substance use disorder Maternal Grandmother Colon cancer Social History Housing: House Are you a primary lead care manager to a significant other at home: No Do you presently have visiting nurse or other home services: No Alcohol intake: current Alcohol intake frequency: 0-2 drinks per day Alcohol type: wine Patient Tobacco Use Status: Never used Tobacco e-Cigarette/Vaping Use: Currently Using Second Hand Smoke Exposure: No Substance Use Type: Marijuana service: No Current occupational status: other 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 Neuro: Normal sensation of the tips of all digits of the right hand at this time Vascular: Cap refill brisk Pain: Patient reports no tenderness to palpation about the incision in the volar and radial right wrist Patient reports pain in his area with range of motion of the right wrist ROM: Patient is extend all digits of the right hand fully and without difficulty Skin: No lacerations or abrasions. General: There is noted to be a well healing incision noted where the volar ganglion cyst was once located on the right wrist with some swelling No ecchymosis, erythema, or evidence of infection. Psych: Appears grossly normal Affect normal Attitude cooperative Assessment & Plan Assessment & Plan (1) Ganglion cyst of volar aspect of right wrist: Code(s): M67.431 - Ganglion, right wrist Category: Medical Plan 1. Status post volar wrist ganglion excision of right wrist DOS 01/16/2025 Patient appears to be recovering well postoperatively Patient is educated about the typical recovery course no acute follow-up indicated, other than as the patient appears to be recovering fairly well However, due to the pain with range of motion, patient is referred to occupational therapy. Patient is amenable to this plan Follow-up as needed Orders: Orders OT Evaluation and Treatment Today M67.431 - Ganglion, right wrist Coding Level of Care Code Global (65664) Diagnoses Ganglion cyst of volar aspect of right wrist M67.431
[2025-03-02 10:21] VITALS: BMI 33.5
== END 2025-03-02 10:47 | disposition home or self-care (01) ==
LOC: HO.HOS 10:17
PROVIDERS: PCP Internal Medicine
DX: M67.431 Ganglion, right wrist (principal)
CPT/HCPCS: 99024

== ENCOUNTER 2025-03-07 13:05 | Outpatient (AMB) | payer BC, SELFPAY ==
--- NOTE | 2025-03-07 13:06 | MHC.OFFVIS ---
Intake Visit Reasons: PO - RT VWG Excision 01/16/25 follow-up Intake Note: Yolie is a 64 year old right hand dominant female who presents today post operatively status post right volar wrist mass excision DOS: 01/16/[address] Jennifer Peralta. Patient reports the mass on her volar wrist has not gone done since her surgery. At first she states she though it was swelling however this never resolved. Patient states she was supposed to be referred to therapy however she says she is unable to financially pay for that at this time. She says she has pain on her volar wrist with any usage of her right wrist. On a scale of 1-10 she says when she has pain it is an 8. Denies numbness and tingling. Allergies oxycodone Adverse Reaction (Intermediate, Verified 03/07/25 13:14) sick to stomach codeine Adverse Reaction (Intermediate, Uncoded 03/07/25 13:14) abd pain, vomiting HPI HPI PO - RT VWG Excision 01/16/25 follow-up: Details: Yolie is a 64 year old right hand dominant female who presents today post operatively status post right volar wrist mass excision DOS: 01/16/[address] Jennifer Peralta. Patient reports the mass on her volar wrist has not gone done since her surgery. At first she states she though it was swelling however this never resolved. Patient states she was supposed to be referred to therapy however she says she is unable to financially pay for that at this time. She says she has pain on her volar wrist with any usage of her right wrist. No tenderness to palpation. On a scale of 1-10 she says when she has pain it is an 8. Denies numbness and tingling. [facility] Medical History Ascending aorta dilatation Severe aortic stenosis Physical exam Hyperkalemia Internal hemorrhoids Diverticulosis Golfers elbow of left upper extremity Obesity (BMI 30.0-34.9) GERD (gastroesophageal reflux disease) Migraine with aura and without status migrainosus, not intractable Surgical History History of bilateral carpal tunnel release H/O aortic valve replacement History of heart surgery History of carpal tunnel surgery History of cholecystectomy Family History Mother COPD (chronic obstructive pulmonary disease) Diabetes Afib Osteoporosis Dementia Father Lung cancer Family/Other Substance use disorder Maternal Grandmother Colon cancer Social History Housing: House Are you a primary care management coordinator to a significant other at home: No Do you presently have visiting nurse or other home services: No Alcohol intake: current Alcohol intake frequency: 0-2 drinks per day Alcohol type: wine Patient Tobacco Use Status: Never used Tobacco e-Cigarette/Vaping Use: Currently Using Second Hand Smoke Exposure: No Substance Use Type: Marijuana service: No Current occupational status: other 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 Neuro: Normal sensation of the tips of all digits of the right hand at this time Vascular: Cap refill brisk Pain: Patient reports no tenderness to palpation about the incision in the volar and radial right wrist Patient reports pain in his area with range of motion of the right wrist ROM: Patient is extend all digits of the right hand fully and without difficulty Skin: No lacerations or abrasions. General: There is noted to be a well healing incision noted where the volar ganglion cyst was once located on the right wrist with some swelling No ecchymosis, erythema, or evidence of infection. Psych: Appears grossly normal Affect normal Attitude cooperative Assessment & Plan Assessment & Plan (1) Ganglion cyst of volar aspect of right wrist: Code(s): M67.431 - Ganglion, right wrist Category: Medical Plan 1. Status post volar wrist ganglion excision of right wrist DOS 01/16/2025 Patient appears to be recovering well postoperatively Patient is educated about the typical recovery course Patient is seen and evaluated today with Dr. Peralta, and a collaborative treatment plan was formed: Patient is educated that it is likely a tendinitis issue that is causing her pain, not the mass The recommendation for this tendinitis is a course of occupational therapy, but the patient is educated she can also look up exercises online to be able to do at home Patient is amenable to this plan Follow-up as needed Coding Level of Care Code Global (12902) Diagnoses Ganglion cyst of volar aspect of right wrist M67.431
--- OUTSIDE RECORDS SUMMARY | 2025-03-07 14:50 | XMS_ITS | Clinical Summary ---
Author Organization [facility] Address [address] [place] [address] Care Team Providers Care National Park Ranger Name Role Phone Misti Thorpe MD Primary Care Provider [phone] Allergies Active Allergy Reactions Criticality Noted Date Comments Codeine GI Intolerance/Nausea/Vomiting Low 09/04/2024 Hydrocodone-Acetaminophen GI Intolerance/Nausea/Vomiting Low 09/04/2024 Morphine GI Intolerance/Nausea/Vomiting Low 09/04/2024 Oxycodone GI Intolerance/Nausea/Vomiting Low 09/04/2024 Active Problems Problem Noted Date Diagnosed Date Diverticulitis 09/06/2024 Acute blood loss anemia 09/05/2024 Acute lower GI bleeding 09/04/2024 Social History Tobacco Use Types Packs/Day Years Used Date Smoking Tobacco: Never Assessed [facility] Utilities Answer Date Recorded In [...] any time in the past 12 m [facility], were you homeless or living in a alf (including now)? No 09/05/2024 Comments Unknown Sex [...] patient's age to complete this topic Insurance [employer] [facility] [place] [employer] OUT [facility] [place] Advance Directives * Full Code (Latest Code Status on File) Date Activated Date Inactivated Comments 09/04/2024 1:39 PM Question Answer Comments Decision Thoroughly Discussed with: Patient Care Teams National Park Ranger Relationship Specialty Start Date End Date Misti Thorpe MD [address] [place] [id number] PCP - General Family Medicine 09/05/24
== END 2025-03-07 14:03 | disposition home or self-care (01) ==
LOC: HO.HOS 13:05
PROVIDERS: PCP Internal Medicine
DX: M67.431 Ganglion, right wrist (principal)
CPT/HCPCS: 99024

== ENCOUNTER 2025-06-02 12:25 | Outpatient (AMB) | payer BC, SELFPAY ==
[2025-06-02 12:31] VITALS: BP 130/80; PULSE 65; O2SAT 95; BMI 33.0
--- NOTE | 2025-06-02 12:31 | A.OFFPC_ITS ---
Vital Signs 06/02/25 12:31 Height 5 ft 2 in Weight 180 lb 6 oz BMI 33.0 BP 130/80 Blood Pressure Location Lt brachial Position Sitting Pulse 65 Pulse Source Pulse Oximeter Pulse Oximetry (%) 95 Oxygen Delivery Method Room Air Intake Visit Reasons: anemia, insomna Warehouse Distribution Manager Required: No Accompanied by: Self / Same As Patient Allergies oxycodone Adverse Reaction (Intermediate, Verified 06/02/25 12:31) sick to stomach codeine Adverse Reaction (Intermediate, Uncoded 06/02/25 12:31) abd pain, vomiting Tobacco use date assessed: 06/02/25 Dental Screening Dental Screen Date: 06/02/25 Did you have a dental visit in the last 12 months?: Yes Did you have a dental problem in the last 6 months where you did not have access to dental care?: No Was dental information given to patient?: Patient has dentist HPI HPI Comments History of Present Illness Details This is a 64-year-old female with migraines, insomnia, GERD and anxiety that comes today for follow-up on her conditions. Migraines has been less frequent and less intense. Insomnia stable with mirtazapine. GERD stable with PPIs. Anxiety well controlled with buspirone. Denies any chest pain or shortness on breath. [facility] Medical History (Updated 06/02/25 @ 12:46 by Misti Cam MD) Ascending aorta dilatation Severe aortic stenosis Physical exam Hyperkalemia Internal hemorrhoids Diverticulosis Golfers elbow of left upper extremity Obesity (BMI 30.0-34.9) GERD (gastroesophageal reflux disease) Migraine with aura and without status migrainosus, not intractable Surgical History History of bilateral carpal tunnel release H/O aortic valve replacement History of heart surgery History of carpal tunnel surgery History of cholecystectomy Family History Mother COPD (chronic obstructive pulmonary disease) Diabetes Afib Osteoporosis Dementia Father Lung cancer Family/Other Substance use disorder Maternal Grandmother Colon cancer Social History (Updated 06/02/25 @ 12:40 by Misti Cam MD) Housing: House Are you a primary medicare interviewer to a significant other at home: No Do you presently have visiting nurse or other home services: No Alcohol intake: current Alcohol intake frequency: a few times a week Alcohol type: wine Patient Tobacco Use Status: Never used Tobacco e-Cigarette/Vaping Use: Currently Using Second Hand Smoke Exposure: No Substance Use Type: Marijuana service: No Current occupational status: other 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 1. Little interest or pleasure in doing things: not at all 2. Feeling down, depressed, or hopeless: not at all 3. Trouble falling or staying asleep, or sleeping too much: nearly every day 4. Feeling tired or having little energy: not at all 5. Poor appetite or overeating: not at all 6. Feeling bad about yourself - or that you are a failure or have let yourself or your family down: not at all 7. Trouble concentrating on things, such as reading the newspaper or watching t elevision: not at all 8. Moving or speaking so slowly that other people could have noticed. Or the opposite - being so fidgety or restless that you have been moving around a lot more than usual: not at all 9. Thoughts that you would be better off or of hurting yourself in some way: not at all Total score: 3 Depression Screening Interpretation: Negative Depression Screening Done: Yes 17186 - PHQ-9 Billing: Yes Source: Developed by Drs. Austin Frost, Melissa Mcclendon, Edgar Obrien and colleagues, with an educational edi from [employer]. Thrive Questionnaire Date Thrive assessed: 06/02/25 I am a: Patient What is your living situation today?: I have a steady place to live Within the past 12 months, did the food you bought not last and you didn't have the money to get more?: Never true Within the past 12 months, did you worry whether your food would run out before you got money to buy more?: Never true Do you have trouble paying for medicines?: No Do you have trouble getting transportation to medical appointments?: No Do you have trouble paying your heating and electricity bill?: No Do you have trouble taking care of your child, family member or friend?: No Do you have trouble with day-to-day activities such as bathing, preparing meals, shopping, managing finances, etc.?: No Are you currently unemployed and looking for a job?: No Are you interested in more education?: No Please select the resources that you would like help with: None Currently or been in a relationship where the following occur: No concerns reported THRIVE Score: 0 AUDIT C Alcohol Use Questionnaire (AUDIT-C) 1. How often do you have a drink containing alcohol?: 4 or more times a week 2. How many drinks containing alcohol do you have on a typical day when you are drinking?: 1 or 2 3. How often do you have six or more drinks on one occasion?: Less than monthly Total Score: 5 RADHA-7 AMB Questionnaire RADHA-7 Date RADHA - 7 assessed: 06/02/25 Feeling nervous, anxious, or on edge: 0 = Not at all Not being able to stop or control worryin = Not at all Worrying too much about different things: 0 = Not at all Trouble relaxin = Not at all Being so restless that it is hard to sit still: 0 = Not at all Becoming easily annoyed or irritable: 0 = Not at all Feeling afraid as if something awful might happen: 0 = Not at all Total RADHA-7 score (0-4 normal; 5-9 mild; 10-14 moderate; 15-21 severe): 0 Source: Developed by Drs. Austin Frost, Melissa Mcclendon, Edgar Obrien and colleagues, with an educational edi from [employer]. RADHA-7 Assessment Billing RADHA-7 Assessment Tool: RADHA-7 Assessment 98053 Review of Systems Const All systems reviewed & are unremarkable except as noted in HPI and below Card Denies chest pain at rest, Denies chest pain with activity, Denies edema, Denies irregular heart rhythm, Denies claudication, Denies dyspnea, Denies dyspnea on exertion, Denies orthopnea, Denies paroxysmal nocturnal dyspnea and Denies slow heart rate Resp Denies cough, Denies dyspnea and Denies dyspnea on exertion Physical exam (Primary Care) Vital Signs: Last Vital Signs Pulse 65 06/02/25 12:31 BP 130/80 06/02/25 12:31 Pulse Ox 95 06/02/25 12:31 Oxygen Delivery Method Room Air 06/02/25 12:31 BMI result Body Mass Index 33.0 Tobacco/Smoking Status: Tobacco use Status Tobacco use date assessed 06/02/25 06/02/25 12:32 Patient Tobacco Use Status Never used Tobacco 06/02/25 12:40 Tobacco use type 10/09/22 13:46 e-Cigarette/Vaping Use Currently Using 06/02/25 12:40 PHQ-9: PHQ-9 Score PHQ-9: Total score 3 06/02/25 12:36 Depression Screening Interpretation: Negative Thrive Assessment: Date of Thrive Assessment Date Thrive assessed 06/02/25 06/02/25 12:36 Currently or been in a relationship where the following occur: No concerns reported Resp Effort & Inspection: normal respiratory effort Auscultation: clear to auscultation bilaterally Cardio Jugular venous distension: no JVD Rate: regular rate Rhythm: regular rhythm Heart sounds: S1 normal heart sound present and S2 normal heart sound present Extrem General: Yes full ROM Coding Level of Care Code Est Pt Level 4 (33461) Complex EM visit Add On G2211 Diagnoses Anxiety F41.9 Gastroesophageal reflux disease, unspecified whether esophagitis present K21.9 Esophagitis presence: esophagitis presence not specified Insomnia G47.00 Migraine with aura and without status migrainosus, not intractable G43.109 Additional Codes RADHA-7 Assessment Billing - RADHA-7 Assessment Tool: RADHA-7 Assessment 73268 ([id number]) PHQ-9 - 86628 - PHQ-9 Billing: Yes ([id number]) Time Spent (min) 22 Assessment & Plan Assessment & Plan (1) Anxiety: Code(s): F41.9 - Anxiety disorder, unspecified Category: Medical (2) GERD (gastroesophageal reflux disease): Code(s): K21.9 - Gastro-esophageal reflux disease without esophagitis Category: Medical Qualifiers: Esophagitis presence: esophagitis presence not specified Qualified Code(s): K21.9 - Gastro-esophageal reflux disease without esophagitis (3) Insomnia: Code(s): G47.00 - Insomnia, unspecified Category: Medical (4) Migraine with aura and without status migrainosus, not intractable: Code(s): G43.109 - Migraine with aura, not intractable, without status migrainosus Category: Medical Plan Continue current meds. Orders: Orders Magnesium 4 Months E83.42 - Hypomagnesemia IRON PROFILE 4 Months D64.9 - Anemia, unspecified Comprehensive Harmony. Panel Fast 4 Months F41.9 - Anxiety disorder, unspecified Vitamin D 25-OH Total 4 Months E55.9 - Vitamin D deficiency, unspecified Vitamin B12 and Folate 4 Months E53.8 - Deficiency of other specified B group vitamins Complete Blood Count Auto Diff 4 Months D64.9 - Anemia, unspecified Lipid Panel 4 Months E78.5 - Hyperlipidemia, unspecified
--- OUTSIDE RECORDS SUMMARY | 2025-06-02 14:49 | XMS_ITS | Clinical Summary ---
Author Organization [facility] Address [address] [facility] [address] [place] [address] Phone Care Team Providers Care Fig Caprifier Name Role Phone Misti Thorpe MD Primary Care Provid er Allergies Active Allergy Reactions Criticality Noted Date Comments Morphine 09/04/2024 Oxycodone 09/04/2024 Hydrocodone-Acetaminophen 09/04/2024 Medications aspirin 81 MG EC tablet Take 81 mg by mouth daily. Active metoprolol tartrate (LOPRESSOR) 25 MG tablet Take 25 mg by mouth 2 (two) times a day. Active busPIRone (BUSPAR) 10 MG tablet Take 10 mg by mouth 2 (two) times a day (once in the morning and once in the afternoon). Active omeprazole (PRILOSEC) 20 MG tablet Take 20 mg by mouth as needed. Active mirtazapine (REMERON) 15 MG tablet Take 15 mg by mouth nightly at bedtime. Active Social History Tobacco Use Types Packs/Day Years Used Date Smoking Tobacco: Never Assessed Education Answer Date Recorded Are you interested in more education? Not on nasreen e 09/04/2024 Are you concerned about learning? Not on file 09/04/2024 No 09/04/2024 No 09/04/2024 Digital Access Answer Date Recorded No 09/04/2024 No 09/04/2024 Reliable internet access at home? Not on file 09/04/2024 Device with a working camera? Not on file Intimate Partner Violence Answer Date R ecorded Are you denied basic needs s uch as food, clothing, or medical care? No 09/04/2024 In the past 12 months have y ou been in a relationship with a person who hurts, threatens, or tries to control you? No 09/04/2024 Are you denied basic needs s uch as food, clothing, or medical care? No 09/04/2024 In the past 12 months have y ou been in a relationship with a person who hurts, threatens, or tries to control you? No 09/04/2024 Comments Unknown Sex and Gender Information Value Date Recorded Sex Assigned at Female 09/04/2024 2:34 AM EST Legal Sex Female 2:28 AM EST Gender Identity Female 09/04/2024 2:34 AM EST Sexual Orientation Straight 09/04/2024 2: 34 AM EST Last Filed Vital Signs Vital Sign Reading Time Taken Comments Blood Pressure 100/78 09/04/2024 10:15 AM EST Pulse 89 09/04/2024 10:15 AM EST Temperature 36.7 C (98.1 F) 09/04/2024 9:38 AM EST Respiratory Rate 20 09/04/2024 10:15 AM EST Oxygen Saturation 100% 09/04/2024 10:15 AM EST Inhaled Oxygen Concentration - - Weight 83.9 kg (185 lb) 09/04/2024 2:49 AM EST Height 157.5 cm (5' 2 ) 09/04/2024 2:49 AM EST Body Mass Index 33.84 09/04/2024 2:49 AM EST Plan of Treatment Health Maintenance Due Date Last Done Comments Adult Td,Tdap Booster 1961 LIPID PANEL 1961 DEPRESSION SCREENING 1973 SMOKING Hx and SMOKELESS TOB ACCO SCREENING 1974 HEPATITIS C SCREENING 1979 HIV ONE-TIME SCREENING (18-6 5 YEARS) 1979 PAP SMEAR 1982 MAMMOGRAM 2001 COLOGUARD 2006 COLONOSCOPY 2006 COLORECTAL CANCER SCREENING 2006 FIT TEST 2006 FOBT 2006 SIGMOIDOSCOPY 2006 VIRTUAL COLONOSCOPY 2006 PNEUMOCOCCAL VACCINES (50+ y ears) (1 of 1 - PCV) 2011 ZOSTER VACCINES (1 of 2) 2011 INFLUENZA VACCINE (#1) 2025 COVID-19 VACCINE ( - 2023-2 5 season) 2025 SCREENING FOR DIABETES 09/04/2027 09/04/2024 RSV VACCINE (1 - 1-dose 75+ series) 2036 HEPATITIS A VACCINES Aged Out No long er eligible based on patient's age to complete this topic HIB VACCINES Aged Out No longer eligi ble based on patient's age to complete this topic MENINGOCOCCAL VACCINES (ACWY) Aged Out No longer eligible based on patient's age to complete this topic MENINGOCOCCAL VACCINES (B) Aged Out N o longer eligible based on patient's age to complete this topic Medical Devices Not on file Insurance [facility] Advance Directives For more information, please contact: [phone] (9AM - 5PM [facility], Thursday-Thursday) * Full Code (Latest Code Status on File) Date Activated Date Inactivated Comments 09/04/2024 9:28 AM Question Answer Comments Code Status Confirmed With: Patient Code Status Communicated To: Other (specify belo w) Code Discussion Comments: ED attening Care Teams Fig Caprifier Relationship Specialty Start Date End Date Misti Thorpe MD [address] [place] [address] PCP - General Internal Medicine 09/04/24 Additional Source Comments The information contained in this document represents components of the legal health record. It is not the complete legal health record.[facility]
--- OUTSIDE RECORDS SUMMARY | 2025-06-02 14:49 | XMS_ITS | Patient Health Record ---
Author Organization [facility] Address [address] [place] [address] Care Team Providers Care Dog Food Dough Mixer Name Role Phone Charmaine ROSARIO, Sheri Primary Care Provider U anika NewmanAustin [phone] Allergies Allergen (clinical drug ingredient) Drug/Non Drug Allergy documented on EMR Reaction Allergy Type Onset Date Status codeine Codeine Sulfate Unknown Drug Allergy A ctive pain meds (uncoded) Unknown Allergy Active Reason For Referral No Information Medications Medication SIG (Take, Route, Fr equency, Duration) Notes Start Date End Date Status Multi Vitamin/Minerals Active Fish Oil 1000mg Acti ve Glucosamine 1500mg A ctive Naproxen 500mg Activ e Cephalexin 500mg Act arnoldo MoviPrep 100 GM as directed Orally 1 time for 1 dose 12/18/2011 Active Problems Problem Type SNOMED Code ICD Code Onset Dates Problem Status W/U Status Risk Notes Problem Screening for malignant neoplasm of colon ([id number]) Special screening for malignant neoplasms, colon (V76.51) Active confirmed Plan Of Treatment Future Test Test Name Order Date COLONOSCOPY 12/18/2011 Insurance Providers Payer Name Payer Address Payer Phone Subscriber Number Group Number Insured Name Patient Relationship to Insured Coverage Start Date Coverage End Date [facility] [place] [employer] [address] [place] [address] [id number] FREDA GRAY Self - patient is the insured Medical (General) History Medical History History ICD Code Denies NE,DM,CVA,Lung disease,renal dise ase Arthritis Surgical History Surgery Date(Month/Year) Hammer toe surgery [facility]Y Carpal tunnel bilaterally
--- OUTSIDE RECORDS SUMMARY | 2025-06-02 14:50 | XMS_ITS | Clinical Summary ---
Author Organization [facility] Address [address] [place] [address] Care Team Providers Care Motocross Racer Name Role Phone Misti Thorpe MD Primary Care Provider [phone] Allergies Active Allergy Reactions Criticality Noted Date Comments Codeine GI Intolerance/Nausea/Vomiting Low 09/04/2024 Hydrocodone-Acetaminophen GI Intolerance/Nausea/Vomiting Low 09/04/2024 Morphine GI Intolerance/Nausea/Vomiting Low 09/04/2024 Oxycodone GI Intolerance/Nausea/Vomiting Low 09/04/2024 Active Problems Problem Noted Date Diagnosed Date Diverticulitis 09/06/2024 Acute blood loss anemia 09/05/2024 Acute lower GI bleeding 09/04/2024 Social History Tobacco Use Types Packs/Day Years Used Date Smoking Tobacco: Never Assessed [facility] Utilities Answer Date Recorded In the [...] time in the past [address] [facility], were you homeless or living in a snf (including now)? No 09/05/2024 Comments Unknown Sex [...] 89 09/06/2024 1:10 PM EST Temperature 36.3 C (97.4 F) 09/06/2024 1:10 PM EST Respiratory Rate 18 09/06/2024 1:10 PM EST [...] Vaccine (1 of 2) 2011 Influenza Vaccine 04/21/2025 COVID-19 Vaccine (1 - 2023-2 5 season) 2025 RSV Vaccine 60 years and old er and Patients (1 - 1-dose 75+ series) 2036 Hepatitis B Vaccines Aged Out No long er eligible based on patient's age to complete this topic Insurance - [facility] [employer] [facility] Advance Directives * Full Code (Latest Code Status on File) Date Activated Date Inactivated Comments 09/04/2024 1:39 PM Question Answer Comments Decision Thoroughly Discussed with: Patient Care Teams Motocross Racer Relationship Specialty Start Date End Date Misti Thorpe MD [address] [place] [address] PCP - General Family Medicine 09/05/24
--- OUTSIDE RECORDS SUMMARY | 2025-06-02 14:50 | XMS_ITS | Encounter Summary ---
Author Organization [facility] Address [address] [facility] [address] [place] [id number] Phone Care Team Providers Care Business Enterprise Officer Name Role Phone Misti Thorpe MD Primary Care Provid er Encounter Details Date Type Department Care Team (Late st Contact Info) Description 09/04/2024 Procedure Pass [facility], Ct Scan - [address] [address] Social History Tobacco Use Types Packs/Day Years [...] Orientation Straight 09/04/2024 2: 34 AM EST documented as of this encounter Functional Status * Calculated C-SSRS Risk Score (Lifetime/Recent) Answer Date of Assessment Author No Risk Indicated 09/04/2024 2:47 AM Jordi Tomlin RN * [place] Suicide Severity Rating Scale (Screener/Recent Self-Report) Question Answer Date of Assessment Author 1. Wish to be (Past 1 Month) No 024 2:47 AM Jordi Tomlin RN 2. Non-Specific Active Suici sandra Thoughts (Past 1 Month) No 09/04/2024 2:47 AM Jordi Tomlin RN 6. Suicidal Behavior (Lifetime) No 2:47 AM Jordi Tomlin RN documented as of this encounter Plan of Treatment Not on file documented as of this encounter Visit Diagnoses Not on filedocumented in this encounter Care Teams Business Enterprise Officer Relationship Specialty Start Date End Date Misti Thorpe MD [address] [place] [address] PCP - General Internal Medicine 09/04/24 documented as of this encounter Additional Source Comments The information contained in this document represents components of the legal health record. It is not the complete legal health record.[facility]
== END 2025-06-02 12:48 | disposition home or self-care (01) ==
LOC: HO.HMCH 12:26
PROVIDERS: PCP Internal Medicine; Visit Provider Internal Medicine
DX: F41.9 Anxiety disorder, unspecified (principal); K21.9 Gastro-esophageal reflux disease without esophagitis; G47.00 Insomnia, unspecified; G43.109 Migraine with aura, not intractable, without status migrainosus

== ENCOUNTER → 2025-06-02 12:25 | Outpatient (BNVA) | payer BC, SELFPAY | PROVIDERS: PCP Internal Medicine; Visit Provider Internal Medicine | DX: K21.9 Gastro-esophageal reflux disease without esophagitis (principal); F41.9 Anxiety disorder, unspecified; G47.00 Insomnia, unspecified; G43.109 Migraine with aura, not intractable, without status migrainosus; Z79.899 Other long term (current) drug therapy | CPT/HCPCS: 96127 ==

== ENCOUNTER 2025-07-25 08:58 | Outpatient (AMB) | payer BC, SELFPAY ==
--- NOTE | 2025-07-25 09:33 | A.OFFVIS_ITS ---
Vital Signs 07/25/25 09:34 Height 5 ft 2 in Weight 181 lb 10.574 oz BMI 33.2 BP 120/80 Blood Pressure Location Lt brachial Position Sitting Pulse 57 Pulse Source Monitor Intake Visit Reasons: Cardiac Clearance for Surgery Cheese Grader Required: No Accompanied by: Self / Same As Patient Allergies oxycodone Adverse Reaction (Intermediate, Verified 06/02/25 12:31) sick to stomach codeine Adverse Reaction (Intermediate, Uncoded 06/02/25 12:31) abd pain, vomiting Medication List - Last Reconciled 07/25/25 by Rogerio Dillon MD aspirin 81 mg PO DAILY buspirone 10 mg PO BID 30 days calcium carbonate (Calcium 500) 500 mg PO DAILY cholecalciferol (vitamin D3) 50 mcg PO DAILY wegjkdnsmic-G0-Mgetavdbk serr 1,500-400-100 mg-unit-mg (Glucosamine Daily Complex) 1 tab PO DAILY ibuprofen 800 mg PO Q8H 30 days metoprolol tartrate 25 mg PO BID mirtazapine 45 mg PO BEDTIME 90 days multivitamin (Daily Multi-Vitamin tablet) 1 tab PO DAILY omeprazole 20 mg PO DAILY PRN 90 days vitamin B complex (B Complex-Vitamin B12 tablet) 1 tab PO DAILY HPI Comments Details: Yolie returns for follow-up. She has a history of severe aortic stenosis from bicuspid aortic valve as well as ascending aortic dilatation. She underwent bioprosthetic aortic valve replacement with ascending aortic aneurysm repair subsequently. Overall, she states she is feeling good. She has got no cardiac symptoms. Needs to go for hip surgery and hence also requires preoperative evaluation. [facility] Medical History Ascending aorta dilatation Severe aortic stenosis Physical exam Hyperkalemia Internal hemorrhoids Diverticulosis Golfers elbow of left upper extremity Obesity (BMI 30.0-34.9) GERD (gastroesophageal reflux disease) Migraine with aura and without status migrainosus, not intractable Surgical History History of bilateral carpal tunnel release H/O aortic valve replacement History of heart surgery History of carpal tunnel surgery History of cholecystectomy Family History Mother COPD (chronic obstructive pulmonary disease) Diabetes Afib Osteoporosis Dementia Father Lung cancer Family/Other Substance use disorder Maternal Grandmother Colon cancer Social History (Reviewed 07/25/25 @ 09:35 by Susi Box [facility]) Housing: House Are you a primary resident care technician to a significant other at home: No Do you presently have visiting nurse or other home services: No Alcohol intake: current Alcohol intake frequency: 0-2 drinks per day Alcohol type: wine Patient Tobacco Use Status: Never used Tobacco e-Cigarette/Vaping Use: Currently Using Second Hand Smoke Exposure: No Substance Use Type: Marijuana service: No Current occupational status: other 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 Current occupational exposures/hazards: No Sexual orientation: Straight/Heterosexual Gender identity: Female Cognitive needs: No Hearing needs: No Vision needs: Yes Review of Systems Const Denies chills, Denies fatigue, Denies fever(s), Denies frequent falls, Denies weakness, Denies weight gain and Denies weight loss ENT Denies dizziness Card Denies chest pain, Denies leg edema, Denies lightheadedness, Denies palpitations, Denies dyspnea and Denies dyspnea on exertion Resp Denies cough, Denies dyspnea and Denies dyspnea on exertion GI Denies hematochezia Musc Denies abnormal gait, Denies muscle weakness, Denies numbness, Denies radiating pain into limb and Denies tingling Neuro Denies abnormal gait, Denies dizziness, Denies frequent falls, Denies numbness, Denies tingling and Denies weakness Endo Denies fatigue and Denies palpitations Physical Exam Vital Signs: Last Vital Signs Pulse 57 07/25/25 09:34 BP 120/80 07/25/25 09:34 BMI result Body Mass Index 33.2 Const General: comfortable and no acute distress Orientation/consciousness: patient oriented x3 HEENT Other: Unremarkable Head: Yes normal to inspection Neck Neck: Yes normal visual inspection Chest Chest palpation & inspection: normal inspection of the chest Resp Auscultation: clear to auscultation bilaterally Cardio Palpation: normal PMI Heart sounds: S1 normal heart sound present, S2 normal heart sound present, no gallops, Murmur heart sound present systolic III/ and at the right sternal border and no rubs GI Palpation (GI): Soft to palpation Back/Spine/Pelvis Other: unremarkable Skin General skin exam: no rashes or lesions noted Neuro General: patient oriented x3 Extrem General: Yes normal to inspection Psych Mental Status: mental status grossly normal Office Procedures EKG Details: EKG with sinus bradycardia at 57/Min; no ischemic changes; [place] [address]-[id number], Complete Assessment & Plan Assessment & Plan (1) Status post aortic valve replacement with bioprosthetic valve: Comment: #23 Hernandes inspiris valve Code(s): Z95.3 - Presence of xenogenic heart valve Category: Surgical Plan: #23 Hernandes Inspiris valve. In the most recent echocardiogram, LVEF is 63%. With regard to the bioprosthetic aortic valve, mean gradient 22 mm Hg. Dimensionless index 0.31. Increased LVOT VTI, which could indicate higher stroke volume. Overall, not much different from before. Unclear if she has any patient prosthesis mismatch. Any case, in the absence of symptoms, no implications. We can continue to monitor. Continue aspirin. Continue infective endocarditis prophylaxis per protocol. Preoperative cardiac catheterization showed normal coronary arteries. With regard to the beta-blockers, may not need this long-term. However, may continue this till time of surgery and possibly discontinue few weeks after. In that case, she will need to watch her pulse/blood pressure. We discussed about this today. (2) S/P ascending aortic aneurysm repair: Code(s): Z98.890 - Other specified postprocedural states; Z86.79 - Personal history of other diseases of the circulatory system Category: Surgical Plan: Per notes, ascending aortic aneurysm repair with graft. She had a CT chest in 02/08/2024 and that showed stable appearance. (3) Preoperative cardiovascular examination: Code(s): Z01.810 - Encounter for preprocedural cardiovascular examination Category: Medical Plan: Low to intermediate cardiac risk. May proceed as planned. Plan Discussion Notes I discussed with the patient that her elevated valve pressures have been stable and asymptomatic, so no immediate intervention is necessary. We agreed that she should continue taking metoprolol through her surgery to manage heart rate and potential rhythm disturbances. The patient was cleared for her hip replacement surgery as there are no significant cardiac concerns. Patient was informed and verbally consented to the use of an ambient scribe for clinic note documentation during this visit. Orders: Orders CA echo transthoracic complete 1 Year Z95.3 - Presence of xenogenic heart valve Patient Instructions: - Continue taking metoprolol as prescribed through the surgery and for a couple of months afterward. - Monitor for any new symptoms such as chest pain or shortness of breath and report them immediately. - Follow up in one year with an echocardiogram unless new symptoms develop. Coding Level of Care Code Est Pt Level 4 (55079) Complex EM visit Add On G2211 Diagnoses Status post aortic valve replacement with bioprosthetic valve Z95.3 S/P ascending aortic aneurysm repair Z98.890; Z86.79 Preoperative cardiovascular examination Z01.810 CPT Codes EKG - CPT: 68959-[id number], Complete ([id number])
[2025-07-25 09:34] VITALS: BP 120/80; PULSE 57; BMI 33.2
--- OUTSIDE RECORDS SUMMARY | 2025-07-25 09:42 | XMS_ITS | Encounter Summary ---
Author Organization [facility] Address [address] [place] [address] Phone Care Team Providers Care Alteration Manager Name Role Phone Misti Thorpe MD Primary Care Provid er Encounter Details Date Type Department Care Team (Late st Contact Info) Description 09/04/2024 Procedure Pass [facility], Ct Scan - [address] [address] Social History Tobacco Use Types Packs/Day Years [...] 09/04/2024 2:47 AM Jordi Tomlin RN * [place] Suicide Severity Rating Scale (Screener/Recent Self-Report) Question Answer Date of Assessment Author 1. Wish to be (Past 1 Month) No 024 2:47 AM Jordi Tomlin RN 2. Non-Specific Active Suici sandra Thoughts (Past 1 Month) No 09/04/2024 2:47 AM Jordi Tomlni RN 6. Suicidal Behavior (Lifetime) No 2:47 AM Jordi Tomiln RN documented as of this encounter Plan of Treatment Not on file documented as of this encounter Visit Diagnoses Not on filedocumented in this encounter Care Teams Alteration Manager Relationship Specialty Start Date End Date Misti Thorpe MD [address] [place] [address] PCP - General Internal Medicine 09/04/24 documented as of this encounter Additional Source Comments The information contained in this document represents components of the legal health record. It is not the complete legal health record.[facility]
--- OUTSIDE RECORDS SUMMARY | 2025-07-25 09:42 | XMS_ITS | Patient Health Record ---
Author Organization [facility] Address [address] [place] [address] Care Team Providers Care C Java Developer Name Role Phone Charmaine ROSARIO, Sheri Primary Care Provider U anika NewmanAustin [phone] Allergies Allergen (clinical drug ingredient) Drug/Non Drug [...] MoviPrep 100 GM as directed Orally 1 time; Duration: 1 dose 12/18/2011 Active Problems Problem Type SNOMED Code ICD Code Onset Dates Problem Status W/U Status Risk Notes Problem Screening for malignant neoplasm of colon (718591579) Special screening for malignant neoplasms, colon (V76.51) Active confirmed Plan Of Treatment Future Test Test Name Order Date COLONOSCOPY 12/18/2011 Insurance Providers Payer Name Payer Address Payer Phone Subscriber Number Group Number Insured Name Patient Relationship to Insured Coverage Start Date Coverage End Date [facility] [employer] CLAIM[employer] [address] [place] [address] [id number] FREDA GRAY Self - patient is the insured Medical (General) History Medical History History ICD Code Denies VT,DM,CVA,Lung disease,renal dise ase Arthritis Surgical History Surgery Date(Month/Year) Hammer toe surgery CCY Carpal tunnel bilaterally
--- OUTSIDE RECORDS SUMMARY | 2025-07-25 09:42 | XMS_ITS | Clinical Summary ---
Author Organization [facility] Address [address] [place] [address] Care Team Providers Care Graduate Student Instructor Name Role Phone Misti Thorpe MD Primary Care Provider [phone] Allergies Active Allergy Reactions Criticality Noted Date Comments Codeine GI Intolerance/Nausea/Vomiting Low 09/04/2024 Hydrocodone-Acetaminophen GI Intolerance/Nausea/Vomiting Low 09/04/2024 Morphine GI Intolerance/Nausea/Vomiting Low 09/04/2024 Oxycodone GI Intolerance/Nausea/Vomiting Low 09/04/2024 Active Problems Problem Noted Date Diagnosed Date Diverticulitis 09/06/2024 Acute blood loss anemia 09/05/2024 Acute lower GI bleeding 09/04/2024 Social History Tobacco Use Types Packs/Day Years Used Date Smoking Tobacco: Never Assessed [facility] Utilities Answer Date Recorded In the [...] any time in the past 12 m [facility], were you homeless or living [...] - 2023-2 5 season) 2025 RSV Vaccine 50 years and old er and Patients (1 - 1-dose 75+ series) 2036 Hepatitis B Vaccines Aged Out No long er eligible based on patient's age to complete this topic Insurance - [facility] [employer] [facility] Advance Directives * Full Code (Latest Code Status on File) Date Activated Date Inactivated Comments 09/04/2024 1:39 PM Question Answer Comments Decision Thoroughly Discussed with: Patient Care Teams Graduate Student Instructor Relationship Specialty Start Date End Date Misti Thorpe MD [address] [place] [id number] PCP - General Family Medicine 09/05/24
--- OUTSIDE RECORDS SUMMARY | 2025-07-25 09:42 | XMS_ITS ---
[facility] Name [facility] Organization [facility] Results Test Name/Text Value Interpretation Date Range Source Potassium SerPl-sCnc 4.6 mmol/L Normal 09/06/2024 3.4 - 5 .3 HHCCT GFR/BSA.pred SerPlBld QPH-IYX-YeVAmr >90.0 Normal 09/06/2024 59 - HHCCT Chloride SerPl-sCnc 105.0 mmol/L Normal 09/06/2024 98 - 1 07 HHCCT Sodium SerPl-sCnc 140.0 mmol/L Normal 09/06/2024 136 - 14 5 HHCCT CO2 SerPl-sCnc 26.0 mmol/L Normal 09/06/2024 22 - 33 HH CCT Anion Gap Bld-sCnc 9.0 Normal 09/06/2024 7 - 17 HHCCT BUN SerPl-mCnc 11.0 mg/dL Normal 09/06/2024 8 - [address] BUN/Creat SerPl 18.0 Ratio Normal 09/06/2024 10 - 25 HH CCT Calcium SerPl-mCnc 8.7 mg/dL Normal 09/06/2024 8.7 - 10.5 HHCCT Glucose SerPl-mCnc 90.0 mg/dL Normal 09/06/2024 65 - 99 HHCCT Creat SerPl-mCnc 0.6 mg/dL Normal 09/06/2024 0.4 - 1.1 HH CCT Phosphate SerPl-mCnc 3.0 mg/dL Normal 09/06/2024 2.7 - 4. 5 HHCCT Magnesium SerPl-mCnc 1.7 mg/dL Normal 09/06/2024 1.6 - 2. 7 HHCCT Hct VFr Bld Auto 29.0 % Below low normal 09/06/2024 35 - 47 HHCCT Hgb Bld-mCnc 9.8 g/dL Below low normal 09/06/2024 11.7 - 15 .7 HHCCT Hgb Bld-mCnc 9.8 g/dL Below low normal 09/06/2024 11.7 - 15 .7 HHCCT Hct VFr Bld Auto 29.0 % Below low normal 09/06/2024 35 - 47 HHCCT POC Glucose 79.0 mg/dL Normal 09/05/2024 65 - 99 HHCCT POC Glucose 89.0 mg/dL Normal 09/05/2024 65 - 99 HHCCT Hct VFr Bld Auto 30.3 % Below low normal 09/05/2024 35 - 47 HHCCT Hgb Bld-mCnc 9.8 g/dL Below low normal 09/05/2024 11.7 - 15 .7 HHCCT POC Glucose 89.0 mg/dL Normal 09/05/2024 65 - 99 HHCCT Anion Gap Bld-sCnc 10.0 Normal 09/05/2024 7 - 17 HHCCT Chloride SerPl-sCnc 104.0 mmol/L Normal 09/05/2024 98 - 1 07 HHCCT BUN/Creat SerPl 32.0 Ratio Above high normal 09/05/2024 10 - 25 HHCCT Potassium SerPl-sCnc 4.0 mmol/L Normal 09/05/2024 3.4 - 5 .3 HHCCT Calcium SerPl-mCnc 8.4 mg/dL Below low normal 09/05/2024 8.7 - 10.5 HHCCT GFR/BSA.pred SerPlBld CIO-JEA-MzJJiu >90.0 Normal 09/05/2024 59 - HHCCT CO2 SerPl-sCnc 22.0 mmol/L Normal 09/05/2024 22 - 33 HH CCT Creat SerPl-mCnc 0.5 mg/dL Normal 09/05/2024 0.4 - 1.1 HH CCT BUN SerPl-mCnc 16.0 mg/dL Normal 09/05/2024 8 - [address] Sodium SerPl-sCnc 136.0 mmol/L Normal 09/05/2024 136 - 14 5 HHCCT Glucose SerPl-mCnc 93.0 mg/dL Normal 09/05/2024 65 - 99 HHCCT Phosphate SerPl-mCnc 3.0 mg/dL Normal 09/05/2024 2.7 - 4. 5 HHCCT Magnesium SerPl-mCnc 2.4 mg/dL Normal 09/05/2024 1.6 - 2. 7 HHCCT RBC num Bld Auto 3.11 Mil/uL Below low normal 09/05/2024 4 - 5.4 HHCCT MCV RBC Auto 97.0 fL Normal 09/05/2024 80 - 100 HHCCT WBC num Bld Auto 7.0 Thou/uL Normal 09/05/2024 4 - 11 HHCCT RDW RBC Auto-Rto 13.4 % Normal 09/05/2024 11.5 - 14.5 HHCCT Platelet num Bld Auto 242.0 Thou/uL Normal 09/05/2024 150 - 450 HHCCT PMV Bld Auto 10.3 fL Normal 09/05/2024 7.5 - 12.5 HHCCT Hgb Bld-mCnc 9.8 g/dL Below low normal 09/05/2024 11.7 - 15 .7 HHCCT Hct VFr Bld Auto 30.0 % Below low normal 09/05/2024 35 - 47 HHCCT MCHC RBC Auto-mCnc 32.7 g/dL Normal 09/05/2024 30 - 36 HHCCT MCH RBC Qn Auto 31.5 pg Above high normal 09/05/2024 27 - 31 HHCCT POC Glucose 93.0 mg/dL Normal 09/05/2024 65 - 99 HHCCT LDH SerPl L to P-cCnc 133.0 U/L Normal 09/04/2024 120 - 2 60 HHCCT Ferritin SerPl-mCnc 193.0 ug/L Normal 09/04/2024 30 - 400 HHCCT Haptoglob SerPl-mCnc 149.0 mg/dL Normal 09/04/2024 30 - 2 00 HHCCT Lactate SerPl-sCnc 0.9 mmol/L Normal 09/04/2024 0.5 - 1.9 HHCCT TT imm Bovine Thrombin PPP 13.9 seconds Normal 09/04/2024 12.7 - 19.2 HHCCT Anticoagulant NO ANTI COAGULANT MEDS Normal 09/04/2024 HHCCT INR PPP 1.1 Normal 09/04/2024 HHCCT Prothrombin time 12.1 seconds Normal 09/04/2024 10 - 13.5 HHCCT Anticoagulant NO ANTI COAGULANT MEDS Normal 09/04/2024 HHCCT aPTT PPP 28.0 seconds Normal 09/04/2024 25 - 36 HHCCT Anticoagulant NO ANTI COAGULANT MEDS Normal 09/04/2024 HHCCT Fibrinogen PPP-mCnc 484.0 mg/dL Above high normal 09/04/2024 148 - 435 HHCCT Hgb Bld-mCnc 10.1 g/dL Below low normal 09/04/2024 11.7 - 15 .7 HHCCT Hct VFr Bld Auto 30.6 % Below low normal 09/04/2024 35 - 47 HHCCT POC Glucose 108.0 mg/dL Above high normal 09/04/2024 65 - 99 HHCCT Anion Gap Bld-sCnc 7.0 Normal 09/04/2024 7 - 17 HHCCT Albumin SerPl-mCnc 3.5 g/dL Normal 09/04/2024 3.4 - 4.8 HHCCT Calcium SerPl-mCnc 8.6 mg/dL Below low normal 09/04/2024 8.7 - 10.5 HHCCT Creat SerPl-mCnc 0.6 mg/dL Normal 09/04/2024 0.4 - 1.1 HH CCT Sodium SerPl-sCnc 137.0 mmol/L Normal 09/04/2024 136 - 14 5 HHCCT ALT SerPl-cCnc 15.0 U/L Normal 09/04/2024 10 - 50 HHCC T Bilirub SerPl-mCnc 0.3 mg/dL Normal 09/04/2024 0.2 - 1 HHCCT GFR/BSA.pred SerPlBld TDQ-SAC-LtANad >90.0 Normal 09/04/2024 59 - HHCCT Albumin/Glob SerPl 1.4 Ratio Normal 09/04/2024 1 - 3 HHCCT Glucose SerPl-mCnc 111.0 mg/dL Above high normal 09/04/2024 65 - 99 HHCCT Chloride SerPl-sCnc 104.0 mmol/L Normal 09/04/2024 98 - 1 07 HHCCT Prot SerPl-mCnc 6.0 g/dL Below low normal 09/04/2024 6.3 - 8.3 HHCCT AST SerPl-cCnc 15.0 U/L Normal 09/04/2024 10 - 50 HHCC T Potassium SerPl-sCnc 4.7 mmol/L Normal 09/04/2024 3.4 - 5 .3 HHCCT BUN/Creat SerPl 22.0 Ratio Normal 09/04/2024 10 - 25 HH CCT CO2 SerPl-sCnc 26.0 mmol/L Normal 09/04/2024 22 - 33 HH CCT ALP SerPl-cCnc 70.0 U/L Normal 09/04/2024 32 - 122 HHCC T Globulin Ser Calc-mCnc 2.5 g/dL Normal 09/04/2024 1.5 - 3.9 HHCCT BUN SerPl-mCnc 13.0 mg/dL Normal 09/04/2024 8 - [address] Magnesium SerPl-mCnc 1.8 mg/dL Normal 09/04/2024 1.6 - 2. 7 HHCCT MCH RBC Qn Auto 32.0 pg Above high normal 09/04/2024 27 - 31 HHCCT Platelet num Bld Auto 266.0 Thou/uL Normal 09/04/2024 150 - 450 HHCCT WBC num Bld Auto 9.5 Thou/uL Normal 09/04/2024 4 - 11 HHCCT RDW RBC Auto-Rto 12.4 % Normal 09/04/2024 11.5 - 14.5 HHCCT MCV RBC Auto 97.0 fL Normal 09/04/2024 80 - 100 HHCCT Hgb Bld-mCnc 9.6 g/dL Below low normal 09/04/2024 11.7 - 15 .7 HHCCT Hct VFr Bld Auto 29.0 % Below low normal 09/04/2024 35 - 47 HHCCT RBC num Bld Auto 3.0 Mil/uL Below low normal 09/04/2024 4 - 5.4 HHCCT PMV Bld Auto 10.4 fL Normal 09/04/2024 7.5 - 12.5 HHCCT MCHC RBC Auto-mCnc 33.1 g/dL Normal 09/04/2024 30 - 36 HHCCT Hgb Bld-mCnc 9.6 g/dL Below low normal 09/04/2024 11.7 - 15 .7 HHCCT Hct VFr Bld Auto 29.2 % Below low normal 09/04/2024 35 - [facility] En[facility] Encounter Type Encounter Reason Primary Diagnosis Location Date Inpatient Gastrointestinal hemorrhage, unspecified Gastrointestinal hemorrhage, unspecified [address] Care Team Organization Name Specialty Phone Email Start Date End Da te [address] 09/08/2024 12/07/2024 [place] 09/04/2024
--- OUTSIDE RECORDS SUMMARY | 2025-07-25 09:42 | XMS_ITS | Clinical Summary ---
Author Organization [facility] Address [address] [place] [id number] Phone Care Team Providers Care Nutrition Intern Name Role Phone Misti Thorpe MD Primary [...] VACCINE (#1) 2025 COVID-19 VACCINE ( - 2024-2 6 season) 2025 SCREENING FOR DIABETES 09/04/2027 09/04/2024 [...] topic Medical Devices Not on file Insurance [facility] Advance Directives For more information, please contact: [phone] (9AM - 5PM [facility], Thursday-Thursday) * Full Code (Latest Code Status on File) Date Activated Date Inactivated Comments 09/04/2024 9:28 AM Question Answer Comments Code Status Confirmed With: Patient Code Status Communicated To: Other (specify belo w) Code Discussion Comments: ED attening Care Teams Nutrition Intern Relationship Specialty Start Date End Date Misti Thorpe MD [address] [place] [address] PCP - General Internal Medicine 09/04/24 Additional Source Comments The information contained in this document represents components of the legal health record. It is not the complete legal health record.[facility]
== END 2025-07-25 09:49 | disposition home or self-care (01) ==
LOC: HO.HCS 08:58
PROVIDERS: PCP Internal Medicine; Visit Provider Internal Medicine
DX: Z95.3 Presence of xenogenic heart valve (principal); Z98.890 Other specified postprocedural states; Z86.79 Personal history of other diseases of the circulatory system; Z01.810 Encounter for preprocedural cardiovascular examination
CPT/HCPCS: 93010; 99214

== ENCOUNTER → 2025-07-25 08:58 | Outpatient (BNVA) | payer BC, SELFPAY | PROVIDERS: PCP Internal Medicine; Visit Provider Internal Medicine | DX: Z01.810 Encounter for preprocedural cardiovascular examination (principal); Z95.3 Presence of xenogenic heart valve | CPT/HCPCS: 93005 ==